=== PATIENT | male | born 1975 | race African-American/Black ===

== ENCOUNTER 2017-02-01 12:02 | Emergency (ER) | payer SELFPAY ==
[2017-02-01 12:28] LABS: Hematocrit 43 % (42-52); Hemoglobin 14.1 g/dl (14.0-18.0); Mean Corpuscular HGB Conc 33 g/dl (31-36); Mean Corpuscular Hemoglobin 27 pg (27-31); Mean Corpuscular Volume 83 fL (80-94); Mean Platelet Volume 7 um3 (7.4-10.4); Red Blood Count 5.22 10^6/ul (4.0-5.4); Red Cell Distribution Width 14 % (10.5-15); White Blood Count 6.2 10^3/ul (3.5-10.8)
[2017-02-01 12:42] LABS: ALT 54 U/L (7-52); AST 52 U/L (13-39); Albumin 3.9 g/dL (3.2-5.2); Alkaline Phosphatase 110 U/L (34-104); Anion Gap 6 mmol/L (2-11); Blood Urea Nitrogen 15 mg/dL (6-24); CO2 Carbon Dioxide 28 mmol/L (22-32); Calcium 9.4 mg/dL (8.6-10.3); Chloride 100 mmol/L (101-111); EGFR Non-African American 70.8 (>60); Globulin 4.7 g/dL (2-4); Glucose 146 mg/dL (70-100); Potassium 3.5 mmol/L (3.5-5.0); Sodium 134 mmol/L (133-145); Total Protein 8.6 g/dL (6.4-8.9)
[2017-02-01 13:17] LABS: Acetaminophen < 15 mcg/mL; Alcohol < 10 mg/dL (<10); Salicylate < 2.50 mg/dL (<30)
[2017-02-01 13:25] LABS: TSH (Thyroid Stimulating Horm) 0.49 mcIU/mL (0.34-5.60)
--- NOTE | 2017-02-01 13:40 | RAD ---
INDICATION: Overdose, evaluate for aspiration. COMPARISON: There are no prior studies available for comparison. TECHNIQUE: A portable view of the chest was obtained. FINDINGS: Cardiac and mediastinal contours appear to be within normal limits. The lungs are clear. No pleural effusion is seen. IMPRESSION: NO EVIDENCE FOR ACUTE DISEASE.
[2017-02-01 15:21] LABS: Urine Bacteria Absent (Absent); Urine Bilirubin Negative (Negative); Urine Glucose Negative (Negative); Urine Nitrite Negative (Negative)
[2017-02-01 15:43] LABS: Benzodiazepine Urine Screen None Detected (None Detect)
[2017-02-01 16:56] VITALS: BP 106/63
--- NOTE | 2017-02-10 14:39 | ED ---
Ernie Bailey Auryana, scribed for Sheldon Pereira MD on 02/01/17 at 1210 . Substance Abuse/Use - HPI Summary HPI Summary: 41 year old male BIBA s/p overdose. Patient reports that he had a "bad reaction to some stuff" - states that he bought heroin from a different supplier. He reports that he's been using for a few years. [employer] Narcan 2 mg intranasal by EMS. He denies any trouble breathing. He denies any SI or suicide attempt. PMHx is significant for IVDA. SHx is significant for heroin, and tobacco use. He currently lives with his . - History Of Current Complaint Stated Complaint: OVERDOSE Time Seen by Provider: 02/01/17 12:07 Hx Obtained From: Patient Onset/Duration of Drug/ETOH Abuse: Years - few years Ingestion History: Type/Name Of Drug Overdose Characteristics: IV Timing Of Abuse: Binge Use Severity Initially: Moderate Severity Currently: Moderate Character: Lethargic Associated Signs And Symptoms: Negative - Allergies/Home Medications Allergies/Adverse Reactions: Allergies Allergy/AdvReac Type Severity Reaction Status Date / Time No Known Allergies Allergy Verified 09/30/15 13:31 Home Medications: Home Medications Unobtainable [Unobtainable] 02/01/17 [History Confirmed 02/01/17] PMH/Surg Hx/FS Hx/Imm Hx Previously Healthy: No - abscess - unsure if IVDA related or not - Family History Known Family History: Positive: Cardiac Disease - Social History Lives: With Family Alcohol Use: None Hx Substance Use: Yes Substance Use Type: Reports: Marijuana Substance Use Comment - Amount & Last Used: multiple times a day Hx Tobacco Use: Yes Smoking Status (MU): Light Every Day Tobacco Smoker Review of Systems Constitutional: Other - heroin OD Negative: Fever, Chills Eyes: Negative Negative: Erythema ENT: Negative Negative: Sore Throat Cardiovascular: Negative Negative: Chest Pain Respiratory: Negative Negative: Shortness Of Breath, Cough Gastrointestinal: Negative Negative: Abdominal Pain, Vomiting, Nausea Genitourinary: Negative Negative: dysuria, hematuria Musculoskeletal: Negative Negative: Myalgia, Edema Skin: Negative Negative: Rash Neurological: Negative, Other - NO DIZZINESS Psychological: Normal All Other Systems Reviewed And Are Negative: Yes Physical Exam - Summary Physical Exam Summary: Constitutional: Well-developed, Well-nourished, Alert. (-) Distressed Skin: Warm, Dry HENT: Normocephalic; Atraumatic Eyes: Conjunctiva normal. Pupils are pin point. Neck: Musculoskeletal ROM normal neck. (-) JVD, (-) Stridor, (-) Tracheal deviation Cardio: Rhythm regular, rate normal, Heart sounds normal; Intact distal pulses; The pedal pulses are 2+ and symmetric. Radial pulses are 2+ and symmetric. (-) Murmur Pulmonary/Chest wall: Effort normal. (-) Respiratory distress, (-) Wheezes, (-) Rales Abd: Soft, (-) Tenderness, (-) Distension, (-) Guarding, (-) Rebound Musculoskeletal: (-) Edema Lymph: (-) Cervical adenopathy Neuro: Alert, Oriented x3 Psych: Mood and affect Normal Triage Information Reviewed: Yes Vital Signs Reviewed: Yes Diagnostics - Laboratory Result Diagrams: 02/01/17 12:12 02/01/17 12:12 Lab Statement: Any lab studies that have been ordered have been reviewed, and results considered in the medical decision making process. - Radiology CXR Xray Interpretation: No Acute Changes Radiology Interpretation Completed By: Radiologist Re-Evaluation - Re-Evaluation First Eval Re-Evaluation Time: 16:29 - PATIENT IS ALERT AND ORIENTED WITH GOOD RESPIRATORY EFFORT. Change: Improved Course/Dx - Course Assessment/Plan: 41 year old male BIBA s/p overdose. Patient reports that he had a "bad reaction to some stuff" - states that he bought heroin from a different supplier. He reports that he's been using for a few years. [employer] Narcan 2 mg intranasal by EMS. He denies any trouble breathing. He denies any SI or suicide attempt. PMHx is significant for IVDA. SHx is significant for heroin, and tobacco use. He currently lives with his . DDx: heroin OD, clinically obvious; aspiration PNA. Blood work shows chloride 100, glucose 146, AST 52, ALT 54, Alk. Phos. 110, Globin 4.7, and Albumin/globin ration 0.8, and TSH 0.49. Blood toxicology is negative for salicylates, acetaminophen, and alcohol. UA is contaminated with 3+ WBC, 3+ leukocyte esterase, and (+) urobilinogen. UA toxicology is (+) for opiates, cocaine, and cannabinoids. CXR is negative. On re-evaluation, patient is alert and oriented with good respiratory effort. Patient is agreeable to plan. He will be given follow up with [facility] and discharged home. - Diagnoses Differential Diagnosis/HQI/PQRI: Positive: Other - heroin OD, clinically obvious ; aspiration PNA Provider Diagnoses: Heroin overdose Discharge - Discharge Plan Condition: Stable Disposition: HOME Patient Education Materials: Narcotic Abuse (ED), Opioid Overdose (ED) Referrals: [facility] [Outside] [facility] [Outside] (PLEASE FOLLOW UP IN 3-5 DAYS.) Additional Instructions: RETURN TO THE EMERGENCY DEPARTMENT FOR CHANGING OR WORSENING SYMPTOMS The documentation as recorded by the Ernie jerez Auryana accurately reflects the service I personally performed and the decisions made by me, Sheldon Pereira MD.
== END 2017-02-01 16:39 | disposition home or self-care (01) ==
LOC: ED 12:02
DX: T40.1X4A Poisoning by heroin, undetermined, initial encounter (principal); Y92.89 Other specified places as the place of occurrence of the external cause
CPT/HCPCS: 36415; 71010; 80053; 80307; 80320; 80329; 81003; 81015; 84443; 85025; 87086; 99282; G0480

== ENCOUNTER 2018-05-03 13:12 | Emergency (ER) | payer SELFPAY ==
[2018-05-03] MEDS ORDERED: NS 0.9% 1000 ML* 2,000 ML IV ONE (13:41)
--- NOTE | 2018-05-03 15:20 | ED ---
Substance Abuse/Use - HPI Summary HPI Summary: Patient is a 42 y/o M BIBA w/ c/o substance abuse [employer]. He states he injected a substance which he thought was heroin but currently believes it not to have been heroin. EMS gave 4 narcan with no effect. In the room, patient is restless , denies any other Sx. He denies chest pain and SOB. On triage, pain is denied, nothing is noted to aggravate/alleviate Sx. Home medications and allergies are reviewed. - History Of Current Complaint Chief Complaint: EDOverdose Stated Complaint: OVERDOSE Time Seen by Provider: 05/03/18 13:26 Hx Obtained From: Patient Onset/Duration of Drug/ETOH Abuse: Hours Ingestion History: Type/Name Of Drug - unsure, thought it was heroin Overdose Characteristics: IV Severity Currently: None - pain denied Character: Other - restless Aggravating Factor(s): Nothing Alleviating Factor(s): Nothing Associated Signs And Symptoms: Other: - restless, no chest pain, no SOB - Allergies/Home Medications Allergies/Adverse Reactions: Allergies Allergy/AdvReac Type Severity Reaction Status Date / Time No Known Allergies Allergy Verified 09/30/15 13:31 PMH/Surg Hx/FS Hx/Imm Hx Sensory History: Denies: Hx Legally Blind, Hx Deafness Opthamlomology History: Denies: Hx Legally Blind EENT History: Denies: Hx Deafness Infectious Disease History: No Infectious Disease History: Denies: Traveled Outside the [place] in Last 30 Days - Family History Known Family History: Positive: Cardiac Disease - Social History Alcohol Use: None Hx Substance Use: Yes Substance Use Type: Reports: Heroin, Marijuana Substance Use Comment - Amount & Last Used: multiple times a day Hx Tobacco Use: Yes Smoking Status (MU): Current Every Day Smoker Review of Systems Positive: Other - substance abuse Negative: Chest Pain Negative: Shortness Of Breath All Other Systems Reviewed And Are Negative: Yes Physical Exam - Summary Physical Exam Summary: Appearance: Well appearing, restless Skin: warm, dry, reflects adequate perfusion Head/face: normal Eyes: EOMI, KENIA ENT: normal Neck: supple, non-tender Respiratory: CTA, breath sounds present Cardiovascular: RRR, pulses symmetrical Abdomen: non-tender, soft Bowel: present Musculoskeletal: normal, strength/ROM intact Neuro: normal, sensory motor intact, A&Ox3 Triage Information Reviewed: Yes Vital Signs On Initial Exam: Initial Vitals Temp Pulse Resp BP Pulse Ox 99.1 F 113 29 0/0 100 05/03/18 13:14 05/03/18 13:14 05/03/18 13:14 05/03/18 13:14 05/03/18 13:14 Vital Signs Reviewed: Yes Diagnostics - Vital Signs Vital Signs Temp Pulse Resp BP Pulse Ox 05/03/18 14:24 96 136/80 95 05/03/18 13:29 23 05/03/18 13:24 148/76 05/03/18 13:23 21 148/76 05/03/18 13:14 99.1 F 113 29 0/0 100 - Laboratory Result Diagrams: 05/03/18 15:14 05/03/18 15:14 Lab Statement: Any lab studies that have been ordered have been reviewed, and results considered in the medical decision making process. - EKG 1354 Cardiac Rate: NL - rate of 68 BPM EKG Rhythm: Sinus Rhythm Summary of EKG Findings: no acute changes Re-Evaluation - Re-Evaluation First Eval Re-Evaluation Time: 15:59 Comment: Patient eloped from ED Course/Dx - Course Course Of Treatment: Patient is a 42 y/o M BIBA w/ c/o substance abuse [employer]. He states he injected a substance which he thought was heroin but currently believes it not to have been heroin. EMS gave 4 narcan with no effect. In the room, patient is restless, denies any other Sx. He denies chest pain and SOB. On physical exam, patient is noted to be restless. EKG showed sinus rhythm with rate of 81 BPM with no acute changes. Bloodwork was obtained. 1559 - Patient has eloped from the ED. Dx of substance abuse. - Diagnoses Differential Diagnosis/HQI/PQRI: Positive: Alcohol Abuse, Drug Abuse Provider Diagnoses: Substance abuse Discharge - Sign-Out/Discharge Documenting (check all that apply): Patient Departure - elopment - Discharge Plan Condition: Good Disposition: ELOPEMENT Referrals: No Primary Care Phys,NOPCP [Primary Care Provider] - - Billing Disposition and Condition Condition: GOOD Disposition: Elopement - Attestation Statements Document Initiated by Scribe: Yes Documenting Scribe: Amandeep Flynn Provider For Whom Scribe is Documenting (Include Credential): Bj Patel MD Scribe Attestation: I, Amandeep Flynn , scribed for Bj Patel MD on 05/03/18 at 1632. Scribe Documentation Reviewed: Yes Provider Attestation: The documentation as recorded by the scribe, Amandeep Flynn accurately reflects the service I personally performed and the decisions made by me, Bj Patel MD
[2018-05-03 15:30] VITALS: BP 117/71
[2018-05-03 15:34] LABS: ABS Basophils 0 10^3/ul (0-0.2); ABS Eosinophils 0.1 10^3/ul (0-0.6); ABS Lymphocytes 1.2 10^3/ul (1.0-4.8); ABS Monocytes 0.5 10^3/ul (0-0.8); ABS Neutrophils 3.4 10^3/ul (1.5-7.7); ABS Nucleated RBC 0 10^3/ul; Eosinophil % 1.6 % (0-6); Hematocrit 42 % (42-52); Lymphocyte % 23.2 % (25-47); Mean Corpuscular HGB Conc 33 g/dl (31-36); Mean Corpuscular Hemoglobin 27 pg (27-31); Mean Corpuscular Volume 81 fL (80-94); Mean Platelet Volume 7.3 um3 (7.4-10.4); Nucleated Red Blood Cells % 0.2; Platelet Count 268 10^3/ul (150-450); Red Blood Count 5.17 10^6/ul (4.00-5.40); Red Cell Distribution Width 13 % (10.5-15); White Blood Count 5.2 10^3/ul (3.5-10.8)
[2018-05-03 16:00] LABS: EGFR Non-African American 104.1 (>60)
== END 2018-05-03 16:12 | disposition home or self-care (01) ==
LOC: ED 13:12
DX: Z53.21 Procedure and treatment not carried out due to patient leaving prior to being seen by health care provider (principal)
CPT/HCPCS: 36415; 80053; 80320; 80329; 82550; 83605; 84484; 85025; 93005; 96360; 99283; G0480

== ENCOUNTER 2019-02-05 11:08 | Emergency (ER) | payer OTHER ==
[2019-02-05] MEDS ORDERED: Ketorolac INJ* 30 MG/ML 1 ML VIAL IV ONE (12:14)
--- NOTE | 2019-02-05 12:16 | ED ---
Complex/Multi-Sys Presentation - HPI Summary HPI Summary: This patient is a 43 year old M presenting to [facility] with a chief complaint of severe neck pain since 10 days ago. Pt states he slept incorrectly with a crooked neck 10 days ago and woke up with the neck pain. He says he thought the pain would go away, but has been worsening since then. The neck pain started on the left side, then radiated to the right side and eventually to the shoulders and arms. Pt denies previous neck pain. The patient rates the pain 10/10 in severity, cramping, radiating down arms a/w paresthesias. Pt reports heroin use daily and is a smoker. Pt denies lower extremity pain, fever, chills, trauma. He does not have any allergies to medications. Pt has hx of hepatitis. Of note patient's girlfriend was seen injecting heroin into his right AC in the waiting room. - History Of Current Complaint Chief Complaint: EDNeckComplaint Hx Obtained From: Patient Onset/Duration: Sudden Onset, Lasting Days - 10, Still Present, Worse Since - 10 days ago Timing: Constant Severity Currently: Severe Severity Initially: Moderate Location: Radiates To: - shoulders and arms Aggravating Factor(s): nothing Alleviating Factor(s): nothing Associated Signs And Symptoms: Positive: Other - positive - severe neck pain that radiates to the shoulders and arms. negative - lower extremity pain, chills , trauma. Negative: Fever - Allergies/Home Medications Allergies/Adverse Reactions: Allergies Allergy/AdvReac Type Severity Reaction Status Date / Time No Known Allergies Allergy Verified 02/05/19 11:14 Home Medications: Home Medications NK [No Home Medications Reported] 02/05/19 [History Confirmed 02/05/19] PMH/Surg Hx/FS Hx/Imm Hx Previously Healthy: No Sensory History: Denies: Hx Legally Blind, Hx Deafness Opthamlomology History: Denies: Hx Legally Blind EENT History: Denies: Hx Deafness, Hx Auditory Problems Psychiatric History: Reports: Hx Substance Abuse - daily heroin use - Surgical History Surgical History: Yes Surgery Procedure, Year, and Place: tonsilectomy Infectious Disease History: No Infectious Disease History: Denies: Traveled Outside the [place] in Last 30 Days - Family History Known Family History: Positive: Cardiac Disease - Social History Alcohol Use: None Hx Substance Use: Yes Substance Use Type: Reports: Heroin - daily, Marijuana Substance Use Comment - Amount & Last Used: multiple times a day Hx Tobacco Use: Yes Smoking Status (MU): Current Every Day Smoker Review of Systems Constitutional: Other - negative - any trauma Negative: Fever, Chills Musculoskeletal: Other - positive - severe neck pain that radiates to the shoulders and arms. negative - lower extremity pain All Other Systems Reviewed And Are Negative: Yes Physical Exam - Summary Physical Exam Summary: Constitutional: Well-developed, Well-nourished, Alert. (-) Distressed Skin: Warm, Dry. Bilateral upper extremity with multiple tract vizcarra HENT: Normocephalic; Atraumatic Eyes: Conjunctiva normal Neck: Right greater than left cervical paraspinal no-midline tenderness. Musculoskeletal ROM normal neck. (-) JVD, (-) Stridor, (-) Nuchal rigidity Cardio: Rhythm regular, rate normal, Heart sounds normal; Intact distal pulses; Radial pulses are 2+ and symmetric. (-) Murmur Pulmonary/Chest wall: Effort normal. 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 SILT. Psych: Mood and affect Normal Triage Information Reviewed: Yes Vital Signs On Initial Exam: Initial Vitals Temp Pulse Resp BP Pulse Ox 96.7 F 81 18 121/92 97 02/05/19 11:10 02/05/19 11:10 02/05/19 11:10 02/05/19 11:10 02/05/19 11:10 Vital Signs Reviewed: Yes Diagnostics - Vital Signs Vital Signs Temp Pulse Resp BP Pulse Ox 02/05/19 11:10 96.7 F 81 18 121/92 97 - Laboratory Result Diagrams: 02/05/19 13:20 02/05/19 13:20 Lab Statement: Any lab studies that have been ordered have been reviewed, and results considered in the medical decision making process. - Radiology CERVICAL MRI Radiology Interpretation Completed By: Radiologist Summary of Radiographic Findings: IMPRESSION: 1. 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 spinal canal stenosis. The cervical spinal cord is not increased in signal. 2. An early prevertebral abscess/phlegmon extends from C2 through at least T2. The. inferior margin is excluded from the [id number]. A chest CT is recommended to exclude. mediastinal inflammation. 3. There is no definite epidural abscess. Scattered ventral and dorsal dural enhancement. is seen throughout most of the cervical spine but is most prominent ventrally from C5 to. T1. 4. The posterior paraspinal muscles are edematous from C3-C4 through at least T1-T2. 5. Varying degrees of multilevel spondylosis as above. THIS REPORT WAS REVIEWED BY DR. VIVAR. Re-Evaluation - Re-Evaluation First Eval Re-Evaluation Time: 16:09 Comment: MRI is concerning for C6 fracture, will apply C-collar and talk with neurosurgery. Second Eval Re-Evaluation Time: 16:22 Comment: No neurological changes, patient reports minor parathesia in both arms. Complex Multi-Symp Course/Dx Course Of Treatment: 43-year-old male with a history of IV drug use, hepatitis C presents with severe right-sided neck pain. - Physical exam uncomfortable male, tenderness to palpation of right paraspinal cervical spine. Minimal midline tenderness. Reporting intermittent paresthesias to bilateral hands. Patient is high risk for infectious process such as osteomyelitis, spinal epidural abscess. Will check basic labs including ESR and CRP and likely an MRI cervical spine - Diagnoses Provider Diagnoses: Discitis, IV drug abuse, Neck pain - Physician Notifications Discussed Care Of Patient With: Jey Delgado Time Discussed With Above Provider: 16:15 Instructed by Provider To: Other - 1615 - Patient's case was discussed with Dr. Delgado was consulted on patient's case. Dr. Delgado states that he is going out of town and as a result the patient will need to be transferred. Transfer process initiated at this time. 1636 - Dr. Leblanc, radiologist, conveys reading of MRI. 1647 - [facility] neurosurgery, Dr. Grady Garcia was consulted on the patient's case. Dr. Garcia declines patient for transfer and recommends [facility]. 1707 - [facility] transfer center was contacted , they will call back with bed assignment. 1721 - [facility] called back, discussed case with Dr. Cha, neurosurgery, patient is accepted by Dr. Cha for transfer - Critical Care Time Critical Care Time: 30-74 min - 30 minutes Discharge - Sign-Out/Discharge Documenting (check all that apply): Patient Departure - transfer - Discharge Plan Condition: Stable Disposition: TRANS HIGHER LVL OF CARE FAC Referrals: No Primary Care Phys,NOPCP [Primary Care Provider] - - Billing Disposition and Condition Condition: STABLE Disposition: Trans Higher Lvl of Care Fac - Attestation Statements Document Initiated by Scribe: Yes Documenting Scribe: Figueroa Flynn Provider For Whom Nithin is Documenting (Include Credential): Dr. Iwona Vivar MD Scribe Attestation: I, Figueroa Mao and Amandeep Flynn, scribed for Dr. Iwona Vivar MD on 02/05 at 1816. Scribe Documentation Reviewed: Yes Provider Attestation: The documentation as recorded by the scribe, Figueroa Flynn accurately reflects the service I personally performed and the decisions made by me, Dr. Iwona Vivar MD Status of Scribe Document: Viewed
[2019-02-05] MEDS ORDERED: Lidocaine PATCH 5%* 1 PATCH TRANSDERM SCH (12:30)
[2019-02-05 13:31] LABS: ABS Monocytes 0.5 10^3/ul (0-0.8); ABS Neutrophils 4.9 10^3/ul (1.5-7.7); Eosinophil % 0.3 %; Hematocrit 42 % (42-52); Hemoglobin 13.9 g/dL (14.0-18.0); Lymphocyte % 15.2 %; Mean Corpuscular HGB Conc 33 g/dL (31-36); Mean Corpuscular Hemoglobin 27 pg (27-31); Mean Corpuscular Volume 82 fL (80-94); Mean Platelet Volume 7.2 fL (7.4-10.4); Platelet Count 305 10^3/uL (150-450); Red Blood Count 5.09 10^6 /uL (4.18-5.48); Red Cell Distribution Width 13 % (10-15); White Blood Count 6.4 10^3/uL (3.5-10.8)
[2019-02-05 13:47] LABS: Albumin 3.5 g/dL (3.2-5.2); Albumin/Globulin Ratio 0.5 (1-3); BUN/Creatinine Ratio 13.9 (8-20); CRP High Sensitivity 23.73 mg/L (<2.00); Calcium 10.1 mg/dL (8.6-10.3); EGFR African American 130.8 (>60); EGFR Non-African American 108.1 (>60); Globulin 6.5 g/dL (2-4); Potassium 4.5 mmol/L (3.5-5.0); Total Bilirubin 1.3 mg/dL (0.2-1.0)
[2019-02-05] MEDS ORDERED: Gadoteridol* (CONTRAST) 279.3 MG/ML 10 ML IV ONE (15:55)
[2019-02-05] MEDS ORDERED: Vancomycin(*) 1,500 MG in NS 0.9% 250 ML* 250 ML IVPB ONE (16:19)
[2019-02-05 18:38] VITALS: BP 126/81
[2019-02-05 20:34] LABS: Erythrocyte Sed Rate 11 mm/Hr (0-14)
[2019-02-05] MEDS ORDERED: Lidocaine Patch REMOVE* 1 NOTE MISC PATCH OFF SCH (21:00)
== END 2019-02-05 18:36 | disposition short-term general hospital (02) ==
LOC: ED 11:08
DX: M46.42 Discitis, unspecified, cervical region (principal); F19.10 Other psychoactive substance abuse, uncomplicated; F17.210 Nicotine dependence, cigarettes, uncomplicated
CPT/HCPCS: 36415; 72156; 80053; 85025; 85652; 86141; 87040; 96365; 96366; 96375; 99285; A9270-GY; A9579; J1885; J3370

== ENCOUNTER 2019-02-13 23:46 | Emergency (ER) | payer OTHER ==
--- NOTE | 2019-02-14 03:29 | ED ---
Complex/Multi-Sys Presentation - HPI Summary HPI Summary: Patient is a 43 y/o M presenting to ED for IV antibiotics and physical therapy. He had recent spinal fusion and evacuation of cervical epidural abscess at [place]. Patient reports that there were plans for him to start physical therapy and to receive antibiotics over the course of the next few weeks at a mcc in [place]. However, patient states that he wanted to do this closer to home. Patient left [place] AMA and presents to [facility] for IV antibiotics, physical therapy, post-op management. He states he left [place] around 02/13/19. Last dose of antibiotics was 02/13/19. Dr. Cha is his neurosurgeon. Patient does not have a PICC line. Male patient service coordinator is present. Pain is denied. Home medications and allergies is reviewed. - History Of Current Complaint Chief Complaint: EDBackInjuryPain Time Seen by Provider: 02/14/19 03:10 Hx Obtained From: Patient Onset/Duration: Still Present Timing: Constant Severity Currently: None Location: Negative Associated Signs And Symptoms: Positive: Other - patient denies pain, present for post-op management - Allergies/Home Medications Allergies/Adverse Reactions: Allergies Allergy/AdvReac Type Severity Reaction Status Date / Time No Known Allergies Allergy Verified 02/14/19 03:17 PMH/Surg Hx/FS Hx/Imm Hx Endocrine/Hematology History: Denies: Hx Diabetes Cardiovascular History: Denies: Hx Pacemaker/ICD History: Denies: Hx Renal Disease Sensory History: Denies: Hx Legally Blind, Hx Deafness, Hx Hearing Aid Opthamlomology History: Denies: Hx Legally Blind Psychiatric History: Reports: Hx Substance Abuse - daily heroin use Denies: Hx Panic Disorder - Surgical History Surgery Procedure, Year, and Place: tonsilectomy Infectious Disease History: Yes Infectious Disease History: Denies: Traveled Outside the [place] in Last 30 Days - Family History Known Family History: Positive: Cardiac Disease - Social History Alcohol Use: None Hx Substance Use: Yes Substance Use Type: Reports: Heroin, Marijuana Substance Use Comment - Amount & Last Used: LAST hEROIN & MAIJUANA 02/07/19 Hx Tobacco Use: Yes Smoking Status (MU): Current Every Day Smoker Review of Systems Constitutional: Other - patient presents for post op management, IV antibiotics , physical therapy Negative: Fever - on vitals, temp 99.7 F Negative: Myalgia All Other Systems Reviewed And Are Negative: Yes Physical Exam - Summary Physical Exam Summary: VITAL SIGNS: Reviewed. GENERAL: Patient is a well-developed and nourished male who is lying comfortable in the stretcher. Patient is not in any acute respiratory distress. HEAD AND FACE: No signs of trauma. No ecchymosis, hematomas or skull depressions. No sinus tenderness. EYES: PERRLA, EOMI x 2, No injected conjunctiva, no nystagmus. EARS: Hearing grossly intact. Ear canals and tympanic membranes are within normal limits. MOUTH: Oropharynx within normal limits. NECK: Supple, trachea is midline, no adenopathy, no JVD, no carotid bruit, no c- spine tenderness, neck with full ROM CHEST: Symmetric, no tenderness at palpation LUNGS: Clear to auscultation bilaterally. No wheezing or crackles. CVS: Regular rate and rhythm, S1 and S2 present, no murmurs or gallops appreciated. ABDOMEN: Soft, non-tender. No signs of distention. No rebound no guarding, and no masses palpated. Bowel sounds are normal. EXTREMITIES: FROM in all major joints, no edema, no cyanosis or clubbing. NEURO: Alert and oriented x 3. No acute neurological deficits. Speech is normal and follows commands. Neuro exam is intact. SKIN: Dry and warm; Patient has jeff at the back of his neck, incision seems to be clean without signs of infection. He has dressing over right upper arm where PICC line used to be. Triage Information Reviewed: Yes Vital Signs On Initial Exam: Initial Vitals Temp Pulse Resp BP Pulse Ox 99.7 F 109 18 160/99 99 02/13/19 23:52 02/13/19 23:52 02/13/19 23:52 02/13/19 23:52 02/13/19 23:52 Vital Signs Reviewed: Yes Diagnostics - Vital Signs Vital Signs Temp Pulse Resp BP Pulse Ox 02/14/19 01:46 98.9 F 94 16 156/95 99 02/13/19 23:52 99.7 F 109 18 160/99 99 - Laboratory Lab Statement: Any lab studies that have been ordered have been reviewed, and results considered in the medical decision making process. Re-Evaluation - Re-Evaluation First Eval Re-Evaluation Time: 03:53 Change: Unchanged Comment: [facility] was contacted at this time. Spoke with Melvin from transfer center at [facility]. Patient's case was discussed, Melvin states that neurosurgery will be contacted and it will be determined how to proceed. Second Eval Re-Evaluation Time: 04:23 Change: Unchanged Comment: Melvin called back and connected Dr. Kent with Dr. Cha. Third Eval Re-Evaluation Time: 04:31 Change: Unchanged Comment: Informed patient of consult with Dr. Cha. Patient is agreeable with transfer back to [facility]. Complex Multi-Symp Course/Dx Course Of Treatment: Patient is a 43 y/o M presenting to ED for IV antibiotics and physical therapy. He had recent spinal fusion and evacuation of cervical epidural abscess at [place]. Patient reports that there were plans for him to start physical therapy and to receive antibiotics over the course of the next few weeks at a mcc in [place]. However, patient states that he wanted to do this closer to home. Patient left [facility] and presents to [facility] for IV antibiotics, physical therapy, post-op management. He states he left [place] around 02/13/19. Last dose of antibiotics was 02/13/19. Dr. Cha is his neurosurgeon. Patient does not have a PICC line. On physical exam , patient is noted to have jeff at the back of the neck, incision seems clean without signs of infection. Neuro exam is intact. Patient has dressing over right upper arm where PICC line was removed. Patient's case was discussed with Dr. Cha to determine if patient can be transferred back to [facility]. Dr. Cha is agreeable with accepting the patient back to his care at [facility]. Patient is agreeable with transfer back to [facility]. - Diagnoses Provider Diagnoses: Abscess in epidural space of cervical spine - Physician Notifications Discussed Care Of Patient With: Manny Cha Time Discussed With Above Provider: 04:23 Instructed by Provider To: Other - Patient's case was discussed with Dr. Cha. Dr. Cha is agreeable with accepting the patient back to his care at [facility]. Discharge - Sign-Out/Discharge Documenting (check all that apply): Patient Departure - transfer to [facility] Patient Received Moderate/Deep Sedation with Procedure: No - Discharge Plan Condition: Stable Disposition: TRANS HIGHER LVL OF CARE FAC Referrals: No Primary Care Phys,NOPCP [Primary Care Provider] - - Billing Disposition and Condition Condition: STABLE Disposition: Trans Higher Lvl of Care Fac - Attestation Statements Document Initiated by Nithin: Yes Documenting Scribe: KIRTI JACINTO Provider For Whom Nithin is Documenting (Include Credential): KOBY KENT MD Scribe Attestation: IKIRTI, scribed for KOBY KENT MD on 02/14/19 at 0457. Scribe Documentation Reviewed: Yes Provider Attestation: The documentation as recorded by the KIRTI jerez accurately reflects the service I personally performed and the decisions made by me, KOBY KENT MD Status of Scribe Document: Viewed
[2019-02-14 06:00] VITALS: BP 136/92
== END 2019-02-14 05:58 | disposition short-term general hospital (02) ==
LOC: ED 23:46
DX: G06.1 Intraspinal abscess and granuloma (principal); F17.210 Nicotine dependence, cigarettes, uncomplicated
CPT/HCPCS: 99284

== ENCOUNTER 2019-02-19 15:05 | Emergency (ER) | payer OTHER ==
[2019-02-19 15:14] VITALS: BP 153/90
--- NOTE | 2019-02-19 15:15 | ED ---
Substance Abuse/Use - HPI Summary HPI Summary: A 43 y/o male brought in by [facility] ambulance presents to [facility] with a chief complaint of a heroin overdose. He claims that he snorted it. He was reportedly unresponsive and was given 8mg Narcan en route. The patient denies any fevers, numbness or weakness. 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 On arrival to ED requesting to leave AMA. - History Of Current Complaint Stated Complaint: OVERDOSE PER EMS Time Seen by Provider: 02/19/19 15:06 Hx Obtained From: Patient, EMS Onset/Duration of Drug/ETOH Abuse: Minutes Overdose Characteristics: Other - snort Timing Of Abuse: Binge Use Severity Initially: Mild Severity Currently: Mild Aggravating Factor(s): Nothing Alleviating Factor(s): Nothing Associated Signs And Symptoms: Other: - negative: numbness, weakness - Allergies/Home Medications Allergies/Adverse Reactions: Allergies Allergy/AdvReac Type Severity Reaction Status Date / Time No Known Allergies Allergy Verified 02/14/19 03:17 PMH/Surg Hx/FS Hx/Imm Hx Endocrine/Hematology History: Denies: Hx Diabetes Cardiovascular History: Denies: Hx Pacemaker/ICD History: Denies: Hx Renal Disease Sensory History: Denies: Hx Legally Blind, Hx Deafness, Hx Hearing Aid Opthamlomology History: Denies: Hx Legally Blind Psychiatric History: Reports: Hx Substance Abuse - daily heroin use Denies: Hx Panic Disorder - Surgical History Surgery Procedure, Year, and Place: tonsilectomy - Family History Known Family History: Positive: Cardiac Disease - Social History Alcohol Use: None Hx Substance Use: Yes Substance Use Type: Reports: Heroin, Marijuana Substance Use Comment - Amount & Last Used: LAST hEROIN & MAIJUANA 02/07/19 Hx Tobacco Use: Yes Smoking Status (MU): Current Every Day Smoker Review of Systems Negative: Fever Negative: Weakness, Numbness Psychological: Other - positive: opiate overdose All Other Systems Reviewed And Are Negative: Yes Physical Exam - Summary Physical Exam Summary: General: Well appearing, no distress HEENT: PERRL. 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 On arrival to ED, patient requesting leave AMA, patient is alert and oriented 3. Patient is AAOx4 with clear sensorium, no signs of intoxication, no SI/HI, a normal gait and normal speech pattern and capacity to refuse care. I explained to the patient the risks of leaving AMA to include , respiratory arrest, disability, and loss of function. I had an extensive conversation with the patient regarding return precautions and encouraged them to return sooner for any worsening condition, new symptoms or ANY other concerns. - Diagnoses Provider Diagnoses: Opiate overdose, Left against medical advice Discharge - Sign-Out/Discharge Documenting (check all that apply): Patient Departure - AMA Patient Received Moderate/Deep Sedation with Procedure: No - Discharge Plan Condition: Fair Disposition: AGAINST MEDICAL ADVICE Patient Education Materials: Opioid Use Disorder (ED) Referrals: No Primary Care Phys,NOPCP [Primary Care Provider] - Additional Instructions: You were seen in the emergency department after opiate overdose. You do get Narcan to save your life and you may need a second dose. You're leaving AGAINST MEDICAL ADVICE however if he reconsiders please come back to emergency department. - Billing Disposition and Condition Condition: FAIR Disposition: Against Medical Advice - Attestation Statements Document Initiated by Nithin: Yes Documenting Scribe: Tc Valentine Provider For Whom Nithin is Documenting (Include Credential): Iwona Vivar MD Scribe Attestation: I, Tc Valentine, scribed for Iwona Vivar MD on 02/19/19 at 1554. Scribe Documentation Reviewed: Yes Provider Attestation: The documentation as recorded by the Tc jerez accurately reflects the service I personally performed and the decisions made by me, Iwona Vivar MD Status of Scribe Document: Viewed
== END 2019-02-19 15:23 | disposition left against medical advice (07) ==
LOC: ED 15:05
DX: T40.1X1A Poisoning by heroin, accidental (unintentional), initial encounter (principal); Y92.9 Unspecified place or not applicable; F17.210 Nicotine dependence, cigarettes, uncomplicated; Z53.21 Procedure and treatment not carried out due to patient leaving prior to being seen by health care provider
CPT/HCPCS: 99282

== ENCOUNTER 2019-08-21 13:48 | Emergency (ER) | payer MEDICAID ==
[2019-08-21] MEDS ORDERED: Vancomycin(*) 1,500 MG in NS 0.9% 250 ML* 250 ML IVPB ONE (13:59)
[2019-08-21] MEDS ORDERED: HYDROmorphone INJ1* 1 MG/ML SYRINGE IV SLOW PU ONE (14:00)
--- NOTE | 2019-08-21 14:42 | ED ---
Neck Pain - HPI Summary HPI Summary: Patient is a 44 y/o M presenting to the ED for a chief complaint of neck pain for the last week. Patient is present with his case specialist. Per his case specialist, patient had a neck CT that showed a neck infection and patient was told by his PCP to be seen at [facility]. Patient rates the neck pain as a 4/10 in severity. Patient denies fever. No aggravating or alleviating factors are reported. PMHx is significant for osteomyelitis, cervical epidural abscess, and substance abuse, but any other history is denied. PSHx is significant for tonsillectomy. Patient is a daily heroin user, and he also admits marijuana and tobacco use. - History of Current Complaint Chief Complaint: EDNeckComplaint Stated Complaint: INFECTION Time Seen by Provider: 08/21/19 13:58 Hx Obtained From: Patient, Family/Business Attorney - web operations manager Onset/Duration Of Injury/Symptoms: Days Mechanism Of Injury: No Known Trauma Timing: Constant Onset/Duration: Sudden Onset, Started days ago, Still Present Severity Initially: Moderate Severity Currently: Moderate Pain Intensity: 4 Pain Scale Used: 0-10 Numeric Aggravating Factors: Nothing Alleviating Factors: Nothing Associated Signs & Symptoms: Negative: Fever - Allergies/Home Medications Allergies/Adverse Reactions: Allergies Allergy/AdvReac Type Severity Reaction Status Date / Time No Known Allergies Allergy Verified 08/21/19 13:57 Home Medications: Home Medications NK [No Home Medications Reported] 08/21/19 [History Confirmed 08/21/19] PMH/Surg Hx/FS Hx/Imm Hx Previously Healthy: Yes Endocrine/Hematology History: Denies: Hx Diabetes Cardiovascular History: Denies: Hx Pacemaker/ICD History: Denies: Hx Renal Disease Musculoskeletal History: Reports: Other Musculoskeletal History - Osteomyelitis , cervical epidural abscess Sensory History: Denies: Hx Legally Blind, Hx Deafness, Hx Hearing Aid Opthamlomology History: Denies: Hx Legally Blind EENT History: Denies: Hx Deafness Psychiatric History: Reports: Hx Substance Abuse - daily heroin use Denies: Hx Panic Disorder - Surgical History Surgical History: Yes Surgery Procedure, Year, and Place: tonsilectomy Infectious Disease History: Yes Infectious Disease History: Reports: Hx Hepatitis - Hepatitis C Denies: Traveled Outside the [place] in Last 30 Days - Family History Known Family History: Positive: Cardiac Disease - Social History Occupation: Works From/At Home Alcohol Use: None Hx Substance Use: Yes Substance Use Type: Reports: Heroin, Marijuana Substance Use Comment - Amount & Last Used: LAST hEROIN & SHASHANK 02/07/19 Hx Tobacco Use: Yes Smoking Status (MU): Current Every Day Smoker Review of Systems Negative: Fever Positive: Myalgia - Neck All Other Systems Reviewed And Are Negative: Yes Physical Exam - Summary Physical Exam Summary: Appearance: The patient is well-nourished in no acute distress and in no acute pain. Skin: The skin is warm and dry, and skin color reflects adequate perfusion. HEENT: The head is normocephalic and atraumatic. The pupils are equal and reactive. The conjunctivae are clear and without drainage. Nares are patent and without drainage. Mouth reveals moist mucous membranes, and the throat is without erythema and exudate. The external ears are intact. The ear canals are patent and without drainage. The tympanic membranes are intact. Neck: The neck is supple with full range of motion and non-tender. There are no carotid bruits. There is no neck vein distension. Kyphosis in the cervical spine , tenderness along the midline. Respiratory: Chest is non-tender. Lungs are clear to auscultation and breath sounds are symmetrical and equal. Cardiovascular: Heart is regular rate and rhythm. There is no murmur or rub auscultated. There is no peripheral edema and pulses are symmetrical and equal. Abdomen: The abdomen is soft and non-tender. There are normal bowel sounds heard in all four quadrants and there is no organomegaly palpated. Musculoskeletal: There is no back tenderness noted. Extremities are non-tender with full range of motion. There is good capillary refill. There is no peripheral edema or calf tenderness elicited. Neurological: Patient is alert and oriented to person, place and time. The patient has symmetrical motor strength in all four extremities. Cranial nerves are grossly intact. Deep tendon reflexes are symmetrical and equal in all four extremities. Neurologically intact and ambulatory. Psychiatric: The patient has an appropriate affect and does not exhibit any anxiety or depression. Triage Information Reviewed: Yes Vital Signs On Initial Exam: Initial Vitals Temp Pulse Resp BP Pulse Ox 100 F 109 20 134/96 95 08/21/19 13:51 08/21/19 13:51 08/21/19 13:51 08/21/19 13:51 08/21/19 13:51 Vital Signs Reviewed: Yes Procedures - Sedation Patient Received Moderate/Deep Sedation with Procedure: No Diagnostics - Vital Signs Vital Signs Temp Pulse Resp BP Pulse Ox 08/21/19 13:51 100 F 109 20 134/96 95 - Laboratory Result Diagrams: 08/21/19 13:59 08/21/19 15:15 Lab Statement: Any lab studies that have been ordered have been reviewed, and results considered in the medical decision making process. Re-Evaluation - Re-Evaluation First Eval Re-Evaluation Time: 14:44 Change: Unchanged Comment: At 14:44, patients nurse states that IV access cannot be obtained, even with the aid of an ultrasound. Patient is requesting IV access via a central line. Neck Course/Dx - Course Course Of Treatment: Cesario has had a recurrence most likely of his epidural abscess. He certainly has osteomyelitis based on his CT scan and some of his hardware has been displaced. On arrival an IV was placed and blood was obtained. Lab was unable to draw blood cultures but prior to my notification antibiotics were initiated. He was given vancomycin and Dilaudid for his pain. He refused any further pain medication during his stay. Dr. Beasley reviewed the CT scan from earlier in the day and felt that his neck was most likely unstable recommended a [place] collar. Dr. Yarbrough is going out of town and recommended transfer back to [place] where he had his previous surgery. I contacted [facility] who also refused transfer the patient recommended transfer back to [place]. Dr. Amor of infectious diseases, Dr. Browning of neurosurgery and Dr. Lopez of the ED accepted transfer of the patient. - Diagnoses Provider Diagnoses: Osteomyelitis, Epidural abscess - Physician Notifications Discussed Care Of Patient With: Jey Delgado - At 14:36, Dr. Jey Delgado recommends transfer to another facility. Patient requires transfer to another facility as there are no appropriate beds at [facility] and patient would be better managed at another facility. At 14:56, [facility] declines to accept the patient as a transfer at their facility. At 15:01, I discussed with Dr. Jey Delgado who declines to admit the patient to [facility]. At 15:04 , Dr. Adalgisa Amor at [facility] agrees to accept the patient as a transfer to [facility] for a diagnosis of osteomyelitis and epidural abscess. Time Discussed With Above Provider: 14:36 Instructed by Provider To: Transfer Reason For Transfer: Patient not appropriate for [facility]., Specialist unable to manage this patient. - Critical Care Time Critical Care Time: 30-74 min Discharge ED - Sign-Out/Discharge Documenting (check all that apply): Patient Departure - Transfer - Discharge Plan Condition: Stable Disposition: TRANS HIGHER LVL OF CARE FAC [facility]errals: [facility] [Outside] - Billing Disposition and Condition Condition: STABLE Disposition: Trans Higher Lvl of Care Fac - Attestation Statements Document Initiated by Scribe: Yes Documenting Scribe: Divina Addison Provider For Whom Scribe is Documenting (Include Credential): Kb Kaminski MD Scribe Attestation: Divina Bailey scribed for Kb Kaminski MD on 08/21/19 at 1710. Scribe Documentation Reviewed: Yes Provider Attestation: The documentation as recorded by the Divina jerez accurately reflects the service I personally performed and the decisions made by , Kb Kaminski MD Status of Scribe Document: Viewed
[2019-08-21 15:38] LABS: ABS Eosinophils 0.1 10^3/ul (0-0.6); ABS Lymphocytes 1.4 10^3/ul (1.0-4.8); ABS Monocytes 0.8 10^3/ul (0-0.8); Eosinophil % 1.8 %; Hematocrit 36 % (42-52); Hemoglobin 12.3 g/dL (14.0-18.0); Mean Corpuscular HGB Conc 34 g/dL (31-36); Mean Corpuscular Hemoglobin 27 pg (27-31); Mean Corpuscular Volume 80 fL (80-94); Mean Platelet Volume 7.3 fL (7.4-10.4); Platelet Count 321 10^3/uL (150-450); Red Blood Count 4.55 10^6 /uL (4.18-5.48); Red Cell Distribution Width 14 % (10-15); White Blood Count 6.3 10^3/uL (3.5-10.8)
[2019-08-21 16:08] LABS: Albumin 3.4 g/dL (3.2-5.2); Albumin/Globulin Ratio 0.4 (1-3); BUN/Creatinine Ratio 15.3 (8-20); C Reactive Protein 21.99 mg/L (<8.01); Calcium 9.7 mg/dL (8.6-10.3); EGFR African American 119.6 (>60); EGFR Non-African American 98.8 (>60); Globulin 7.9 g/dL (2-4); Total Bilirubin 0.7 mg/dL (0.2-1.0); Total Protein 11.3 g/dL (6.4-8.9)
[2019-08-21 17:29] VITALS: BP 125/81
== END 2019-08-21 18:22 | disposition short-term general hospital (02) ==
LOC: ED 13:48
DX: M86.9 Osteomyelitis, unspecified (principal); G06.2 Extradural and subdural abscess, unspecified; M54.2 Cervicalgia; F11.20 Opioid dependence, uncomplicated; F17.210 Nicotine dependence, cigarettes, uncomplicated
CPT/HCPCS: 36415; 80053; 85025; 86140; 96365; 96375; 99284; J1170; J3370

== ENCOUNTER 2019-09-26 16:28 | Emergency (ER) | payer MEDICAID, OTHER ==
--- NOTE | 2019-09-26 16:33 | ED ---
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 EMS gave Narcan 4 mg with improvement in symptoms. Patient reports fever. He denies cough. Patient had halo placed 2 weeks ago at [facility]. Medications reviewed. Allergies noted. - History Of Current Complaint Stated Complaint: OVERDOSE PER EMS Hx Obtained From: Patient Overdose Characteristics: IV Aggravating Factor(s): Nothing Alleviating Factor(s): Medication - Narcan Associated Signs And Symptoms: Negative - cough, Other: - fever - Allergies/Home Medications Allergies/Adverse Reactions: Allergies Allergy/AdvReac Type Severity Reaction Status Date / Time No Known Allergies Allergy Verified 08/21/19 13:57 Home Medications: Home Medications NK [No Home Medications Reported] 08/21/19 [History Confirmed 09/26/19] PMH/Surg Hx/FS Hx/Imm Hx Endocrine/Hematology History: Denies: Hx Diabetes Musculoskeletal History: Reports: Other Musculoskeletal History - Osteomyelitis , cervical epidural abscess Psychiatric History: Reports: Hx Substance Abuse - daily heroin use - Surgical History Surgery Procedure, Year, and Place: tonsilectomy Infectious Disease History: Reports: Hx Hepatitis - Hepatitis C - Family History Known Family History: Positive: Cardiac Disease - Social History Alcohol Use: None Hx Substance Use: Yes Substance Use Type: Reports: Heroin, Marijuana Hx Tobacco Use: Yes Smoking Status (MU): Current Every Day Smoker Review of Systems Positive: Fever Negative: Cough Positive: Other - heroin overdose All Other Systems Reviewed And Are Negative: Yes Physical Exam - Summary Physical Exam Summary: Constitutional: Well-developed, Well-nourished, Alert. (-) Distressed Skin: Warm, Dry; He has a cervical fusion site, exposed suture and drainage, an infected right halo site of the right scalp; Track vizcarra to the upper extremities HENT: Normocephalic; Atraumatic Eyes: Conjunctiva normal; pin point pupils Neck: Musculoskeletal ROM normal neck. (-) JVD, (-) Stridor, (-) Nuchal rigidity Cardio: Rhythm regular, tachycardic, Heart sounds normal; Intact distal pulses; Radial pulses are 2+ and symmetric. (-) Murmur Pulmonary/Chest wall: Effort normal. (-) Respiratory distress, (-) Wheezes, (-) Rales Abd: Soft, (-) tenderness, (-) Distension, (-) Guarding, (-) Rebound Musculoskeletal: (-) Edema Lymph: (-) Cervical adenopathy Neuro: Alert, Oriented x3 Psych: Mood and affect Normal Triage Information Reviewed: Yes Vital Signs Reviewed: Yes Procedures - Procedure Summary Procedure Summary: US IV Ultrasound Guided Peripheral IV Procedure Note Indication: Unable to obtain adequate IV access Skin Prep:Chlorhexidine Sterile Prep (allowed to dry for thirty seconds) Sterility: Gloves Insertion: Appropriate time out was taken. Ultrasound guidance was utilized for vein selection, to document selected vessel patency and real time ultrasound visualization of vascular needle entry into venous lumen. Insertion Site R AC vein Type of catheter: 20 gauge catheter Blood return:yes Saline lock: yes Post Procedure: Estimated blood loss: minimal - Sedation Patient Received Moderate/Deep Sedation with Procedure: No Diagnostics - Laboratory Result Diagrams: 09/26/19 17:13 09/26/19 17:13 Lab Statement: Any lab studies that have been ordered have been reviewed, and results considered in the medical decision making process. - Radiology CXR Radiology Interpretation Completed By: ED Physician - NO ACUTE PROCESS. pending official report. - EKG 1707 Cardiac Rate: Tachycardia - 144 BPM EKG Rhythm: Sinus Tachycardia Summary of EKG Findings: ED physician has reviewed and interpreted this EKG. Re-Evaluation - Re-Evaluation First Eval Re-Evaluation Time: 17:46 - Dr. Lujan, orthopedic spine surgeron, recommends transfer to [facility] ER Second Eval Re-Evaluation Time: 18:35 - Transfer Center will call back with hospitalist at [facility] Third Eval Re-Evaluation Time: 18:47 - Dr. Mota, hospitalist at [facility], did not want to accept the patient directly, and requests that he go to the ER. Dr. Ward will accept the patient. Course/Dx - Course Course Of Treatment: 44 y/o male w hx IVDU and cervical spine osteomyelitis p/w drug OD. - sp narcan. Tachycardic to 150's, febrile. Concern for sepsis 2/2 osteo/post operative infection. - given 30 cc/kg IVF, vanc/zosyn initially. BC drawn. CXR normal. - d/w orthopedic spine at [facility]. Agree w transfer for possible operative condition. D/w medicine who wants patient transferred to ED. - transfer to [facility] ED. - Diagnoses Provider Diagnoses: Sepsis, Osteomyelitis - Critical Care Time Critical Care Time: 30-74 min - Upon my evaluation, this patient had a high probability of imminent or life-threatening deterioration due to sepsis which required my direct attention, intervention, and personal management. I have personally provided 35 minutes of critical care time exclusive of time spent on separately billable procedures. Time includes review of laboratory data, radiology results, discussion with consultants, and monitoring for potential decompensation. Interventions were performed as documented above. Discharge ED - Sign-Out/Discharge Documenting (check all that apply): Patient Departure - Discharge Plan Condition: Stable Disposition: TRANS HIGHER LVL OF CARE FAC Referrals: No Primary Care Phys,NOPCP [Primary Care Provider] - - Billing Disposition and Condition Condition: STABLE Disposition: Trans Higher Lvl of Care Fac - Attestation Statements Document Initiated by Scribe: Yes Documenting Scribe: Mary Buckner Provider For Whom Scribe is Documenting (Include Credential): Iwona Vivar MD Scribe Attestation: I, Mary Buckner, scribed for Iwona Vivar MD on 09/26/19 at 1918. Scribe Documentation Reviewed: Yes Provider Attestation: The documentation as recorded by the Mary jerez accurately reflects the service I personally performed and the decisions made by me, Iwona Vivar MD Status of Scribe Document: Viewed
[2019-09-26] MEDS ORDERED: Piperacillin/Tazobac ADVAN(*) 3.375 GM in NS 0.9% 100 ML* 100 ML IVPB ONE (16:49)
[2019-09-26] MEDS ORDERED: NS 0.9% 1000 ML** 1,000 ML IV.FLUID IV ONE (16:49)
[2019-09-26] MEDS ORDERED: Vancomycin(*) 2,000 MG in NS 0.9% 500 ML* 500 ML IVPB ONE (17:00)
[2019-09-26] MEDS ORDERED: Vancomycin(*) 1,000 MG VIAL IVPB SCH (17:00)
--- OUTSIDE RECORDS SUMMARY | 2019-09-26 17:08 | XMS REPORT | Summary of Care ---
:1975 Author Organization [facility] Address [address] [place] [address] Care Team Providers Name Role Phone Marcella Andrade MD Primary Care Provider Reason for Visit Reason Comments Back Pain Auth/Cert Status Reason Specialty Diagnoses / Procedures Referred By Contact Referred To Contact Diagnoses Loosening of hardware in spine osteomyelitis of cervical spine Loosening of hardware in spine Encounter Details Date Type Department Care Team Description 08/21/2019 - [address] ORTHOPEDICS Eplidio Mohr MD [address] [place] [address] [phone] Loosening of hardware in spine (Primary Dx); 09/09/2019 Encounter INPATIENT Moni Chaney MD [address] [place] [address] [phone] Diagnosis unknown; [address] [facility] Cinthia Gardner MD [address] [facility] [address] [place] [address] [phone] IVDU (intravenous drug user); [place], [place] Radha Cha MD [address] [place] [address] [phone] History of hepatitis C; [id number] Osteomyelitis of vertebra of cervical region Allergies No Known Allergiesdocumented as of this encounter (statuses as of 09/09/2019) Medications Medication Sig Dispensed Refills Start Date End Date Status carBAMazepine Take 1 tablet by 60 tablet 02/16/2019 02/15/2020 Active (TEGRETOL) 200 MG mouth Two Times tablet Daily gabapentin (NEURONTIN) Take 6 mLs by 540 mL 02/16/2019 02/15/2020 Active 250 MG/5ML solution mouth Three times daily pantoprazole Take 1 tablet by 30 tablet 11 02/17/2019 02/16/2020 Active (PROTONIX) 40 MG mouth daily tablet Sennosides (SENNA) 8.6 Take 2 tablets 120 each 0 02/16/2019 Active MG TABS tablet by mouth nightly as needed (no BM x 2 day) documented as of this encounter (statuses as of 09/09/2019) Active Problems Patient Care Coordination Note Cordelia Banks, Labor/Excavator phone: [phone] Please offer the patient peer support upon next ED visit. Also perform toxicology screen as well. Problem Noted Date Loosening of hardware in spine 08/22/2019 Chronic hepatitis C without hepatic coma 08/22/2019 Hardware complicating wound infection 08/21/2019 Overview: Added automatically from request for surgery [id number] IVDU (intravenous drug user) 02/10/2019 Opioid use disorder, severe, dependence 02/10/2019 Tobacco use disorder 02/10/2019 Spinal epidural abscess 02/05/2019 Hypokalemia documented as of this encounter (statuses as of 09/09/2019) Social History Tobacco Use Types Packs/Day Years Used Date Current Every Day Smoker Smokeless Tobacco: Never Used Alcohol Use Drinks/Week oz/Week Comments Not Currently Sex Assigned at Date Recorded Not on file Job Start Date Occupation Industry Not on file Not on file Not on file Travel History Travel Start Travel End No recent travel history available. documented as of this encounter Last Filed Vital Signs Vital Sign Reading Time Taken Comments Blood Pressure 159/105 09/09/2019 7:05 AM EST Pulse 102 09/09/2019 7:05 AM EST Temperature 37.3 09/09/2019 7:05 AM EST C (99.1 F) Respiratory Rate 18 09/09/2019 7:05 AM EST Oxygen Saturation 96% 09/09/2019 7:05 AM EST Inhaled Oxygen Concentration - - Weight 113.4 kg (250 lb) 09/06/2019 6:00 AM EST Height 188 cm (6' 2") 09/06/2019 4:00 AM EST Body Mass Index 32.1 09/06/2019 4:00 AM EST documented in this encounter Discharge Instructions Discharge Instr - Other Lizbeth Lunsford RN - 09/09/2019 1:59 PM ESTPICC DISCHARGE INSTRUCTIONS A Peripherally Inserted Central Catheter called a PICC line was removed on at 2 pm. Discharge Instructions: Leave the occlusive dressing/bandage on for 24 hours. Keep the area clean and dry. Do not get the site wet. Remove the dressing after 24 hours. Leave open to air if healed. If the site is not healed cover with gauze and tape. Check dressing daily. Contact your physician or healthcare provider if you have any of the following at the catheter site: Redness Swelling Tenderness or pain Drainage or discharge Warmth Bleeding Call if you have fever or chills documented in this encounter Progress Notes Hilda Renner, PT - 09/09/2019 2:20 PM ESTPhysical Therapy Acute Care Missed Visit Note Location: bedside Attempted to visit patient for therapy, but was unable for the following reasons: Patient discharged. Attempted twice in the morning, but medical team in with patients both times. Reattempted at 2:20, but pt had left. (Therapist may be reached on Acupera) This document is submitted as a late entry. SESSION: Duration: 0 CHARGES: Total treatment minutes: Minutes Electronically Signed by: Hilda Renner PT, DPT, 09/09/2019 3:13:11 PM Janis Sequeira RN - 09/09/2019 2:03 PM ESTCM went into the patient's room with Arron Hutchinson (JOE torres), Dr. Cha, and bedside RN to speak with the patient about leaving AMA. Patient is trying to over talk the attending when is is explaining the risks of leaving AMA, and patient is not listening. Psych consult ordered to assess for capacity. CM received a call from Brook at [facility] ([phone]) and asked for OR notes, labs, MAR, PT/OT notes,and progress notes to be faxed to her attention at [phone]. All info faxed per request. 1400-After rounds, patient requesting to speak with CM. CM found flooring sales manager and security outsidethe patient's room. Patient was found to have capacity, and will be leaving AMA. PICC line has been removed. CM did not go into the room. CM called and VM left with Brook at [facility] to update her thatthe patient is leaving AMA from our facility. Patient will need to arrange for his own transportation home as Medicaid will not transport for an AMA discharge Kim Ramos RN - 09/09/2019 1:58 PM Anand been working with this patient all day as he has had multiple behavioral issues. Patient was determined by one physician to lack capacity in regards to PICC line. I spoke with Dr. Cha and he arranged for a formal capacity screening by psych. It was determined that the patient has the capacityto make medical decisions. The patient requested to leave AMA. A DC order for the PICC line was placed. PICC line was removed and patient left AMA. Team notified. KIM CROFT 2:02 PM Lizbeth Fierro RN - 09/09/2019 1:57 PM ESTPICC LINE REMOVAL PICC discontinued per M.D. order with PICC intact. Reason for removal: Pt leaving AMA (hx of IVDA). Altagracia Ghosh RN - 09/09/2019 1:47 PM ESTPt continues to try to leave AMA. Arron Croft found pt at elevators on 7A. Lang escorted ptback to his room and promptly asked another staff member to call security. This nurse came to pts bedside to try to explain why it is not sharpe to leave at this time. The pt insisted on leaving still and said he wanted to leave now. This nurse contacted MD Suad for an order to remove the PICC line and Lang contacted the PICC team to have the PICC removed from the pt. PICC line was removed and pt was escorted off the floor. Mother of the pt, Tonja, was notified. Altagracia Ghosh RN - 09/09/2019 10:36 AM ESTPt refusing morning medications (aside from tylenol) and an assessment at this time. Pedro Borjas MD made aware. Candie Munroe - 09/09/2019 9:15 AM ESTVAT got a call from a fellow co worker that team wants PICC replaced due to possible contamination from possibly accessing PICC for conventional use. Spoke to Haim Morales regarding replacement. Recommendation for replacement of a line with potential contamination is to remove line. Place PIV. Wait a24 hour holiday as to replace current line as to not seed the new PICC line with a contaminant. Candie Munroe - 09/2019 9:03 AM HAMILTONT- Pt seen after returning from leaving hospital with PICC line. There was an apparent family concern of recreational use prior to returning to hospital. Previous VAT nurse changed dressing, claves and flushed line. Positive blood return noted, line seemed to be intact. ok to use PICC. Please monitor for signs of infection. Gonzalo White OT - 09/09/2019 8:40 AM ESTOccupational Therapy Acute Care Missed Visit Note Location: Bedside. Attempted to visit patient for therapy, but was unable for the following reasons: pt currntly refusing therapy, pt already fully dressed in own clothing. Therapist inquired about this and nurse corporate travel manager informed theraist pt currently wants to leave NEPHI. Team coming to talk with pt. Therapsit will re-attempt this afternoon if pt still here. (Therapist may be reached on Vocera) SESSION: Duration: 0 CHARGES: - ORDER - Occupational Therapy Treatment 1 Units Total treatment minutes: 0.00 Minutes Electronically Signed by: SE Osborn/Rafiq, 09/09/2019 8:42:17 AM Natalia Michael RN - 09/09/2019 7:30 AM ESTPt refused assessment and to get out of street clothes and into gown. This rfp writer attempted multipletimes over night. Included in report to oncoming RN. Natalia Michael RN - 09/09/2019 5: 55 AM ESTPer MD Noonan, attempted to reattach wound vac to suction with sealing up leak with Tegaderm. Wound vac would not hold suction. MD Noonan made aware and told this rfp writer to unhook from suction for they will most likely take down the wound vac later today. Will continue to monitor and maintain safety precautions. Charley Colon RN - 09/09/2019 4:22 AM ESTVAT: To floor to assess RUE PICC. Patient returned to floor after leaving AMA with PICC. Dressing loose, same changed per protocol. Needless connectors changed, brisk blood return noted both. Same flushed. Bedside nurse advised not to use PICC at this time as I am unsure how to proceed with this. Willattempt to obtain information as soon as possible. Natalia Michael RN - 09/08 3:20 AM ESTPt arrived back to unit around 0145 with mother and sister. Pt threatened to leave once again and security escorted him to his room. Pt refused to remove coat to obtain vitals. MD Noonan was made aware that patient was threatening to leave again and was at bedside in a matter of minutes. MD Noonan was able to convince the patient to stay until morning to allow time for case management/social work to complete his transfer to his choice nursing facility. PICC team was paged to assess considering patient left the hospital and might have used his PICC for IVDU. Per Charley Ruiz of the PICC team, it should not be used at the current moment and she is looking into what should be donein these circumstances. MD Noonan will be made aware. Will continue to monitor and maintain safety precautions. 3: 35 AM Mathieu Fall, - 09/09/2019 3:02 AM EST Initial Capacity Evaluation Is the patient alert and oriented to person, place, situation, and date? Yes If applicable, what is the patient's medical diagnosis for which they are refusing treatment or asking to leave AMA? Recurrent Cervical osteomyelitis s/p hardware failure 2/2 to antibiotic noncompliance with revision surgery. Needing antibioitic and nursing care given hx of IVDU The patient already left AMA yesterday evening and then returned suddenly overnight What is/are the treatments that are being recommended by the primary team? IV antibitoics What is/are the alternative treatments that could be considered? none What are the risks/benefits of the recommended treatments and the alternative treatments? Needs to complete course of IV antibitoics recommended by infectious disesae What are the risks of refusing treatment or leaving AMA? Paralysis. Infection. Wound healing. Does the patient appear to understand the risks/benefits of refusing treatment or leaving AMA and ifso, what reason does the patient give for refusing treatment or leaving AMA? Not clearly.He goes back and forth about understanding the needs to stay inpatient requiring IV antibitoics given his history of IVD Does the primary team think that the patient has capacity for the specific medical question and why or why not? Not at this time. He left AMA and then returned to the hospital accompanied by family. He may be impaired, as family states that they believe he was using IV drugs. The psychiatry consult team requests that a member of the primary team be present to help explain the risks/benefits and medical necessity of treatment recommended for the patient. Associated attestation - Radha Cha MD - 09/09/2019 10:33 AM JAMMIE do not believe that this patient has capacity make decisions that are in his best interest. He is a significant danger to himself.Mathieu Noonan, - 09/08 2:52 AM [place] [facility] [address] PATIENT NAME: Cesario Valdivia, DATE OF : 1975 . Subjective Date of Encounter: 09/09/2019 Length of stay: 18 days Interval History: patient arrived back from outside hospital grounds onto unit accompanied by motherand sister. Noted to have possibly been using IVD. Unclear if used PICC line. Current Hospital Problem List: Principal Problem: Loosening of hardware in spine Active Problems: IVDU (intravenous drug user) Opioid use disorder, severe, dependence Tobacco use disorder Chronic hepatitis C without hepatic coma Hardware complicating wound infection Objective Vitals Temp: [36.5 C-37.1 C] 36.8 C Pulse: [80-112] 112 Resp: [17-18] 17 BP: (145-155)/(92-98) 155/98 SpO2: [95 %-98 %] 98 % O2 Therapy: Room air Intake/Output Last 3 Completed Shifts I/O last 3 completed shifts: In: 1252.2 [P.O.:840; IV Piggyback:412.2] Out: 142 [Urine:2; Drains:140] Physical Exam Awake, alert, oriented x3 Deltoid Biceps Triceps WE WF IO Right 5 5 5 5 5 5 Left 5 5 5 5 5 5 Sensation intact to light touch throughout all cervical dermatomes IP Quad Ham TA Gastroc EHL Right 5 5 5 5 5 5 Left 5 5 5 5 5 5 Sensation intact throughout all lumbar dermatomes Halo in place, pin sites C/D/I prevena in place Anterior steri strips in place Output by Drain (mL) 09/07/19 0701 - 09/07/19 1500 09/07/19 150 - 09/07/19 2300 09/07/19 230 - 09/08/19 0700 09/08/19 0701 - 09/08/19 1500 09/08/19 1501 - 09/08/19 2300 09/08/19 230 - 09/09/19 0253 Closed/Suction Drain Right Neck Bulb 15 Fr. 30 10 5 5 Closed/Suction Drain Midline;Medial Back Bulb 15 Fr. 50 20 60 70 CBC: Recent Labs Lab 09/04/19 0343 09/05/19 0408 09/06/19 0340 09/07/19 0526 09/08/19 0055 WBC 13.6* < > 10.8* 7.2 6.6 7.1 RBC 3.31* < > 2.74* 2.64* 3.04* 2.99* HGB 9.0* < > 7.7* 7.3* 8.3* 8.4* HCT 27.4* < > 22.9* 22.3* 25.4* 25.4* PLT 200 < > 176 180 205 200 NEUTOPHILPCT 74 -- 65 57 -- -- MONOPCT 12 -- 11 13 -- -- < > = values in this interval not displayed. BMP: Recent Labs Lab 09/06/19 0340 09/06/19 1608 09/07/19 0526 09/08/19 0055 NA 141 -- 141 140 K 3.1* 3.6 3.5 4.0 CL 108* -- 107 105 BICARBONATE 24 -- 24 26 GLUCOSE 100 -- 83 97 BUN 7 -- 4* 5* CREATININE 0.53* -- 0.59* 0.57* BCR 13 -- 6 9 GFRAA >90 -- >90 >90 GFRNONAA >90 -- >90 >90 COAGS: Recent Labs Lab 09/02/19 1725 INR 1.17 Assessment/Plan Cesario Valdivia is a 44 y.o. male patient with a history of cervical SEA presenting with hardware failure s/p anterior revision corpectomy POD#8 s/p C6- 7 corpectomy revision, POD#7 s/p revision C2-T6 posterior fusion. Neuro: Neurologic exam stable Continue halo Anterior and posterior vinny drains to self-suction Continue Prevena to posterior neck incision Appreciate APS recs regarding pain control PT/OT Will speak again with psychiatry for capacity this morning Will call [facility] to continue transfer with OSH Cardio: SBP goal 100-160 Pulmo: Encourage IS/OOB GI: Continue dental soft/thin liquid diet per CDU Hx of hepatitis C; GI to f/u as outpatient ID: Temp (24hrs), Av.8 C, Min:36.5 C, Max:37.1 C Active infection: SEA Antibiotics: Vancomycin and cefepime Appreciate ID recs, 6 weeks of abx along with chronic immunosupression OR cultures NGTD Endo: No active concerns Heme: H/H stable from yesterday DVT Prophylaxis: SCD, Heparin SC 5000 Units BID Code Status: Full code Dispo: Floor Mathieu Oliver DO [facility] Neurosurgery Resident PGY2 09/09/19 2:55 AM Associated attestation - Radha Cha MD - 09/09/2019 10:32 AM JAMMIE have seen and examined the patient on September 09, 2019, and agree with the resident s note Compliance has been a major issue for Cesario. He left AMA yesterday. There is a question that he may have been using IV drugs. We are at the point now where we cannot continue on this path of allowing him to injure himself, and come back with drug-related complications to his spine.Radha Cha MD - 2019 4:55 PM ESTThe patient has left the hospital against medical advice. He did not fill out the appropriate paperwork. He has significant history of IV drug abuse, and has left with a PICC line and a halo vest. I am not convinced that he has capacity to make decisions that are in his best interest at the moment. I will work towards have public safety or the [facility] police find him locally so he can safely be returned to our hospital for proper care. Virgen Fong RN - 09/08/2019 4:40 PM Coty RN walked in the pt's room, and pt was standing trying to apply his jacket and packing his belongings up into bag. Pt had disconnected himself from the wound vac and disconnected his IV line from his PICC. Pt continued to say "Im leaving, it is time for me to go home, so I'm leaving." This RN asked pt to wait for the doctors to come by and speak with him, and the pt said "Okay." This RN alertedthe charge nurse that the pt is trying to leave. 6 :01 PM Radha Baird RN - 09/08/2019 4:21 PM ESTPt attempting to leave AMA. PT had belongings packed up, Jacket on and disconnected himself from [facility]. Spoke with patient and assured patient I would notify the MD, and asked patient to wait and give me a chance to have his issues addressed. Spoke with resident commission sales associate and he advised he would be to the floor in 5 minutes. When the resident arrived (well within 5 minutes), the patient and the majority of his belongings were gone. Security was paged, code salcido initiated. Segmental Wall Installer notifed. Social work notified. Janis Sequeira RN - 09/08/2019 3:39 PM ESTCM met with the patient, and acute to acute process discussed with the patient. Markel requested this CM to contact his managed care coordinator, Cordelia Darren, as she can "get him into [facility]." CM called and spoke with Cordelia over the phone. Cordelia has been working with the patient for the pastfew years, and is familiar with his care needs. Cordelia stated that the patient was originally [facility] in [place] for [place]ox[place] treatment, but the patient failed. Recently a Methadone outpatient clinic has been set up in the [place] area, and she feels that this would be more beneficialto the patient. [facility] [place] phone # [phone]. Cordelia also stated to call with any issues or updates with this patient. Plan remains ongoing at this time, and CM will continue to follow. Lili Gardner PT - 09/08/2019 2:38 PM ESTPhysical Therapy Acute Care Encounter Note Medical Diagnosis: osteomyelitis cervical spine, and loosening of hardware of cervical spine, s/p revision of hardware corpectomy C4-T1, revision of C2-T6 fusion, halo placement Rehabilitation Precautions/Restrictions: OOB to chair with Halo, assist as needed, vital checks, neuro checks, strict input/output, modified diet (dental soft/ thin liquid) Goal Review Visit Number: 4 SUBJECTIVE Patient Report: Pt agreeable to working with PT Pain: Patient has no complaints of pain currently. Pain Medication Today: yes. OBJECTIVE General Observation: pt encountered sitting edge of bed in NAD with lines and tubes intact No bed alarm noted at start of session. Skin Integrity Screen: Visible skin intact, halo in place and C/D/I, 2 FERNANDA drains and wound vac in place Vital Signs: Stable. Functional Status: Transfers: Patient transferred sit to/from stand requiring contact guard assistance of 1 person. Patient used the following equipment: Bed rails. Patient used the following equipment: rolling walker. Bed Mobility: Not assessed. Locomotion/Gait/Ambulation: Patient was contact guard with gait/ambulation of 1 person for approximately 250 feet x 2 . Patient requires the following assistive device(s): Gait belt. Patient was also contact guard with gait/ambulation of 1 person for approximately 150 feet x 3 . Patient requires the following assistive device(s): Rolling walker. Gait belt. Stairs: Not assessed. Outcome Measures: [facility] "6 Clicks" Basic Mobility Inpatient Short Form: Turning over in bed: Unable to perform (1) Sitting down on and standing up from a chair with arms: Unable to perform (1) Moving from lying on back to sitting on the side of the bed: Unable to perform (1) Moving to and from a bed to a chair (including a wheelchair): A little help (3) Walking in hospital room: A little help (3) Climbing 3-5 steps with a railing: Total assistance (1) Raw Score 10 /24. Interventions: Gait Training: The pt was instructed in and performed the following with verbal and tactile cues to promote maximal level of pt participation and for appropriate form, technique, speed, use of gait belt and rolling walker and cues to increase hip and knee flexion, cues to increase heel strike ayesha, cues to increase safety and for navigation of rolling walker in busy hospital hallway. Pt required cues to perform ambulation safely this date and ambulated without use of roling walker for several distances. Education: Mode of education provided: Explanation. Audience: Patient. Education Provided: role of acute care PT; progress toward PT goals . Response: Indicates understanding. ASSESSMENT Response to Visit: The session was tolerated well. Pt was able to ambulate further distance this date, he required cues to decrease shuffling of feet. Pt in NAD at conclusion of session sitting edge of bed with lines and tubes intact. Call hartmann was in patient's reach at end of session. Pain: Patient has no complaints of pain currently. PLAN Treatment Frequency, Duration and Interventions: Restorative Physical Therapy is recommended for 1x/day for 2 weeks Treatment is to include: Therapeutic Activity. Therapeutic Exercise. Neuromuscular Re-education. Self Care/Home Management. Gait Training. Recommended Physical Therapy Follow Up: Upon acute care discharge, the following is currently recommended: Home with family support as needed. Pt still needs to perform stairs prior to discharge. Equipment Provided: None issued this visit. Visit Number: Today's visit is number 4 Program: Orthopedics (Therapist may be reached on Acupera) SESSION: Duration: 38 CHARGES: - ORDER - Physical Therapy Treatment 1 Units 02251 - CHARGE - PT GAIT TRNG - 15 MIN 3 Units - ORTHOPEDIC VISIT 1 Units Total treatment minutes: 38.00 Minutes Electronically Signed by: Lili Moulton DPT, 09/08/2019 2:45:26 PM Janis Sequeira RN - 09/08/2019 2:05 PM ESTPatient transferred from and report received from previous CM. Patient is s/p anterior revision corpectomy C4-T1, revision C2-T6 posterior fusion with Halo placement. Per notes, patient will need to remain in the halo x12 weeks (09/04-11/27/2019). Patient is also being followed by ID and will needto continue on IV Vanco and Cefepime x6 weeks (09/03- 10/15/2019). Patient is NOT a candidate for IV access in the community due to IVDU history. Patient is interested in getting closer to the [facility] if possible to complete treatment. Patient IS on transfer agreement with [facility]. ROSA ISELA called and spoke with neurosurgery resident, and [facility] transfer center phone number given ([phone]). Patient currently has a Provena in place and x2 drains, that are anticipated to be removed inthe next couple of days. Discussed barriers to D/C with doctor (halo, has recent IVDU, and need forLT IV abx). He will discuss acute to acute transfer with team. ROSA ISELA spoke with XENA Ramsay, and she will meet with the patient to evaluate appropriateness for [facility] as a back up. CM also spoke with [facility] CM as well. Patient remains on the DTP list, and CM will continue to follow. Alee Aguilera, CCC-BUSINESS OBJECTS CONSULTANT - 09/08/2019 10:36 AM [place] [facility] Language Pathology Acute Care - Diet Modification Encounter Note Admitting Diagnosis: hardware failure s/p anterior revision corpectomy C4-T1 multi-level hardware failure with posterior screw pull out and subsidence of the corpectomy cage. Rehabilitation Precautions/Restrictions: OOB to chair with Halo, assist as needed, vital checks, neuro checks, strict input/output, modified diet (dental soft/ thin liquid) Goal Review Visit Number: 2 SUBJECTIVE Patient Report: "I'd be better if I could eat regular food" Pain: Patient has no complaints of pain currently. Pain Medication Today: yes. OBJECTIVE General Observation: The patient was seen at bedside and sat upright in bed for PO trials. Halo in place. Tolerance of Current Diet Texture: Dental soft diet. Thin liquids. Water only. Patient and RN deny patient difficulty with current consistencies, requesting reassessment for possible diet advancement. MD provided clearance for patient to be advanced to regular solids if tolerating. Consistencies Tested: Thin Liquid. 6 trials presented. Presented via Cup. Deficits noted in the Pharyngeal phase. Multiple swallows. Solid. 4 trials presented. Presented via Deficits noted in the Oral phase. Mildly increased but functional mastication Compensatory Strategies: Compensatory Strategies Tested: Alternating Liquids/Solids. RESULTS: Facilitated oral preparation and clearance of bolus Interventions: Dysphagia: Clinician conducted ongoing assessment of oropharyngeal swallow function via patient/RN interview and direct observation. Directed PO trials of regular solids and thin liquids to assess tolerance. Provided patient education regarding rationale for prior recommendations, aspiration precautions, goals of treatment, and plan of care. Coordinated with RN regarding updated recommendations. Education: Mode of education provided: Explanation. Demonstration. Audience: Patient. Education Provided: Anatomy and physiology of swallowing. Diet modifications. Goals of therapy. Plan of care. Safe swallowing techniques. Signs and sequelae of aspiration. Response: Verbalized understanding. Needs practice/reinforcement. ASSESSMENT Response to Visit: The session was tolerated well. Patient has been tolerating dental soft solids and thin liquids (water only) with no overt concern for aspiration or aspiration-related complications. MD provided clearance to trial regular solids. Patient tolerated trials of regular solids with no overt s/s of aspiration, and benefited from alternating liquids and solids. Patient is appropriate to advance to regular diet and liberalize thin liquids per the results of this assessment. Modified barium swallow study previously recommended due to risk for aspiration s/p cervical spine surgery; however, may defer study at this time and consider at a later time if patient demonstrates concern for aspiration or aspiration-related complications. Will continue to follow patient. Call hartmann was in patient's reach at end of session. Diet Recommendations: Regular diet. Thin liquids. Swallow Precautions/Recommendations: Upright position. Small bite/sip. Alert. Alternate solid/liquid. Out of bed for meals. Aggressive oral care. Medication Recommendations: Take one at a time with liquid. Pain: Patient has no complaints of pain currently. Changes in or Continuation of Plan of Care: Patient will benefit from continued therapy to achieve planned goals. PLAN Treatment Frequency, Duration and Interventions: Restorative Speech/Language Pathology services recommended for 2x/week for 2 weeks Recommended Speech Therapy Follow Up: Upon acute care discharge, the following is currently recommended: Pending progress during hospital course. Visit Number: Today's visit is number 2 Program: Spine (Therapist may be reached on Acuper[employer]) SESSION: Duration: 25 CHARGES: - ORDER - Speech Treatment 1 Units - SPINE VISIT 1 Units 85704 - CHARGE-FEEDING AND SWALLOWING THERAPY 3 2 Units Total treatment minutes: 25.00 Minutes Electronically Signed by: Alee Parada MS, CCC-BUSINESS OBJECTS CONSULTANT, 09/08/2019 3:41:22 PM Gonzalo White OT - 09/08/2019 9:17 AM ESTOccupational Therapy Acute Care Treatment Note Medical Diagnosis: Hardware failure s/p anterior revision corpectomy C4-T1, now s/p revision C2-T6 posterior fusion Rehabilitation Precautions/Restrictions: OOB to chair with Halo, assist as needed, vital checks, neuro checks, strict input/output, modified diet (dental soft/ thin liquid) Goal Review Visit Number: 2 SUBJECTIVE Patient Report: agreeable to OT Pain: Patient currently complains of pain. Location: ayesha shoulders . Patient describes pain as Aching. Verbal Scale: Patient reports a pain level of 8 out of 10. Pain Medication Today: yes. OBJECTIVE General Observation: pt recived sitting edge of bed +halo +wound vac No bed alarm noted at start of session. Vital Signs: Stable. Range of Motion:No change observed. Strength:No change observed. Skin Integrity Screen: Visible skin intact, halo in place and C/D/I, 2 FERNANDA drains and wound vac in place Self Care/Home Management: Dressing - upper body: Supervision. Dressing - lower body: Supervision. Splinting: No splint issued today. Cognitive Test Score: Not tested. Outcome Measures: [facility] AM-PAC "6 Clicks" Daily Activity Inpatient Short Form: Putting on and taking off regular lower body clothing: A little assistance (3) Bathing (including washing, rinsing, and drying): A little assistance (3) Toileting (including use of toilet, bedpan, or urinal): A little assistance (3) Putting on and taking off regular upper body clothing: A little assistance (3) Taking care of personal grooming such as brushing teeth: No assistance (4) Eating meals: No assistance (4) Raw Score: 20 /24 Interventions: Self Care/Home Management: Therapist facilotated UB/LB dressing at edge of bed in prep for functional mobility + divided attention tasks around unit. Pt presents with impulsivity. Therapist provided education and verbal cues on use of front buttoning and zipping clothing due to halo and wire puller shirts being a hazard from pulling on halo. Therapist provided supervision for dressing routine for safety as pt was not attending to tubes/drains and required verbal reminders. Therapist then faciliatted functional mobility around unit with rolling walker. pt required frequient verbal reminders to keep walker on the floor and for pacing. Therapist facilitated 2 step command/direction following throughout functional mbility to challange pt's divided attention. Therapist ended session with pt at edge pf bed with call hartmann. Therapist discussed plan of care and safe discharge planning with pt. Therapist left pt with needs met. Education: Mode of education provided: Explanation. Audience: Patient. Education Provided: safe discharge planning, plan of care, adapted dressing, pacing . Response: Applied knowledge. ASSESSMENT Response to Visit: The session was tolerated fair, as evidenced by: impulsivity Call hartmann was in patient's reach at end of session. Pain: Yes, pain is unchanged from start of today's treatment. Goal review: required verbal cues and supervision for dressing PLAN Treatment Frequency, Duration and Interventions: Restorative Occupational Therapy recommended for 5x/wk for 2 weeks. Treatment is to include: Development of Cognitive Skills. Neuromuscular Re-education. Self Care/Home Management. Therapeutic Activity. Therapeutic Exercise. Equipment Provided: None issued this visit. Equipment Recommended: None. Recommended Occupational Therapy Follow Up: Upon acute care discharge, the following is currently recommended: home with family assist Recommended Consults: None currently. Development of Plan of Care: Participants included: Patient. Nurse. Visit Number: Today's visit is number 2 Program: Neuro (Therapist may be reached on Acuper[employer]) SESSION: Duration: 23 CHARGES: - ORDER - Occupational Therapy Treatment 1 Units 81759 - CHARGE - OT SELF CARE ADL TRAIN-15 MIN 2 Units - NEURO VISIT 1 Units Total treatment minutes: 23.00 Minutes Electronically Signed by: SE Osborn/Rafiq, 09/08/2019 10:21:25 AM Main Bain [facility] - 09/08/2019 8:27 AM EST Clinical Pharmacology - Therapeutic Drug Monitoring Interval History Cesario Valdivia is a 44 y.o. male patient currently being treated with vanco for epidural abscess with possible osteo Current Antibiotics/Dosing vanco 1750 mg iv q12h Cefepime Drug Levels evaluated Results for CESARIO VALDIVIA ( ) as of 09/08/2019 08:19 Ref. Range 09/08/2019 00:55 Vancomycin, Trough Latest Ref Range: 10.0 - 20.0 ug/mL 9.0 (L) Labs/Clinical Factors Lab Results Component Value Date WBC 7.1 09/08/2019 Lab Results Component Value Date CREATININE 0.57 (L) 09/08/2019 Temp Readings from Last 1 Encounters: 09/08/19 36.7 C (98.1 F) (Oral) Temp (24hrs), Av.9 C (98.5 F), Min:36.5 C (97.7 F), Max: 37.8 C (100.1 F) Intake/Output Summary (Last 24 hours) at 09/08/2019 0827 Last data filed at 09/08/2019 0600 Gross per 24 hour Intake 3521.93 ml Output 1075 ml Net 2446.93 ml No intake/output data recorded. Assessment Patient's current serum concentration(s) are Subtherapeutic Plan 1. Increased vanco to 2000 mg iv q12h to start at 09/07 1000 Main Higgins R.Ph.Electronically signed by Main Higgins [facility] at 2019 8:29 AM Kyle Ferguson MD - 09/08/2019 6:38 AM [place] [facility] [address] PATIENT NAME: Cesario Valdivia, DATE OF : 1975 . Subjective Date of Encounter: 09/08/2019 Length of stay: 17 days Interval History: No acute events Current Hospital Problem List: Principal Problem: Loosening of hardware in spine Active Problems: IVDU (intravenous drug user) Opioid use disorder, severe, dependence Tobacco use disorder Chronic hepatitis C without hepatic coma Hardware complicating wound infection Objective Vitals Temp: [36.5 C-37.8 C] 36.5 C Pulse: [80-114] 80 Resp: [16-20] 18 BP: (128-160)/(69-95) 150/95 SpO2: [93 %-98 %] 96 % O2 Therapy: Room air Intake/Output Last 3 Completed Shifts I/O last 3 completed shifts: In: 4311.9 [P.O.:840; IV Piggyback:3471.9] Out: 1900 [Urine:1725; Drains:175] Physical Exam Awake, alert, oriented x3 Deltoid Biceps Triceps WE WF IO Right 5 5 5 5 5 5 Left 5 5 5 5 5 5 Sensation intact to light touch throughout all cervical dermatomes IP Quad Ham TA Gastroc EHL Right 5 5 5 5 5 5 Left 5 5 5 5 5 5 Sensation intact throughout all lumbar dermatomes Halo in place, pin sites C/D/I Output by Drain (mL) 09/06/19 0701 - 09/06/19 1500 09/06/19 1501 - 09/06/19 2300 09/06/19 2301 - 09/07/19 0700 09/07/19 0701 - 09/07/19 1500 09/07/19 1501 - 09/07/19 2300 09/07/19 2301 - 09/08/19 0639 Closed/Suction Drain Right Neck Bulb 15 Fr. 35 5 30 10 5 Closed/Suction Drain Midline;Medial Back Bulb 15 Fr. 50 115 60 50 20 60 CBC: Recent Labs Lab 09/04/19 0343 09/05/19 0408 09/06/19 0340 09/07/19 0526 09/08/19 0055 WBC 13.6* < > 10.8* 7.2 6.6 7.1 RBC 3.31* < > 2.74* 2.64* 3.04* 2.99* HGB 9.0* < > 7.7* 7.3* 8.3* 8.4* HCT 27.4* < > 22.9* 22.3* 25.4* 25.4* PLT 200 < > 176 180 205 200 NEUTOPHILPCT 74 -- 65 57 -- -- MONOPCT 12 -- 11 13 -- -- < > = values in this interval not displayed. BMP: Recent Labs Lab 09/06/19 03409/06/19 1608 09/07/19 0526 09/08/19 0055 NA 141 -- 141 140 K 3.1* 3.6 3.5 4.0 CL 108* -- 107 105 BICARBONATE 24 -- 24 26 GLUCOSE 100 -- 83 97 BUN 7 -- 4* 5* CREATININE 0.53* -- 0.59* 0.57* BCR 13 -- 6 9 GFRAA >90 -- >90 >90 GFRNONAA >90 -- >90 >90 COAGS: Recent Labs Lab 09/02/19 1725 INR 1.17 Assessment/Plan Cesario Valdivia is a 44 y.o. male patient with a history of cervical SEA presenting with hardware failure s/p anterior revision corpectomy POD#7 s/p C6- 7 corpectomy revision, POD#6 s/p revision C2-T6 posterior fusion. Neuro: Neurologic exam stable Continue halo Anterior and posterior vinny drains to self-suction Continue Prevena to posterior neck incision Appreciate APS recs regarding pain control PT/OT Cardio: SBP goal 100-160 Pulmo: Encourage IS/OOB GI: Continue dental soft/thin liquid diet per CDU Hx of hepatitis C; GI to f/u as outpatient ID: Temp (24hrs), Av C, Min:36.5 C, Max:37.8 C Active infection: SEA Antibiotics: Vancomycin and cefepime Appreciate ID recs, anticipate 6 weeks of abx along with chronic immunosupression OR cultures NGTD Endo: No active concerns Heme: H/H stable from yesterday DVT Prophylaxis: SCD, Heparin SC 5000 Units BID Code Status: Full code Dispo: Floor Associated attestation - Radha Cha MD - 09/08/2019 11:22 AM JAMMIE have seen and examined the patient on September 08, 2019, and agree with the resident s note Yeison Blancas RN - 09/08/2019 1:44 AM ESTThe nurse contacted pharmacy regarding the patients vanco trough level of 9. Per pharmacy the nurse should still give current dose,and the next dose of vancomycin will be adjusted from that point onward. Kamila Flores RN - 09/07/2019 3:54 PM ESTPatient complains of pain when breathing related to the vest for the HALO. Jennifer from neurosurg was paged and states that the vest needs to be tight. She will come down later today and educate the patient. Patient is also placing a sheet between the halo and the head. She is okay with this. Nurse will encourage used of insperex. Miguel Pappas PT - 09/07/2019 10:03 AM ESTPhysical Therapy Acute Care Treatment Note Medical Diagnosis: osteomyelitis cervical spine, and loosening of hardware of cervical spine, s/p revision of hardware corpectomy C4-T1, revision of C2-T6 fusion, halo placement Rehabilitation Precautions/Restrictions: OOB to chair with Halo, assist as needed, vital checks, neuro checks, strict input/output, modified diet (dental soft/ thin liquid) Goal Review Visit Number: 3 SUBJECTIVE Patient Report: Pt agreeable to therapy today. Pain: Patient has no complaints of pain currently. Pain Medication Today: no. OBJECTIVE General Observation: Male pt in no acute distress. Supine in bed with head elevated [address] +wound vac. +FERNANDA drains. Bed alarm was on at start of session. Vital Signs: Stable. Range of Motion:No change observed. Strength:No change observed. Skin Integrity Screen: Visible skin intact, halo in place and C/D/I, 2 FERNANDA drains and wound vac in place Functional Status: Transfers: Patient transferred sit to/from stand requiring contact guard assistance of 1 person. Patient used the following equipment: Bed rails. Patient used the following equipment: rolling walker. Patient used the following equipment: Transfer belt. pt required increased time and cues for hand placement Bed Mobility: pt transitioned supine with head of bed elevated 45 degrees to/from sitting edge of bed with stand by assist Locomotion/Wheelchair: Not assessed. Locomotion/Gait/Ambulation: Patient was contact guard with gait/ambulation of 1 person for 332 feet x 2 trials . Patient requires the following assistive device(s): Rolling walker. Gait belt. decreased step length, decreased gait speed, shuffled gait at times Stairs: Not assessed. Outcome Measures: [facility] "6 Clicks" Basic Mobility Inpatient Short Form: Turning over in bed: Unable to perform (1) Sitting down on and standing up from a chair with arms: Unable to perform (1) Moving from lying on back to sitting on the side of the bed: A little difficulty (3) Moving to and from a bed to a chair (including a wheelchair): A little help (3) Walking in hospital room: A little help (3) Climbing 3-5 steps with a railing: A lot of help (2) Raw Score 13 /24. Interventions: Gait Training: Therapist instructed pt in gait training to improve safety and independence level during ambulatory tasks. He required verbal cues to increase step length, improve heel strike, and to scan environment with eyes out in front of him. He required 1 extended seated rest break between ambulation trials due to fatigue. Education: Mode of education provided: Explanation. Audience: Patient. Education Provided: Treatment Plan. Role of Physical Therapy. Safety. Importance of activity. Mobility Techniques. Response: Applied knowledge. ASSESSMENT Response to Visit: The session was tolerated well. Pt ended session back in bed. Bed alarm was on at end of session. Call hartmann was in patient's reach at end of session. Pain: Patient has no complaints of pain currently. Goal review: pt able to tolerate longer bout of ambulation on this date and requires less level of assist for bed mobility Changes in or Continuation of Plan of Care: Patient will benefit from continued therapy to achieve planned goals. PLAN Treatment Frequency, Duration and Interventions: Restorative Physical Therapy is recommended for 1x/day for 2 weeks Treatment is to include: Gait Training. Therapeutic Activity. Therapeutic Exercise. Neuromuscular Re-education. Self Care/Home Management. Equipment Provided: None issued this visit. Equipment Recommended: To be assessed. Recommended Physical Therapy Follow Up: Upon acute care discharge, the following is currently recommended: Home with family support as needed. Pt still needs to perform stairs prior to discharge. Recommended Consults: None currently. Development of Plan of Care: Participants included: pt. There was no change to plan of care today. Visit Number: Today's visit is number 3 Program: Spine (Therapist may be reached on Acupera) SESSION: Duration: 33 CHARGES: - ORDER - Physical Therapy Treatment 1 Units 39559 - CHARGE - PT GAIT TRNG - 15 MIN 2 Units - SPINE VISIT 1 Units Total treatment minutes: 33.00 Minutes Electronically Signed by: Miguel Haque PT, DPT, 09/07/2019 10:10:13 AM Cheli Aguirre RN - 09/07/2019 6:11 AM ESTTransferred from at 2328. Halo intact, no skin irritation noted. Neuros at his baseline. Pin care completed, no drainage or redness noted. Left FERNANDA with 40cc serosanguinous drg, Right FERNANDA with minimal drainage. Medicated for L shoulder pain once in shift with Fentanyl with good effect. Vac Dressing in place with no drg noted. Pleasant and cooperative.Electronically signed by Cheli Marcus RN at 2019 6:18 AM Pedro Medrano MD - 09/07/2019 12:05 AM EST [facility] [address] PATIENT NAME: Cesario Valdivia, DATE OF : 1975 . Subjective Date of Encounter: 09/07/2019 Length of stay: 16 days Interval History: No acute events Current Hospital Problem List: Principal Problem: Loosening of hardware in spine Active Problems: IVDU (intravenous drug user) Opioid use disorder, severe, dependence Tobacco use disorder Chronic hepatitis C without hepatic coma Hardware complicating wound infection Objective Vitals Temp: [36.5 C-37.3 C] 37 C Pulse: [90-105] 97 Resp: [15-22] 21 BP: (138-161)/(79-143) 138/88 SpO2: [96 %-100 %] 100 % O2 Therapy: Room air Intake/Output Last 3 Completed Shifts I/O last 3 completed shifts: In: 2531.3 [P.O.:350; I.V.:560.5; Blood:350; IV Piggyback:1270.8] Out: 3105 [Urine:2750; Drains:355] Physical Exam General Appearance: NAD Mental status: AAO Strength: 5/5 Strength BUE/BLE Sensation: SILTx4 Cerebellar: No dysmetria on FTN Halo in place Drains in place to suction Prevena with good suction CBC: Recent Labs Lab 09/04/19 0343 09/04/19 1613 09/05/19 0408 09/06/19 0340 WBC 13.6* 13.0* 10.8* 7.2 RBC 3.31* 3.08* 2.74* 2.64* HGB 9.0* 8.4* 7.7* 7.3* HCT 27.4* 25.9* 22.9* 22.3* PLT 200 204 176 180 NEUTOPHILPCT 74 -- 65 57 MONOPCT 12 -- 11 13 BMP: Recent Labs Lab 09/04/19 0343 09/05/19 0408 09/06/19 0340 09/06/19 1608 NA 139 142 141 -- K 4.1 3.6 3.1* 3.6 CL 108* 110* 108* -- BICARBONATE 23 23 24 -- GLUCOSE 122 93 100 -- BUN 12 11 7 -- CREATININE 0.66* 0.66* 0.53* -- BCR 18 17 13 -- GFRAA >90 >90 >90 -- GFRNONAA >90 >90 >90 -- COAGS: Recent Labs Lab 09/02/19 1725 INR 1.17 Assessment/Plan Cesario Valdivia is a 44 y.o. male patient with a history of cervical SEA presenting with hardware failure s/p anterior revision corpectomy POD#6 for C4- T1, POD#5 Revision C2-T6 posterior fusion. Neuro: Neurologic exam stable Halo in place Pain control PRN Anterior and posterior vinny drains to self-suction Prevena to posterior neck #Substance use disorder xanax discontinued per APS Continue morphine and tylenol as needed; benadryl prn Addiction psych and APS consulted, appreciate recs Cardio: SBP 100-160 Pulmo: Encourage IS GI: Passed barium swallow Continue dental soft/thin liquid diet per CDU Hx of hepatitis C; GI to f/u as outpatient ID: Temp (24hrs), Av.9 C, Min:36.5 C, Max:37.3 C Active infection: SEA Antibiotics: Vancomycin and cefepime Appreciate ID recs, anticipate 6 weeks of abx along with chronic immunosupression No growth thus far from cultures from OR Endo: No active concerns Renal: Continue with Input/Output monitoring. Maintain euvolemia. CT IVP non actionable per urology; will need outpatient cystoscopy Voiding s/p morales removal Heme: DVT Prophylaxis: SCD, Heparin SC 5000 Units BID Code Status: Full code Dispo: Floor Pedro Borjas 09/07/2011:06 AM Neurosurgery Resident, PGY-1Electronically signed by Radha Cha MD at 8:49 AM EST Associated attestation - Radha Cha MD - 09/07/2019 8:49 AM JAMMIE have seen and examined the patient on September 07, 2019, and agree with the resident s note Timbo Veronica RN - 09/06/2019 11:28 PM [id number] Neuro Critical ICU Nursing Note 2315: [place] to [address]-7, 7A. Report called ahead @2860 and handed off at bedside to Leonel Marcus RN. RN bedside report including handoff of J.P.'s and Prevena vac. HALO wrench taped above bed in new room. Pt pleasantly alert and oriented x4, comfortable and repositioned. Call light in hand. Care handed off at this time. Timbo Veronica INDERBaJoana curran NP - 09/06/2019 11:51 AM EST Addiction Progress Note Interval History: Patient is now POD#4 s/p revision C2-T6 posterior fusion and with Halo in place. Regarding his pain management, "they're taking care of it". He reports that he' s eating and drinking, having BM's. He's like to take a shower or get washed up. He said when he's discharged in 6 weeks, he has a plan with [facility] to manage his severe opioid use disorder. We discussed getting started with that while here and he was fixated on following [facility]'s plan, which he indicates includes methadone maintenance. Current Medications: acetaminophen (TYLENOL) tablet 975 mg Oral BID bacitracin Topical Q8H bacitracin Topical Daily carBAMazepine 200 mg Oral BID cefepime 2 g Intravenous Q8H gabapentin 600 mg Oral TID heparin (porcine) 5,000 Units Subcutaneous BID sodium chloride (preservative free) 10 mL Intravenous Q12H And heparin lock flush 20 Units Intravenous Q12H magnesium hydroxide 45 mL Oral Nightly melatonin 3 mg Oral Nightly pantoprazole 40 mg Oral QAM AC pantoprazole 40 mg Oral Daily polyethylene glycol 17 g Oral Daily potassium chloride 20 mEq Oral BID vancomycin 1,750 mg Intravenous Q12H PRN: bisacodyl 10 mg Q72H PRN, calcium gluconate IVPB 2 g Q1H PRN, cyclobenzaprine 10 mg TID PRN, diphenhydrAMINE 50 mg Nightly PRN, fentaNYL (SUBLIMAZE) injection 50 mcg Q2H PRN, sodium chloride (preservative free) 10 mL PRN AND heparin lock flush 20 Units PRN AND sodium chloride (preservative free) 10 mL Q12H AND heparin lock flush 20 Units Q12H, magnesium sulfate 16 mEq Q1H PRN, metoprolol 5 mg Q6H PRN, ondansetron 4 mg Q8H PRN, oxyCODONE 5 mg Q4H PRN * *OR oxyCODONE 10 mg Q4H PRN, potassium chloride 20 mEq Q1H PRN OR potassium chloride 10 mEq Q1H PRN, potassium phosphate 12 mmol Q2HPRN OR potassium phosphate 6 mmol Q2H PRN, senna 10 mL Nightly PRN, senna 2 tablet Nightly PRN, sodium phosphate 12 mmol Q2H PRN OR sodium phosphate 6 mmol Q2H PRN Allergies: No Known Allergies Current Hospital Problem List: Principal Problem: Loosening of hardware in spine Active Problems: IVDU (intravenous drug user) Opioid use disorder, severe, dependence Tobacco use disorder Chronic hepatitis C without hepatic coma Hardware complicating wound infection Past Surgical History: Procedure Laterality Date HALO APPLICATION 09/04/2019 MN REMV VERT,EXDUR,CERV TUMOR N/A 02/05/2019 Procedure: C6/7 CORPECTOMY WITH C5-T1 ANTERIOR FUSION PER CYNDI; Surgeon: Radha Cha MD; Location: [address]; Service: Neurosurgery; Laterality: N/A; SPINE SURGERY Vital signs in last 24 hours: Vitals: 09/06/19 0823 09/06/19 0949 09/06/19 0950 09/06/19 1005 BP: 144/91 154/86 154/86 161/85 BP Location: Right arm Patient Position: Lying Pulse: (!) 105 91 91 93 Resp: (!) 22 (!) 19 18 (!) 19 Temp: 37.3 C 36.9 C 36.9 C 36.9 C TempSrc: Oral Oral Oral SpO2: 99% 97% 98% 96% Weight: Height: Intake/Output last 3 shifts: I/O last 3 completed shifts: In: 2995.8 [P.O.:240; I.V.:1435; IV Piggyback:1320.8] Out: 2004 [Urine:1675; Drains:330] Pertinent Labs: CBC: Lab Results Component Value Date WBC 7.2 09/06/2019 RBC 2.64 (L) 09/06/2019 HGB 7.3 (L) 09/06/2019 HCT 22.3 (L) 09/06/2019 PLT 180 09/06/2019 BMP: Lab Results Component Value Date NA 141 09/06/2019 K 3.1 (L) 09/06/2019 CL 108 (H) 09/06/2019 BICARBONATE 24 09/06/2019 GLUCOSE 100 09/06/2019 BUN 7 09/06/2019 CREATININE 0.53 (L) 09/06/2019 BCR 13 09/06/2019 GFRAA >90 09/06/2019 GFRNONAA >90 09/06/2019 CMP: Lab Results Component Value Date NA 141 09/06/2019 K 3.1 (L) 09/06/2019 CL 108 (H) 09/06/2019 BICARBONATE 24 09/06/2019 CALCIUM 8.1 (L) 09/06/2019 GLUCOSE 100 09/06/2019 BUN 7 09/06/2019 BCR 13 09/06/2019 PROT 8.1 09/01/2019 ALBUMIN 2.7 (L) 09/01/2019 TBILI 0.4 09/01/2019 ALKPHOS 168 (H) 09/01/2019 AST 37 09/01/2019 ALT 27 09/01/2019 AGRATIO 0.5 09/01/2019 GFRAA >90 09/06/2019 GFRNONAA >90 09/06/2019 Simple Electrolyte Panel: Lab Results Component Value Date NA 141 09/06/2019 K 3.1 (L) 09/06/2019 CL 108 (H) 09/06/2019 BICARBONATE 24 09/06/2019 Renal Panel: Lab Results Component Value Date NA 141 09/06/2019 K 3.1 (L) 09/06/2019 CL 108 (H) 09/06/2019 BICARBONATE 24 09/06/2019 CALCIUM 8.1 (L) 09/06/2019 PHOS 1.7 (L) 09/06/2019 GLUCOSE 100 09/06/2019 BUN 7 09/06/2019 CREATININE 0.53 (L) 09/06/2019 ALBUMIN 2.7 (L) 09/01/2019 Hepatic Panel: Lab Results Component Value Date ALBUMIN 2.7 (L) 09/01/2019 ALKPHOS 168 (H) 09/01/2019 ALT 27 09/01/2019 AST 37 09/01/2019 PROT 8.1 09/01/2019 TBILI 0.4 09/01/2019 BILIDIR 0.6 (H) 08/22/2019 Coagulation: Lab Results Component Value Date INR 1.17 09/02/2019 Cardiac markers: No results found for: CKTOTAL, CKMB, TROPONINT, TROPONINI, MYOGLOBIN Exam: Patient is awake and alert, oriented. Does appear with some psychomotor retardation. Eye contact is mostly poor. Halo in place. Sitting OOB to the chair. Appears mostly comfortable at rest. A&P 44 y.o. year old male with loosening of spinal hardware, epidural abscess, opioid use disorder, IVDUwho is now POD#4 s/p revision C2-T6 posterior fusion. Can discontinue IV fentanyl now, as he's POD #4. Can also discontinue oxycodone and use MSIR 15mg OR 22.5mg q4-6h prn, along with the already orderedadjunct pain medications. I began the discussion of adding MAT, and he's interested in Methadone; he wants to ensure this is the plan with [facility] as well so we'll contact them this week for collaboration. We will likely plan to check EKG, then start methadone solution (not tablet) 20mg PO, while continuing short acting opioid pain medication and with monitoring. No benzodiazepines please. We will continue to follow. Joana Blank [employer] [phone] Miguel Pappas, PT - 09/06/2019 9:10 AM ESTPhysical Therapy Acute Care Treatment Note Medical Diagnosis: osteomyelitis cervical spine, and loosening of hardware of cervical spine, s/p revision of hardware corpectomy C4-T1, revision of C2-T6 fusion, halo placement Rehabilitation Precautions/Restrictions: OOB to chair with Halo, assist as needed Goal Review Visit Number: 2 SUBJECTIVE Patient Report: Pt reports pain along shoulders currently. He is agreeable to therapy. Pain: Patient currently complains of pain. Location: ayesha shoulders . Patient describes pain as Nonspecific. Verbal Scale: Patient reports a pain level of 7 out of 10. Pain Medication Today: yes. OBJECTIVE General Observation: Male pt in no acute distress in bed with head elevated [address] +FERNANDA drains. +Picc to L UE. + wound vac. No bed alarm noted at start of session. Vital Signs: Heart Rate: 105 beats per minute Respiratory Rate: 24 breaths/min Blood Pressure: 144/91 mm Hg Range of Motion:Not assessed. Strength:No change observed. Skin Integrity Screen: Visible skin intact, halo in place and C/D/I, 2 FERNANDA drains and wound vac in place Functional Status: Transfers: Patient transferred sit to/from stand requiring contact guard assistance of 1 person. Patient used the following equipment: Transfer belt. Patient used the following equipment: Bed rails. Progressed to stand by assist during his last repetition. Bed Mobility: minimum assist x 1 to transition from supine with head of bed elevated 45 degrees to sitting edge of bed; pt required hand held support from therapist to use leverage to scoot to edge of bed; cues also required for hand placement Locomotion/Wheelchair: Not assessed. Locomotion/Gait/Ambulation: Patient was contact guard with gait/ambulation of 1 person for 400 feet . Patient requires the following assistive device(s): wheeled cart (wheelchair) which held wound vac. Therapist managed IV pole. . gait belt also utilized; decreased step length, decreased gait speed. Stairs: Not assessed. Outcome Measures: [facility] "6 Clicks" Basic Mobility Inpatient Short Form: Turning over in bed: Unable to perform (1) Sitting down on and standing up from a chair with arms: A little difficulty (3) Moving from lying on back to sitting on the side of the bed: Unable to perform (1) Moving to and from a bed to a chair (including a wheelchair): A little help (3) Walking in hospital room: A little help (3) Climbing 3-5 steps with a railing: A lot of help (2) Raw Score 13 /24. Interventions: Therapeutic Activities: Therapist instructed pt in supine to sit transitions to facilitate increased ease with bed mobility. He required verbal cues for hand placement with scooting and cues to use therapist's hand as leverage to scoot to edge of bed. While sitting edge of bed, pt donned socks and shoes as he practiced sitting balance with stand by assist for safety. Therapist then instructed pt in sit to stands from edge of bed to increase safety and independence level with transfers. He required verbal cues for hand placement to avoid pulling up on wheelchair positioned in front of him and to use hands to push from surface of bed. He was cued to extend hips and knees to come to full stand. Cues for hand placement provided to reach for bed prior to sitting. He performed 4 repetitions. Gait Training: Therapist facilitated ambulation on level indoor surfaces to increase pt's safety and independence level with gait tasks. Pt utilized wheeled walker for support to carry wound vac and verbal cues to scan environment with eyes as head/neck movement restricted by HALO at this time. He required intermittent verbal cues to negotiate obstacles in hallway. Education: Mode of education provided: Explanation. Audience: Patient. Education Provided: Treatment Plan. Role of Physical Therapy. Safety. Importance of activity. Mobility Techniques. Response: Verbalized understanding. ASSESSMENT Response to Visit: The session was tolerated well. Pt ended session upright in recliner chair with feet elevated. Vitals remained stable throughout the session. Chair alarm was on at end of session. Pain: Yes, pain is unchanged from start of today's treatment. Goal review: pt continues to require stand by to contact guard assist for mobility Changes in or Continuation of Plan of Care: Patient will benefit from continued therapy to achieve planned goals. PLAN Treatment Frequency, Duration and Interventions: Restorative Physical Therapy is recommended for 1x/day for 2 weeks Treatment is to include: Gait Training. Therapeutic Activity. Therapeutic Exercise. Neuromuscular Re-education. Self Care/Home Management. Equipment Provided: None issued this visit. Equipment Recommended: To be assessed. Recommended Physical Therapy Follow Up: Upon acute care discharge, the following is currently recommended: Home with family support as needed. Pt still needs to perform stairs prior to discharge. Recommended Consults: None currently. Development of Plan of Care: Participants included: pt. There was no change to plan of care today. Visit Number: Today's visit is number 2 Program: Spine (Therapist may be reached on Acupera) SESSION: Duration: 48 CHARGES: 05765 - CHARGE - PT GAIT TRNG - 15 MIN 1 Units 73644 - CHARGE - PT THERAPEUTIC ACTIVITIES - 15 MIN 2 Units - ORDER - Physical Therapy Treatment 1 Units - SPINE VISIT 1 Units Total treatment minutes: 48.00 Minutes Electronically Signed by: Miguel Haque PT, DPT, 09/06/2019 9:27:04 AM Timbo Singh RN - 09/06/2019 6:06 AM [facility] Neurocritical Care Nursing Progress Note 2100: RN spoke with Dr. Marti, Neuro-Surg commission sales associate regarding pt education and RN specific care of HaloVest. RN then completed patient specific education at bedside, time allowed for all questions and discussion with patient. Pt states he is more comfortable now. 2330: aware- Pt now refusing to wear his continuous pulse oximeter. Has also been refusing blood pressure cuff, but is agreeable to intermittent checks [id number]. 0400: Neuro Surg MD aware of slight increase in Left J.P.output and patient complaining of increasing pain. Halo and pin sites intact. No neuro changes. 0530: Neuro MD notified of AM lab result Potassium 3.1 Timbo Veronica Kenney Hillman MD - 09/06/2019 1:09 AM [place] [facility] [address] PATIENT NAME: Cesario Valdivia, DATE OF : 1975 . Subjective Date of Encounter: 09/06/2019 Length of stay: 15 days Interval History: No acute events Current Hospital Problem List: Principal Problem: Loosening of hardware in spine Active Problems: IVDU (intravenous drug user) Opioid use disorder, severe, dependence Tobacco use disorder Chronic hepatitis C without hepatic coma Hardware complicating wound infection Objective Vitals Temp: [36.8 C (98.2 F)-37.8 C (100 F)] 36.8 C (98.2 F) Pulse: [93-112] 110 Resp: [17-29] 21 BP: (135-166)/(75-104) 155/88 SpO2: [98 %-100 %] 99 % O2 Therapy: Room air Intake/Output Last 3 Completed Shifts I/O last 3 completed shifts: In: 1714.5 [P.O.:240; I.V.:874.5; IV Piggyback:600] Out: 2094 [Urine:1750; Drains:345] Physical Exam General Appearance: NAD Mental status: AAO Strength: 5/5 Strength BUE/BLE Sensation: SILTx4 Cerebellar: No dysmetria on FTN Halo in place Drains in place to suction Prevena with good suction CBC: Recent Labs Lab 09/03/197 09/04/19 0343 09/04/19 1613 09/05/19 0408 WBC 15.6* 13.6* 13.0* 10.8* RBC 3.60* 3.31* 3.08* 2.74* HGB 10.1* 9.0* 8.4* 7.7* HCT 29.7* 27.4* 25.9* 22.9* PLT 218 200 204 176 NEUTOPHILPCT 87 74 -- 65 MONOPCT 5 12 -- 11 BMP: Recent Labs Lab 09/03/19192609/04/19 0343 09/05/19 0408 NA 137 139 142 K 5.1 4.1 3.6 CL 106 108* 110* BICARBONATE 21* 23 23 GLUCOSE 145* 122 93 BUN 10 12 11 CREATININE 0.78 0.66* 0.66* BCR 13 18 17 GFRAA >90 >90 >90 GFRNONAA >90 >90 >90 COAGS: Recent Labs Lab 09/02/19 1725 INR 1.17 Assessment/Plan Cesario Valdivia is a 44 y.o. male patient with a history of cervical SEA presenting with hardware failure s/p anterior revision corpectomy C4-T1, now s/ p Revision C2-T6 posterior fusion. Neuro: -Neurologic exam stable. Pain limited -Halo in place -Pain control -Anterior and posterior vinny drains to self-suction -Prevena to posterior neck #Substance use disorder - xanax discontinued per APS - Continue morphine and tylenol as needed; benadryl prn - Addiction psych and APS consulted, appreciate recs Cardio: SBP 100-160 Pulmo: -Encourage IS GI: Passed MBS, OK for Soft diet Full CDU eval pending Hx of hepatitis C; GI to f/u as outpatient ID: Temp (24hrs), Av.4 C (99.3 F), Min:36.8 C (98.2 F), Max: 37.8 C (100 F) Active infection: SEA Antibiotics: Vancomycin and cefepime Appreciate ID recs, anticipate 6 weeks of abx along with chronic immunosupression No growth thus far from cultures from OR Endo: No active concerns Renal: Continue with Input/Output monitoring. Maintain euvolemia. CT IVP non actionable per urology; will need outpatient cystoscopy Voiding s/p morales removal Heme: DVT Prophylaxis: SCD, Heparin SC 5000 Units BID Code Status: Full code Dispo: Step down Associated attestation - Radha Cha MD - 09/06/2019 12:48 PM JAMMIE have seen and examined the patient on September 06, 2019, and agree with the resident s note Natalia Narayan PA - 09/05/2019 3:29 PM EST [facility] INPATIENT [address] [place] [id number] Cesario Valdivia [id number] 1975 44 y.o. year old male 08/21/2019 Infectious Disease Follow Up Note Physician requesting consultation: Radha Cha MD Length of stay: 14 days Mr. Cesario Valdivia is a 44 y.o. year old male Problem List Principal Problem: Loosening of hardware in spine Active Problems: IVDU (intravenous drug user) Opioid use disorder, severe, dependence Tobacco use disorder Chronic hepatitis C without hepatic coma Hardware complicating wound infection Reason for ID Consult/Chief Complaint: Spinal hardware infection with osteomyelitis. Interim History Cesario Valdivia is a 44 year old male with a history of IVDU, Hep C, and cervical epidural abscess s/p C6/C7 corpectomy with anterior and posterior fusions of multiple vertebrae in 01/2019 who presents with spinal hardware failure and concern for osteomyelitis. He was brought to the OR on 09/02 and 09/03 for a 2- stage hardware revision of C2 to T6. Operative cultures remain no growth to date. The patient was seen today comfortably sitting in the recliner chair in no acute distress. He deniesfever, chills, shortness of breath. Doing well post- operatively. He is agreeable to 6 weeks of IV antibiotics. Review of Systems Review of Systems Constitutional: Negative for chills and fever. Respiratory: Negative for cough, sputum production and shortness of breath. Cardiovascular: Negative for chest pain. Gastrointestinal: Negative for abdominal pain, diarrhea, nausea and vomiting. Genitourinary: Negative for dysuria. Musculoskeletal: Positive for back pain and neck pain (Post surgical). Negative for myalgias. Skin: Negative for rash. Neurological: Negative for headaches. All other systems reviewed and are negative. Vital Signs Vitals: 09/05/19 0600 09/05/19 0800 09/05/19 0855 09/05/19 1000 BP: 135/75 157/88 160/98 BP Location: Right arm Right arm Patient Position: Lying Lying Pulse: (!) 107 (!) 103 (!) 109 Resp: 17 (!) 23 (!) 19 Temp: 37.6 C (99.7 F) 37.7 C (99.9 F) TempSrc: Bladder Bladder SpO2: 99% 99% 100% 98% Weight: Temp Readings from Last 3 Encounters: 09/05/19 37.7 C (99.9 F) (Bladder) 02/16/19 37.4 C (99.3 F) (Oral) 02/13/19 37.2 C (99 F) (Oral) Physical Exam Physical Exam Constitutional: He is oriented to person, place, and time and well-developed, well-nourished, and inno distress. HENT: Head: Normocephalic and atraumatic. Right Ear: External ear normal. Left Ear: External ear normal. Eyes: Conjunctivae are normal. Neck: HALO vest in place. Cardiovascular: Normal rate and regular rhythm. Pulmonary/Chest: Effort normal. No respiratory distress. Abdominal: He exhibits no distension. Musculoskeletal: General: No edema. Neurological: He is alert and oriented to person, place, and time. Skin: Skin is warm and dry. No erythema. Psychiatric: Memory, affect and judgment normal. Nursing note and vitals reviewed. Lines and Catheters PICC Double Lumen 08/25/19 Left Basilic (Active) Lumen #1 Color Purple 09/05/2019 8:00 AM Lumen #1 Status Normal saline locked;Capped;Blood return noted;Flushed 2019 8:00 AM Lumen #1 Line Care Connections checked and tightened 09/05/2019 8:00 AM Lumen #1 Valve Change Due 09/08/19 09/04/2019 6:00 PM Lumen #2 Color Red 09/05/2019 8:00 AM Lumen #2 Status Normal saline locked;Capped;Blood return noted 09/05/2019 8:00 AM Lumen #2 Line Care Connections checked and tightened 09/05/2019 8:00 AM Lumen #2 Valve Change Due 09/08/19 09/04/2019 6:00 PM Dressing Type Bio-occlusive;Biopatch;Securing device 09/05/2019 9:26 AM Dressing Status Clean;Dry;Intact 09/05/2019 9:26 AM Dressing Intervention Dressing changed 09/05/2019 9:26 AM Dressing Change Completed 09/05/19 09/05/2019 9:26 AM Dressing Change Due 09/12/19 09/05/2019 9:26 AM External Length Christiano (cm) 0 cm 08/30/2019 8:54 AM Upper Arm Extremity Circumference (cm) 32 cm 08/25/2019 9:54 PM Number of days: 10 Peripheral IV 09/03/19 Right Antecubital (Active) Site Assessment Clean;Dry;Intact 09/05/2019 8:00 AM Line Status Blood return noted 09/05/2019 8:00 AM Line Care Connections checked and tightened 09/05/2019 8:00 AM Dressing Type Tegaderm 09/05/2019 8:00 AM Dressing Status Clean;Dry;Intact 09/05/2019 8:00 AM Number of days: 2 Peripheral IV 09/03/19 Right Hand (Active) Site Assessment Clean;Dry;Intact 09/05/2019 8:00 AM Line Status Blood return noted 09/05/2019 8:00 AM Line Care Connections checked and tightened 09/05/2019 8:00 AM Dressing Type Tegaderm 09/05/2019 8:00 AM Dressing Status Clean;Dry;Intact 09/05/2019 8:00 AM Number of days: 2 Closed/Suction Drain Right Neck Bulb 15 Fr. (Active) Site Description Unable to view 09/05/2019 8:00 AM Dressing Status Clean;Dry;Intact 09/05/2019 8:00 AM Drainage Appearance Bright red 09/05/2019 8:00 AM Status To bulb suction 09/05/2019 8:00 AM Output (mL) 0 mL 09/05/2019 7:00 AM Number of days: 2 Closed/Suction Drain Midline;Medial Back Bulb 15 Fr. (Active) Site Description Unable to view 09/05/2019 8:00 AM Dressing Status Clean;Dry;Intact 09/05/2019 8:00 AM Drainage Appearance Serosanguineous 09/05/2019 8:00 AM Status To bulb suction 09/05/2019 8:00 AM Output (mL) 0 mL 09/05/2019 7:00 AM Number of days: 1 Antibiotics Antibiotic Orders bacitracin ointment starting at 09/05 0900 Diet Age: Adult; Diet: NPO starting at 09/05 0614 bacitracin ointment starting at 09/04 1215 bacitracin 82043 units injection starting at 09/03 0850 bacitracin 44146 units injection starting at 09/03 0849 bacitracin 500 UNIT/GM ointment starting at 09/03 0849 ceFAZolin (ANCEF) 1 g injection starting at 09/02 1822 bacitracin 79387 units injection starting at 09/02 1815 ceFAZolin (ANCEF) 1 g injection starting at 09/02 1501 bacitracin 500 UNIT/GM ointment starting at 09/02 1422 bacitracin 68986 units injection starting at 09/02 1159 cefepime (MAXIPIME) 2 g in sodium chloride 0.9 % 50 mL infusion at 100 mL/hr starting at 08/22 0600 Data Recent Labs Lab 08/30/19 1937 09/04/19 0343 09/04/19 1613 09/05/19 0408 HCT -- < > 27.4* 25.9* 22.9* HGB -- < > 9.0* 8.4* 7.7* MCH -- < > 27.3 27.2 27.9 MCHC -- < > 33.0 32.4 33.4 MCV -- < > 82.9 84.0 83.6 PLT -- < > 200 204 176 RDW -- < > 15.4* 16.1* 16.3* WBCUA 22* -- -- -- -- WBC -- < > 13.6* 13.0* 10.8* < > = values in this interval not displayed. Recent Labs Lab 09/03/19 1927 09/04/19 0343 09/05/19 0408 NA 137 139 142 K 5.1 4.1 3.6 CL 106 108* 110* BICARBONATE 21* 23 23 GLUCOSE 145* 122 93 BUN 10 12 11 CREATININE 0.78 0.66* 0.66* BCR 13 18 17 GFRAA >90 >90 >90 GFRNONAA >90 >90 >90 Microbiology 09/03 Bx/Surg Tissue Cx: Special Request T2 VERTEBRAL BODY P Culture/Results No growth 1 day P Imaging 09/04 CXR: FINDINGS: Endotracheal tube tip terminates approximately 4.5 cm above the primo. A left- sided PICC terminatesat the cavoatrial junction. An enteric tube seen coursing past the GE junction and continuing inferiorly outside the field of view. Spinal fusion hardware and hardware associated with halo project over the thorax. Mediastinal contours are stable. New small to moderate right-sided pleural effusion. No evidence of left-sided pleural effusion. No evidence of pneumothorax. Hazy right lower lobe opacity is largely obscured by halo device but is suspicious for airspace disease such as pneumonia. Lungs otherwise appear clear. IMPRESSION: 1. New small to moderate right-sided pleural effusion. 2. Right lower lobe hazy opacity is largely obscured by overlying hardware but is suspicious for pneumonia. Assessment and Plan Cesario Valdivia is a 44 y.o. male with a history of IVDU and cervical epidural abscess s/p hardware placement in 01/2019 who presents with spinal hardware failure and concern for osteomyelitis on imaging. Operative cultures remain no growth. Recommendations: 1. Continue vancomycin 1750 mg IV Q12 and cefepime 2 g IV Q8 for a total of 6 weeks from a surgical date of 09/03 for empiric coverage for osteomyelitis. 2. Weekly CBC, CMP, ESR, CRP and vanco levels while on IV abx. 3. Repeat MRI cervical and thoracic spine prior to follow up. 4. Follow up in ID clinic at the end of therapy. Will sign off for now Please call [phone] with questions or changes in condition. Thank you for allowing us to participate in the care of this patient. The patient was discussed with Ki Chase MD who agrees with the above assessment and plan. Natalia Narayan PA 09/05/2019 11:58 AM If patient has no vendor preference and requires IV antibiotic therapy. Would recommend use of [facility] outpatient infusion center for ease of transition of outpatient care. Time Spent: >30 minutesElectronically signed by NABIL Diego at 3:30 PM Jennifer Plaza, [facility]-BUSINESS OBJECTS CONSULTANT - 09/05/2019 2:30 PM [facility] Language Pathology Acute Care Missed Visit Note Location: bedside Attempted to visit patient for therapy, but was unable for the following reasons: Patient is on hold. Received order for swallow evaluation. Per chart review, ENT reports concern regarding esophageal integrity post surgery. Therefore, pt is not appropriate for PO trials for a clinical swallow evaluation until cleared via Barium Swallow Study. Spoke with ENT and Neurosurgery, who will order Barium Swallow Study. Will monitor results of study and complete clinical bedside swallow evaluation as medically appropriate. (Therapist may be reached on Acupera) SESSION: Duration: 0 CHARGES: - ORDER - SPEECH THERAPY CONSULT 1 Units - CHARGE- IP SP PATIENT IS ON HOLD 1 Units Total treatment minutes: 0.00 Minutes Electronically Signed by: Jennifer Hurtado MS CCC-BUSINESS OBJECTS CONSULTANT,STEPHEN, BUSINESS OBJECTS CONSULTANT 09/05/2019 2:48:21 PM Ratna Ocampo RN - 09/05/2019 12:27 PM ESTPatient discussed in morning rounds with multidisciplinary team. Patient is a S/P anterior revision corpectomy C4-T1, Revision C2-T6 posterior fusion with Halo in place currently undergoing work up. Patient is on six weeks of IV antibiotics and Halo in place for 12 weeks. Discharge planning will depend upon hospital course and clinical outcomes. CM will continue to monitor and follow for discharge needs. Christian Aguirre MD - 09/05/2019 12:01 AM [place] [facility] [address] PATIENT NAME: Cesario Valdivia, DATE OF : 1975 . Subjective Date of Encounter: 09/04/2019 Length of stay: 13 days Interval History: Extubated yesterday Current Hospital Problem List: Principal Problem: Loosening of hardware in spine Active Problems: IVDU (intravenous drug user) Opioid use disorder, severe, dependence Tobacco use disorder Chronic hepatitis C without hepatic coma Hardware complicating wound infection Objective Vitals Temp: [36.8 C (98.2 F)-37.5 C (99.5 F)] 37.3 C (99.1 F) Pulse: [82-106] 101 Resp: [12-25] 19 BP: (112-144)/(68-96) 141/83 Arterial Line BP: (97-279)/(48-73) 140/61 FiO2 : [40 %] 40 % SpO2: [93 %-100 %] 99 % O2 Therapy: Room air Intake/Output Last 3 Completed Shifts I/O last 3 completed shifts: In: 3235.6 [I.V.:844.7; Blood:290; NG/GT:180; IV Piggyback:1920.9] Out: 2370 [Urine:1525; Drains:595; Blood:250] Physical Exam Awake and alert, complains of pain PERRL Does not cooperate with full motor exam due to pain, but elevates/grain picker BUE against resistance symetrically Halo in place Anterior and posterior drains in place Posterior CT prevena in place CBC: Recent Labs Lab 09/03/1942109/03/19192609/04/19 0343 09/04/19 1613 WBC 7.0 15.6* 13.6* 13.0* RBC 4.04* 3.60* 3.31* 3.08* HGB 10.9* 10.1* 9.0* 8.4* HCT 33.0* 29.7* 27.4* 25.9* PLT 195 218 200 204 NEUTOPHILPCT 74 87 74 -- MONOPCT 8 5 12 -- BMP: Recent Labs Lab 09/03/1942109/03/19192609/04/19 0343 NA 140 137 139 K 5.2* 5.1 4.1 CL 106 106 108* BICARBONATE 22 21* 23 GLUCOSE 108 145* 122 BUN 9 10 12 CREATININE 0.70 0.78 0.66* BCR 13 13 18 GFRAA >90 >90 >90 GFRNONAA >90 >90 >90 COAGS: Recent Labs Lab 09/02/19 1725 INR 1.17 Assessment/Plan Cesario Valdivia is a 44 y.o. male patient with a history of cervical SEA presenting with hardware failure s/p anterior revision corpectomy C4-T1, now s/ p Revision C2-T6 posterior fusion. Neuro: -Neurologic exam stable. Pain limited -Halo in place -Pain control -Anterior and posterior vinny drains to self-suction -Prevena to posterior neck #Substance use disorder - xanax discontinued per APS - Continue morphine and tylenol as needed; benadryl prn - Addiction psych and APS consulted, appreciate recs Cardio: SBP 100-160 Pulmo: -Extubated today GI: NPO pending MBS Hx of hepatitis C; GI to f/u as outpatient ID: Temp (24hrs), Av.1 C (98.8 F), Min:36.8 C (98.2 F), Max: 37.5 C (99.5 F) Active infection: SEA Antibiotics: Vancomycin and cefepime Appreciate ID recs, anticipate 6 weeks of abx along with chronic immunosupression No growth thus far from cultures from OR Endo: No active concerns Renal: Continue with Input/Output monitoring. Maintain euvolemia. CT IVP non actionable per urology; will need outpatient cystoscopy Morales for now Heme: DVT Prophylaxis: SCD, SQH AM CBC pending Code Status: Full code Dispo: Step down Associated attestation - Radha Cha MD - 09/05/2019 7:28 AM JAMMIE have seen and examined the patient on September 05, 2019, and agree with the resident s note Abena Bright - 09/04/2019 7:10 PM EST Spiritual Care Progress Note Quote Clerk: Bobby Harrison MDiv Quote Clerk Gas Distribution Plant Operator Edited by Chaplain Abena Bright M.DIV, [facility] Patient Name: Cesario Valdivia Age: 44 y.o. Sex: male Room/Bed: 21909/1 Zoey Affiliation/Tradition: Advent Admit Date: 08/21/2019 Referrals: Referral From: Quote Clerk Gas Distribution Plant Operator Referral To: Quote Clerk Gas Distribution Plant Operator Contact Information: Vocera Spiritual Care Assessment Spouse/Significant Other Name/Relationship: Tonja/Mother Assessed Need for Visit: Spiritual Companionship Patient Description: Calm, Accepting, At Peace Spiritual/Cultural/Social Issues Assessment: I visited Cesario as Quote Clerk Gas Distribution Plant Operator assigned to the unit in response to a Revisit request from the Quote Clerk Gas Distribution Plant Operator. Cesario is alert and calm. He is friendly and enjoys conversation. His spiritual foundation is in his Advent zoey. When I offered prayer he reached out his hand to join mine. I prayed with him for healing and hope for himself and those who love him. Spiritual Care remains available. Spiritual Care Intervention: Explore/Affirm Zoey, Prayer, Pastoral Touch, Family Support Spiritual Outcomes - Patient: [place] comforted, accompanied Spiritual Outcomes - Family: [place] comforted, accompanied Spiritual Care Plan Goal Goal: Quote Clerk will monitor and/or provide for ongoing identified spiritual needs as they emerge throughout the hospitalization. Outcome: stable Spiritual Care Follow Up Follow Up: Routine visit Mckenzie Sharma RRT - 09/04/2019 5:24 PM ESTPatient has a Positive cuff leak. Patient was successfully extubated to RA sat's 98% Sanaz Concepcion MBBS - 09/04/2019 3:10 PM ESTNeurocritical Care Attending Note Cesario Valdivia is a 44 y.o. male patient with: Principal Problem: Loosening of hardware in spine Active Problems: IVDU (intravenous drug user) Opioid use disorder, severe, dependence Tobacco use disorder Chronic hepatitis C without hepatic coma Hardware complicating wound infection Critical Care Documentation Performed by: Sanaz Parra MBBS Date of Encounter: 09/04/2019 Total critical care time: 35 minutes Critical care time was exclusive of separately billable procedures and treating other patients and teaching time. Critical care was necessary to treat or prevent imminent or life-threatening deterioration of the following conditions: CLERICAL AND OFFICE SUPPORT WORKERS failure due to acute respiratory failure Critical care was time spent personally by me on the following activities: obtaining history from patient or surrogate examination of patient ordering and review of radiographic studies ordering and performing treatments and interventions development of treatment plan withpatient or surrogate discussion with primary provider evaluation od patient's response to treatment re-evaluation of patient's condition review of old charts ventilator management Events of the last 24 hours: No acute events overnight. Gen: no acute distress HEENT: normal, neck supple CV: HS S1 and S2, normal Chest: CTAB Abd, soft, moves with respiration, no area of tenderness, bowel sounds normoactive. Neuro: Awake and alert, oriented X3 Language - intubated/ CN: PERRLA, EOMI, no facial droop, tongue protrusion midline, Motor: normal tone and bulk, moves bilateral upper and lower ext antigravity. Sensation: intact to light touch. Coordination and gait: deferred. Medical Decision Makin y.o. male with hx of IVDU and hepatitis C with spinal epidural abscess in February of 2019 s/p C6/7 corpectomy with anterior C5-T1 fusion and a posterior cervical fusion from C4-T2. He presented with Hardware failure and he is now s/ p revision of C2-T6 posterior fusion on 09/02-09/03 and Halo-vest placement on Spinal epidural abscess - . S/p cervical fusion complicated by hardware failure. Now s/p redo anterior cervical diskectomy andC4-T12 fusion and revision C2-T6 posteriou fusion. - On broad spectrum antibiotics coverage with cefepime and vancomycin. - ID team consulted by neurosurgery team. Appreciate recommendations. Acute respiratory failure - On ASV mode. - Weaned vent settings to pressure support and will plan for extubation today over bougie. Dysphagia - due to intubation and also post-op dysphagia anticipateed due to severe adherence of esophagus to previous corpectomy plate and adjacent tissues as per neurosurgery team. -BUSINESS OBJECTS CONSULTANT evaluation after barium swallow. Renal - TBB even DVT prophylaxis - SCDs for now. Joana Webster NP - 09/04/2019 11:34 AM EST Addiction Progress Note Interval History: Patient underwent revision C2-T6 posterior fusion and is now POD #2, still intubated and sedated. His mom was at the bedside and asked if we would be helping him with his addiction, and admitted that she wasn't sure he wants sobriety but she planned to work on him about this. We also endorsed that we'd continue to visit him with this goal but ultimately he has to be on board with sobriety. Current Medications: acetaminophen (TYLENOL) tablet 975 mg Oral BID bacitracin Topical TID carBAMazepine 200 mg Oral BID cefepime 2 g Intravenous Q8H cloNIDine 0.1 mg Oral QPM gabapentin 600 mg Oral TID sodium chloride (preservative free) 10 mL Intravenous Q12H And heparin lock flush 20 Units Intravenous Q12H lidocaine-EPINEPHrine 10 mL Infiltration Once magnesium hydroxide 45 mL Oral Nightly melatonin 3 mg Oral Nightly [START ON 09/05/2019] pantoprazole 40 mg Oral QAM AC pantoprazole 40 mg Oral Daily polyethylene glycol 17 g Oral Daily vancomycin 1,750 mg Intravenous Q12H PRN: bisacodyl 10 mg Q72H PRN, cyclobenzaprine 10 mg TID PRN, diphenhydrAMINE 25 mg Nightly PRN, sodium chloride (preservative free) 10 mL PRN AND heparin lock flush 20 Units PRN AND sodium chloride(preservative free) 10 mL Q12H AND* * heparin lock flush 20 Units Q12H, ondansetron 4 mg Q8H PRN, senna 10 mL Nightly PRN, senna 2 tablet Nightly PRN Allergies: No Known Allergies Current Hospital Problem List: Principal Problem: Loosening of hardware in spine Active Problems: IVDU (intravenous drug user) Opioid use disorder, severe, dependence Tobacco use disorder Chronic hepatitis C without hepatic coma Hardware complicating wound infection Past Surgical History: Procedure Laterality Date MN REMV VERT,EXDUR,CERV TUMOR N/A 02/05/2019 Procedure: C6/7 CORPECTOMY WITH C5-T1 ANTERIOR FUSION PER CYNDI; Surgeon: Radha Cha MD; Location: [address]; Service: Neurosurgery; Laterality: N/A; SPINE SURGERY Vital signs in last 24 hours: Vitals: 09/04/19 0700 09/04/19 0800 09/04/19 0900 09/04/19 1000 BP: 136/88 138/86 130/78 122/68 BP Location: Right arm Right arm Right arm Right arm Patient Position: Lying Lying Lying Lying Pulse: 98 95 93 85 Resp: 18 17 16 16 Temp: 36.9 C 37 C 37 C 37 C TempSrc: Bladder Bladder Bladder Bladder SpO2: 100% 100% 100% 100% Weight: Intake/Output last 3 shifts: I/O last 3 completed shifts: In: 5849.8 [I.V.:3138.9; Blood:590; IV Piggyback:2120.9] Out: 3690 [Urine:1855; Drains:335; Blood:1500] Pertinent Labs: CBC: Lab Results Component Value Date WBC 13.6 (H) 09/04/2019 RBC 3.31 (L) 09/04/2019 HGB 9.0 (L) 09/04/2019 HCT 27.4 (L) 09/04/2019 PLT 200 09/04/2019 BMP: Lab Results Component Value Date NA 139 09/04/2019 K 4.1 09/04/2019 CL 108 (H) 09/04/2019 BICARBONATE 23 09/04/2019 GLUCOSE 122 09/04/2019 BUN 12 09/04/2019 CREATININE 0.66 (L) 09/04/2019 BCR 18 09/04/2019 GFRAA >90 09/04/2019 GFRNONAA >90 09/04/2019 CMP: Lab Results Component Value Date NA 139 09/04/2019 K 4.1 09/04/2019 CL 108 (H) 09/04/2019 BICARBONATE 23 09/04/2019 CALCIUM 7.6 (L) 09/04/2019 GLUCOSE 122 09/04/2019 BUN 12 09/04/2019 BCR 18 09/04/2019 PROT 8.1 09/01/2019 ALBUMIN 2.7 (L) 09/01/2019 TBILI 0.4 09/01/2019 ALKPHOS 168 (H) 09/01/2019 AST 37 09/01/2019 ALT 27 09/01/2019 AGRATIO 0.5 09/01/2019 GFRAA >90 09/04/2019 GFRNONAA >90 09/04/2019 Simple Electrolyte Panel: Lab Results Component Value Date NA 139 09/04/2019 K 4.1 09/04/2019 CL 108 (H) 09/04/2019 BICARBONATE 23 09/04/2019 Renal Panel: Lab Results Component Value Date NA 139 09/04/2019 K 4.1 09/04/2019 CL 108 (H) 09/04/2019 BICARBONATE 23 09/04/2019 CALCIUM 7.6 (L) 09/04/2019 GLUCOSE 122 09/04/2019 BUN 12 09/04/2019 CREATININE 0.66 (L) 09/04/2019 ALBUMIN 2.7 (L) 09/01/2019 Hepatic Panel: Lab Results Component Value Date ALBUMIN 2.7 (L) 09/01/2019 ALKPHOS 168 (H) 09/01/2019 ALT 27 09/01/2019 AST 37 09/01/2019 PROT 8.1 09/01/2019 TBILI 0.4 09/01/2019 BILIDIR 0.6 (H) 08/22/2019 Coagulation: Lab Results Component Value Date INR 1.17 09/02/2019 Cardiac markers: No results found for: CKTOTAL, CKMB, TROPONINT, TROPONINI, MYOGLOBIN Exam: Patient is intubated and on spont vent settings. He appears to occasionally try to open his eyes. Wearing cervical collar. VSS on bedside monitor. Sedated with propofol continuous infusion and [id number]/hour continuous infusion. A&P 44 y.o. year old male with loosening of spinal hardware, epidural abscess, opioid use disorder, IVDUwho is now POD#2 s/p revision C2-T6 posterior fusion. Patient continues to suffer from serious complications of his severe OUD/IVDU; we will remain available for assistance, along with Social Work. Please call if further assistance is desired. Joana Blank GAMBLING BROKER [phone] Jennifer Du MD - 09/04/2019 1:01 [place] [address] PATIENT NAME: Cesario Valdivia, DATE OF : 1975 . Subjective Date of Encounter: 09/03/2019 Length of stay: 12 days Interval History: , kept intubated postoperatively Current Hospital Problem List: Principal Problem: Loosening of hardware in spine Active Problems: IVDU (intravenous drug user) Opioid use disorder, severe, dependence Tobacco use disorder Chronic hepatitis C without hepatic coma Hardware complicating wound infection Objective Vitals Temp: [35.9 C-38.1 C] 37.5 C Pulse: [71-95] 92 Resp: [13-18] 18 BP: (103-155)/(55-83) 119/77 Arterial Line BP: (101-144)/(51-77) 119/63 FiO2 : [40 %] 40 % SpO2: [93 %-100 %] 100 % O2 Therapy: Oxygen humidified Intake/Output Last 3 Completed Shifts I/O last 3 completed shifts: In: 4791.1 [I.V.:3941.1; Blood:300; IV Piggyback:550] Out: 6645 [Urine:5055; Drains:140; Blood:1450] Physical Exam Intubated ,propofol held PERRL Forward gaze Collar in place Dining Room Server/elevates BUE Elevates BLE Anterior dressing CDI Ant/posterior vinny drains to self suction Posterior CT prevena in place CBC: Recent Labs Lab 09/01/19 0124 02204509/03/190 09/03/192 WBC 4.6 < > 5.1 6.0 7.0 RBC 4.16* < > 4.14* 4.30* 4.04* HGB 11.1* < > 12.1* 11.6* 10.9* HCT 34.1* < > 34.0* 35.0* 33.0* PLT 195 < > 231 218 195 NEUTOPHILPCT 46 -- -- 67 74 MONOPCT 11 -- -- 10 8 < > = values in this interval not displayed. BMP: Recent Labs Lab 09/01/1912309/02/19204509/03/19421 NA 140 139 140 K 4.0 4.4 5.2* CL 106 104 106 BICARBONATE 26 21* 22 GLUCOSE 123 123 108 BUN 10 8 9 CREATININE 0.69* 0.83 0.70 BCR 14 10 13 GFRAA >90 >90 >90 GFRNONAA >90 >90 >90 COAGS: Recent Labs Lab 09/02/19 1725 INR 1.17 Assessment/Plan Cesario Valdivia is a 44 y.o. male patient with a history of cervical SEA presenting with hardware failure POD from revision corpectomy C4-T1, now s/p Revision C2-T6 posterior fusion. Neuro: - Neurologic exam Limited by intubation/sedation -Collar in place -CT C/T spine show interval hardware placement - Halo placement planned for bedside in the AM #Substance use disorder - xanax discontinued per APS - Continue morphine and tylenol as needed; benadryl prn - Addiction psych and APS consulted, appreciate recs Cardio: SBP 100-160 Pulmo: Intubated ASV Will wean to extubation after halo GI: GI Prophylaxis: not needed Nutrition: Regular PO diet Hx of hepatitis C; GI to f/u as outpatient ID: Temp (24hrs), Av.1 C, Min:35.9 C, Max:38.1 C Active infection: SEA Antibiotics: Vancomycin and cefepime Appreciate ID recs, anticipate 6 weeks of abx along with chronic immunosupression pending cultures from OR Cultures sent from OR, follow up End date TBD per ID Endo: No active concerns Renal: Continue with Input/Output monitoring. Maintain euvolemia. CT IVP non actionable per urology; will need outpatient cystoscopy Morales for now Heme: DVT Prophylaxis: SCD, SQH Held Acute blood loss anemia Transfused 2u intraop Maintain h/h > 01/26, continue to monitor h/h Code Status: Full code Dispo: ICU Associated attestation - Radha Cha MD - 09/04/2019 2:00 PM JAMMIE have seen and examined the patient on September 04, 2019, and agree with the resident s note Neurologically at baseline. CT shows good placement of hardware. Anterior cage slightly ventral, butwedged into bone. Plan for halo placement today, followed by extubation. ID consult for long-term abx. Patient likely will have some degree of post-operative dysphagia due the severe adherence of the esophagus to the previous corpectomy plate and adjacent soft tissues. He will need a swallow evaluation.Mckenzie Oh, KYRA - 09/03/2019 10:26 PM ESTRespiratory transported the patient within the hospital . The patient originated from and was transported to CT Scan. The patient transport took a total time of 25 minutes. The patient was transported without incident. Respiratory transported the patient within the hospital . The patient originated from CT Scan and was transported to 9. The patient transport took a total time of 25 minutes. The patient was transported without incident. Dianna Sethi RT - 09/03/2019 9:44 AM ESTTransported patient to the O.R . from 9E 10 mints with patient. Figueroa Barger MD - 09/03/2019 8:46 AM EST ENT Inpatient Progress Note HD# 12 ENT Team : H&N Procedure(s) (LRB): Revision of posterior cervical fusion with extension of construct from C2 to T8 with Neuromonitoringand C-arm per Dr Zavala (N/A) Interval hx: No events. Remained intubated. VS Vitals: 09/03/19 0600 09/03/19 0700 09/03/19 0800 09/03/19 0900 BP: 122/73 147/81 136/76 Pulse: 91 94 95 95 Resp: 16 18 13 13 Temp: 37.7 C (99.9 F) 38 C (100.4 F) 38.1 C (100.6 F) 37.9 C (100.2 F) SpO2: 100% 100% 100% 100% I/O: I/O last 3 completed shifts: In: 4791.1 [I.V.:3941.1; Blood:300; IV Piggyback:550] Out: 6645 [Urine:5055; Drains:140; Blood:1450] Drains: Closed/Suction Drain Right Neck Bulb 15 Fr. (Active) Site Description Unable to view 09/03/2019 8:00 AM Dressing Status Clean;Dry;Intact 09/03/2019 8:00 AM Drainage Appearance Bright red 09/03/2019 8:00 AM Status To bulb suction 09/03/2019 6:00 AM Output (mL) 40 mL 09/03/2019 6:00 AM Number of days: 0 Closed/Suction Drain Midline;Medial Back Bulb 15 Fr. (Active) Number of days: 0 Physical Examination General: Awake, alert, NAD. Head: Normocephalic, atraumatic. Eyes: Spont Nose: External nose unremarkable. Anterior nares clear. Ears: Bilateral auricles unremarkable. Face: Symmetric. Neck: Supple, trachea midline, c collar on, dressing with mild soiling of SS fluid. Recent Labs Lab 09/01/19 0124 09/02/19 2046 09/03/19 0130 09/03/19 0422 WBC 4.6 < > 5.1 6.0 7.0 HGB 11.1* < > 12.1* 11.6* 10.9* HCT 34.1* < > 34.0* 35.0* 33.0* PLT 195 < > 231 218 195 NEUTOPHILPCT 46 -- -- 67 74 < > = values in this interval not displayed. Recent Labs Lab 09/01/1912309/02/19204509/03/19 0422 NA 140 139 140 K 4.0 4.4 5.2* CL 106 104 106 BICARBONATE 26 21* 22 BUN 10 8 9 CREATININE 0.69* 0.83 0.70 GLUCOSE 123 123 108 Recent Labs Lab 09/01/1912309/02/19204509/03/19 0422 CALCIUM 8.4* 8.0* 7.8* Recent Labs Lab 09/02/19 1725 INR 1.17 Assessment: Pt is a 44 y.o. male s/p revision ACDF with ENT assist. Plan: ENT available for assistance if needed Please call with questions or concerns Care per primary. Figueroa Rubin MD ENT resident PGY-4 Mathieu Fall DO - 09/03/2019 1:09 AM [place] [facility] [address] PATIENT NAME: Cesario Valdivia, DATE OF : 1975 . Subjective Date of Encounter: 09/03/2019 Length of stay: 12 days Interval History: post op check, maintained intubated. Able to communicate with patient with propofol held. Current Hospital Problem List: Principal Problem: Loosening of hardware in spine Active Problems: IVDU (intravenous drug user) Opioid use disorder, severe, dependence Tobacco use disorder Chronic hepatitis C without hepatic coma Hardware complicating wound infection Objective Vitals Temp: [36.5 C-37 C] 36.5 C Pulse: [60-90] 86 Resp: [15-18] 16 BP: (103-155)/(55-91) 103/55 Arterial Line BP: (110)/(56) 110/56 FiO2 : [40 %] 40 % SpO2: [93 %-98 %] 93 % O2 Therapy: Room air Intake/Output Last 3 Completed Shifts I/O last 3 completed shifts: In: 1075.5 [P.O.:400; I.V.:675.5] Out: - Physical Exam Intubated ,propofol held Pupils 4mm to 3mm reactive Forward gaze Collar in place RUE antigravity,grossly full strength LUE antigravity, grossly full strength LLE and RLE, bends at the knees, wiggles toes, DF and PF 5/5 Anterior dressing CDI FERNANDA to suction with serosanguinous drainage CBC: Recent Labs Lab 09/01/19 0124 09/02/19 1725 09/02/19 2046 WBC 4.6 4.7 5.1 RBC 4.16* 4.21* 4.14* HGB 11.1* 11.8* 12.1* HCT 34.1* 34.8* 34.0* PLT 195 219 231 NEUTOPHILPCT 46 -- -- MONOPCT 11 -- -- BMP: Recent Labs Lab 08/28/19 0030 09/01/19 0124 09/02/19 2046 NA 142 140 139 K 3.9 4.0 4.4 CL 109* 106 104 BICARBONATE 25 26 21* GLUCOSE 65* 123 123 BUN 7 10 8 CREATININE 0.82 0.69* 0.83 BCR 9 14 10 GFRAA >90 >90 >90 GFRNONAA >90 >90 >90 COAGS: Recent Labs Lab 09/02/19 1725 INR 1.17 Assessment/Plan Cesario Valdivia is a 44 y.o. male patient with a history of cervical SEA presenting with hardware failure Now: POD 0 from revision corpectomy C4-T1 and anterior fusion with neuromonitoring and c-arm Neuro: - Neurologic exam without major deficits noted -OR in AM for posterior revision -Collar in place -No imaging for now, CT cervical and throacic spine post operatively -Consented for HALO by mother to be placed, timing TBD -propofol for sedation #Substance use disorder - xanax discontinued per APS - Continue morphine and tylenol as needed; benadryl prn - Addiction psych and APS consulted, appreciate recs Cardio: SBP 100-160 Pulmo: Intubated ASV CXR and ABG in AM GI: GI Prophylaxis: not needed Nutrition: Regular PO diet Hx of hepatitis C; GI to f/u as outpatient ID: Temp (24hrs), Av.8 C, Min:36.5 C, Max:37 C Active infection: SEA Antibiotics: Vancomycin and cefepime Appreciate ID recs, anticipate 6 weeks of abx along with chronic immunosupression pending cultures from OR Cultures sent from OR, follow up End date TBD per ID Endo: No active concerns Renal: Continue with Input/Output monitoring. Maintain euvolemia. CT IVP non actionable per urology; will need outpatient cystoscopy Morales for now Heme: DVT Prophylaxis: SCD, SQH Held H and H post op, stable Code Status: Full code Dispo: ICU Mathieu Noonan DO Neurosurgery Resident PGY2 Associated attestation - Radha Cha MD - 09/03/2019 9:25 AM JAMMIE have seen and examined the patient on September 03, 2019, and agree with the resident s note I had a long discussion with Cesario and his mother this morning. He was able to ask appropriate questions via a writing board since he is intubated. I described to him that we would be fixating him from C2-T6, possibly T8. He appears understand the reasoning behind a post-operative halo application. His mother also understands. I answered all questions and detailed that it would be worn for several weeks in the post-op period. After surgery, we will obtain a new CT C/T-spine to ensure the hardware is appropriately placed. We will then place a halo either later today or early tomorrow morning under sedation. After the halo, we will plan on extubating him. He likely will have some degree of post-op dysphagia due to significant esophageal manipulation during the anterior approach.Lizbeth Conley RN - 11:25 PM ESTAll times approximated and all safety measures maintained: 2129- Patient arrived on unit 9E from recovery intubated. Patient on propofol mcg/kg/min and nicardipine 5 mg/hr. Patient unable to be aroused with RASS -4. Propofol paused per Neuro surgery. 2229- Patient following simple commands, moving all extremities to verbal command, and spontaneouslyopening eyes. Temperature 36.9 C, bear hugger ordered and administered per policy.Electronically signed by Lizbeth Conley RN at 11:29 PM Stevie Cassidy MD - 09/02/2019 9:21 PM EST ENT Inpatient Progress Note HD# 11 ENT Team :H&N Procedure(s) (LRB): Revision corpectomy C4-C7 and anterior fusion with neuromonitoring and c-arm (N/ A) Interval hx: Post-op check. Patient intubated on the ventilator. VS Vitals: 09/02/19 0457 09/02/19 0800 09/02/19 2030 09/02/19 2045 BP: 146/82 (!) 128/91 103/55 Pulse: 61 81 90 86 Resp: 16 17 15 16 Temp: 36.7 C (98.1 F) 37 C (98.6 F) 36.5 C (97.7 F) SpO2: 97% 98% 95% 93% I/O: I/O last 3 completed shifts: In: 1075.5 [P.O.:400; I.V.:675.5] Out: - Drains: Closed/Suction Drain Right Neck Bulb 15 Fr. (Active) Number of days: 0 Physical Examination General: . Intubated, sedated, on ventilator. Head: Normocephalic, atraumatic. Eyes: Closed. Nose: External nose unremarkable. Anterior nares clear. Ears: Bilateral auricles unremarkable. Oral Cavity/Oropharynx: ETT in place. Face: Symmetric. Neck: C-collar in place, dressing in place c/d/i Recent Labs Lab 09/01/19 0124 09/02/19 1725 09/02/19 2046 WBC 4.6 4.7 5.1 HGB 11.1* 11.8* 12.1* HCT 34.1* 34.8* 34.0* PLT 195 219 231 NEUTOPHILPCT 46 -- -- Recent Labs Lab 08/27/19 0011 08/28/19 0030 09/01/19 0124 NA 141 142 140 K 3.4 3.9 4.0 CL 108* 109* 106 BICARBONATE 26 25 26 BUN 11 7 10 CREATININE 0.65* 0.82 0.69* GLUCOSE 131 65* 123 Recent Labs Lab 08/27/19 0011 08/28/19 0030 09/01/19 0124 CALCIUM 8.2* 8.4* 8.4* Recent Labs Lab 09/02/19 1725 INR 1.17 Assessment: Pt is a 44 y.o. male s/p revision corpectomy with ACDF approach POD 0 doing fair. Currently intubated with plan for further surgery tomorrow with neurosurgery. Plan: - Maintain dressing - Care per primary team Stevie Dominguez MD ENT resident PGY-2 Figueroa Barger MD - 09/02/2019 6:44 PM ESTRecommended MBS 12-24 hours from end of previous procedure to evaluate esophageal integrity. Figueroa Rubin ENT [id number] signed by Figueroa Rubin MD at 09/02/2019 6:45 PM Trung Benitez MD - 09/02/2019 2:01 AM [place] [facility] [address] PATIENT NAME: Cesario Valdivia, DATE OF : 1975 . Subjective Date of Encounter: 09/01/2019 Length of stay: 10 days Interval History: no acute events overnight Current Hospital Problem List: Principal Problem: Loosening of hardware in spine Active Problems: IVDU (intravenous drug user) Opioid use disorder, severe, dependence Tobacco use disorder Chronic hepatitis C without hepatic coma Hardware complicating wound infection Objective Vitals Temp: [36.4 C-36.9 C] 36.9 C Pulse: [56-82] 74 Resp: [16] 16 BP: (132-154)/(80-86) 133/80 SpO2: [98 %-99 %] 99 % O2 Therapy: Room air Intake/Output Last 3 Completed Shifts I/O last 3 completed shifts: In: 240 [P.O.:240] Out: - Physical Exam Awake, alert, oriented x3 Cervical collar in place Upper Extremity Strength Deltoid Biceps Triceps WE WF Gr IO Right 5 5 5 5 5 5 5 Left 5 5 5 5 5 5 5 Lower Extremity Strength IP Quad Ham TA EHL Gastroc Right 5 5 5 5 5 5 Left 5 5 5 5 5 5 Sensation intact to light touch throughout all four extremities Data Review CBC: Recent Labs Lab 08/27/19 0011 08/28/19 0030 09/01/19 0124 WBC 3.9* 5.4 4.6 RBC 4.23* 4.42* 4.16* HGB 11.2* 11.7* 11.1* HCT 34.5* 35.6* 34.1* PLT 199 220 195 NEUTOPHILPCT -- -- 46 MONOPCT -- -- 11 BMP: Recent Labs Lab 08/27/19 0011 08/28/19 0030 09/01/19 0124 NA 141 142 140 K 3.4 3.9 4.0 CL 108* 109* 106 BICARBONATE 26 25 26 GLUCOSE 131 65* 123 BUN 11 7 10 CREATININE 0.65* 0.82 0.69* BCR 17 9 14 GFRAA >90 >90 >90 GFRNONAA >90 >90 >90 COAGS: No results for input(s): INR in the last 168 hours. Invalid input(s): PT, PTT Assessment/Plan Cesario Valdivia is a 44 y.o. male patient with a history of cervical SEA presenting with hardware failure Neuro: - Neurologic exam stable - Continue collar at all times - OR today for stage 1 anterior cervical revision with ENT assistance - Plan for OR 09/03 for posterior revision and extension of construct - Medical risk stratification obtained: low risk for intermediate risk procedure #Substance use disorder - xanax discontinued per APS - Continue morphine and tylenol as needed; benadryl prn - Addiction psych and APS consulted, appreciate recs Cardio: - Hemodynamically stable, no active concerns Pulmo: - Encourage IS GI: GI Prophylaxis: not needed Nutrition: Regular PO diet Hx of hepatitis C; GI to f/u as outpatient ID: Temp (24hrs), Av.8 C, Min:36.4 C, Max:36.9 C Active infection: SEA Antibiotics: Vancomycin and cefepime Appreciate ID recs, anticipate 6 weeks of abx along with chronic immunosupression pending cultures from OR End date TBD per ID Endo: No active concerns Renal: Continue with Input/Output monitoring. Maintain euvolemia. CT IVP non actionable per urology; will need outpatient cystoscopy Heme: DVT Prophylaxis: SCD, SQH Held for OR Code Status: Full code Dispo: Floor Associated attestation - Radha Cha MD - 09/02/2019 8:25 AM JAMMIE have seen and examined the patient on September 02, 2019, and agree with the resident s note Will plan for revision anterior corpectomy todayHaim Morales PA - 09/01/2019 3:06 PM EST NEUROSURGERY PRE-OP NOTE Pre Op Diagnosis: Cervical spine osteomyelitis/discitis with hardware pull out and cage migration Procedure: Revision of anterior cervical corpectomy with multilevel anterior reconstruction Labs: Recent Labs Lab 09/01/19 0124 WBC 4.6 RBC 4.16* HGB 11.1* HCT 34.1* PLT 195 NEUTOPHILPCT 46 LYMPHOPCT 38 MONOPCT 11 EOSPCT 5 Recent Labs Lab 09/01/19 0124 NA 140 K 4.0 CL 106 BICARBONATE 26 GLUCOSE 123 BUN 10 CREATININE 0.69* BCR 14 GFRAA >90 GFRNONAA >90 PT/INR/PTT: (08/22) 15.0/1.14/35.9 UA: (08/30) 1.024/6.0/Rbc 5/Wbc22/ Leuk estr and nitrite neg, bact 1+/Squam epith 1 Radiology: CXR (08/22) NAD EKG:( 08/21) NSR, 88 bpm Blood Bank: Type and cross done Orders: written Consent:signed and on chart Fallon Simons NP - 09/01/2019 2:35 PM ESTPt reports pain is adequately controlled and denies any opioid withdrawal symptoms. He hasn't taken any PO morphine since last night. Eyes do appear somewhat watery and he yawned several times during our discussion, but otherwise does not have any objective findings c/w opioid withdrawal. Plan is for OR tomorrow and again . C/w routine acetaminophen 1g BID (LFT's have normalized), will increase gabapentin from 300mg to 600mg TID, reduce clonidine to 0.1mg qHS (held this AM d/t HR in the 50's), and d/c xanax (1mg qHS prn).Use PO benadryl instead please (non-habit forming). Plan to increase PO morphine to 22.5-30mg q4 prn post-op and add IV morphine 2- 3mg IV q3 hrs prn forsevere BTP. If this provides insufficient analgesia, use dilaudid FRAMING MANAGER 0.3-0.4mg q10 mins prn. Call APS for further assistance post op if needed. Trinity Rios PharmD - 09/01/2019 11:53 AM EST Clinical Pharmacology - Therapeutic Drug Monitoring Interval History Cesario Valdivia is a 44 y.o. male patient currently being treated with cefepime and vancomycin for spinal hardware infection, epidural abscess. Current Antibiotics/Dosing Cefepime 2 gm IV q8h Vancomycin 1750 mg IV q12h Drug Levels evaluated Vancomycin trough 09/01 @ 0124 = 12.3 mcg/ml Labs/Clinical Factors Lab Results Component Value Date WBC 4.6 09/01/2019 Lab Results Component Value Date CREATININE 0.69 (L) 09/01/2019 Temp Readings from Last 1 Encounters: 09/01/19 36.9 C (98.4 F) (Oral) Temp (24hrs), Av.8 C (98.2 F), Min:36.4 C (97.5 F), Max:37 C (98.6 F) Intake/Output Summary (Last 24 hours) at 09/01/2019 1154 Last data filed at 08/31/2019 1900 Gross per 24 hour Intake 480 ml Output Net 480 ml No intake/output data recorded. Assessment Patient's current serum concentration(s) are Therapeutic Plan Will continue current vancomycin regimen of 1750 mg IV q12h. Will repeat trough level in ~ 5-7 days,or sooner, if decline in renal function. Trinity Wu, Pharm. D Tana Benson - 09/01/2019 10:50 AM EST Spiritual Care Progress Note Quote Clerk: Tana Fowler MDiv, Quote Clerk Gas Distribution Plant Operator Patient Name: Cesario Valdivia Age: 44 y.o. Sex: male Room/Bed: [address] [place] [address] Zoey Affiliation/Tradition: Advent Admit Date: 08/21/2019 Referrals: Referral From: Rounding On Unit Referral To: Quote Clerk Gas Distribution Plant Operator Contact Information: Vocera Spiritual Care Assessment Spouse/Significant Other Name/Relationship: No family present during this time. Assessed Need for Visit: Critical Patient Description: Calm, Accepting, At Peace, Celebrating/Rejoicing Spiritual/Cultural/Social Issues Assessment: I visited with Mr. Valdivia, he shared that he is Advent and his family just built a shinto in [place], he could not remember the name. His community is his and children, he also has 16 aunt and uncles. 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 His hopes that his surgery goes well, he received a prayer and pastoral touch, spiritual care will remain available during this hospitalization. Spiritual Care Intervention: Pastoral Touch, Prayer, Provide for Emotional Exp/ Share Story, Scripture/Sacred Text Spiritual Outcomes - Patient: Identified spiritual strengths, Pastoral relationship established, Processed life story Spiritual Outcomes - Family: Not available for assessment Spiritual Care Plan Goal Goal: Quote Clerk will monitor and/or provide for ongoing identified spiritual needs as they emerge throughout the hospitalization. Outcome: stable Spiritual Care Follow Up Follow Up: Revisit Kyle Ferguson MD - 09/01/2019 1:44 AM [place] [facility] [address] PATIENT NAME: Cesario Valdivia, DATE OF : 1975 . Subjective Date of Encounter: 09/01/2019 Length of stay: 10 days Interval History: no acute events overnight Current Hospital Problem List: Principal Problem: Loosening of hardware in spine Active Problems: IVDU (intravenous drug user) Opioid use disorder, severe, dependence Tobacco use disorder Chronic hepatitis C without hepatic coma Hardware complicating wound infection Objective Vitals Temp: [36.3 C-37 C] 36.9 C Pulse: [53-82] 82 Resp: [16-18] 16 BP: (129-148)/(75-87) 133/86 SpO2: [98 %-100 %] 98 % O2 Therapy: Room air Intake/Output Last 3 Completed Shifts I/O last 3 completed shifts: In: 720 [P.O.:720] Out: - Physical Exam Awake, alert, oriented x3 Cervical collar in place Upper Extremity Strength Deltoid Biceps Triceps WE WF Gr IO Right 5 5 5 5 5 5 5 Left 5 5 5 5 5 5 5 Lower Extremity Strength IP Quad Ham TA EHL Gastroc Right 5 5 5 5 5 5 Left 5 5 5 5 5 5 Sensation intact to light touch throughout all four extremities Data Review CBC: Recent Labs Lab 08/26/19 0057 08/27/19 0011 08/28/19 0030 WBC 4.1 3.9* 5.4 RBC 4.04* 4.23* 4.42* HGB 10.7* 11.2* 11.7* HCT 32.9* 34.5* 35.6* PLT 202 199 220 BMP: Recent Labs Lab 08/26/19 0057 08/27/19 0011 08/28/19 0030 NA 140 141 142 K 3.5 3.4 3.9 CL 108* 108* 109* BICARBONATE 23 26 25 GLUCOSE 96 131 65* BUN 10 11 7 CREATININE 0.94 0.65* 0.82 BCR 11 17 9 GFRAA >90 >90 >90 GFRNONAA >90 >90 >90 COAGS: No results for input(s): INR in the last 168 hours. Invalid input(s): PT, PTT Assessment/Plan Cesario Valdivia is a 44 y.o. male patient with a history of cervical SEA presenting with hardware failure Neuro: - Neurologic exam stable - Continue collar at all times - Plan for two staged surgical approach: anterior and posterior fusion 09/02 and 09/03, respectively - ENT to assist with exposure on 09/02 - Medical risk stratification obtained: low risk for intermediate risk procedure - Addiction psych and APS consulted, appreciate recs Cardio: - Hemodynamically stable, no active concerns Pulmo: - Encourage IS GI: GI Prophylaxis: not needed Nutrition: Regular PO diet Hx of hepatitis C; GI to f/u as outpatient ID: Temp (24hrs), Av.8 C, Min:36.3 C, Max:37 C Active infection: SEA Antibiotics: Vancomycin and cefepime Appreciate ID recs, anticipate 6 weeks of abx along with chronic immunosupression pending cultures from OR Endo: No active concerns Renal: Continue with Input/Output monitoring. Maintain euvolemia. CT IVP non actionable per urology; will need outpatient cystoscopy Heme: DVT Prophylaxis: SCD, SQH Code Status: Full code Dispo: Floor Associated attestation - Radha Cha MD - 09/01/2019 1:58 PM JAMMIE have seen and examined the patient on September 01, 2019, and agree with the resident s note We will proceed tomorrow with stage I - anterior corpectomy revision w/ ENT assistance for exposure. The patient has a significant hx of IVDU, and presented with cervical myelopathy , and kyphosis from multi-level osteomyelitis, discitis, and epidural abscess. I performed a C6/7 corpectomy, with supplemental posterior fixation from C4-T2. He essentially became lost to follow-up. He re-presented with neck pain after a fall, and continued IVDU. Images reveal new discitis at C4/5 with cage migration and hardware pullout. There is new osteomyelitis at C5 and T1. He also has new nterior / posterior epidural enhancement, likely phlegmom, and abscess in the C4/5 disc space. We will need to place a new cage spanning at least C4-T2, if not C3-T2. This will be a significant challenge getting anterior access to span this many levels. Sunday we will plan to revise his posterior construct, and take him rostrally to C2 and distally past his natural apex of thoracic kyphosis. I discussed with him that if he continues doing drugs and is non-compliant with abx and follow-up after surgery, he will eventually become neurologically impaired with a fixed sagital plane deformity, as we will start to run out of anterior and posterior fixation options.Mathieu Noonan, DO - 08/31/2019 12 :18 AM [place] [facility] [place] [address] PATIENT NAME: Cesario Valdivia, DATE OF : 1975 . Subjective Date of Encounter: 08/31/2019 Length of stay: 9 days Interval History: no acute events. Current Hospital Problem List: Principal Problem: Loosening of hardware in spine Active Problems: IVDU (intravenous drug user) Opioid use disorder, severe, dependence Tobacco use disorder Chronic hepatitis C without hepatic coma Hardware complicating wound infection Objective Vitals Temp: [36.6 C-37 C] 36.9 C Pulse: [60-99] 77 Resp: [16-18] 18 BP: (133-156)/(76-87) 136/86 SpO2: [93 %-99 %] 98 % O2 Therapy: Room air Intake/Output Last 3 Completed Shifts I/O last 3 completed shifts: In: 1560 [P.O.:1560] Out: - Physical Exam Awake, alert, conversant Sitting upright in chair Cervical collar in place Upper Extremity Strength Deltoid Biceps Triceps WE WF Gr IO Right 5 5 5 5 5 5 5 Left 5 5 5 5 5 5 5 Lower Extremity Strength IP Quad Ham TA EHL Gastroc Right 5 5 5 5 5 5 Left 5 5 5 5 5 5 Sensation intact throughout all dermatomes Data Review CBC: Recent Labs Lab 08/26/195608/27/19 0011 08/28/19 0030 WBC 4.1 3.9* 5.4 RBC 4.04* 4.23* 4.42* HGB 10.7* 11.2* 11.7* HCT 32.9* 34.5* 35.6* PLT 202 199 220 BMP: Recent Labs Lab 08/26/195608/27/19 0011 08/28/19 0030 NA 140 141 142 K 3.5 3.4 3.9 CL 108* 108* 109* BICARBONATE 23 26 25 GLUCOSE 96 131 65* BUN 10 11 7 CREATININE 0.94 0.65* 0.82 BCR 11 17 9 GFRAA >90 >90 >90 GFRNONAA >90 >90 >90 COAGS: No results for input(s): INR in the last 168 hours. Invalid input(s): PT, PTT Assessment/Plan Cesario Valdivia is a 44 y.o. male patient with a history of cervical SEA presenting with hardware failure Neuro: - Neurologic exam stable - Continue collar at all times - Surgical timing planned for two staged approach anterior and posterior fusion 09/02 and 09/03 - ENT to assist with exposure on 09/02 - Medical risk stratification low risk for intermediate risk procedure - Addiction psych and APS consulted, appreciate recs Cardio: - Hemodynamically stable, no active concerns Pulmo: - Encourage IS GI: GI Prophylaxis: not needed Nutrition: Regular PO diet Hx of hepatitis C; GI to f/u as outpatient ID: Temp (24hrs), Av.8 C, Min:36.6 C, Max:37 C Active infection: SEA Antibiotics: Vancomycin and cefepime Appreciate ID recs, anticipate 6 weeks of abx along with chronic immunosupression pending cultures from OR Endo: No active concerns Renal: Continue with Input/Output monitoring. Maintain euvolemia. CT IVP non actionable per urology; will need outpatient cystoscopy Heme: DVT Prophylaxis: SCD,SQH Code Status: Full code Dispo: Mathieu Thurston Neurosurgery Resident, PGY2 Mathieu Fall DO - 08/30/2019 8:17 AM EST PRE-OPERATIVE ASSESSMENT Pre-Op diagnosis: Failure of cervical hardware 08/10 to chronic osteomyelitis Planned procedure: Anterior and posterior revision cervical fusion Sunday and Friday 09/01 and 09/02 Labs: Blood Type Recent Labs Lab 08/30/19 0435 ABORH B POS Recent BMP Recent Labs Lab 08/28/19 0030 NA 142 K 3.9 CL 109* BICARBONATE 25 GLUCOSE 65* BUN 7 CREATININE 0.82 BCR 9 GFRAA >90 GFRNONAA >90 Recent CBC Recent Labs Lab 08/28/19 0030 WBC 5.4 RBC 4.42* HGB 11.7* HCT 35.6* PLT 220 Recent INR No results for input(s): INR in the last 168 hours. Physical exam: UA: Ordered, pending CXR: 08/22 No acute disease EKG: No acute disease Type & screen/cross: Type and crossed. 2 Units on hold for OR NPO: Scheduled to start at midnight 09/02 IVF: Scheduled to start at midnight 09/02 Abx: To continue current regimen for now and held for OR Consent: To be obtained and charted Mathieu Noonan DO Neurosurgery Resident PGY2 08/30/19 8:19 AM Khushboo Escamilla RN - 08/30/2019 7:17 AM ESTAssumed care of patient at 0700. Patient in bed side lying with c collar unfastened. Reinforced need for collar to remain on. Patient states he has not slept in one week and isn't comfortable with collar on. Neuorsurgery MD Noonan to bedside also reinforcing need for C collar and confirming for patient that collar will also be needed after surgery. Patient agreeable to trying melatonin for sleepas per conversation with MD. Patient now agreeable to collar; C collar reapplied. Jennifer Du MD - 08/30/2019 5:54 AM [place] [facility] [place] [address] PATIENT NAME: Cesario Valdivia, DATE OF : 1975 . Subjective Date of Encounter: 08/30/2019 Length of stay: 8 days Interval History: no acute events. Current Hospital Problem List: Principal Problem: Loosening of hardware in spine Active Problems: IVDU (intravenous drug user) Opioid use disorder, severe, dependence Tobacco use disorder Chronic hepatitis C without hepatic coma Hardware complicating wound infection Objective Vitals Temp: [36.5 C-36.9 C] 36.7 C Pulse: [56-75] 62 Resp: [17-18] 18 BP: (99-146)/(67-88) 142/84 SpO2: [96 %-100 %] 99 % O2 Therapy: Room air Intake/Output Last 3 Completed Shifts No intake/output data recorded. Physical Exam Awake, alert, conversant Sitting upright in chair Cervical collar in place Upper Extremity Strength Deltoid Biceps Triceps WE WF Gr IO Right 5 5 5 5 5 5 5 Left 5 5 5 5 5 5 5 Lower Extremity Strength IP Quad Ham TA EHL Gastroc Right 5 5 5 5 5 5 Left 5 5 5 5 5 5 Sensation intact throughout all dermatomes Data Review CBC: Recent Labs Lab 08/26/195608/27/19 0011 08/28/19 0030 WBC 4.1 3.9* 5.4 RBC 4.04* 4.23* 4.42* HGB 10.7* 11.2* 11.7* HCT 32.9* 34.5* 35.6* PLT 202 199 220 BMP: Recent Labs Lab 08/26/195608/27/19 0011 08/28/19 0030 NA 140 141 142 K 3.5 3.4 3.9 CL 108* 108* 109* BICARBONATE 23 26 25 GLUCOSE 96 131 65* BUN 10 11 7 CREATININE 0.94 0.65* 0.82 BCR 11 17 9 GFRAA >90 >90 >90 GFRNONAA >90 >90 >90 COAGS: No results for input(s): INR in the last 168 hours. Invalid input(s): PT, PTT Assessment/Plan Cesario Valdivia is a 44 y.o. male patient with a history of cervical SEA presenting with hardware failure Neuro: - Neurologic exam stable - Continue collar at all times - Surgical timing planned for two staged approach anterior and posterior fusion 09/02 and 09/03 - ENT to assist with exposure on 09/02 - Medical risk stratification low risk for intermediate risk procedure - Addiction psych and APS consulted, appreciate recs Cardio: - Hemodynamically stable, no active concerns Pulmo: - Encourage IS GI: GI Prophylaxis: not needed Nutrition: Regular PO diet Hx of hepatitis C; GI to f/u as outpatient ID: Temp (24hrs), Av.7 C, Min:36.5 C, Max:36.9 C Active infection: SEA Antibiotics: Vancomycin and cefepime Appreciate ID recs, anticipate 6 weeks of abx along with chronic immunosupression pending cultures from OR Endo: No active concerns Renal: Continue with Input/Output monitoring. Maintain euvolemia. CT IVP non actionable per urology; will need outpatient cystoscopy Heme: DVT Prophylaxis: SCD,SQH Code Status: Full code Dispo: Jennifer Sneed Neurosurgery Resident, PGY4 h, Trung Whipple MD - 08/29/2019 3:51 AM [place] [facility] [place] [address] PATIENT NAME: Cesario Valdivia, DATE OF : 1975 . Subjective Date of Encounter: 08/29/2019 Length of stay: 7 days Interval History: no acute events overnight Current Hospital Problem List: Principal Problem: Loosening of hardware in spine Active Problems: IVDU (intravenous drug user) Opioid use disorder, severe, dependence Tobacco use disorder Chronic hepatitis C without hepatic coma Hardware complicating wound infection Objective Vitals Temp: [36.5 C-36.9 C] 36.6 C Pulse: [54-91] 72 Resp: [16] 16 BP: (120-147)/(76-87) 131/86 SpO2: [98 %-99 %] 99 % O2 Therapy: Room air Intake/Output Last 3 Completed Shifts I/O last 3 completed shifts: In: 734 [P.O.:720; I.V.:14] Out: - Physical Exam Awake, alert, oriented x3 Cervical collar in place Upper Extremity Strength Deltoid Biceps Triceps WE WF Gr IO Right 5 5 5 5 5 5 5 Left 5 5 5 5 5 5 5 Lower Extremity Strength IP Quad Ham TA EHL Gastroc Right 5 5 5 5 5 5 Left 5 5 5 5 5 5 Sensation intact throughout all dermatomes Data Review CBC: Recent Labs Lab 08/26/197 08/27/19 0011 08/28/19 0030 WBC 4.1 3.9* 5.4 RBC 4.04* 4.23* 4.42* HGB 10.7* 11.2* 11.7* HCT 32.9* 34.5* 35.6* PLT 202 199 220 BMP: Recent Labs Lab 08/26/19 0057 08/27/19 0011 08/28/19 0030 NA 140 141 142 K 3.5 3.4 3.9 CL 108* 108* 109* BICARBONATE 23 26 25 GLUCOSE 96 131 65* BUN 10 11 7 CREATININE 0.94 0.65* 0.82 BCR 11 17 9 GFRAA >90 >90 >90 GFRNONAA >90 >90 >90 COAGS: No results for input(s): INR in the last 168 hours. Invalid input(s): PT, PTT Assessment/Plan Cesario Valdivia is a 44 y.o. male patient with a history of cervical SEA presenting with hardware failure Neuro: - Neurologic exam stable - C ontinue collar at all times - Surgical timing planned for two staged approach anterior and posterior fusion 09/02 and 09/03 - Medical risk stratification low risk for intermediate risk procedure - Addiction psych and APS consulted, appreciate recs Cardio: - Hemodynamically stable, no active concerns Pulmo: - Satting well on RA, no active concerns GI: GI Prophylaxis: not needed Nutrition: Regular PO diet Hx of hepatitis C; GI to f/u as outpatient ID: Temp (24hrs), Av.7 C, Min:36.5 C, Max:36.9 C Active infection: SEA Antibiotics: Vancomycin and cefepime Appreciate ID recs, anticipate 6 weeks of abx along with chronic immunosupression pending cultures from OR Endo: No active concerns Renal: Continue with Input/Output monitoring. Maintain euvolemia. CT IVP non actionable per urology; will need outpatient cystoscopy Heme: DVT Prophylaxis: SCD,SQH Code Status: Full code Trung Cartagena Neurosurgery Resident, PGY2 Renetta Chavez RN - 08/28/2019 2:14 PM ESTCM rounded on unit, stopped in to see the patient to discuss discharge plan once medically ready. Patient refused to speak with CM. Patient stated "Bye". @ this time CM will continue to follow. Patientdue for OR then to continue with 6 weeks of IV abx. Patient will require inpatient Abx treatment andtherapy. Patient is on the DTP list due to IV drug abuse. Mathieu Fall DO - 08/28/2019 12:58 AM [place] [facility] [address] PATIENT NAME: Cesario Valdivia, DATE OF : 1975 . Subjective Date of Encounter: 08/28/2019 Length of stay: 6 days Interval History: no acute events overnight Current Hospital Problem List: Principal Problem: Loosening of hardware in spine Active Problems: IVDU (intravenous drug user) Opioid use disorder, severe, dependence Tobacco use disorder Chronic hepatitis C without hepatic coma Hardware complicating wound infection Objective Vitals Temp: [36.7 C-37.2 C] 36.9 C Pulse: [57-77] 77 Resp: [16-17] 16 BP: (125-147)/(75-95) 147/92 SpO2: [98 %-99 %] 99 % O2 Therapy: Room air Intake/Output Last 3 Completed Shifts I/O last 3 completed shifts: In: 662 [P.O.:600; I.V.:12; IV Piggyback:50] Out: - Physical Exam Awake, alert, oriented x3 Cervical collar in place Upper Extremity Strength Deltoid Biceps Triceps WE WF Gr IO Right 5 5 5 5 5 5 5 Left 5 5 5 5 5 5 5 Lower Extremity Strength IP Quad Ham TA EHL Gastroc Right 5 5 5 5 5 5 Left 5 5 5 5 5 5 Sensation intact throughout all dermatomes Data Review CBC: Recent Labs Lab 08/21/19 2110 08/24/19 1808 08/26/19 0057 08/27/19 0011 WBC 5.5 < > 4.7 4.1 3.9* RBC 4.68 < > 4.43* 4.04* 4.23* HGB 12.4* < > 11.7* 10.7* 11.2* HCT 38.2* < > 36.4* 32.9* 34.5* PLT 285 < > 233 202 199 NEUTOPHILPCT 56 -- -- -- -- MONOPCT 13 -- -- -- -- < > = values in this interval not displayed. BMP: Recent Labs Lab 08/23/19 0621 08/26/19 0057 08/27/19 0011 NA 135* 140 141 K 4.1 3.5 3.4 CL 103 108* 108* BICARBONATE 21* 23 26 GLUCOSE 92 96 131 BUN 12 10 11 CREATININE 0.95 0.94 0.65* BCR 13 11 17 GFRAA >90 >90 >90 GFRNONAA >90 >90 >90 COAGS: Recent Labs Lab 08/22/19 0141 INR 1.14 Assessment/Plan Cesario Valdivia is a 44 y.o. male patient with a history of cervical SEA presenting with hardware failure Neuro: - Neurologic exam stable - Continue collar at all times - Surgical timing planned for two staged approach anterior and posterior fusion 09/02 and 09/03 - Medical risk stratification low risk for intermediate risk procedure - Addiction psych and APS consulted, appreciate recs Cardio: - Hemodynamically stable, no active concerns Pulmo: - Satting well on RA, no active concerns GI: GI Prophylaxis: not needed Nutrition: Regular PO diet Hx of hepatitis C; GI to f/u as outpatient ID: Temp (24hrs), Av.9 C, Min:36.7 C, Max:37.2 C Active infection: SEA Antibiotics: Vancomycin and cefepime Appreciate ID recs, anticipate 6 weeks of abx along with chronic immunosupression pending cultures from OR Endo: No active concerns Renal: Continue with Input/Output monitoring. Maintain euvolemia. CT IVP non actionable per urology; will need outpatient cystoscopy Heme: DVT Prophylaxis: SCD Code Status: Full code Mathieu Noonan Neurosurgery Resident, PGY2 Associated attestation - Cinthia Gardner MD - 09/01/2019 9:52 AM JAMMIE have discussed this patient with the resident and agree with the note. Renetta Earl RN - 08/27/2019 3:37 PM ESTReceived report from previous CM. Patient due for surgery and then continue with six weeks of IV abxtherapy. CM has made Ny Jefferson, Audio Experience Expert aware of need for str once medically ready. Ny will see the patient once surgery has been completed. CM will continue to follow.Electronically signed by Renetta Earl RN at 2019 3:38 PM Verenice Bansal LMSW - 08/27/2019 3:35 PM ESTSocial Work: This rfp writer spoke to Renetta Earl RN, capacity planner who reported that pt may be appropriate for the [facility] for [facility] at [facility] as he has substance use concerns and needs rat exterminator IV antibiotics. Renetta reported that pt most likely will have an extended hospital stay as he needs surgery. This rfp writer and the capacity planner agreed that this rfp writer would follow up next week regarding pt's medical plan. This rfp writer will continue to remain available. Addendum: This rfp writer is aware that pt's psychosocial assessment was completed during pt's current hospitalization. Ricky Mejias MD - 08/27/2019 2:47 PM EST Pain Progress Note Interval History: Pain reports is is doing "fine" for the last week and pain is adequately controlled with current medications. Pt states he does not have any withdrawal symptoms and is interested in going to inpatient rehab after hospitalization Current Medications: acetaminophen (TYLENOL) tablet 975 mg Oral BID carBAMazepine 200 mg Oral BID cefepime 2 g Intravenous Q8H cloNIDine 0.1 mg Oral BID gabapentin 300 mg Oral TID heparin (porcine) 5,000 Units Subcutaneous BID sodium chloride (preservative free) 10 mL Intravenous Q12H And heparin lock flush 20 Units Intravenous Q12H magnesium hydroxide 45 mL Oral Nightly pantoprazole 40 mg Oral Daily polyethylene glycol 17 g Oral Daily vancomycin 1,750 mg Intravenous Q12H PRN: bisacodyl, cyclobenzaprine, sodium chloride (preservative free) AND heparin lock flush AND sodium chloride (preservative free) AND heparin lock flush, morphine OR morphine, ondansetron,senna, senna Allergies: No Known Allergies Current Hospital Problem List: Principal Problem: Loosening of hardware in spine Active Problems: IVDU (intravenous drug user) Opioid use disorder, severe, dependence Tobacco use disorder Chronic hepatitis C without hepatic coma Hardware complicating wound infection Past Surgical History: Procedure Laterality Date MN REMV VERT,EXDUR,CERV TUMOR N/A 02/05/2019 Procedure: C6/7 CORPECTOMY WITH C5-T1 ANTERIOR FUSION PER CYNDI; Surgeon: Radha Cha MD; Location: [address]; Service: Neurosurgery; Laterality: N/A; SPINE SURGERY Vital signs in last 24 hours: Vitals: 08/27/19 0721 08/27/19 0800 08/27/19 0834 08/27/19 1100 BP: 129/86 (!) 139/95 125/84 126/75 BP Location: Right arm Right arm Right arm Right arm Patient Position: Lying Lying Lying Lying Pulse: (!) 57 66 72 Resp: 17 16 16 Temp: 36.9 C (98.4 F) 36.7 C (98.1 F) 36.9 C (98.4 F) TempSrc: Oral Oral Oral SpO2: 98% 99% 99% Weight: Intake/Output last 3 shifts: I/O last 3 completed shifts: In: 1263.5 [P.O.:684; I.V.:479.5; IV Piggyback:100] Out: - Pertinent Labs: CBC: Lab Results Component Value Date WBC 3.9 (L) 08/27/2019 RBC 4.23 (L) 08/27/2019 HGB 11.2 (L) 08/27/2019 HCT 34.5 (L) 08/27/2019 PLT 199 08/27/2019 BMP: Lab Results Component Value Date NA 141 08/27/2019 K 3.4 08/27/2019 CL 108 (H) 08/27/2019 BICARBONATE 26 08/27/2019 GLUCOSE 131 08/27/2019 BUN 11 08/27/2019 CREATININE 0.65 (L) 08/27/2019 BCR 17 08/27/2019 GFRAA >90 08/27/2019 GFRNONAA >90 08/27/2019 Exam: AOx3 Sitting in bed with C collar on S1s2 RRR Lungs clears to auscultation No mydriasis, palliation, or sweating A&P 44 y.o. year old male with acute neck pain d/t c-spine HW failure and likely infection, with hx severe OUD, active IVDU, chronic hep C. 1.Pt is still waiting for surgery. No signs of withdrawal symptoms since hospitalization 2. Addiction psych in involved and pt is interested in inpatient rehab with direct 3. Currently on morphine IR 15-22.5 mg q4hr prn for moderate/severe pain, tylenol 975 BID, clonidine0.1 mg BID 4.Anticipating surgery at some point in the near future. Since pt is being followed with by addiction psych. Would have addiction psych evaluate pt post- op for more guidance on post operative pain management 5.He needs f/u treatment for hep C, states Dr Andrade started treatment for him previously but he did not complete it. 6. APS will sign off. Please call with any questions Ricky Chinchilla residential program director Pgy-4 Tammie López RN - 08/27/2019 11:14 AM [id number] Pt intermittently refusing to keep C-collar in place. Pt is able to verbalize that paralysis is the risk of not keeping his collar on and aligned. Pt states that he can not eat properly with collar in place. Offered to feed patient, if necessary. Discussed that comfort while eating may be less important than raising the risk for paralysis. Pt states that he has been "walking around like this for months". Re iterated risk to patient. Will report to oncoming RN. Tammie Zheng Kenney Hillman MD - 08/27/2019 5:12 [place] [address] PATIENT NAME: Cesario Valdivia, DATE OF : 1975 . Subjective Date of Encounter: 08/27/2019 Length of stay: 5 days Interval History: no acute events overnight Current Hospital Problem List: Principal Problem: Loosening of hardware in spine Active Problems: IVDU (intravenous drug user) Opioid use disorder, severe, dependence Tobacco use disorder Chronic hepatitis C without hepatic coma Hardware complicating wound infection Objective Vitals Temp: [36.5 C (97.7 F)-37.2 C (99 F)] 37.2 C (99 F) Pulse: [61-70] 64 Resp: [16-18] 16 BP: (117-148)/(79-89) 130/79 SpO2: [95 %-100 %] 100 % O2 Therapy: Room air Intake/Output Last 3 Completed Shifts I/O last 3 completed shifts: In: 1213.5 [P.O.:684; I.V.:479.5; IV Piggyback:50] Out: - Physical Exam Awake, alert, oriented x3 Upper Extremity Strength Deltoid Biceps Triceps WE WF Gr IO Right 5 5 5 5 5 5 5 Left 5 5 5 5 5 5 5 Sensation intact to light touch throughout all cervical dermatomes Lower Extremity Strength IP Quad Ham TA EHL Gastroc Right 5 5 5 5 5 5 Left 5 5 5 5 5 5 Sensation intact throughout all lumbar dermatomes Data Review CBC: Recent Labs Lab 08/21/19 2110 08/24/19 1808 08/26/19 0057 08/27/19 0011 WBC 5.5 < > 4.7 4.1 3.9* RBC 4.68 < > 4.43* 4.04* 4.23* HGB 12.4* < > 11.7* 10.7* 11.2* HCT 38.2* < > 36.4* 32.9* 34.5* PLT 285 < > 233 202 199 NEUTOPHILPCT 56 -- -- -- -- MONOPCT 13 -- -- -- -- < > = values in this interval not displayed. BMP: Recent Labs Lab 08/23/19 0621 08/26/19 0057 08/27/19 0011 NA 135* 140 141 K 4.1 3.5 3.4 CL 103 108* 108* BICARBONATE 21* 23 26 GLUCOSE 92 96 131 BUN 12 10 11 CREATININE 0.95 0.94 0.65* BCR 13 11 17 GFRAA >90 >90 >90 GFRNONAA >90 >90 >90 COAGS: Recent Labs Lab 08/22/19 0141 INR 1.14 Assessment/Plan Cesario Valdivia is a 44 y.o. male patient with a history of cervical SEA presenting with hardware failure Neuro: - Neurologic exam stable - Continue collar at all times - Surgical timing TBD. - Medical risk stratification low risk for intermediate risk procedure - Addiction psych and APS consulted, appreciate recs Cardio: - Hemodynamically stable, no active concerns Pulmo: - Satting well on RA, no active concerns GI: GI Prophylaxis: not needed Nutrition: Regular PO diet Hx of hepatitis C; GI to f/u as outpatient ID: Temp (24hrs), Av.8 C (98.3 F), Min:36.5 C (97.7 F), Max: 37.2 C (99 F) Active infection: SEA Antibiotics: Vancomycin and cefepime Appreciate ID recs HIV negative TTE without vegitations, 54% EF Endo: - No active concerns Renal: - Continue with Input/Output monitoring. Maintain euvolemia. - CT IVP non actionable per urology; will need outpatient cystoscopy Heme: DVT Prophylaxis: SCD Code Status: Full code Kenney Mauricio Neurosurgery Resident, PGY-3 Associated attestation - Cinthia Gardner MD - 09/01/2019 9:52 AM JAMMIE have discussed this patient with the resident and agree with the note. Felicia Beltran RN - 08/26/2019 6:52 PM ESTReceived pt from 7A. Assumed pt care [id number]. Read and in agreement with previous chips screen tender. Neuro intact. Pt encouraged to leave aspyn collar in place. Fall precautions in place , including bed alarm. Will report off to oncoming RN. Joana Webster NP - 08/26/2019 4:50 PM EST Addiction Progress Note Interval History: Cesario reports that his pain is pretty well controlled on current regimen. He said he'll go for surgery next week. He said he'd like to aim for a goal of longer period of sobriety after this surgery. He said he lasted about 4 weeks after discharge before relapsing. He admitted that his last admission was good- he said he received good care and his pain was well controlled. He admitted that he probably wants to resume buprenorphine after surgery. He said he's eating and drinking, having BM's. Current Medications: acetaminophen (TYLENOL) tablet 975 mg Oral BID carBAMazepine 200 mg Oral BID cefepime 2 g Intravenous Q8H cloNIDine 0.1 mg Oral BID gabapentin 300 mg Oral TID heparin (porcine) 5,000 Units Subcutaneous BID sodium chloride (preservative free) 10 mL Intravenous Q12H And heparin lock flush 20 Units Intravenous Q12H magnesium hydroxide 45 mL Oral Nightly pantoprazole 40 mg Oral Daily polyethylene glycol 17 g Oral Daily vancomycin 1,750 mg Intravenous Q12H PRN: bisacodyl 10 mg Q72H PRN, cyclobenzaprine 10 mg TID PRN, sodium chloride ( preservative free) 10 mL PRN AND heparin lock flush 20 Units PRN AND sodium chloride (preservative free) 10 mL Q12H AND heparin lock flush 20 Units Q12H, lidocaine 5 mL Once PRN, lidocaine 5 mL Once PRN, morphine 15 mg Q4H PRN OR morphine 22.5 mg Q4H PRN, ondansetron 4 mg Q8H PRN, senna 10 mL Nightly PRN, senna 2 tablet Nightly PRN Allergies: No Known Allergies Current Hospital Problem List: Principal Problem: Loosening of hardware in spine Active Problems: IVDU (intravenous drug user) Opioid use disorder, severe, dependence Tobacco use disorder Chronic hepatitis C without hepatic coma Hardware complicating wound infection Past Surgical History: Procedure Laterality Date MN REMV VERT,EXDUR,CERV TUMOR N/A 02/05/2019 Procedure: C6/7 CORPECTOMY WITH C5-T1 ANTERIOR FUSION PER CYNDI; Surgeon: Radha Cha MD; Location: [address]; Service: Neurosurgery; Laterality: N/A; SPINE SURGERY Vital signs in last 24 hours: Vitals: 08/26/19 0313 08/26/19 0757 08/26/19 1126 08/26/19 1554 BP: 119/72 141/79 148/89 117/85 BP Location: Right arm Right arm Right arm Right arm Patient Position: Lying Lying Lying Lying Pulse: 71 67 66 61 Resp: Temp: 36.5 C 36.5 C 36.7 C 36.9 C TempSrc: Oral Oral Oral Oral SpO2: 95% 95% 97% 96% Intake/Output last 3 shifts: I/O last 3 completed shifts: In: 204 [P.O.:204] Out: - Pertinent Labs: CBC: Lab Results Component Value Date WBC 4.1 08/26/2019 RBC 4.04 (L) 08/26/2019 HGB 10.7 (L) 08/26/2019 HCT 32.9 (L) 08/26/2019 PLT 202 08/26/2019 BMP: Lab Results Component Value Date NA 140 08/26/2019 K 3.5 08/26/2019 CL 108 (H) 08/26/2019 BICARBONATE 23 08/26/2019 GLUCOSE 96 08/26/2019 BUN 10 08/26/2019 CREATININE 0.94 08/26/2019 BCR 11 08/26/2019 GFRAA >90 08/26/2019 GFRNONAA >90 08/26/2019 CMP: Lab Results Component Value Date NA 140 08/26/2019 K 3.5 08/26/2019 CL 108 (H) 08/26/2019 BICARBONATE 23 08/26/2019 CALCIUM 7.9 (L) 08/26/2019 GLUCOSE 96 08/26/2019 BUN 10 08/26/2019 BCR 11 08/26/2019 PROT 10.5 (H) 08/22/2019 ALBUMIN 2.9 (L) 08/22/2019 TBILI 1.3 (H) 08/22/2019 ALKPHOS 112 08/22/2019 AST 110 (H) 08/22/2019 ALT 63 (H) 08/22/2019 GFRAA >90 08/26/2019 GFRNONAA >90 08/26/2019 Simple Electrolyte Panel: Lab Results Component Value Date NA 140 08/26/2019 K 3.5 08/26/2019 CL 108 (H) 08/26/2019 BICARBONATE 23 08/26/2019 Renal Panel: Lab Results Component Value Date NA 140 08/26/2019 K 3.5 08/26/2019 CL 108 (H) 08/26/2019 BICARBONATE 23 08/26/2019 CALCIUM 7.9 (L) 08/26/2019 GLUCOSE 96 08/26/2019 BUN 10 08/26/2019 CREATININE 0.94 08/26/2019 ALBUMIN 2.9 (L) 08/22/2019 Hepatic Panel: Lab Results Component Value Date ALBUMIN 2.9 (L) 08/22/2019 ALKPHOS 112 08/22/2019 ALT 63 (H) 08/22/2019 AST 110 (H) 08/22/2019 PROT 10.5 (H) 08/22/2019 TBILI 1.3 (H) 08/22/2019 BILIDIR 0.6 (H) 08/22/2019 Coagulation: Lab Results Component Value Date INR 1.14 08/22/2019 Cardiac markers: No results found for: CKTOTAL, CKMB, TROPONINT, TROPONINI, MYOGLOBIN Exam: Patient is awake and alert, oriented. NAD. Watching TV. Eye contact is poor. Minimally engaged and few words. Wearing cervical collar. Dressed in casual clothing. He appears comfortable at rest. He MOSS. A&P 44 y.o. year old male with loosening of spinal hardware, epidural abscess, opioid use disorder, IVDU. He's awaiting surgical repair of his cervical spine, next week. SW is following. We remain available for assistance. Will follow. Joana Blank [employer] [phone] Radha Baird RN - 08/26/2019 3:41 PM ESTPt is refusing IVF. Contacted the oncall Neurosurg MD and advised. Zenaida Escobar PharmD - 08/26/2019 11:39 AM EST Clinical Pharmacology - Therapeutic Drug Monitoring Interval History Cesario Valdivia is a 44 y.o. male patient currently being treated with Vancomycin and Cefepime for Spinal hardware failure, r/o epidural abscess. Current Antibiotics/Dosing Cefepime 2g IV Q8h Vancomycin 1750mg IV Q12h Drug Levels evaluated Vancomycin trough: 15.8 mcg/ml at 0819 (~10 hour level) Labs/Clinical Factors Lab Results Component Value Date WBC 4.1 08/26/2019 Lab Results Component Value Date CREATININE 0.94 08/26/2019 Temp Readings from Last 1 Encounters: 08/26/19 36.7 C (98.1 F) (Oral) Temp (24hrs), Av.7 C (98.1 F), Min:36.5 C (97.7 F), Max: 37.2 C (99 F) Intake/Output Summary (Last 24 hours) at 08/26/2019 1139 Last data filed at 08/26/2019 0855 Gross per 24 hour Intake 204 ml Output Net 204 ml I/O this shift: In: 204 [P.O.:204] Out: - Assessment Patient's current serum concentration(s) are Therapeutic Plan Will continue current regimen with close monitoring of patient's renal function. We will follow up with ID recs and cultures from OR for antibiotic streamlining and length of therapy. Zenaida Ortiz, Pharm. D Kyle Ferguson MD - 08/26/2019 5:56 AM [place] [facility] [address] PATIENT NAME: Cesario Valdivia, DATE OF : 1975 . Subjective Date of Encounter: 08/26/2019 Length of stay: 4 days Interval History: no acute events overnight Current Hospital Problem List: Principal Problem: Loosening of hardware in spine Active Problems: IVDU (intravenous drug user) Opioid use disorder, severe, dependence Tobacco use disorder Chronic hepatitis C without hepatic coma Hardware complicating wound infection Objective Vitals Temp: [36.5 C-37.2 C] 36.5 C Pulse: [60-73] 71 Resp: [16-18] 18 BP: (119-143)/(72-89) 119/72 SpO2: [93 %-100 %] 95 % O2 Therapy: Room air Intake/Output Last 3 Completed Shifts No intake/output data recorded. Physical Exam Awake, alert, oriented x3 Upper Extremity Strength Deltoid Biceps Triceps WE WF Gr IO Right 5 5 5 5 5 5 5 Left 5 5 5 5 5 5 5 Sensation intact to light touch throughout all cervical dermatomes Lower Extremity Strength IP Quad Ham TA EHL Gastroc Right 5 5 5 5 5 5 Left 5 5 5 5 5 5 Sensation intact throughout all lumbar dermatomes Data Review CBC: Recent Labs Lab 08/21/19210908/23/1962008/24/19180708/26/19 0057 WBC 5.5 < > 4.4 4.7 4.1 RBC 4.68 < > 4.55* 4.43* 4.04* HGB 12.4* < > 11.9* 11.7* 10.7* HCT 38.2* < > 37.3* 36.4* 32.9* PLT 285 < > 252 233 202 NEUTOPHILPCT 56 -- -- -- -- MONOPCT 13 -- -- -- -- < > = values in this interval not displayed. BMP: Recent Labs Lab 08/22/19 0519 08/23/19 0621 08/26/19 0057 NA 132* 135* 140 K 4.4 4.1 3.5 CL 97* 103 108* BICARBONATE 23 21* 23 GLUCOSE 103 92 96 BUN 15 12 10 CREATININE 0.93 0.95 0.94 BCR 16 13 11 GFRAA >90 >90 >90 GFRNONAA >90 >90 >90 COAGS: Recent Labs Lab 08/22/19 0141 INR 1.14 Assessment/Plan Cesario Valdivia is a 44 y.o. male patient with a history of cervical SEA presenting with hardware failure Neuro: - Neurologic exam stable - Continue collar at all times - Surgical timing TBD. Medical risk stratification pending - Addiction psych and APS consulted, appreciate recs Cardio: - Hemodynamically stable, no active concerns Pulmo: - Satting well on RA, no active concerns GI: GI Prophylaxis: not needed Nutrition: Regular PO diet Hx of hepatitis C; GI to f/u as outpatient ID: Temp (24hrs), Av.8 C, Min:36.5 C, Max:37.2 C Active infection: SEA Antibiotics: Vancomycin and cefepime Appreciate ID recs, plan for HIV test and TTE Endo: - No active concerns Renal: - Continue with Input/Output monitoring. Maintain euvolemia. - CT IVP non actionable per urology; will need outpatient cystoscopy Heme: DVT Prophylaxis: SCD Code Status: Full code MaciasKenyon donnellydn A Neurosurgery Resident, PGY-4 Associated attestation - Cinthia Gardner MD - 09/01/2019 9:52 AM JAMMIE have discussed this patient with the resident and agree with the note. Thierno Turcios RN - 08/25/2019 9:56 PM ESTPICC tip location confirmed utilizing the Vascular Positioning System (VPS) per policy CM C-34 - Central Lines and procedure PROC CM C-34A - Central Line Insertion and Removal. Steady Blue Bullseye symbol obtained confirming ideal PICC tip placement in the lower 1 /3 of the SVC/CAJ. CXR is not necessary to confirm placement. Appropriate order set placed in EPIC. Bedside nurse Hina DIAZ aware PICC is cleared for use per orders with all new IV administration sets.PICC Line Insertion Procedure Note Procedure: Insertion of #5 FR/18G/18G PICC Indications: Physician Relations Specialist IV therapy Procedure Details Informed consent was obtained for the procedure. Risks of bleeding at site, infection, malposition,phlebitis, DVT or SVT were discussed. Maximum sterile technique was used including antiseptics, cap, gloves, gown, hand hygiene, mask and sheet. #5 FR/18G/18G PICC inserted to the L Basilic vein per hospital protocol. Blood return: yes Findings: Catheter inserted to 48 cm, with 0 cm exposed. Total catheter length is 48 cm. Catheter was flushedwith 20 cc NS. Patient did tolerate procedure well. Recommendations: PICC Brochure given to patient with teaching instruction. PICC Line Insertion Status: PICC successfully inserted using ultrasound guidance. Danny Caba Brandi Morin RN - 08/25/2019 6:56 PM ESTAssumed care of pt from [id number]. Read and agree w/ previous chips screen tender documentation and findings. If any changes occur, will document accordingly. All VSS, all safety precautions maintained, willcontinue to monitor.Electronically signed by Brandi Luu RN at 2019 6:56 PM Radha Baird RN - 08/25/2019 4:30 PM ESTPt is requesting to go off floor. Spoke with the on-call Neurosurg resident, who is not comfortable with the patient leaving the floor. Mckenzie Medina LMSW - 3:58 PM ESTSocial Work Note: XENA met with patient to follow up. He indicated that he is doing okay. XENA spoke with the patient regard peer support. He stated that he was not interested unless it was located in [place]. XENA explained that she had located an agency in [place] that offered peer support. He stated that he is already working with several people through the [employer] program. XENA offered to get the patient in touch with someonelocally that could provide peer support while he is in the hospital. The patient declined. XENA offered to assist the patient in getting in touch with his peer support and he stated that they are on their way to the hospital. The patient is not interested in any assistance from XENA at this time. SW remains available. Mckenzie Shaffer [facility] [facility] Ki Ahumada MD - 08/25/2019 10:08 AM EST Infectious Disease Consult Note: Reason for Consult/Chief Complaint: Antibiotic management for osteomyelitis and possible spinal epidural abscess. Requested By: Cinthia Gardner MD Performed By: Vince Beaulieu (medical student) under the direct supervision of the ID Attending ramu. Subjective: History of present illness: Mr. Cesario Valdivia is a 44 y.o. year old male with a past medical history of IVDU, hepatitis C, and previous cervical epidural abscess s/p C6/7 corpectomy with anterior fusion of C5-T1 and posterior fusion of C4-T2 on 02/05/2019, for whom ID was consulted due to possible new osteomyelitis/spinal abscess. Intraop cultures of his previous abscess on 02/05/2019 grew MRSA and P. Acnes. He was initially treated with Vancomycin and cefepime, but was transitioned to vancomycin and rifampin for 6 weeks of outpatient therapy via PICC. Patient left [facility]PH[facility], had the PICC removed,and reported that he followed up with [facility] in [place] for therapy with bactrim and IV dalbavancin. Patient and clinic reports that he received oral bactrim from 02/17-04/15 but only received 1 dose of IV dalbavancin due to insurancedeclining to pay for further treatments. However, he reports no complaints until 3 weeks ago, when he fell while trying to catch his and reported subsequent neck pain. Patient presented to the hospital on 08/21/2019 with neck pain in the ED, neurosurgery admitted for hardware failure of his previous fusion and possible epidural abscess/osteomyelitis. Patient had no focal neurological findings at admission, and was only complaining of neck pain. CT neck and spine on 2019 showed loosening of the previously installed hardware, with instability of the cervical spine. Follow up MRI on 08/23/2019 showed likely osteomyelitis at C3 , T1, and T2 with possible abscess formation at C4/5. He was started on vancomycin and cefepime empirically. Patient today on exam complains of no pain, fevers, chills, weight loss, or sweats. Besides his neckpain he feels well. He is ambulating without difficulty. Denies weakness, numbness, or tingling. He says he received 1 dose of medication for his Hepatitis C last summer, but has not received further doses due to his insurance changing. He is still injecting heroin, but purports to use clean needles each time and never shares needles. UA done on admission showed gross hematuria (which patient reported has been ongoing for the last year), with 3+ LE, 351 RBCs, 64 WBCs, and 2+ bacteria. Culture is NG1D so far. Patient denies pain or dysuria when voiding. No change in frequency of urination. Urology workup revealed no acute issue, butrecommended outpatient followup. Additional Exposure History: Indwelling hardware: Yes, see above Immunosuppression: No. History of incarceration: No. Travel History/Exposures: No. Living Situation: lives at home with . Occupational History/Exposures: [employer]. Hobbies/Exposures: No. Pets/Animal Exposure: No. Sexual History/Exposures: Sexually active with . The ROS, PMH, PSH, medication list, allergies, social/family history were reviewed Review of Systems: Patient denies fever, chills, SOB, chest pain, abd pain, extremity weakness, numbness or tingling and the rest of the ROS was completed and negative except what was noted in the HPI. Past Medical History: Past Medical History: Diagnosis Date IVDU (intravenous drug user) 02/10/2019 Nicotine dependence 02/10/2019 Polysubstance (including opioids) dependence, daily use 02/10/2019 Tobacco use disorder 02/10/2019 Past Surgical History: Past Surgical History: Procedure Laterality Date MN REMV VERT,EXDUR,CERV TUMOR N/A 02/05/2019 Procedure: C6/7 CORPECTOMY WITH C5-T1 ANTERIOR FUSION PER CYNDI; Surgeon: Radha Cha MD; Location: [address]; Service: Neurosurgery; Laterality: N/A; SPINE SURGERY Home medications: Home Medications Medication Sig carBAMazepine (TEGRETOL) 200 MG tablet Take 1 tablet by mouth Two Times Daily gabapentin (NEURONTIN) 250 MG/5ML solution Take 6 mLs by mouth Three times daily pantoprazole (PROTONIX) 40 MG tablet Take 1 tablet by mouth daily Sennosides (SENNA) 8.6 MG TABS tablet Take 2 tablets by mouth nightly as needed (no BM x 2 day) Allergies: No Known Allergies Current Medications: acetaminophen (TYLENOL) tablet 975 mg Oral BID carBAMazepine 200 mg Oral BID cefepime 2 g Intravenous Q8H cloNIDine 0.1 mg Oral BID gabapentin 300 mg Oral TID magnesium hydroxide 45 mL Oral Nightly pantoprazole 40 mg Oral Daily polyethylene glycol 17 g Oral Daily vancomycin 1,750 mg Intravenous Q12H bisacodyl, cyclobenzaprine, lidocaine, morphine OR morphine, ondansetron, senna, senna, senna sodium chloride 100 mL/hr at 08/24/19 1702 Social History: Social History Socioeconomic History Marital status: Single Spouse name: None Number of children: None Years of education: None Highest education level: None Occupational History None Social Needs Financial resource strain: None Food insecurity: Worry: None Inability: None Transportation needs: Medical: None Non-medical: None Tobacco Use Smoking status: Current Every Day Smoker Substance and Sexual Activity Alcohol use: Not Currently Drug use: Yes Types: Heroin Comment: heroine Sexual activity: None Lifestyle Physical activity: Days per week: None Minutes per session: None Stress: None Relationships Social connections: Talks on phone: None Gets together: None Attends [employer] service: None Active member of club or organization: None Attends meetings of clubs or organizations: None Relationship status: None Intimate partner violence: Fear of current or ex partner: None Emotionally abused: None Physically abused: None Forced sexual activity: None Other Topics Concern None Social History Narrative None Family History: History reviewed. No pertinent family history. Objective: Vital signs: Vitals: 08/24/19 2352 08/25/19 0232 08/25/19 0800 08/25/19 0926 BP: 128/81 129/86 137/89 130/82 BP Location: Right arm Right arm Right arm Patient Position: Lying Lying Pulse: 80 (!) 59 65 73 Resp: 18 Temp: 37.1 C 36.6 C 36.8 C TempSrc: Oral Oral Oral SpO2: 97% 97% 97% Tmax: Temp (24hrs), Av.9 C, Min:36.6 C, Max:37.1 C Physical Exam: Vital signs reviewed. General: in no acute distress. Alert and oriented X 3 HEENT: PERRLA, EOMI, MMM Neck: JVP does not appear elevated, No Carotid Bruits Cardiac: RRR, Normal S1 & S2. No m/r/g. Respiratory/Chest: Not in distress, Good air entry. CTA B/L, No w/r/r Abdomen: obese but nondistended, BS present, soft, no tenderness, no rebound, no organomegally Extremities: Warm and well perfused. No edema. Peripheral pulses symmetric. Neuro: AO x3, no focal neurological deficits appreciated. Sensation intact over all dermatomes. Hyperreflexic patellar reflex bilaterally. Mild tenderness over posterior C-spine around C4/5. Skin: intact, no rashes appreciated. Track vizcarra on hands and arms Lines & Catheters: All lines and catheters were examined and no signs of infection, such as erythema, tenderness, discharge, were observed. Peripheral IV 08/21/19 Left Forearm (Active) Site Assessment Clean;Dry;Intact 08/25/2019 6:00 AM Line Status Infusing 08/25/2019 6:00 AM Line Care Connections checked and tightened 08/25/2019 6:00 AM Dressing Type Tegaderm 08/25/2019 6:00 AM Dressing Status Clean;Dry;Intact 08/25/2019 6:00 AM Dressing Intervention Dressing reinforced 08/24/2019 10:00 PM Number of days: 4 Data Review: Pertinent lab/imaging data was reviewed by me today as follows: Pertinent Laboratory Data: Recent Labs Lab 08/22/19 0519 08/23/19 0621 08/24/19 1808 HGB 12.8* 11.9* 11.7* HCT 38.5* 37.3* 36.4* WBC 5.3 4.4 4.7 PLT 278 252 233 Lab Results Component Value Date NEUTOPHILPCT 56 08/21/2019 LYMPHOPCT 27 08/21/2019 MONOPCT 13 08/21/2019 EOSPCT 3 08/21/2019 Lab Results Component Value Date NA 135 (L) 08/23/2019 K 4.1 08/23/2019 CL 103 08/23/2019 BICARBONATE 21 (L) 08/23/2019 GLUCOSE 92 08/23/2019 BUN 12 08/23/2019 CREATININE 0.95 08/23/2019 Lab Results Component Value Date PROT 10.5 (H) 08/22/2019 ALBUMIN 2.9 (L) 08/22/2019 AST 110 (H) 08/22/2019 ALT 63 (H) 08/22/2019 TBILI 1.3 (H) 08/22/2019 ALKPHOS 112 08/22/2019 Lab Results Component Value Date INR 1.14 08/22/2019 Pertinent Microbiology: see HPI for summary of relevant microbiology results. See below for susceptibility reports of relevant microbiology cultures, if applicable. Imaging and other investigations: Ct Abdomen Pelvis With And Without Contrast Result Date: 08/22/2019 PROCEDURE INFORMATION: Exam: CT Abdomen And Pelvis Without And With Contrast; Urography Exam date and time: 08/22/2019 5:27 PM Age: 44 years old Clinical indication: Other mechanical complication of other internal orthopedic devices, implants and grafts, initial encounter; Other: Gross hematuria; Additional info : CT ivp - HX of gross hematuria TECHNIQUE: Imaging protocol: Computed tomography of the abdomen and pelvis without and with intravenous contrast. Exam focused on the kidneys and ureters. Radiation optimization: All CT scans at this facility use at least one of these dose optimization techniques: automated exposure control; mA and/or kV adjustment per patient size (includes targeted exams where dose is matched to clinical indication); or iterative reconstruction. Contrast material: OMNI 300; Contrast volume: 150 ml; Contrast route: IV; COMPARISON: No relevant prior studies available. FINDINGS: Lungs: The visualized portions of the lung bases are normal. Heart: The heart is not enlarged. Liver: The liver is normal. Gallbladder and bile ducts: The gallbladder is normal. Pancreas: The pancreas is normal. Spleen: The spleen is normal. Adrenals: The adrenal glands are normal. Kidneys and ureters: The kidneys are normal. The ureters are normal. Stomach and bowel: The stomach is normal. There is moderately excessive colonic stool content. No over distention of bowel loops is seen. Appendix:No findings to suggest acute appendicitis. Intraperitoneal space: No evidence of intraperitoneal free air. Lymph nodes: No pathologic lymph node enlargement is demonstrated. Vasculature: The aorta is normal. Bladder: There is mild bladder wall thickening. Reproductive: The prostate and seminal vesicles are normal. Bones/joints: Unremarkable Soft tissues: The extra-abdominal soft tissues are normal. IMPRESSION: 1. Moderate constipation. 2. Bladder wall thickening suggesting incomplete distention, chronic outflow obstruction or cystitis. THIS DOCUMENT HAS BEEN ELECTRONICALLY SIGNED BY CRISTIN CALIXTO MD Xr Thoracic Spine Ap And Lateral Result Date: 08/22/2019 PROCEDURE INFORMATION: Exam: XR Thoracic Spine, 2 Views Exam date and time: 08/22 8:45 AM Age: 44 years old Clinical indication: Other mechanical complication of other internal orthopedic devices, implants and grafts, initial encounter; Other: Hardware failure, obtain while standing TECHNIQUE: Imaging protocol: XR of the thoracic spine, 2 views. COMPARISON: No relevant prior studies available. FINDINGS: Vertebrae: There is a mild scoliosis. The vertebral body heights are maintained. The visualized disc spaces appear to be intact. The upper thoracic spine is largely obscured on the lateral projection due to shoulder shadowing. There is no evidence of acute fracture. Soft tissues : Unremarkable IMPRESSION: No acute abnormality. THIS DOCUMENT HAS BEEN ELECTRONICALLY SIGNED BY CRISTIN CALIXTO MD Ct Cervical Spine Without Contrast Result Date: 08/22/2019 CLINICAL INFORMATION: Concern for loosening hardware. COMPARISON: CT cervical spine dated 02/07/2019 and 02/05/2019. CERVICAL SPINE CT PROCEDURE: Contiguous axial tomographic sections were obtained through the cervical spine without intravenous contrast. Coronal and sagittal reformats were processed. Automated dose lowering techniques and/or adjustment according to patient size were utilized for this exam. CERVICAL SPINE CT FINDINGS: Orthopedic hardware extending from C5 to T1 post anterior cervical discectomy and fusion and screws and posterior spinal fusion rods post C4-T2 posterior spinal fusion creates streak. An expandable cage extending from the inferior endplate of C5 to the superior endplate of T1 post C6 and C7 corpectomy is again shown. There is interval angulation of the cage with the superior portion angled anteriorly. The anterior screws at the C5 level are no longer positioned within bone. There has been interval bony erosion of the vertebral bodies surrounding the anterior fusionhardware extending from C5-T1 as described in more detail below: * Partial erosion and anterior wedging of the C4 and C5 vertebral bodies. * Interval bony erosion of the T1 vertebral body with accompanying anterior wedging. The posterior fusion screws are no longer associated with the facet joints of C4, C5 or C6 and now lie in the subcutaneous tissues at the posterior aspect of these vertebral levels. Lucencies are visualized within the facets at the aforementioned C4-C6 levels. There is new retrolisthesis of C4 on C5 and new kyphotic curve of the cervical spine due to the collapsed vertebral bodies and dislodgment of the posterior cervical hardware. There is inflammatory change and skin thickening of the soft tissues at the posterior aspect of the cervical spine. There is also mild soft tissue thickening and hypoattenuation within the soft tissues at the anterior aspect of the cervical spine. IMPRESSION: 1. Posterior dislodgment of the facet screws and posterior spinal fusion rods at C4-C6.There is also mild loosening and retraction of pedicle screws at T1. Facet screws at T2 remain in place. 2. Anterior angulation of the expandable cage between the C5 and T1 vertebral bodies post C6 and C7 corpectomy. 3. New onset retrolisthesis of C4 on C5 and kyphotic curve due to vertebral body collapse of C5. 4. Inflammatory change in edema in the anterior and posterior paraspinal soft tissues.5. The osseous erosions may be related to osteolysis or osteomyelitis. These findings were discussed with Dr. Burgess by Dr. Gaffney on 08/21/2019 at 10:[address] Thoracic Spine Without Contrast Result Date: 08/23/2019 EXAMINATION: CT thoracic spine without contrast CLINICAL INDICATION: Hx osteomyelitis, eval thoracicspine for pre-op planning TECHNIQUE: Axial, coronal , and sagittal reformatted images of the thoracicspine were obtained using source data from a CT of the thorax performed at the time of this examination. Automated dose lowering techniques and/or adjustment according to patient size were utilized forthis examination. FINDINGS: Please see report of cervical spine done on 2019. Displaced hardware is again identified with anterior angulation of the cervical spine. In the thoracic region itself posterior spinal fusion is present at T1 and T2 level, bilateral pedicle screws are present along with the rods. Anterior fusion plate is also seen extending to the T1 level. Remainder of thoracic vertebral body heights and alignment is preserved . No acute fracture seen. Scattered degenerative changes are present in the thoracic spine without any high-grade bony canal stenosis. IMPRESSION: Displacement of hardware which is best visualized in the cervical spine CT study. Hardware extend to T2 level. Remainder of thoracic spine is unremarkable. Mr Cervical Spine With And Without Contrast Result Date: 08/23/2019 CLINICAL INDICATION: Hardware failure and hx of spinal epidural abscess. Technique: Multiplanar multi sequential MR images of the cervical spine were obtained prior to and after the administration of intravenous Gadavist. COMPARISON: CT cervical spine dated 08/21/2019. FINDINGS: Orthopedic hardware at the anterior and posterior aspects of the cervical spine creates susceptibility artifact which limitsevaluation of these regions. There is subtle focal kyphosis at C7-T1. There is FLAIR hyperintensity and diffuse enhancement of the C3, T1 and T2 vertebral bodies, concerning for infection. There is T2 and STIR hyperintensity circumferentially surrounding the cord from the C3-T1 level with postcontrastenhancement, concerning for diffuse epidural thickening between C4 and T1 levels and phlegmon formation. There is severe narrowing of the spinal canal most significant at C4-C5 and C6-7 concerning for cord compression . There is STIR hyperintensity and enhancement of the C4-C5 intervertebral disc, also concerning for infection. T2 and STIR hyperintensity is identified in the C3-T1 spinous processes with mild contrast enhancement of the spinous processes at the C6, C7, T1, and T2 levels. Postsurgicalchanges, edema and enhancement of the soft tissues at the posterior aspect of the cervical spine. Similar findings are identified in the intraspinous muscles of the C5-T2 levels. As previously described: The posterior fusion screws are no longer associated with the facet joints of C4, C5 or C6 and nowlie in the subcutaneous tissues at the posterior aspect of these vertebral levels. There is new retrolisthesis of C4 on C5 and new kyphotic curve of the cervical spine centered at C7, due to the collapsed vertebral bodies and dislodgment of the posterior cervical hardware. IMPRESSION: Findings concerning for hardware infection in the cervical spine with likely osteomyelitis-discitis and possible phlegmon, as described above. There is a STIR hyperintensity in the rim enhancement within the C4-5 intervertebral disc concerning for abscess formation. There is diffuse epidural thickening at C4-T1 with severe stenosis at C4-5 and C6-7 with possible cord compression. There is subtle T2 and STIR hyperintense signal within the cord at C4-T1 likely secondary to cord compression. Neurosurgery team is aware of the findings. Findings were discussed with Dr. Borjas by Dr. Snow via phone at 08/23/2019 10:31 AM. Xr Chest Frontal Only Result Date: 08/22/2019 PROCEDURE INFORMATION: Exam: XR Chest, 1 View Exam date and time: 08/22/2019 1: 50 AM Age: 44 years old Clinical indication: Other: Preop TECHNIQUE: Imaging protocol: XR of the chest Views: 1 view. COMPARISON: CR XR CHEST FRONTAL ONLY [id number] [facility] 2019-02-16 05:58 FINDINGS: Lungs: Unremarkable. No consolidation. Pleural space: Unremarkable. No pleural effusion. No pneumothorax. Heart/Mediastinum: Unremarkable. No cardiomegaly. Bones/joints: Unremarkable. IMPRESSION: No acute findings. THIS DOCUMENT HAS BEEN ELECTRONICALLY SIGNED BY CARMEN HOWE MD Xr Spine Cervical 3 Views Or Less Result Date: 08/22/2019 EXAMINATION: X-ray cervical spine. CLINICAL INDICATION: Hardware failure. TECHNIQUE: Upright AP, lateral images of the cervical spine were submitted for interpretation. A total of 3 images were available at the time of dictation. COMPARISON: [place] views of CT Cervical spine dated 08/21/2019. FINDINGS\\IMPRESSION: The patient is wearing a cervical immobilization collar. Orthopedic hardware extending from C5 to T1 post anterior cervical discectomy and anterior spinal fusion and screws are seen. Posterior spinal fusion rods is seen at C4-T2 levels. An expandable cage extending from the inferior endplate of C5 to the superior endplate of T1 post C6 and C7 corpectomy is again shown. Posteriorspinal fusion upper rods and screws are displaced posteriorly and lie in the subcutaneous region. The anterior fusion serafin and screw at T1 level is displaced anteriorly. There is anterior wedge compression of C4 and C5 vertebra. Vertebral body alignment is unremarkable. These findings are similar to prior CT scan. Assessment: Cesario Valdivia is a 44 y.o. 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 He has remained afebrile with no leukocytosis since admission, and only complains of cervical neck pain. His presentation and imaging is consistent with an infection of his hardware and osteomyelitis/developing phlegmon or spinal epidural abscess. His non- compliance with his antibiotic therapy for his previous infection likely contributed to his current presentation. Recommendations: -IV vancomycin and cefepime is the appropriate empiric therapy at this time so would recommend continuing -Obtain a TTE to evaluate possible intracardiac infection due to history of IVDU -Would recommend obtaining new HIV testing as he has not been tested since his last hospitalization in January 2019 -Definitive antibiotic therapy would depend on cultures obtained whenever operation proceeds but will require at least 6 weeks of IV therapy The patient was seen and discussed with ID Attending Dr. Chase who agrees with the above assessment and plan. 08/25/2019 10:08 AM Vinceedgard Beaulieu, MS3 Infectious Disease Patient was seen and examined by myself and with the ID team and medical student. Agree with the above with concerns of recurrent cervical vertebral osteomyelitis and hardware involvement. Agree withthe abx and urge to obtain bone cultures when Surgery is planned. He will need 6 weeks of IV abx followed by oral suppressive therapy based on culture results. Also please consult the addiction service. Ki Chase MD, MPH ID Attending Jennifer Du MD - 08/25/2019 7:18 [place] [address] PATIENT NAME: Cesario Valdivia, DATE OF : 1975 . Subjective Date of Encounter: 08/25/2019 Length of stay: 3 days Interval History: no acute events Current Hospital Problem List: Principal Problem: Loosening of hardware in spine Active Problems: IVDU (intravenous drug user) Opioid use disorder, severe, dependence Tobacco use disorder Chronic hepatitis C without hepatic coma Hardware complicating wound infection Objective Vitals Temp: [36.6 C-37.2 C] 37.2 C Pulse: [59-80] 72 Resp: [16-18] 17 BP: (123-143)/(78-89) 135/83 SpO2: [93 %-100 %] 93 % O2 Therapy: Room air Intake/Output Last 3 Completed Shifts I/O last 3 completed shifts: In: 1225 [P.O.:575; I.V.:600; IV Piggyback:50] Out: - Physical Exam Awake, alert, oriented x3 Cervical collar in place Upper Extremity Strength Deltoid Biceps Triceps WE WF Gr IO Right 5 5 5 5 5 5 5 Left 5 5 5 5 5 5 5 Sensation intact to light touch throughout all cervical dermatomes Lower Extremity Strength IP Quad Ham TA EHL Gastroc Right 5 5 5 5 5 5 Left 5 5 5 5 5 5 Sensation intact throughout all lumbar dermatomes Data Review CBC: Recent Labs Lab 02/13/210908/22/1951808/23/1921 08/24/19 1808 WBC 5.5 5.3 4.4 4.7 RBC 4.68 4.76 4.55* 4.43* HGB 12.4* 12.8* 11.9* 11.7* HCT 38.2* 38.5* 37.3* 36.4* PLT 285 278 252 233 NEUTOPHILPCT 56 -- -- -- MONOPCT 13 -- -- -- BMP: Recent Labs Lab 08/22/19 01408/22/1951808/23/19 06 NA 134* 132* 135* K 4.2 4.4 4.1 CL 98 97* 103 BICARBONATE 26 23 21* GLUCOSE 94 103 92 BUN 12 15 12 CREATININE 0.84 0.93 0.95 BCR 14 16 13 GFRAA >90 >90 >90 GFRNONAA >90 >90 >90 COAGS: Recent Labs Lab 08/22/19140 INR 1.14 Assessment/Plan Cesario Valdivia is a 44 y.o. male patient with a history of cervical SEA presenting with hardware failure Neuro: - Neurologic exam stable - Continue collar at all times - Surgical timing TBD. Medical risk stratification pending - Addiction psych and APS consulted, appreciate recs Cardio: - Hemodynamically stable, no active concerns Pulmo: - Satting well on RA, no active concerns GI: GI Prophylaxis: not needed Nutrition: Regular PO diet Hx of hepatitis C; GI to f/u as outpatient ID: Temp (24hrs), Av.9 C, Min:36.6 C, Max:37.2 C Active infection: SEA Antibiotics: Vancomycin and cefepime Will consult ID today Endo: - No active concerns Renal: - Continue with Input/Output monitoring. Maintain euvolemia. - Gross hematuria noted, urology consulted - CT IVP non actionable per urology; will need outpatient cystoscopy Heme: DVT Prophylaxis: SCD Code Status: Full code Jennifer Zavala Neurosurgery Resident, PGY-4 Associated attestation - Cinthia Gardner MD - 09/01/2019 9:53 AM JAMMIE have discussed this patient with the resident and agree with the note. Elpidio Miller RN - 08/25/2019 6:20 AM ESTPatient refusing am labs after this rfp writer discussed the importance of am labs pt continued to refuse. Awaiting call back from neurosurgery quality assurance intern to make them aware. Kaylee Mason PharmD - 08/24/2019 8:48 PM EST Clinical Pharmacology - Therapeutic Drug Monitoring Interval History Cesario Valdivia is a 44 y.o. male patient currently being treated with Vancomycin and Cefepime for Spinal hardware failure, r/o epidural abscess. Current Antibiotics/Dosing Cefepime 2g IV Q8h Vancomycin 1750mg IV Q12h Drug Levels evaluated Ref. Range 08/24/2019 19:04 Vancomycin, Random Latest Units: ug/mL 13.3 Labs/Clinical Factors Lab Results Component Value Date WBC 4.7 08/24/2019 Lab Results Component Value Date CREATININE 0.95 08/23/2019 Temp Readings from Last 1 Encounters: 08/24/19 36.9 C (98.5 F) (Oral) Temp (24hrs), Av.9 C (98.5 F), Min:36.6 C (97.9 F), Max: 37.4 C (99.3 F) Intake/Output Summary (Last 24 hours) at 08/24/20192047 Last data filed at 08/24/2019 1800 Gross per 24 hour Intake 890 ml Output Net 890 ml I/O this shift: In: 350 [P.O.:300; IV Piggyback:50] Out: - Assessment Patient's current serum concentration(s) are Therapeutic Plan 1. Continue with current regimen given therapeutic trough 2. CTM renal function closely as Scr is trending up 3. Pharmacy will continue to monitor Kaylee Leon, Pharm. D INDEROh, Trung Whipple MD - 08/24/2019 6:59 AM [place] [facility] [address] PATIENT NAME: Cesario Valdivia, DATE OF : 1975 . Subjective Date of Encounter: 08/24/2019 Length of stay: 2 days Interval History: no acute events Current Hospital Problem List: Principal Problem: Loosening of hardware in spine Active Problems: IVDU (intravenous drug user) Opioid use disorder, severe, dependence Tobacco use disorder Chronic hepatitis C without hepatic coma Objective Vitals Temp: [36.6 C-37.4 C] 36.8 C Pulse: [66-88] 66 Resp: [16-18] 18 BP: (114-136)/(76-88) 116/85 SpO2: [93 %-98 %] 98 % O2 Therapy: Room air Intake/Output Last 3 Completed Shifts I/O last 3 completed shifts: In: 920 [P.O.:720; IV Piggyback:200] Out: 1350 [Urine:1350] Physical Exam Awake, alert, oriented x3 Cervical collar in place Deltoid Biceps Triceps WE WF IO Right 5 5 5 5 5 5 Left 5 5 5 5 5 5 Sensation intact to light touch throughout all cervical dermatomes IP Quad Ham TA Gastroc EHL Right 5 5 5 5 5 5 Left 5 5 5 5 5 5 Sensation intact throughout all lumbar dermatomes Hyperreflexic patellar reflex BLE 3-4 beats clonus BLE Data Review CBC: Recent Labs Lab 08/21/19210908/22/1951808/23/19 0621 WBC 5.5 5.3 4.4 RBC 4.68 4.76 4.55* HGB 12.4* 12.8* 11.9* HCT 38.2* 38.5* 37.3* PLT 285 278 252 NEUTOPHILPCT 56 -- -- MONOPCT 13 -- -- BMP: Recent Labs Lab 08/22/1914008/22/1951808/23/19 0621 NA 134* 132* 135* K 4.2 4.4 4.1 CL 98 97* 103 BICARBONATE 26 23 21* GLUCOSE 94 103 92 BUN 12 15 12 CREATININE 0.84 0.93 0.95 BCR 14 16 13 GFRAA >90 >90 >90 GFRNONAA >90 >90 >90 COAGS: Recent Labs Lab 02/14/20 0141 INR 1.14 Assessment/Plan Cesario Valdivia is a 44 y.o. male patient with a history of cervical SEA presenting with hardware failure Neuro: - Neurologic exam stable - Continue collar at all times - Surgical timing TBD. Medical risk stratification pending - Addiction psych and APS consulted, appreciate recs Cardio: - Hemodynamically stable, no active concerns Pulmo: - Satting well on RA, no active concerns GI: GI Prophylaxis: not needed Nutrition: Regular PO diet Hx of hepatitis C; GI to f/u as outpatient ID: Temp (24hrs), Av.8 C, Min:36.6 C, Max:37.4 C Active infection: SEA Antibiotics: Vancomycin and cefepime Endo: - No active concerns Renal: - Continue with Input/Output monitoring. Maintain euvolemia. - Gross hematuria noted, urology consulted - CT IVP non actionable per urology; will need outpatient cystoscopy Heme: DVT Prophylaxis: SCD Code Status: Full code OsielTrung Y Neurosurgery Resident, PGY-2 Associated attestation - Johan Duncan MD - 08/24/2019 7:51 AM ESTSee resident's note for details. I saw and evaluated the patient with the resident and agree with the resident's findings and plan as documented in the residents note. Leda Kelley RN - 08/23/2019 1:53 PM ESTThis RN went to patient room to ask if he needed to urinate. Patient stated he had already gotten upto urinate. Patient however did not use call hartmann or inform this RN until approximately an hour + after he urinated. No PVR was obtained. Bautista William MD - 08/23/2019 7: 41 AM EST Urology Progress Note Hospital Day #: 1 Post Operative Day #: Procedure: Interval Present History: Patient seen and examined at bedside. No acute events overnight. Patient voided , sample appears concentrated britt in color. PVR 0cc. CT IVP without obvious filling defects. Otherwise no complaints. Afebrile and HDS. Vital Signs: Temp (24hrs), Av.7 C, Min:36.7 C, Max:36.8 C Visit Vitals BP 123/81 (BP Location: Right arm, Patient Position: Lying) Pulse 77 Temp 36.8 C (Oral) Resp 16 SpO2 95% Intake/Output last 3 shifts: I/O last 3 completed shifts: In: 2354.2 [P.O.:465; I.V.:790.1; IV Piggyback:1099.1] Out: 850 [Urine:850] Diet: Diet Age: Adult; Diet: Regular Physical Exam Gen: no apparent distress, alert and oriented HEENT: NCAT, moist mucous membranes, nares patent. c collar in place CVS: regular rate Resp:non-labored, breathing comfortably GI: Soft, non-distended, non-tender Ext: warm, well perfused Data Reviewed: BMP: Lab Results Component Value Date NA 132 (L) 08/22/2019 K 4.4 08/22/2019 CL 97 (L) 08/22/2019 BICARBONATE 23 08/22/2019 GLUCOSE 103 08/22/2019 BUN 15 08/22/2019 CREATININE 0.93 08/22/2019 BCR 16 08/22/2019 GFRAA >90 08/22/2019 GFRNONAA >90 08/22/2019 Lytes: Lab Results Component Value Date CALCIUM 9.3 08/22/2019 Hepatic Panel: Lab Results Component Value Date ALBUMIN 2.9 (L) 08/22/2019 ALKPHOS 112 08/22/2019 ALT 63 (H) 08/22/2019 AST 110 (H) 08/22/2019 PROT 10.5 (H) 08/22/2019 TBILI 1.3 (H) 08/22/2019 BILIDIR 0.6 (H) 08/22/2019 CBC: Lab Results Component Value Date WBC 5.3 08/22/2019 RBC 4.76 08/22/2019 HGB 12.8 (L) 08/22/2019 HCT 38.5 (L) 08/22/2019 PLT 278 08/22/2019 Coagulation: Lab Results Component Value Date INR 1.14 08/22/2019 Assessment: Cesario Valdivia is a 44 y.o. male with gross hematuria over the past year. Urine sample inspected this AM and appears britt concentrated. PVR 0. CT IVP negative Plan: - no further urological interventions at this time - patient will be arranged for outpatient cystoscopy - continue to monitor urine output and PRN bladder scans to ensure patient is emptying adequately. - please notify with additional concerns. - will be signing off at this time Bautista Handley MD Resident Physician | PGY-2 Department of Urology Associated attestation - Verenice Vega MD - 08/23/2019 8:08 AM JAMMIE saw and evaluated the patient. Discussed with the resident and agree with the residents findings and plans as written, along with any supplemental dictated and/or attending documentation in the patient record by myself. CT images reviewed and unremarkable. Cytology pending. Need for outpatient cystoscopy to complete evaluation for malignancy again stressed and he is agreeable. Verenice Vega MD Urology Pedro Borjas MD - 08/23/2019 7:34 AM [place] [facility] [address] PATIENT NAME: Cesario Valdivia, DATE OF : 1975 . 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 Active Problems: IVDU (intravenous drug user) Opioid use disorder, severe, dependence Tobacco use disorder Chronic hepatitis C without hepatic coma Objective Vitals Temp: [36.7 C-36.8 C] 36.8 C Pulse: [72-92] 77 Resp: [16-18] 16 BP: (110-139)/(74-87) 123/81 SpO2: [95 %-97 %] 95 % O2 Therapy: Room air Intake/Output Last 3 Completed Shifts I/O last 3 completed shifts: In: 2354.2 [P.O.:465; I.V.:790.1; IV Piggyback:1099.1] Out: - Physical Exam Awake, alert, oriented x3 Cervical collar in place Deltoid Biceps Triceps WE WF IO Right 5 5 5 5 5 5 Left 5 5 5 5 5 5 Sensation intact to light touch throughout all cervical dermatomes IP Quad Ham TA Gastroc EHL Right 5 5 5 5 5 5 Left 5 5 5 5 5 5 Sensation intact throughout all lumbar dermatomes Hyperreflexic patellar reflex BLE 3-4 beats clonus BLE Data Review CBC: Recent Labs Lab 08/21/19210908/22/19 0519 WBC 5.5 5.3 RBC 4.68 4.76 HGB 12.4* 12.8* HCT 38.2* 38.5* PLT 285 278 NEUTOPHILPCT 56 -- MONOPCT 13 -- BMP: Recent Labs Lab 08/21/19210908/22/19 0141 08/22/19 0519 NA 132* 134* 132* K 4.2 4.2 4.4 CL 98 98 97* BICARBONATE 23 26 23 GLUCOSE 91 94 103 BUN 10 12 15 CREATININE 0.78 0.84 0.93 BCR 13 14 16 GFRAA >90 >90 >90 GFRNONAA >90 >90 >90 COAGS: Recent Labs Lab 08/22/19 014 INR 1.14 Assessment/Plan Cesario Valdivia is a 44 y.o. male patient with a history of cervical SEA presenting with hardware failure Neuro: - Neurologic exam stable - Continue collar at all times - Surgical timing TBD. Medical risk stratification pending - Addiction psych and APS consulted, appreciate recs Cardio: - Hemodynamically stable, no active concerns Pulmo: - Satting well on RA, no active concerns GI: GI Prophylaxis: not needed Nutrition: Regular PO diet Hx of hepatitis C, will consult GI this morning ID: Temp (24hrs), Av.7 C, Min:36.7 C, Max:36.8 C Active infection: SEA Antibiotics: Vancomycin and cefepime Endo: - No active concerns Renal: - Continue with Input/Output monitoring. Maintain euvolemia. - Gross hematuria noted, urology consulted - urology workup pending Heme: DVT Prophylaxis: SCD Code Status: Full code Pedro Borjas Neurosurgery Resident, PGY-1 Associated attestation - Johan Duncan MD - 08/23/2019 8:29 AM ESTSee resident's note for details. I saw and evaluated the patient with the resident and agree with the resident's findings and plan as documented in the residents note. Oscar Romo RN - 08/22/2019 4:55 PM ESTCase Management Screen & Assessment Patient's Name: Cesario Valdivia Date of : 1975 Age: 44 y.o. 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 [T84.498A] Admission Date and Time: 08/21/2019 8:12 PM High Risk Criteria - SPOT WORKER/Upon Arrival SPOT WORKER-Type of Residence: Private residence SPOT WORKER- Home Care Services: No Limited Home Supports/Lives Alone?: No Multi trauma/Critical care admit?: No Head/Spinal cord injury?: No Self pay/No prescription plan?: No Active with homecare?: No Multiple ED visits?: No Related/Unplanned readmission within 30 days?: No Complex/New medical issues: hardware looseining Relevant comorbidities: See EPIC CM Screen Outcome Manager Net Screen Outcome: Meets high risk criteria for active bilingual case manager intervention Important message (Medicare rights) given?: (n/a) CM Chart Review Notice of Privacy Practice Signed?: Yes Self Pay: No Prescription Plan?: Yes (comment) Pt. Pharmacy & Phone # : [facility] SPOT WORKER: Functional/Environmental Assessment Came from Rehab/SNF, plan to return?: No Brief physical/psychosocial summary: lives with friends Bathing: Independent Dressing: Independent Toileting: Independent Medication administration: Independent Transfers: Independent Ambulation: Independent Meal preparation: Independent Number of stairs into home: 10 Number of stairs to bathroom: 0 Number of stairs to bedroom: 0 Durable Medical Equipment (DME): (none) Potential Issues/Teaching Needs Physical: PT/OT, wound care, ABX therapy Psychosocial: DTP- IVDU Case Management Review Date CM re-review date needed?: Yes Case Management Review Date: 08/25/19 Discharge Assessment Patient/family informed of need for discharge planning?: Yes Patient expects to be discharged to:: home vs rehab Home with support services reinstated?: No Living Arrangements: Friends, Family members Support Systems: Parent, Friends/neighbors Type of Residence: Private residence Home services arranged?: No Note: chart reviewed. Met with patient to introduce self and role of CM. Patient sleepy, but answered CM questions. Lives with various people. Independent with no prior home care or DME per his reporting. Reports PCP is Marcella Andrade. Came in for hardware loosening and infection. Currently on IV ABXs. APS and addiction psych consulted. Needs PT/OT orders. CM to follow for needs. On DTP list for IVDU and Transfer to [facility] list. Oscar Romo S 4: 58 PM Isabella Hardy RN - 08/22/2019 1:43 PM ESTAt 1335, pt urinated in toilet. This RN noticed blood in the urine. Pt stated "he has had blood in his urine since he started therapy for Hep C, approximately 1 year ago". Paged neurosurgery, and spokewith Pedro and verbally made him aware. Plan is to consult with urology.Electronically signed by Isabella Harris RN at 2019 1:57 PM Isabella Hardy RN - 08/22/2019 10:[address] Raymond Bernard MD from the [facility] called at 10:15 and said she heard pt wasn't receiving any pain medication. She is concerned he will leave AMA if pain is not controlled. Spoke with Pedro from neurosurgery and he will contact Dr Andrade at [phone]. Pt has been sleeping in bed since 0700, except to be transferred via wheelchair to [facility]. Kyle Ferguson MD - 08/22/2019 8:25 AM [place] [facility] [address] PATIENT NAME: Cesario Valdivia, DATE OF : 1975 . 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 Physical Exam Awake, alert, oriented x3 Cervical collar in place Deltoid Biceps Triceps WE WF IO Right 5 5 5 5 5 5 Left 5 5 5 5 5 5 Sensation intact to light touch throughout all cervical dermatomes IP Quad Ham TA Gastroc EHL Right 5 5 5 5 5 5 Left 5 5 5 5 5 5 Sensation intact throughout all lumbar dermatomes Data Review CBC: Recent Labs Lab 08/21/19210908/22/19 0519 WBC 5.5 5.3 RBC 4.68 4.76 HGB 12.4* 12.8* HCT 38.2* 38.5* PLT 285 278 NEUTOPHILPCT 56 -- MONOPCT 13 -- BMP: Recent Labs Lab 08/21/19210908/22/19 0141 08/22/19 0519 NA 132* 134* 132* K 4.2 4.2 4.4 CL 98 98 97* BICARBONATE 23 26 23 GLUCOSE 91 94 103 BUN 10 12 15 CREATININE 0.78 0.84 0.93 BCR 13 14 16 GFRAA >90 >90 >90 GFRNONAA >90 >90 >90 COAGS: Recent Labs Lab 08/22/19 0141 INR 1.14 Assessment/Plan Cesario Valdivia is a 44 y.o. male patient with a history of cervical SEA presenting with hardware failure Neuro: - Neurologic exam stable - Continue collar at all times - Surgical timing TBD. Medical risk stratification pending - Addiction psych and APS consults pending Cardio: - Hemodynamically stable, no active concerns Pulmo: - Satting well on RA, no active concerns GI: GI Prophylaxis: not needed Nutrition: Regular PO diet ID: Temp (24hrs), Av.8 C, Min:36.7 C, Max:37 C Active infection: SEA Antibiotics: Vancomycin and cefepime Endo: - No active concerns Renal: - Continue with Input/Output monitoring. Maintain euvolemia. Heme: DVT Prophylaxis: SCD Code Status: Full code Kyle Macias A Neurosurgery Resident, PGY-4 Associated attestation - Cinthia Gardner MD - 08/22/2019 6:43 PM JAMMIE have seen and evaluated the patient with the resident. I agree with the plan as described. Seen 08/22/19 Neeta Yee RN - 08/22/2019 3:58 AM ESTIf wound was present on admission, this documentation was sent to attending provider for cosignature. documented in this encounter Plan of Treatment Date Type Specialty Care Team Description 10/29/2019 Office Visit Gastroenterology Edwin Omalley [facility] [address] [place] [address] [phone] Name Type Priority Associated Diagnoses Date/Time Fungus culture Microbiology Routine 09/03/2019 12:50 PM EST Name Type Priority Associated Order Schedule Diagnoses Prepare RBC 2 Units Blood Bank Routine Once for 1 Occurrences starting 09/01/2019 until 09/01/2019 Surgical Pathology Pathology and Routine Once for 1 Exam ( Only) Cytology Occurrences starting 09/02/2019 until 09/02/2019 Potassium Level Lab Timed As Needed for 1 Occurrences starting 09/06/2019 until 09/12/2019 Magnesium Level Lab Timed As Needed for 1 Occurrences starting 09/06/2019 until 09/12/2019 Phosphorus Level Lab Timed As Needed for 1 Occurrences starting 09/06/2019 until 09/12/2019 Calcium, ionized Lab Timed As Needed for 1 Occurrences starting 09/06/2019 until 09/12/2019 Prepare RBC 1 Unit Blood Bank Routine Once for 1 Occurrences starting 09/06/2019 until 09/06/2019 Vancomycin, trough Lab Routine Once for 1 Occurrences starting 09/08/2019 until 09/08/2019 Basic Metabolic Panel Lab Routine AM Draw for 3 Occurrences starting 09/08/2019 until 09/10/2019, 2 completed CBC Lab Routine AM Draw for 30 Days starting 09/08/2019 until 10/07/2019, 2 completed Inflammatory Lab Timed Every Mon for 30 C-Reactive Protein Days starting (CRP) 09/08/2019 until 10/06/2019, 1 completed Sedimentation rate, Lab Timed Every Mon for 30 automated Days starting 09/08/2019 until 10/06/2019, 1 completed Health Maintenance Due Date Last Done Comments MMR Vaccines (1 of 1 - 1976 Standard series) Varicella Vaccines (1 of 2 - 1976 2-dose childhood series) Pneumococcal Vaccine: 1983 Pediatrics (0 to 5 Years) and At-Risk Patients (6 to 64 Years) (1 of 1 - PPSV23) DTaP,Tdap,and Td Vaccines (1 1984 - Tdap) Influenza Vaccine 04/08/2019 Pneumococcal Vaccine: 65+ 2042 Years (1 of 2 - PCV13) HIV Screening Completed 08/26/2019, 02/05/2019 HIB Vaccines Aged Out No longer eligible based on patient's age to complete this topic Hepatitis A Vaccines Aged Out No longer eligible based on patient's age to complete this topic Hepatitis B Vaccines Aged Out No longer eligible based on patient's age to complete this topic IPV Vaccines Aged Out No longer eligible based on patient's age to complete this topic documented as of this encounter Implants Implanted Type Area Marketing Sales Manager Device Shelf Model / Identifier Expiration Serial / Lot Date Screw Multi Axial 4.5x32mm - [id number] Screw N/A: Spine [employer] [id number] / Implanted: Qty: 1 on 09/03/2019 by Radha Cha MD at OR 5E Cervical / Connector Lateral Closed 10mm - [id number] N/A: Spine [employer] [id number] / Implanted: Qty: 1 on 02/05/2019 by Radha Cha MD at OR 5E Cervical / Putty Bone Allergen 10cc - [id number] N/A: Spine [employer] 08/2021 [id number] / Implanted: Qty: 1 on 02/05/2019 by Radha Cha MD at OR 5E Cervical [id number] / [id number] Putty Bone Allergen 10cc - [id number] N/A: Spine [employer] 08/2021 [id number] / Implanted: Qty: 1 on 02/05/2019 by Radha Cha MD at OR 5E Cervical [id number] / [id number] Centerpiece 13mm D-Size - [id number] N/A: Spine [employer] [id number] / Implanted: Qty: 1 on 02/05/2019 by Radha Cha MD at OR 5E Cervical / Plate Vision Elite 50mmatlantis - [id number] N/A: Spine [employer] [id number] / Implanted: Qty: 1 on 02/05/2019 by Radha Cha MD at OR 5E Cervical / Screw Bob. Ang. 4.3toh43ri - [id number] N/A: Spine [employer] [id number] / Implanted: Qty: 4 on 02/05/2019 by Radha Cha MD at OR 5E Cervical / Screw Infinity 5.5x25mm - [id number] N/A: Spine [employer] [id number] / Implanted: Qty: 2 on 02/05/2019 by Radha Cha MD at OR 5E Cervical / [id number] Screw Infinity 5.5x30mm - [id number] N/A: Spine [employer] [id number] / Implanted: Qty: 2 on 02/05/2019 by Radha Cha MD at OR 5E Cervical / [id number] Set Screw Stndrd [id number] - [id number] N/A: Spine [employer] [id number] / Implanted: Qty: 10 on 02/05/2019 by Radha Cha MD at OR 5E Cervical / Putty Bone Allergen 10cc - [id number] N/A: Spine [employer] 11/2021 [id number] / Implanted: Qty: 1 on 02/06/2019 by Radha Cha MD at OR 5E Cervical [id number] / [id number] Putty Bone Allergen 10cc - [id number] N/A: Spine [employer] [id number] / Implanted: Qty: 1 on 09/02/2019 by Radha Cha MD at OR 5E Cervical [id number] / [id number] Centerpiece 13mm E-Size - [id number] N/A: Spine [employer] [id number] / Implanted: Qty: 1 on 09/02/2019 by Radha Cha MD at OR 5E Cervical / Kit Bone Graft Infuse Med - [id number] N/A: Spine [employer] 2020 [id number] / Implanted: Qty: 1 on 09/03/2019 by Radha Cha MD at OR 5E Cervical / [id number] Screw 5.5 Solera 6.5x35mm - [id number] N/A: Spine [employer] [id number] / Implanted: Qty: 2 on 09/03/2019 by Radha Cha MD at OR 5E Cervical / Screw 5.5 Solera 5.5x40mm - [id number] N/A: Spine [employer] [id number] / Implanted: Qty: 2 on 09/03/2019 by Radha Cha MD at OR 5E Cervical / Screw 5.5 Solera 6.5x40mm - [id number] N/A: Spine [employer] [id number] / Implanted: Qty: 2 on 09/03/2019 by Radha Cha MD at OR 5E Cervical / Screw 5.5 Solera 6.5x45mm - [id number] N/A: Spine [employer] [id number] / Implanted: Qty: 2 on 09/03/2019 by Radha Cha MD at OR 5E Cervical / Screw Solera Dual 5.5x35 - [id number] N/A: Spine [employer] [id number] / Implanted: Qty: 2 on 09/03/2019 by Radha Cha MD at OR 5E Cervical / [id number] Screw Set Solera 5.5mm - [id number] N/A: Spine [employer] [id number] / Implanted: Qty: 12 on 09/03/2019 by Radha Cha MD at OR 5E Cervical / Screw Multi Axial 4x14mm - [id number] N/A: Spine [employer] [id number] / Implanted: Qty: 8 on 09/03/2019 by Radha Cha MD at OR 5E Cervical / Set Screw Stndrd [id number] - [id number] N/A: Spine [employer] [id number] / Implanted: Qty: 14 on 09/03/2019 by Radha Cha MD at OR 5E Cervical / Serafin 3.5x25mm Pre-Cut - [id number] N/A: Spine [employer] [id number] / Implanted: Qty: 4 on 09/03/2019 by Radha Cha MD at OR 5E Cervical / Screw Multi Axial 4x16mm - [id number] N/A: Spine [employer] [id number] / Implanted: Qty: 2 on 09/03/2019 by Radha Cha MD at OR 5E Cervical / Screw Multi Axial 4.5x30mm - [id number] N/A: Spine [employer] [id number] / Implanted: Qty: 1 on 09/03/2019 by Radha Cha MD at OR 5E Cervical / Connector Infinity Csd 3.5/3.5 - [id number] N/A: Spine [employer] [id number] / Implanted: Qty: 1 on 09/03/2019 by Radha Cha MD at OR 5E Cervical / Connector Lateral Closed 10mm - [id number] N/A: Spine [employer] [id number] / Implanted: Qty: 1 on 09/03/2019 by Radha Cha MD at OR 5E Cervical / Putty Bone Allergen 10cc - [id number] N/A: Spine [employer] [id number] / Implanted: Qty: 1 on 09/03/2019 by Radha Cha MD at OR 5E Lumbar [id number] / [id number] Bone Cancellous Crushed 30cc - [id number] N/A: Spine [employer] 02/18/2024 [id number] / Implanted: Qty: 1 on 09/03/2019 by Radha Cha MD at OR 5E Lumbar SEVICES [id number] / [id number] Putty Bone Allergen 10cc - [id number] N/A: Spine [employer] [id number] / Implanted: Qty: 1 on 09/03/2019 by Radha Cha MD at OR 5E Lumbar [id number] / [id number] Putty Bone Allergen 10cc - [id number] N/A: Spine [employer] [id number] / Implanted: Qty: 1 on 09/03/2019 by Radha Cha MD at OR 5E Lumbar [id number] / [id number] Putty Bone Allergen 10cc - [id number] N/A: Spine [employer] [id number] / Implanted: Qty: 1 on 09/03/2019 by Radha Cha MD at OR 5E Cervical [id number] / [id number] Explanted Type Area Marketing Sales Manager Device Shelf Model / Identifier Expiration Serial / Date Lot Centerpiece 13mm D-Size - [id number] N/A: Spine [employer] [id number] / Explanted: Qty: 1 on 09/02/2019 at OR [facility] Cervical / Screw Multi Axial 4x12mm - [id number] N/A: Spine [employer] [id number] / Explanted: Qty: 2 on 09/03/2019 by Radha Cha MD at OR [facility] Cervical / Screw Multi Axial 4x12mm - [id number] N/A: Spine [employer] [id number] / Implanted: Qty: 6 on 02/05/2019 by Radha Cha MD at OR [facility] Cervical / Explanted: Qty: 6 on 09/03/2019 at OR [facility] Serafin 3.5x80mm Pre-Cut - [id number] N/A: Spine [employer] [id number] / Implanted: Qty: 2 on 02/05/2019 by Radha Cha MD at OR [facility] Cervical / Explanted: Qty: 2 on 09/03/2019 at OR [facility] documented as of this encounter Procedures Procedure Name Priority Date/Time Associated Diagnosis Comments CBC Routine 09/09/2019 4:46 Results for this AM EST procedure are in the results section. BASIC METABOLIC PANEL Routine 09/09/2019 4:46 Results for this AM EST procedure are in the results section. SEDIMENTATION RATE, Timed 09/08/2019 12:55 Results for this AUTOMATED AM EST procedure are in the results section. CBC Routine 09/08/2019 12:55 Results for this AM EST procedure are in the results section. INFLAMMATORY Timed 09/08/2019 12:55 Results for this C-REACTIVE PROTEIN AM EST procedure are in (CRP) the results section. VANCOMYCIN, TROUGH Routine 09/08/2019 12:55 Results for this AM EST procedure are in the results section. BASIC METABOLIC PANEL Routine 09/08/2019 12:55 Results for this AM EST procedure are in the results section. CBC Routine 09/07/2019 5:26 Results for this AM EST procedure are in the results section. BASIC METABOLIC PANEL Routine 09/07/2019 5:26 Results for this AM EST procedure are in the results section. POTASSIUM Routine 09/06/2019 4:08 Results for this PM EST procedure are in the results section. PHOSPHORUS LEVEL Routine 09/06/2019 4:08 Results for this PM EST procedure are in the results section. MAGNESIUM LEVEL Routine 09/06/2019 4:08 Results for this PM EST procedure are in the results section. TYPE AND CROSSMATCH Routine 09/06/2019 6:59 Results for this AM EST procedure are in the results section. CALCIUM, IONIZED Routine 09/06/2019 6:59 Results for this AM EST procedure are in the results section. CBC AND DIFFERENTIAL Routine 09/06/2019 3:40 Results for this AM EST procedure are in the results section. PHOSPHORUS LEVEL Routine 09/06/2019 3:40 Results for this AM EST procedure are in the results section. MAGNESIUM LEVEL Routine 09/06/2019 3:40 Results for this AM EST procedure are in the results section. BASIC METABOLIC PANEL Routine 09/06/2019 3:40 Results for this AM EST procedure are in the results section. FLUORO DIAGNOSTIC Routine 09/05/2019 4:44 Results for this ESOPHAGUS - (FORMERLY PM EST procedure are in BARIUM SWALLOW) the results section. CBC AND DIFFERENTIAL Routine 09/05/2019 4:08 Results for this AM EST procedure are in the results section. BASIC METABOLIC PANEL Routine 09/05/2019 4:08 Results for this AM EST procedure are in the results section. EXTUBATION Routine 09/04/2019 5:20 PM EST CBC Routine 09/04/2019 4:13 Results for this PM EST procedure are in the results section. XR CHEST FRONTAL ONLY Urgent 09/04/2019 3:32 Results for this 00453 PM EST procedure are in the results section. XR SPINE CERV 2-3 Routine 09/04/2019 2:00 Results for this VIEWS 68259 PM EST procedure are in the results section. BLOOD GAS, ARTERIAL Routine 09/04/2019 4:44 Results for this AM EST procedure are in the results section. CBC AND DIFFERENTIAL Routine 09/04/2019 3:43 Results for this AM EST procedure are in the results section. BASIC METABOLIC PANEL Routine 09/04/2019 3:43 Results for this AM EST procedure are in the results section. XR CHEST FRONTAL ONLY Routine 09/04/2019 3:28 Results for this 14768 AM EST procedure are in the results section. CT THORACIC SPINE Routine 09/03/2019 10:03 Results for this WITHOUT CONTRAST 97534 PM EST procedure are in the results section. CT CERVICAL SPINE Routine 09/03/2019 10:03 Results for this WITHOUT CONTRAST 58177 PM EST procedure are in the results section. XR ABDOMEN AP ABD Urgent 09/03/2019 8:28 Results for this SUPINE ONLY 90373 PM EST procedure are in the results section. CBC AND DIFFERENTIAL STAT 09/03/2019 7:27 Results for this PM EST procedure are in the results section. BASIC METABOLIC PANEL STAT 09/03/2019 7:27 Results for this PM EST procedure are in the results section. XR SPINE-ENTIRE Routine 09/03/2019 3:40 Loosening of Results for this THORACIC AND LUMBAR- 4 PM EST hardware in spine procedure are in OR 5 [place] [address] the results section. TRANSFUSE RBC Routine 09/03/2019 3:16 (CONTINUOUS) PM EST TRANSFUSE RBC Routine 09/03/2019 1:09 (CONTINUOUS) PM EST BX/SURG TISSUE CULTURE Routine 09/03/2019 12:50 Results for this 2 PM EST procedure are in the results section. GRAM STAIN Routine 09/03/2019 12:50 Results for this PM EST procedure are in the results section. POCT ISTAT ARTERIAL Routine 09/03/2019 12:41 Results for this CG8 PM EST procedure are in the results section. POSTERIOR SPINAL 09/03/2019 9:42 Hardware FUSION/INSTRUMENTATION AM EST complicating wound infection, initial encounter Special Needs Alexandra [id number] move up Dr in meeting first TYPE AND CROSSMATCH Routine 09/03/2019 7:55 Results for this AM EST procedure are in the results section. CBC AND DIFFERENTIAL Routine 09/03/2019 4:22 Results for this AM EST procedure are in the results section. BLOOD GAS, ARTERIAL Routine 09/03/2019 4:22 Results for this AM EST procedure are in the results section. BASIC METABOLIC PANEL Routine 09/03/2019 4:22 Results for this AM EST procedure are in the results section. XR CHEST FRONTAL ONLY Routine 09/03/2019 3:46 Results for this 99312 AM EST procedure are in the results section. CBC AND DIFFERENTIAL Routine 09/03/2019 1:30 Results for this AM EST procedure are in the results section. CBC AND DIFFERENTIAL STAT 09/02/2019 8:46 Results for this PM EST procedure are in the results section. BASIC METABOLIC PANEL STAT 09/02/2019 8:46 Results for this PM EST procedure are in the results section. XR SPINE CERV 3 VIEWS Routine 09/02/2019 6:20 Loosening of Results for this OR LESS-OR [id number] PM EST hardware in spine procedure are in the results section. PARTIAL THROMBOPLASTIN STAT 09/02/2019 5:25 Results for this TIME (PTT) PM EST procedure are in the results section. PROTIME INR STAT 09/02/2019 5:25 Results for this PM EST procedure are in the results section. CBC STAT 09/02/2019 5:25 Results for this PM EST procedure are in the results section. VERTEBRAL CORPECTOMY, 09/02/2019 2:10 Hardware 1 SEGMENT; EXTRADURAL, PM EST complicating wound CERVICAL infection, initial encounter Case Notes 09/01 changed dpc per 5E changes/ bf Special Needs Alexandra [id number] SURGICAL PATHOLOGY EXAM Routine 09/02/2019 12:00 AM Results for this ([facility] ONLY) EST procedure are in the results section. SEDIMENTATION RATE, Timed 09/01/2019 1:24 AM Results for this AUTOMATED EST procedure are in the results section. CBC AND DIFFERENTIAL Timed 09/01/2019 1:24 AM Results for this EST procedure are in the results section. INFLAMMATORY C-REACTIVE Timed 09/01/2019 1:24 AM Results for this PROTEIN (CRP) EST procedure are in the results section. VANCOMYCIN, TROUGH Routine 09/01/2019 1:24 AM Results for this EST procedure are in the results section. COMPREHENSIVE METABOLIC Timed 09/01/2019 1:24 AM Results for this PANEL EST procedure are in the results section. URINALYSIS WITH Routine 08/30/2019 7:37 PM Results for this MICROSCOPIC EST procedure are in the results section. CROSSMATCH, ADDITIONAL Routine 08/30/2019 4:35 AM Results for this EST procedure are in the results section. ELUTION Routine 08/30/2019 4:35 AM Results for this EST procedure are in the results section. ANTIBODY IDENTIFICATION Routine 08/30/2019 4:35 AM Results for this EST procedure are in the results section. TYPE AND SCREEN Routine 08/30/2019 4:35 AM Results for this EST procedure are in the results section. CBC Routine 08/28/2019 12:30 AM Results for this EST procedure are in the results section. BASIC METABOLIC PANEL Routine 08/28/2019 12:30 AM Results for this EST procedure are in the results section. PICC VPS IMAGE REPORT 08/27/2019 11:37 AM EST CBC Routine 08/27/2019 12:11 AM Results for this EST procedure are in the results section. BASIC METABOLIC PANEL Routine 08/27/2019 12:11 AM Results for this EST procedure are in the results section. ECHOCARDIOGRAM 2D Routine 08/26/2019 3:29 PM Results for this COMPLETE EST procedure are in the results section. VANCOMYCIN, TROUGH Routine 08/26/2019 8:19 AM Results for this EST procedure are in the results section. HIV AG AB COMBO SCREEN Routine 08/26/2019 12:58 AM Results for this EST procedure are in the results section. CBC Routine 08/26/2019 12:57 AM Results for this EST procedure are in the results section. BASIC METABOLIC PANEL Routine 08/26/2019 12:57 AM Results for this EST procedure are in the results section. PICC ULTRASOUND - Routine 08/25/2019 9:15 PM BEDSIDE PROCEDURE EST VANCOMYCIN, RANDOM Routine 08/24/2019 7:04 PM Results for this EST procedure are in the results section. CBC Routine 08/24/2019 6:08 PM Results for this EST procedure are in the results section. XR SPINE-ENTIRE Routine 08/24/2019 1:13 PM Diagnosis unknown Results for this THORACIC AND LUMBAR- 2 EST procedure are in [place] 3 VIEW [id number] the results section. CBC Routine 08/23/2019 6:21 AM Results for this EST procedure are in the results section. BASIC METABOLIC PANEL Routine 08/23/2019 6:21 AM Results for this EST procedure are in the results section. URINALYSIS WITH REFLEX Routine 08/23/2019 6:11 AM Results for this URINE CULTURE EST procedure are in the results section. URINE CULTURE Routine 08/23/2019 6:11 AM Results for this EST procedure are in the results section. CT THORACIC SPINE Routine 08/22/2019 6:03 PM Results for this WITHOUT CONTRAST [id number] EST procedure are in the results section. CT ABDOMEN PELVIS WITH STAT 08/22/2019 5:55 PM Results for this [place] [id number] the results section. LAB RESULTS 08/22/2019 12:01 PM (OUTSIDE/HISTORICAL) EST RADIOLOGY REPORT 08/22/2019 12:01 PM EST XR THORACIC SPINE AP Routine 08/22/2019 9:08 AM Results for this AND LATERAL EST procedure are in the results section. XR SPINE CERV 2-3 VIEWS Routine 08/22/2019 9:07 AM [place] this [id number] EST procedure are in the results section. CBC Routine 08/22/2019 5:19 AM Results for this EST procedure are in the results section. HEPATIC FUNCTION PANEL Routine 08/22/2019 5:19 AM Results for this A EST procedure are in the results section. BASIC METABOLIC PANEL Routine 08/22/2019 5:19 AM Results for this EST procedure are in the results section. MR CERVICAL SPINE WITH STAT 08/22/2019 3:29 AM Results for this [place] [id number] the results section. XR CHEST FRONTAL ONLY Routine 08/22/2019 1:56 AM Results for this 280[address] EST procedure are in the results section. ANTIBODY IDENTIFICATION Routine 08/22/2019 1:42 AM Results for this EST procedure are in the results section. TYPE AND SCREEN Routine 08/22/2019 1:42 AM Results for this EST procedure are in the results section. PARTIAL THROMBOPLASTIN Routine 08/22/2019 1:41 AM Results for this TIME (PTT) EST procedure are in the results section. PROTIME INR Routine 08/22/2019 1:41 AM Results for this EST procedure are in the results section. BASIC METABOLIC PANEL Routine 08/22/2019 1:41 AM Results for this EST procedure are in the results section. EKG 12-LEAD - CMAXX 08/22/2019 1:33 AM REPORT EST EKG 12-LEAD - CMAXX 08/22/2019 1:33 AM REPORT EST EKG 12-LEAD Routine 08/22/2019 1:33 AM Results for this EST procedure are in the results section. CYTOLOGY NON Routine 08/22/2019 12:00 AM Results for this GYNECOLOGICAL EST procedure are in the results section. CT CERVICAL SPINE STAT 08/21/2019 10:34 PM Results for this WITHOUT CONTRAST [id number] EST procedure are in the results section. BLOOD CULTURE STAT 08/21/2019 9:12 PM Results for this EST procedure are in the results section. HEPATITIS C ANTIBODY Routine 08/21/2019 9:10 PM Results for this EST procedure are in the results section. HEPATITIS C RNA, Routine 08/21/2019 9:10 PM Results for this QUANTITATIVE, PCR EST procedure are in the results section. BLOOD CULTURE STAT 08/21/2019 9:10 PM Results for this EST procedure are in the results section. SEDIMENTATION RATE, STAT 08/21/2019 9:10 PM Results for this AUTOMATED EST procedure are in the results section. CBC AND DIFFERENTIAL STAT 08/21/2019 9:10 PM Results for this EST procedure are in the results section. INFLAMMATORY C-REACTIVE STAT 08/21/2019 9:10 PM Results for this PROTEIN (CRP) EST procedure are in the results section. BASIC METABOLIC PANEL STAT 08/21/2019 9:10 PM Results for this EST procedure are in the results section. documented in this encounter Results CBC (09/09/2019 4:46 AM EST) White Blood Cell 9.0 4 - 10 10*3/uL [facility] Pathology Red Blood Cell 3.26 (L) 4.6 - 6.1 [facility] 10*6/uL [facility] Pathology Hemoglobin 9.2 (L) 13.5 - 18 g/dL [facility] Pathology Hematocrit 27.7 (L) 41 - 53 % [facility] Mean Cell Volume 85.1 80 - 96 fL [facility] Mean Cell Hemoglobin 28.1 27 - 33 pg [facility] Mean Cell Hgb Conc 33.0 32.0 - 36.0 [facility] g/dL [facility] Pathology Red Cell Dist Width 17.6 (H) 11.5 - 14.5 % [facility] Pathology Platelet Count 267 150 - 400 [facility] 10*3/uL [facility] Pathology Specimen EDTA Whole Blood Performing Organization Address City/State/Zipcode Phone Number [facility] CLINICAL PATHOLOGY [address] [place] [address] [facility] [address] [place] [address] Pathology Basic Metabolic Panel (09/09/2019 4:46 AM EST) Bicarbonate 23 22 - 29 mmol/L [facility] CLINICAL PATHOLOGY Chloride 107 98 - 107 mmol/L [facility] Creatinine 0.62 (L) 0.70 - 1.20 [facility] mg/dL CLINICAL PATHOLOGY Glucose 96 70 - 140 mg/dL [facility] Potassium 3.5 3.4 - 5.1 [facility] mmol/L CLINICAL PATHOLOGY Sodium 142 136 - 145 [facility] mmol/L CL[facility]ICAL PATHOLOGY Blood Urea Nitrogen 8 6 - 20 mg/dL [facility] Anion Gap 12 8 - 15 mmol/L [facility] Osmolality, Lai 292 275 - 300 [facility] mosm/kg CLINICAL PATHOLOGY BUN/Cre Ratio 13 [facility] Calcium 8.6 8.6 - 10.0 [facility] mg/dL CLINICAL PATHOLOGY GFR Non >90 >60 [facility] Cypriot 2008 CDK-EPI mL/min/1.73m2 CLINICAL PATHOLOGY GFR >90 >60 [facility] 2008 CKD-EPI mL/min/1.73m2 CLINICAL PATHOLOGY Specimen Plasma Performing Organization Address [facility] Phone Number [facility] [address] [place] [address] Vancomycin, trough (09/08/2019 12:55 AM EST) Vancomycin, Trough 9.0 (L) 10.0 - 20.0 [facility] ug/mL CLINICAL PATHOLOGY Specimen Plasma Performing Organization Address [facility] Phone Number [facility] [address] [place] [address] [phone] Sedimentation rate, automated (09/08/2019 12:55 AM EST) Sed Rate - ESR 60 (H) <15 mm/hr [facility] Specimen EDTA Whole Blood Performing Organization Address [facility] Phone Number [facility] [address] [place] [address] [phone] [facility] [address] [place] [address] Pathology Inflammatory C-Reactive Protein (CRP) (09/08/2019 12:55 AM EST) C Reactive Protein 16.8 (H) <8.0 mg/L [facility] CLINICAL PATHOLOGY Specimen Plasma Performing Organization Address [facility]/Zipcode Phone Number [facility] CLINICAL [facility]OLOG[facility] [address] [place] [address] [phone] CBC (09/08/2019 12:55 AM EST) White Blood Cell 7.1 4 - 10 10*3/uL [facility] Red Blood Cell 2.99 (L) 4.6 - 6.1 [facility] 10*6/uL [facility] Pathology Hemoglobin 8.4 (L) 13.5 - 18 g/dL [facility] Hematocrit 25.4 (L) 41 - 53 % [facility] Mean Cell Volume 84.8 80 - 96 fL [facility] Mean Cell Hemoglobin 28.0 27 - 33 pg [facility] Mean Cell Hgb Conc 33.0 32.0 - 36.0 [facility] g/dL [facility] Pathology Red Cell Dist Width 17.1 (H) 11.5 - 14.5 % [facility] Pathology Platelet Count 200 150 - 400 [facility] 10*3/uL [facility] Pathology Specimen EDTA Whole Blood Performing Organization Address City/State/Zipcode Phone Number [facility] [address] [place] [address] [phone] [facility] [address] [place] [address] Pathology Basic Metabolic Panel (09/08/2019 12:55 AM EST) Bicarbonate 26 22 - 29 mmol/L [facility] Chloride 105 98 - 107 mmol/L [facility] Creatinine 0.57 (L) 0.70 - 1.20 [facility] mg/dL CLINICAL PATHOLOGY Glucose 97 70 - 140 mg/dL [facility] Potassium 4.0 3.4 - 5.1 [facility] mmol/L CLINICAL PATHOLOGY Sodium 140 136 - 145 [facility] mmol/L CLINICAL PATHOLOGY Blood Urea Nitrogen 5 (L) 6 - 20 mg/dL [facility] Anion Gap 9 8 - 15 mmol/L [facility] Osmolality, Lai 287 275 - 300 [facility] mosm/kg CLINICAL PATHOLOGY BUN/Cre Ratio 9 [facility] Calcium 8.4 (L) 8.6 - 10.0 [facility] mg/dL CLINICAL PATHOLOGY GFR Non >90 >60 [facility] Cypriot 2009 CDK-EPI mL/min/1.73m2 CLINICAL PATHOLOGY GFR >90 >60 [facility] 2009 CKD-EPI mL/min/1.73m2 CLINICAL PATHOLOGY Specimen Plasma Performing Organization Address City/[facility] Phone Number [facility] [address] [place] [address] [phone] CBC (09/07/2019 5:26 AM EST) White Blood Cell 6.6 4 - 10 10*3/uL [facility] Red Blood Cell 3.04 (L) 4.6 - 6.1 [facility] 10*6/uL [facility]ology Hemoglobin 8.3 (L) 13.5 - 18 g/dL [facility] Hematocrit 25.4 (L) 41 - 53 % [facility] Mean Cell Volume 83.6 80 - 96 fL [facility] Mean Cell Hemoglobin 27.2 27 - 33 pg [facility] Mean Cell Hgb Conc 32.6 32.0 - 36.0 [facility] g/dL [facility] Pathology Red Cell Dist Width 16.5 (H) 11.5 - 14.5 % [facility] Platelet Count 205 150 - 400 [facility] 10*3/uL [facility] Pathology Specimen EDTA Whole Blood Performing Organization Address City/[facility] Phone Number [facility] CLINICAL PATHOLOGY [address] [place] [address] [facility] [address] [place] [address] Pathology Basic Metabolic Panel (09/07/2019 5:26 AM EST) Bicarbonate 24 22 - 29 mmol/L [facility] Chloride 107 98 - 107 mmol/L [facility] Creatinine 0.59 (L) 0.70 - 1.20 [facility] mg/dL CLINICAL PATHOLOGY Glucose 83 70 - 140 mg/dL [facility] Potassium 3.5 3.4 - 5.1 [facility] mmol/L CLINICAL PATHOLOGY Sodium 141 136 - 145 [facility] mmol/L CLINICAL PATHOLOGY Blood Urea Nitrogen 4 (L) 6 - 20 mg/dL [facility] Anion Gap 10 8 - 15 mmol/L [facility] Osmolality, Lai 288 275 - 300 [facility] mosm/kg CLINICAL PATHOLOGY BUN/Cre Ratio 6 [facility] CLINICAL PATHOLOGY Calcium 8.2 (L) 8.6 - 10.0 [facility] mg/dL CLINICAL PATHOLOGY GFR Non >90 >60 [facility] Cypriot 2009 CDK-EPI mL/min/1.73m2 CLINICAL PATHOLOGY GFR >90 >60 [facility] 2009 CKD-EPI mL/min/1.73m2 CLINICAL PATHOLOGY Specimen Plasma Performing Organization Address [facility] Phone Number [facility] [address] [place] [address] [phone] Magnesium Level (09/06/2019 4:08 PM EST) Magnesium 2.1 1.6 - 2.6 mg/dL [facility] Specimen Plasma Performing Organization Address [facility] Number [facility] [address] [place] [phone] Phosphorus Level (09/06/2019 4:08 PM EST) Phosphorus 2.1 (L) 2.5 - 4.5 mg/dL [facility] CLINICAL PATHOLOGY Specimen Plasma Performing Organization Address [facility] Phone Number [facility] [address] [place] [address] Potassium (09/06/2019 4:08 PM EST) Potassium 3.6 3.4 - 5.1 mmol/L [facility] Specimen Plasma Performing Organization Address [facility] Number [facility] [address] [place] [address] [phone] Calcium, ionized (09/06/2019 6:59 AM EST) Calcium Ionized,W.B. 1.15 1.13 - 1.32 [facility] mmol/L [facility] Pathology Specimen Whole Blood Performing Organization Address [facility] Phone Number [facility] [address] [place] [address] [phone] [facility] [address] [place] [address] Pathology Type and Crossmatch (09/06/2019 6:59 AM EST) ABO/RH(D) B POS [facility] Gel Antibody Screen POS [facility] Crossmatch 09/08/2019 [facility] Expiration [facility] Pathology Site Performed at [facility], . [facility], [facility] VIRGEN, ANTI-IGG NEG [facility] MYLA SERUM [facility] Pathology Called [place] AT 0905 [facility] BY TECH 2601 [facility] Pathology UNIT NUMBER [id number] [facility] Blood Component Leukoreduced Red [facility] Type Cells [facility] Pathology Unit Division 00 [facility] Pathology STATUS OF UNIT ISSUED, FINAL [facility] UNIT TAG COMMENT Patient/Unit blood types differ. Okay to transfuse. [facility] LE(A) Antigen Absent [facility] Pathology TRANSFUSION STATUS OK TO TRANSFUSE [facility]ology CROSSMATCH RESULT Compatible [facility] Pathology Specimen EDTA Whole Blood Performing Organization Address [facility] Phone Number [facility] CLINICAL PATHOLOGY [address] [place] [address] [phone] [facility] [address] [place] [address] Pathology Phosphorus Level (09/06/2019 3:40 AM EST) Phosphorus 1.7 (L) 2.5 - 4.5 mg/dL [facility] Specimen Plasma Performing Organization Address [facility] Phone Number [facility] CLINICAL PATHOLOGY [address] [place] [address] [phone] Magnesium Level (09/06/2019 3:40 AM EST) Magnesium 1.8 1.6 - 2.6 mg/dL [facility] Specimen Plasma Performing Organization Address [facility] Phone Number [facility] [address] [place] [address] Basic Metabolic Panel (09/06/2019 3:40 AM EST) Bicarbonate 24 22 - 29 mmol/L [facility] Chloride 108 (H) 98 - 107 mmol/L [facility] Creatinine 0.53 (L) 0.70 - 1.20 [facility] mg/dL CLINICAL PATHOLOGY Glucose 100 70 - 140 mg/dL [facility] CLINICAL PATHOLOGY Potassium 3.1 (L) 3.4 - 5.1 [facility] mmol/L CLINICAL PATHOLOGY Sodium 141 136 - 145 [facility] mmol/L CLINICAL PATHOLOGY Blood Urea Nitrogen 7 6 - 20 mg/dL [facility] CLINICAL PATHOLOGY Anion Gap 9 8 - 15 mmol/L [facility] CLINICAL PATHOLOGY Osmolality, Lai 290 275 - 300 [facility] mosm/kg CLINICAL PATHOLOGY BUN/Cre Ratio 13 [facility] CLINICAL PATHOLOGY Calcium 8.1 (L) 8.6 - 10.0 [facility] mg/dL CLINICAL PATHOLOGY GFR Non >90 >60 [facility] Cypriot 2008 CDK-EPI mL/min/1.73m2 CLINICAL PATHOLOGY GFR >90 >60 [facility] 2008 CKD-EPI mL/min/1.73m2 CLINICAL PATHOLOGY Specimen Plasma Performing Organization Address City/[facility] Phone Number [facility] CLINICAL PATHOLOGY [address] [place] [address] CBC and Differential (09/06/2019 3:40 AM EST) White Blood Cell 7.2 4 - 10 [facility] 10*3/uL [facility] Pathology Red Blood Cell 2.64 (L) 4.6 - 6.1 [facility] 10*6/uL [facility] Pathology Hemoglobin 7.3 (L) 13.5 - 18 [facility] g/dL [facility]ology Hematocrit 22.3 (L) 41 - 53 % [facility] Mean Cell Volume 84.6 80 - 96 fL [facility] Mean Cell Hemoglobin 27.7 27 - 33 pg [facility] Mean Cell Hgb Conc 32.8 32.0 - 36.0 [facility] g/dL Univ [facility] Pathology Red Cell Dist Width 17.1 (H) 11.5 - 14.5 % [facility] Pathology Platelet Count 180 150 - 400 [facility] 10*3/uL [facility] Pathology Differential Type Automated Diff [facility] Pathology Neutrophil 57 % [facility] Pathology Lymphocyte 26 % [facility] Monocyte 13 % [facility] Pathology Eosinophil 3 % [facility]ology Basophil 1 % [facility]ology Abs Neutrophil 4.13 1.8 - 7.0 [facility] 10*3/uL [facility] Pathology Abs Lymphocyte 1.85 1.2 - 4.0 [facility] 10*3/uL [facility] Pathology Abs Monocyte 0.92 (H) 0 - 0.8 [facility] 10*3/uL [facility] Pathology Abs Eosinophil 0.23 0 - 0.5 [facility] 10*3/uL [facility] Pathology Abs Basophil 0.04 0 - 0.2 [facility] 10*3/uL [facility] Pathology Nucleated Red Blood 0 0 - 0 [facility] Cells /100{WBCs} [facility] Pathology Specimen EDTA Whole Blood Performing Organization Address City/State/Zipcode Phone Number [facility] CLINICAL PATHOLOGY [address] [place] [address] [facility] [address] [place] [address] Pathology FLUORO Diagnostic Esophagus - (Formerly Barium Swallow) (09/05/2019 4:44 PM EST ) Specimen Impressions Performed At IMPRESSION: ON LICENSE OF [facility] 1. No evidence of esophageal leak. 2. Short segment of mild esophageal narrowing at the C4-C5 levels, most likely related to prevertebral edema, which is expected postsurgical. Correlate with symptomatology. Short term follow up may be useful. Narrative Performed At ON LICENSE OF [facility] INDICATION: Evaluate esophagus status post cervical fusion. TECHNIQUE: The patient was observed drinking Omnipaque and thin liquid barium under fluoroscopic observation in both the upright, LPO, and RPO positions COMPARISON: None. FINDINGS: The patient had no problem initiating the swallowing mechanism. Normal peristalsis was seen throughout the esophagus. A 1.9 cm short segment of mild esophageal narrowing was seen at the approximately C4-C5 levels. There was no evidence of strictures, filling defects, or outpouchings. Contrast flowed readily from the esophagus into the stomach. There is no evidence of esophageal leak. Total fluoroscopy time: 1.5 minutes. Total fluoroscopy dose: 75.9 mGy. Procedure Note Interface, Received Via [employer] - 09/05/2019 5:13 PM EST INDICATION: Evaluate esophagus status post cervical fusion. TECHNIQUE: The patient was observed drinking Omnipaque and thin liquid barium under fluoroscopic observation in both the upright, LPO, and RPO positions COMPARISON: None. FINDINGS: The patient had no problem initiating the swallowing mechanism. Normal peristalsis was seen throughout the esophagus. A 1.9 cm short segment of mild esophageal narrowing was seen at the approximately C4-C5 levels. There was no evidence of strictures, filling defects, or outpouchings. Contrast flowed readily from the esophagus into the stomach. There is no evidence of esophageal leak. Total fluoroscopy time: 1.5 minutes. Total fluoroscopy dose: 75.9 mGy. IMPRESSION: 1. No evidence of esophageal leak. 2. Short segment of mild esophageal narrowing at the C4-C5 levels, most likely related to prevertebral edema, which is expected postsurgical. Correlate with symptomatology. Short term follow up may be useful. Performing Organization Address City/[facility] Phone Number ON LICENSE OF [facility] [address] [place] [address] Basic Metabolic Panel (09/05/2019 4:08 AM EST) Bicarbonate 23 22 - 29 mmol/L [facility] Chloride 110 (H) 98 - 107 mmol/L [facility] Creatinine 0.66 (L) 0.70 - 1.20 [facility] mg/dL CLINICAL PATHOLOGY Glucose 93 70 - 140 mg/dL [facility] Potassium 3.6 3.4 - 5.1 [facility] mmol/L CLINICAL PATHOLOGY Sodium 142 136 - 145 [facility] mmol/L CLINICAL PATHOLOGY Blood Urea Nitrogen 11 6 - 20 mg/dL [facility] Anion Gap 9 8 - 15 mmol/L [facility] HEALTH PATHOLOGY Osmolality, Lai 293 275 - 300 [facility] mosm/kg CLINICAL PATHOLOGY BUN/Cre Ratio 17 [facility] Calcium 7.8 (L) 8.6 - 10.0 [facility] mg/dL CLINICAL PATHOLOGY GFR Non >90 >60 [facility] Cypriot 2008 CDK-EPI mL/min/1.73m2 CLINICAL PATHOLOGY GFR >90 >60 [facility] 2008 CKD-EPI mL/min/1.73m2 CLINICAL PATHOLOGY Specimen Plasma Performing Organization Address City/[facility]/Zipcode Phone Number [facility] [address] [place] [address] CBC and Differential (09/05/2019 4:08 AM EST) White Blood Cell 10.8 (H) 4 - 10 [facility] Med 10*3/uL [facility] Pathology Red Blood Cell 2.74 (L) 4.6 - 6.1 [facility] 10*6/uL [facility] Hemoglobin 7.7 (L) 13.5 - 18 [facility] g/dL [facility] Pathology Hematocrit 22.9 (L) 41 - 53 % [facility] Clin Pathology Mean Cell Volume 83.6 80 - 96 fL [facility] Pathology Mean Cell Hemoglobin 27.9 27 - 33 pg [facility] Pathology Mean Cell Hgb Conc 33.4 32.0 - 36.0 [facility] g/dL Univ Clin Pathology Red Cell Dist Width 16.3 (H) 11.5 - 14.5 % [facility] Pathology Platelet Count 176 150 - 400 [facility] 10*3/uL [facility] Pathology Differential Type Automated Diff [facility]ology Neutrophil 65 % [facility] Lymphocyte 22 % [facility]ology Monocyte 11 % [facility] Pathology Eosinophil 2 % [facility] Pathology Basophil 0 % [facility] Clin Pathology Abs Neutrophil 6.94 1.8 - 7.0 [facility] 10*3/uL [facility] Pathology Abs Lymphocyte 2.39 1.2 - 4.0 [facility] 10*3/uL [facility] Abs Monocyte 1.22 (H) 0 - 0.8 [facility] 10*3/uL [facility]ology Abs Eosinophil 0.25 0 - 0.5 [facility] 10*3/uL [facility] Clin Pathology Abs Basophil 0.04 0 - 0.2 [facility] 10*3/uL [facility] Clin Pathology Nucleated Red Blood 0 0 - 0 [facility] Cells /100{WBCs} [facility] Clin Pathology Specimen EDTA Whole Blood Performing Organization Address City/[facility]/Zipcode Phone Number [facility] CLINICAL PATHOLOGY [address] [place] [address] [phone] [facility] [address] [place] [address] Pathology CBC (09/04/2019 4:13 PM EST) White Blood Cell 13.0 (H) 4 - 10 10*3/uL [facility] Pathology Red Blood Cell 3.08 (L) 4.6 - 6.1 [facility] 10*6/uL [facility]ology Hemoglobin 8.4 (L) 13.5 - 18 g/dL [facility] Clin Pathology Hematocrit 25.9 (L) 41 - 53 % [facility] Clin Pathology Mean Cell Volume 84.0 80 - 96 fL [facility] Clin Pathology Mean Cell Hemoglobin 27.2 27 - 33 pg [facility] Clin Pathology Mean Cell Hgb Conc 32.4 32.0 - 36.0 [facility] g/dL [facility] Clin Pathology Red Cell Dist Width 16.1 (H) 11.5 - 14.5 % [facility] Clin Pathology Platelet Count 204 150 - 400 [facility] 10*3/uL [facility] Pathology Specimen EDTA Whole Blood Performing Organization Address City/State/Zipcode Phone Number [facility] CLINICAL PATHOLOGY [address] [place] [address] [phone] [facility] Clin [address] [place] [address] Pathology XR Chest Frontal Only (09/04/2019 3:32 PM EST) Specimen Impressions Performed At IMPRESSION: ON LICENSE OF [facility] 1. New small to moderate right-sided pleural effusion. 2. Right lower lobe hazy opacity is largely obscured by overlying hardware but is suspicious for pneumonia. Narrative Performed At INDICATION: 44-year-old male status post spinal surgery. Evaluate for pneumonia. ON LICENSE OF [facility] TECHNIQUE: A single portable frontal view of the chest was obtained in the 75 degrees position. COMPARISON: Chest radiograph dated 09/04/2019 from 3:27 AM. FINDINGS: Endotracheal tube tip terminates approximately 4.5 cm above the primo. A left- sided PICC terminates at the cavoatrial junction. An enteric tube seen coursing past the GE junction and continuing inferiorly outside the field of view. Spinal fusion hardware and hardware associated with halo project over the thorax. Mediastinal contours are stable. New small to moderate right-sided pleural effusion. No evidence of left-sided pleural effusion. No evidence of pneumothorax. Hazy right lower lobe opacity is largely obscured by halo device but is suspicious for airspace disease such as pneumonia. Lungs otherwise appear clear. Procedure Note Interface, Received Via [employer] - 09/05/2019 5:18 PM EST INDICATION: 44-year-old male status post spinal surgery. Evaluate for pneumonia. TECHNIQUE: A single portable frontal view of the chest was obtained in the 75 degrees position. COMPARISON: Chest radiograph dated 09/04/2019 from 3:27 AM. FINDINGS: Endotracheal tube tip terminates approximately 4.5 cm above the primo. A left- sided PICC terminates at the cavoatrial junction. An enteric tube seen coursing past the GE junction and continuing inferiorly outside the field of view. Spinal fusion hardware and hardware associated with halo project over the thorax. Mediastinal contours are stable. New small to moderate right-sided pleural effusion. No evidence of left-sided pleural effusion. No evidence of pneumothorax. Hazy right lower lobe opacity is largely obscured by halo device but is suspicious for airspace disease such as pneumonia. Lungs otherwise appear clear. IMPRESSION: 1. New small to moderate right-sided pleural effusion. 2. Right lower lobe hazy opacity is largely obscured by overlying hardware but is suspicious for pneumonia. Performing Organization Address City/State/Zipcode Phone Number ON LICENSE OF [facility] [address] [place] [address] XR Spine Cervical 3 Views or Less (09/04/2019 2:00 PM EST) Specimen Impressions Performed At IMPRESSION: ON LICENSE OF [facility] 1. There is interval revision of the cervical anterior and posterior fusion instrumentation. There is posterior cervicothoracic fusion instrumentation at C2-T6 levels, with bilateral cervical facet screws and bilateral thoracic pedicle screws, bilateral rods. There is placement of 2 additional cervicothoracic support rods posterior to the cervicothoracic fusion hardware spanning levels of C2-T3. There is interval removal of the C6-T1 ACDF plate and screws. There is repositioning of C6-T1 adjustable strut Narrative Performed At XR SPINE CERV 2-3 VIEWS [id number] ON LICENSE OF [facility] INDICATION: 44 years Male. Sitting upright, s/p halo application. COMPARISON: CT cervical spine 09/03/2019, fluoroscopic intraoperative study 09/02/2019, cervical spine radiograph 08/22/2019 TECHNIQUE: Portable AP and lateral views. FINDINGS: C6-T3 vertebral bodies obscured on lateral view by overlapping structures and not well-evaluated. There is interval revision of the cervical anterior and posterior fusion instrumentation. There is posterior cervical thoracic fusion instrumentation at C2-T6 levels, with bilateral cervical facet screws and bilateral thoracic pedicle screws. There is placement of 2 additional cervicothoracic support rods posterior to the cervical thoracic fusion hardware, with bar and clamped connectors spanning levels of C2-T3. There is interval removal of the C6-T1 ACDF plate and screws. There is repositioning of C6-T1 adjustable strut and associated corpectomies. There is placement of external support frame. The visualized hardware is grossly intact. There is partially visualized left subclavian central venous line, endotracheal tube, orogastric tube. Procedure Note Interface, Received Via [employer] - 09/04/2019 4:52 PM EST XR SPINE CERV 2-3 VIEWS [id number] INDICATION: 44 years Male. Sitting upright, s/p halo application. COMPARISON: CT cervical spine 09/03/2019, fluoroscopic intraoperative study , cervical spine radiograph 08/22/2019 TECHNIQUE: Portable AP and lateral views. FINDINGS: C6-T3 vertebral bodies obscured on lateral view by overlapping structures and not well-evaluated. There is interval revision of the cervical anterior and posterior fusion instrumentation. There is posterior cervical thoracic fusion instrumentation at C2-T6 levels, with bilateral cervical facet screws and bilateral thoracic pedicle screws. There is placement of 2 additional cervicothoracic support rods posterior to the cervical thoracic fusion hardware, with bar and clamped connectors spanning levels of C2-T3. There is interval removal of the C6-T1 ACDF plate and screws. There is repositioning of C6-T1 adjustable strut and associated corpectomies. There is placement of external support frame. The visualized hardware is grossly intact. There is partially visualized left subclavian central venous line, endotracheal tube, orogastric tube. IMPRESSION: 1. There is interval revision of the cervical anterior and posterior fusion instrumentation. There is posterior cervicothoracic fusion instrumentation at C2-T6 levels, with bilateral cervical facet screws and bilateral thoracic pedicle screws, bilateral rods. There is placement of 2 additional cervicothoracic support rods posterior to the cervicothoracic fusion hardware spanning levels of C2-T3. There is interval removal of the C6-T1 ACDF plate and screws. There is repositioning of C6-T1 adjustable strut Performing Organization Address City/State/Zipcode Phone Number ON LICENSE OF [facility] [address] [place] [address] Blood gas, arterial (09/04/2019 4:44 AM EST) pH 7.44 7.38 - 7.44 [facility] Clin Pathology pCO2, Arterial 37 35 - 40 [facility] mm[Hg] Univ Clin Pathology pO2, Arterial 101 (H) 95 - 100 mmHg [facility]ology Oxygen Saturation 98 94 - 100 % [facility] Pathology Base Excess 1 [facility] Pathology Total CO2 26 mmol/L [facility] Clin Pathology FIO2 Air Volume Not [facility] Specified Univ Clin Pathology Specimen Whole Blood Performing Organization Address [facility] Phone Number [facility] [address] [place] [address] [facility] [address] [place] [address] Pathology Basic Metabolic Panel (09/04/2019 3:43 AM EST) Bicarbonate 23 22 - 29 mmol/L [facility] Pathology Chloride 108 (H) 98 - 107 mmol/L [facility] Pathology Creatinine 0.66 (L) 0.70 - 1.20 [facility] mg/dL [facility] Clin Pathology Glucose 122 70 - 140 mg/dL [facility] Pathology Potassium 4.1 3.4 - 5.1 [facility] mmol/L [facility] Sodium 139 136 - 145 [facility] mmol/L [facility] Blood Urea Nitrogen 12 6 - 20 mg/dL [facility] Pathology Anion Gap 8 8 - 15 mmol/L [facility] Clin Pathology Osmolality, Lai 289 275 - 300 [facility] mosm/kg Univ Clin Pathology BUN/Cre Ratio 18 [facility] Pathology Calcium 7.6 (L) 8.6 - 10.0 [facility] mg/dL [facility] Clin Pathology GFR Non >90 >60 [facility] Cypriot 2009 CDK-EPI mL/min/1.73m2 Univ Clin Pathology GFR >90 >60 [facility] 2009 CKD-EPI mL/min/1.73m2 Univ Clin Pathology Specimen Plasma Performing Organization Address City/[facility] Phone Number [facility] CLINICAL PATHOLOGY [address] [place] [address] [phone] [facility] [address] [place] [address] Pathology CBC and Differential (09/04/2019 3:43 AM EST) White Blood Cell 13.6 (H) 4 - 10 [facility] 10*3/uL [facility] Clin Pathology Red Blood Cell 3.31 (L) 4.6 - 6.1 [facility] 10*6/uL [facility] Pathology Hemoglobin 9.0 (L) 13.5 - 18 [facility] g/dL [facility] Clin Pathology Hematocrit 27.4 (L) 41 - 53 % [facility] Pathology Mean Cell Volume 82.9 80 - 96 fL [facility] Pathology Mean Cell Hemoglobin 27.3 27 - 33 pg [facility] Pathology Mean Cell Hgb Conc 33.0 32.0 - 36.0 [facility] g/dL Univ Clin Pathology Red Cell Dist Width 15.4 (H) 11.5 - 14.5 % [facility] Pathology Platelet Count 200 150 - 400 [facility] 10*3/uL [facility] Clin Pathology Differential Type Automated Diff [facility] Pathology Neutrophil 74 % [facility] Pathology Lymphocyte 14 % [facility]ology Monocyte 12 % [facility] Pathology Eosinophil 0 % [facility] Pathology Basophil 0 % [facility] Pathology Abs Neutrophil 10.08 (H) 1.8 - 7.0 [facility] 10*3/uL Univ Clin Pathology Abs Lymphocyte 1.86 1.2 - 4.0 [facility] 10*3/uL [facility] Clin Pathology Abs Monocyte 1.66 (H) 0 - 0.8 [facility] 10*3/uL [facility] Clin Pathology Abs Eosinophil 0.00 0 - 0.5 [facility] 10*3/uL [facility] Clin Pathology Abs Basophil 0.00 0 - 0.2 [facility] 10*3/uL Univ Clin Pathology Nucleated Red Blood 0 0 - 0 [facility] Cells /100{WBCs} [facility] Clin Pathology Specimen EDTA Whole Blood Performing Organization Address City/State/Zipcode Phone Number [facility] CLINICAL PATHOLOGY [address] [place] [address] [facility] [address] [place] [address] Pathology XR Chest Frontal Only (09/04/2019 3:28 AM EST) Specimen Narrative Performed At PROCEDURE INFORMATION: ON LICENSE OF [facility] Exam: XR Chest, 1 View Exam date and time: 09/04/2019 5:01 AM Age: 44 years old Clinical indication: Other psychoactive substance use, unspecified, uncomplicated; Osteomyelitis of vertebra, cervical region; Illness, unspecified; Other mechanical complication of other internal orthopedic devices, implants and grafts, initial encounter; Personal history of other infectious and parasitic diseases; Device placement; Ett placement (vent status); Prior surgery; Additional info: Intubated TECHNIQUE: Imaging protocol: XR of the chest Views: 1 view. COMPARISON: CR XR CHEST FRONTAL ONLY [id number] PORTABLE 09/03/2019 3:37 AM FINDINGS: Tubes, catheters and devices: Nasogastric tube extends to the left upper quadrant. There may be an endotracheal tube partially obscured by the metal hardware. It terminates 10 cm above the primo. A left central venous catheter terminates in the area of cavoatrial junction. Lungs: There are new opacities in the right lung. Pleural space: Unremarkable. No pleural effusion. No pneumothorax. Heart/Mediastinum: Unremarkable. No cardiomegaly. Bones/joints: There are new metal rods and pedicle screws in the cervical and upper thoracic spine. IMPRESSION: 1. Right lung opacities that may be due to pneumonia. 2. Additional findings as above. THIS DOCUMENT HAS BEEN ELECTRONICALLY SIGNED BY KAYLYN DUVALL MD Procedure Note Interface, Received Via [employer] - 09/04/2019 5:56 AM EST PROCEDURE INFORMATION: Exam: XR Chest, 1 View Exam date and time: 09/04/2019 5:01 AM Age: 44 years old Clinical indication: Other psychoactive substance use, unspecified, uncomplicated; Osteomyelitis of vertebra, cervical region; Illness, unspecified; Other mechanical complication of other internal orthopedic devices, implants and grafts, initial encounter; Personal history of other infectious and parasitic diseases; Device placement; Ett placement (vent status); Prior surgery; Additional info: Intubated TECHNIQUE: Imaging protocol: XR of the chest Views: 1 view. COMPARISON: CR XR CHEST FRONTAL ONLY [id number] PORTABLE 09/03/2019 3:37 AM FINDINGS: Tubes, catheters and devices: Nasogastric tube extends to the left upper quadrant. There may be an endotracheal tube partially obscured by the metal hardware. It terminates 10 cm above the primo. A left central venous catheter terminates in the area of cavoatrial junction. Lungs: There are new opacities in the right lung. Pleural space: Unremarkable. No pleural effusion. No pneumothorax. Heart/Mediastinum: Unremarkable. No cardiomegaly. Bones/joints: There are new metal rods and pedicle screws in the cervical and upper thoracic spine. IMPRESSION: 1. Right lung opacities that may be due to pneumonia. 2. Additional findings as above. THIS DOCUMENT HAS BEEN ELECTRONICALLY SIGNED BY KAYLYN DUVALL MD Performing Organization Address City/State/Zipcode Phone Number ON LICENSE OF [facility] [address] [place] [address] CT Thoracic Spine without Contrast (09/03/2019 10:03 PM EST) Specimen Impressions Performed At IMPRESSION: ON LICENSE OF [facility] 1. No evidence of acute fracture or traumatic listhesis of the thoracic spine. 2. The left T3 vertebral body screw appears to breach the medial cortex. 3. The right T6 screw appears to breach through right lateral cortex. Narrative Performed At INDICATION: post c2-T6 fusionHistory of cervical SEA presenting with ON LICENSE OF [facility] hardware failure POD??from revision corpectomy C4-T1, now s/p ??Revision C2-T6 posterior fusion TECHNIQUE: Serial axial CT images through the thoracic spine were obtained and reformatted in coronal and sagittal images planes. Automated dose lowering techniques and/or adjustment according to patient size were utilized for this examination. COMPARISON: CT thoracic spine dated 08/21/2019. FINDINGS: Spinal hardware is noted extending from cervical spine to T6 level. Transpedicular screws are noted from T1 to T6 level. The left T3 vertebral body screw appears to breach the medial cortex. The right T6 vertebral body screw appears to breach through right lateral cortex. No evidence of acute fracture or traumatic listhesis of the thoracic spine.The normal thoracic kyphosis is maintained The vertebral body heights and intervertebral disc spaces are grossly unchanged. Multilevel degenerative changes are present in the visualized thoracic spine. Procedure Note Interface, Received Via [employer] - 09/08/2019 1:47 PM EST INDICATION: post c2-T6 fusionHistory of cervical SEA presenting with hardware failure POD??from revision corpectomy C4-T1, now s/p ??Revision C2-T6 posterior fusion TECHNIQUE: Serial axial CT images through the thoracic spine were obtained and reformatted in coronal and sagittal images planes. Automated dose lowering techniques and/or adjustment according to patient size were utilized for this examination. COMPARISON: CT thoracic spine dated 08/21/2019. FINDINGS: Spinal hardware is noted extending from cervical spine to T6 level. Transpedicular screws are noted from T1 to T6 level. The left T3 vertebral body screw appears to breach the medial cortex. The right T6 vertebral body screw appears to breach through right lateral cortex. No evidence of acute fracture or traumatic listhesis of the thoracic spine.The normal thoracic kyphosis is maintained The vertebral body heights and intervertebral disc spaces are grossly unchanged. Multilevel degenerative changes are present in the visualized thoracic spine. IMPRESSION: 1. No evidence of acute fracture or traumatic listhesis of the thoracic spine. 2. The left T3 vertebral body screw appears to breach the medial cortex. 3. The right T6 screw appears to breach through right lateral cortex. Performing Organization Address City/State/Zipcode Phone Number ON LICENSE OF [facility] [address] [place] [address] CT Cervical Spine without Contrast (09/03/2019 10:03 PM EST) Specimen Impressions Performed At IMPRESSION: ON LICENSE OF [facility] No evidence of acute fracture or traumatic listhesis of the cervical spine. The surgical hardware is intact. Narrative Performed At ON LICENSE OF [facility] INDICATION: post c2-T6 fusion.History of cervical SEA presenting with hardware failure POD??from revision corpectomy C4-T1, now s/p ??Revision C2-T6 posterior fusion TECHNIQUE: Multidetector row helical CT of the cervical spine was performed without administration of intravenous contrast. Coronal and sagittal reformations were obtained. Automated dose lowering techniques and/or adjustment according to patient size were utilized for this exam. COMPARISON: CT cervical and thoracic spine dated 08/21/2019, 08/22/2019. FINDINGS: Orthopedic hardware extending from C2-T6 post revision of posterior fusion is noted. An expandable cage extending from the inferior endplate of C4 to the superior endplate of T1.There has been interval extension of the cage with the superior portion adjacent to the inferior endplate of C4 vertebral since recent study. Transpedicular screws are noted at C2-C6 level and T1-T6 levels. There has been interval placement of a serafin extending from C2-T3 level. There is limited evaluation of the paraspinous soft tissue due to streak artifact secondary to hardware. Postsurgical changes and emphysema in paraspinal soft tissue. There is straightening of the cervical lordosis otherwise the alignment is grossly unchanged compared to prior study. Procedure Note Interface, Received Via [employer] - 09/08/2019 1:48 PM EST INDICATION: post c2-T6 fusion.History of cervical SEA presenting with hardware failure POD??from revision corpectomy C4-T1, now s/p ??Revision C2-T6 posterior fusion TECHNIQUE: Multidetector row helical CT of the cervical spine was performed without administration of intravenous contrast. Coronal and sagittal reformations were obtained. Automated dose lowering techniques and/or adjustment according to patient size were utilized for this exam. COMPARISON: CT cervical and thoracic spine dated 08/21/2019, 08/22/2019. FINDINGS: Orthopedic hardware extending from C2-T6 post revision of posterior fusion is noted. An expandable cage extending from the inferior endplate of C4 to the superior endplate of T1.There has been interval extension of the cage with the superior portion adjacent to the inferior endplate of C4 vertebral since recent study. Transpedicular screws are noted at C2-C6 level and T1-T6 levels. There has been interval placement of a serafin extending from C2-T3 level. There is limited evaluation of the paraspinous soft tissue due to streak artifact secondary to hardware. Postsurgical changes and emphysema in paraspinal soft tissue. There is straightening of the cervical lordosis otherwise the alignment is grossly unchanged compared to prior study. IMPRESSION: No evidence of acute fracture or traumatic listhesis of the cervical spine. The surgical hardware is intact. Performing Organization Address City/State/Zipcode Phone Number ON LICENSE OF [facility] [address] [place] [address] XR Abdomen AP Abd Supine Only (09/03/2019 8:28 PM EST) Specimen Narrative Performed At PROCEDURE INFORMATION: ON LICENSE OF [facility] Exam: XR Abdomen, 1 View Exam date and time: 09/03/2019 8:28 PM Age: 44 years old Clinical indication: Other psychoactive substance use, unspecified, uncomplicated; Osteomyelitis of vertebra, cervical region; Illness, unspecified; Other mechanical complication of other internal orthopedic devices, implants and grafts, initial encounter; Personal history of other infectious and parasitic diseases; Other: Eval ng placement TECHNIQUE: Imaging protocol: XR of the abdomen. Views: Frontal supine view of the abdomen. 1 View. COMPARISON: No relevant prior studies available. FINDINGS: Gastrointestinal tract: There is a nonspecific bowel gas pattern demonstrated. Bones/joints: Unremarkable. Other findings: There is no mass effect. IMPRESSION: No evidence of small bowel obstruction. THIS DOCUMENT HAS BEEN ELECTRONICALLY SIGNED BY ANEESH SANDOVAL MD Procedure Note Interface, Received Via [employer] - 09/03/2019 8:56 PM EST PROCEDURE INFORMATION: Exam: XR Abdomen, 1 View Exam date and time: 09/03/2019 8:28 PM Age: 44 years old Clinical indication: Other psychoactive substance use, unspecified, uncomplicated; Osteomyelitis of vertebra, cervical region; Illness, unspecified; Other mechanical complication of other internal orthopedic devices, implants and grafts, initial encounter; Personal history of other infectious and parasitic diseases; Other: Eval ng placement TECHNIQUE: Imaging protocol: XR of the abdomen. Views: Frontal supine view of the abdomen. 1 View. COMPARISON: No relevant prior studies available. FINDINGS: Gastrointestinal tract: There is a nonspecific bowel gas pattern demonstrated. Bones/joints: Unremarkable. Other findings: There is no mass effect. IMPRESSION: No evidence of small bowel obstruction. THIS DOCUMENT HAS BEEN ELECTRONICALLY SIGNED BY ANEESH SANDOVAL MD Performing Organization Address [facility]ode Phone Number ON LICENSE OF [facility] [address] [place] [address] Basic Metabolic Panel (09/03/2019 7:27 PM EST) Bicarbonate 21 (L) 22 - 29 [facility] mmol/L [facility] Chloride 106 98 - 107 [facility] mmol/L [facility] Creatinine 0.78 0.70 - 1.20 [facility] mg/dL [facility] Glucose 145 (H) 70 - 140 [facility] mg/dL [facility] Potassium 5.1Comment: 3.4 - 5.1 [facility] Hemolyzed mmol/L [facility] Clin Pathology Sodium 137 136 - 145 [facility] mmol/L [facility] Pathology Blood Urea Nitrogen 10 6 - 20 mg/dL [facility] Pathology Anion Gap 10 8 - 15 mmol/L [facility] Pathology Osmolality, Lai 286 275 - 300 [facility] mosm/kg [facility] Pathology BUN/Cre Ratio 13 [facility] Pathology Calcium 7.7 (L) 8.6 - 10.0 [facility] mg/dL [facility] Pathology GFR Non >90 >60 [facility] [place] 2008 mL/min/1.73m2 [facility] CDK-EPI Pathology GFR >90 >60 [facility] [place] 2008 mL/min/1.73m2 [facility] Clin CKD-EPI Pathology Specimen Plasma Performing Organization Address [facility] Centercoil Phone Number [facility] [address] [place] [address] [facility] [address] [place] [address] Pathology CBC and Differential (09/03/2019 7:27 PM EST) White Blood Cell 15.6 (H) 4 - 10 [facility] 10*3/uL [facility]ology Red Blood Cell 3.60 (L) 4.6 - 6.1 [facility] 10*6/uL [facility]ology Hemoglobin 10.1 (L) 13.5 - 18 [facility] g/dL [facility] Hematocrit 29.7 (L) 41 - 53 % [facility] Pathology Mean Cell Volume 82.5 80 - 96 fL [facility] Pathology Mean Cell Hemoglobin 27.9 27 - 33 pg [facility] Pathology Mean Cell Hgb Conc 33.9 32.0 - 36.0 [facility] g/dL [facility] Pathology Red Cell Dist Width 15.6 (H) 11.5 - 14.5 % [facility] Pathology Platelet Count 218 150 - 400 [facility] 10*3/uL [facility] Pathology Differential Type Automated Diff [facility] Pathology Neutrophil 87 % [facility] Pathology Lymphocyte 8 % [facility] Pathology Monocyte 5 % [facility] Pathology Eosinophil 0 % [facility] Pathology Basophil 0 % [facility] Pathology Abs Neutrophil 13.58 (H) 1.8 - 7.0 [facility] 10*3/uL [facility] Pathology Abs Lymphocyte 1.31 1.2 - 4.0 [facility] 10*3/uL [facility] Pathology Abs Monocyte 0.72 0 - 0.8 [facility] 10*3/uL [facility] Pathology Abs Eosinophil 0.01 0 - 0.5 [facility] 10*3/uL [facility] Pathology Abs Basophil 0.00 0 - 0.2 [facility] 10*3/uL [facility] Pathology Nucleated Red Blood 0 0 - 0 [facility] Cells /100{WBCs} [facility] Pathology Specimen EDTA Whole Blood Performing Organization Address City/State/Zipcode Phone Number [facility] CL[facility]ICAL PATHOLOGY [address] [place] [address] [phone] [facility] [address] [place] [address] Pathology XR Spine - Entire Thoracic and Lumbar 4 or 5 Views - OR (09/03/2019 3:40 PM EST ) Specimen Narrative Performed At This statement is intended for documentation purposes only. ON LICENSE OF [facility] This exam was performed in the Operating Room by the Surgeon and a Radiologist was not present. Please refer to the Operative note in EPIC. Performing Organization Address City/State/Zipcode Phone Number ON LICENSE OF [facility] [address] [place] [address] Gram stain (09/03/2019 12:50 PM EST) Special Request T2 VERTEBRAL BODY [facility] Pathology Gram Stain No WBC's or [facility] organisms seen. [facility] Pathology Specimen Bone Performing Organization Address City/[facility]/Zipcode Phone Number [facility] [address] [place] [address] [facility] [address] [place] [address] Pathology Bx/Surg Tissue Culture 2 (09/03/2019 12:50 PM EST) Special Request T2 VERTEBRAL BODY [facility] Pathology Culture/Results NO GROWTH [facility] Pathology Specimen Bone Performing Organization Address [facility]/Zipcode Phone Number [facility] [address] [place] [address] [facility] [address] [place] [address] Pathology POCT i-STAT arterial CG8 (09/03/2019 12:41 PM EST) I-STAT ARTERIAL PH 7.47 (H) 7.38 - 7.44 [facility] POC i-STAT Arterial PCO2 33 (L) 35 - 40 mmHg [facility] POC i-STAT Arterial PO2 108 (H) 95 - 100 mmHg [facility] POC i-STAT Arterial Base 1 mmol/L [facility] POC i-STAT Arterial SO2 99 94 - 100 % [facility] POC i-STAT Arterial Total 25 mmol/L [facility] CO2 [facility] POC i-STAT Sodium 141 136 - 145 [facility] mmol/L [facility] POC i-STAT Potassium 4.3 3.4 - 5.1 [facility] mmol/L [facility] POC i-STAT Ionized 1.10 (L) 1.13 - 1.32 [facility] Calcium mmol/L [facility] POC i-STAT Glucose 126 70 - 140 mg/dL [facility] POC i-STAT Hematocrit 32 (L) 41 - 53 % [facility] POC i-STAT Hemoglobin 10.9 (L) 13.5 - 18.0 [facility] g/dL [facility] POC Specimen Whole Blood Performing Organization Address City/State/Zipcode Phone Number POINT OF CARE TEST [address] [place] [address] [facility] POC [address] [place] [address] Type and Crossmatch (09/03/2019 7:55 AM EST) ABO/RH(D) B POS [facility] Pathology Gel Antibody Screen POS [facility] Pathology Crossmatch 09/05/2019 [facility] Expiration [facility] Pathology Site Performed at [facility], . [facility] VIRGEN, ANTI-IGG NEG [facility] MYLA SERUM [facility] Pathology UNIT NUMBER [id number] [facility] Pathology Blood Component Leukoreduced Red [facility] Type Cell, 2nd Container [facility] Pathology Unit Division 00 [facility] Pathology STATUS OF UNIT REL FROM ALLOC [facility] Pathology UNIT TAG COMMENT Patient/Unit blood types differ. Okay to transfuse. [facility] LE(A) Antigen Absent [facility]ology TRANSFUSION STATUS OK TO TRANSFUSE [facility] Pathology CROSSMATCH RESULT Compatible [facility]ology UNIT NUMBER [id number] [facility] Pathology Blood Component Leukoreduced Red [facility] Cells [facility] Pathology Unit Division 00 [facility] Pathology STATUS OF UNIT ISSUED, FINAL [facility] Pathology UNIT TAG COMMENT Patient/Unit blood types differ. Okay to transfuse. [facility] LE(A) Antigen Absent [facility] Pathology TRANSFUSION STATUS OK TO TRANSFUSE [facility] Pathology CROSSMATCH RESULT Compatible [facility] Pathology UNIT NUMBER [id number] [facility] Pathology Blood Component Leukoreduced Red [facility] Cells [facility] Clin Pathology Unit Division 00 [facility] Pathology STATUS OF UNIT ISSUED, FINAL [facility] Pathology UNIT TAG COMMENT Patient/Unit blood types differ. Okay to transfuse. [facility] LE(A) Antigen Absent [facility] Clin Pathology TRANSFUSION STATUS OK TO TRANSFUSE [facility] Pathology CROSSMATCH RESULT Compatible [facility] Clin Pathology UNIT NUMBER [id number] [facility] Pathology Blood Component Leukoreduced Red [facility] Type Cells Univ Clin Pathology Unit Division 00 [facility] Pathology STATUS OF UNIT REL FROM ALLOC [facility] Pathology UNIT TAG COMMENT Patient/Unit blood types differ. Okay to transfuse. [facility] LE(A) Antigen Absent [facility] Pathology TRANSFUSION STATUS OK TO TRANSFUSE [facility] Pathology CROSSMATCH RESULT Compatible [facility] Pathology Specimen EDTA Whole Blood Performing Organization Address City/[facility]/Zipcode Phone Number [facility] CL[facility]ICAL PATHOLOG[facility] [address] [place] [address] [phone] [facility] [address] [place] [address] Pathology Blood gas, arterial (09/03/2019 4:22 AM EST) pH 7.47 (H) 7.38 - 7.44 [facility] Pathology pCO2, Arterial 37 35 - 40 mm[Hg] [facility] Pathology pO2, Arterial 119 (H) 95 - 100 mmHg [facility] Pathology Oxygen Saturation 99 94 - 100 % [facility] Pathology Base Excess 4 [facility] Pathology Total CO2 28 mmol/L [facility] Pathology FIO2 0.40 [facility] Pathology Specimen Whole Blood Performing Organization Address City/[facility] Phone Number [facility] CL[facility] PATHOLOG[facility] [address] [place] [address] [facility] [address] [place] [address] Pathology Basic Metabolic Panel (09/03/2019 4:22 AM EST) Bicarbonate 22 22 - 29 [facility] mmol/L [facility] Pathology Chloride 106 98 - 107 [facility] mmol/L [facility] Pathology Creatinine 0.70 0.70 - 1.20 [facility] mg/dL [facility] Pathology Glucose 108 70 - 140 [facility] mg/dL [facility] Pathology Potassium 5.2 (H)Comment: 3.4 - 5.1 [facility] Hemolyzed mmol/L [facility]ology Sodium 140 136 - 145 [facility] mmol/L [facility] Pathology Blood Urea Nitrogen 9 6 - 20 mg/dL [facility] Pathology Anion Gap 12 8 - 15 mmol/L [facility] Pathology Osmolality, Lai 289 275 - 300 [facility] mosm/kg [facility] Pathology BUN/Cre Ratio 13 [facility] Pathology Calcium 7.8 (L) 8.6 - 10.0 [facility] mg/dL [facility] Pathology GFR Non >90 >60 [facility] 2008 mL/min/1.73m2 [facility] Clin CDK-EPI Pathology GFR >90 >60 [facility] 2008 mL/min/1.73m2 [facility] Clin CKD-EPI Pathology Specimen Plasma Performing Organization Address City/State/Zipcode Phone Number [facility] CL[facility]ICAL PATHOLOGY [address] [place] [address] [facility] [address] [place] [address] Pathology CBC and Differential (09/03/2019 4:22 AM EST) White Blood Cell 7.0 4 - 10 10*3/uL [facility] Pathology Red Blood Cell 4.04 (L) 4.6 - 6.1 [facility] 10*6/uL [facility] Clin Pathology Hemoglobin 10.9 (L) 13.5 - 18 g/dL [facility] Pathology Hematocrit 33.0 (L) 41 - 53 % [facility] Pathology Mean Cell Volume 81.7 80 - 96 fL [facility] Pathology Mean Cell Hemoglobin 27.0 27 - 33 pg [facility] Pathology Mean Cell Hgb Conc 33.1 32.0 - 36.0 [facility] g/dL [facility] Clin Pathology Red Cell Dist Width 15.4 (H) 11.5 - 14.5 % [facility] Pathology Platelet Count 195 150 - 400 [facility] 10*3/uL Univ Clin Pathology Differential Type Manual Diff [facility] Pathology Neutrophil 74 % [facility] Pathology Lymphocyte 8 % [facility] Pathology Monocyte 8 % [facility] Pathology Eosinophil 9 % [facility] Pathology Basophil 1 % [facility] Pathology Abs Neutrophil 5.39 1.8 - 7.0 [facility] 10*3/uL [facility] Pathology Abs Lymphocyte 0.56 (L) 1.2 - 4.0 [facility] 10*3/uL [facility] Pathology Abs Monocyte 0.56 0 - 0.8 [facility] 10*3/uL [facility] Pathology Abs Eosinophil 0.63 (H) 0 - 0.5 [facility] 10*3/uL [facility] Pathology Abs Basophil 0.07 0 - 0.2 [facility] 10*3/uL [facility] Pathology Poikilocytosis 1+ [facility] Pathology Stomatocytes 1+ [facility] Pathology Specimen EDTA Whole Blood Performing Organization Address City/State/Zipcode Phone Number [facility] CL[facility]ICAL PATHOLOGY [address] [place] [address] [phone] [facility] [address] [place] [address] Pathology XR Chest Frontal Only (09/03/2019 3:46 AM EST) Specimen Narrative Performed At PROCEDURE INFORMATION: ON LICENSE OF [facility] Exam: XR Chest, 1 View Exam date and time: 09/03/2019 3:36 AM Age: 44 years old Clinical indication: Other psychoactive substance use, unspecified, uncomplicated; Osteomyelitis of vertebra, cervical region; Illness, unspecified; Other mechanical complication of other internal orthopedic devices, implants and grafts, initial encounter; Personal history of other infectious and parasitic diseases; Other: Intubated TECHNIQUE: Imaging protocol: XR of the chest Views: 1 view. COMPARISON: CR XR CHEST FRONTAL ONLY [id number] PORTABLE 08/22/2019 1:42 AM FINDINGS: Tubes, catheters and devices: The endotracheal tube is above the level of the primo. PICC line from the left with the tip projecting over the left atrium. Lungs: Subtle airspace disease right lung base. Pleural space: Unremarkable. No pleural effusion. No pneumothorax. Heart/Mediastinum: Unremarkable. No cardiomegaly. Bones/joints: Unremarkable. IMPRESSION: Subtle airspace disease right lung base. This represent a change from the earlier referenced comparison study. THIS DOCUMENT HAS BEEN ELECTRONICALLY SIGNED BY VAMSI MORIN MD Procedure Note Interface, Received Via [employer] - 09/03/2019 7:24 AM EST PROCEDURE INFORMATION: Exam: XR Chest, 1 View Exam date and time: 09/03/2019 3:36 AM Age: 44 years old Clinical indication: Other psychoactive substance use, unspecified, uncomplicated; Osteomyelitis of vertebra, cervical region; Illness, unspecified; Other mechanical complication of other internal orthopedic devices, implants and grafts, initial encounter; Personal history of other infectious and parasitic diseases; Other: Intubated TECHNIQUE: Imaging protocol: XR of the chest Views: 1 view. COMPARISON: CR XR CHEST FRONTAL ONLY [id number] PORTABLE 08/22/2019 1:42 AM FINDINGS: Tubes, catheters and devices: The endotracheal tube is above the level of the primo. PICC line from the left with the tip projecting over the left atrium. Lungs: Subtle airspace disease right lung base. Pleural space: Unremarkable. No pleural effusion. No pneumothorax. Heart/Mediastinum: Unremarkable. No cardiomegaly. Bones/joints: Unremarkable. IMPRESSION: Subtle airspace disease right lung base. This represent a change from the earlier referenced comparison study. THIS DOCUMENT HAS BEEN ELECTRONICALLY SIGNED BY VAMSI MORIN MD Performing Organization Address City/State/Zipcode Phone Number ON LICENSE OF [facility] [address] [place] [address] CBC and Differential (09/03/2019 1:30 AM EST) White Blood Cell 6.0 4 - 10 [facility] 10*3/uL Univ Clin Pathology Red Blood Cell 4.30 (L) 4.6 - 6.1 [facility] 10*6/uL [facility] Pathology Hemoglobin 11.6 (L) 13.5 - 18 [facility] g/dL [facility] Clin Pathology Hematocrit 35.0 (L) 41 - 53 % [facility] Pathology Mean Cell Volume 81.6 80 - 96 fL [facility] Pathology Mean Cell Hemoglobin 27.1 27 - 33 pg [facility] Pathology Mean Cell Hgb Conc 33.2 32.0 - 36.0 [facility] g/dL [facility] Pathology Red Cell Dist Width 15.1 (H) 11.5 - 14.5 % [facility] Pathology Platelet Count 218 150 - 400 [facility] 10*3/uL [facility] Pathology Differential Type Automated Diff [facility] Pathology Neutrophil 67 % [facility] Pathology Lymphocyte 21 % [facility] Pathology Monocyte 10 % [facility] Pathology Eosinophil 2 % [facility] Pathology Basophil 0 % [facility] Pathology Abs Neutrophil 3.99 1.8 - 7.0 [facility] 10*3/uL Univ Clin Pathology Abs Lymphocyte 1.24 1.2 - 4.0 [facility] 10*3/uL [facility] Pathology Abs Monocyte 0.63 0 - 0.8 [facility] 10*3/uL [facility] Pathology Abs Eosinophil 0.14 0 - 0.5 [facility] 10*3/uL [facility] Clin Pathology Abs Basophil 0.03 0 - 0.2 [facility] 10*3/uL [facility] Pathology Nucleated Red Blood 0 0 - 0 [facility] Cells /100{WBCs} [facility] Pathology Specimen EDTA Whole Blood Performing Organization Address City/[facility]ercode Phone Number [facility] [address] [place] [address] [facility] [address] [place] [address] Pathology Basic Metabolic Panel (09/02/2019 8:46 PM EST) Bicarbonate 21 (L) 22 - 29 [facility] mmol/L [facility] Pathology Chloride 104 98 - 107 [facility] mmol/L [facility] Pathology Creatinine 0.83 0.70 - 1.20 [facility] mg/dL [facility] Pathology Glucose 123 70 - 140 [facility] mg/dL [facility] Pathology Potassium 4.4Comment: 3.4 - 5.1 [facility] Hemolyzed mmol/L [facility] Pathology Sodium 139 136 - 145 [facility] mmol/L [facility] Pathology Blood Urea Nitrogen 8 6 - 20 mg/dL [facility] Pathology Anion Gap 14 8 - 15 mmol/L [facility] Pathology Osmolality, Lai 288 275 - 300 [facility] mosm/kg [facility] Pathology BUN/Cre Ratio 10 [facility] Pathology Calcium 8.0 (L) 8.6 - 10.0 [facility] mg/dL [facility] Pathology GFR Non >90 >60 [facility] [place] 2008 mL/min/1.73m2 [facility] CDK-EPI Pathology GFR >90 >60 [facility] [place] 2008 mL/min/1.73m2 [facility] CKD-EPI Pathology Specimen Plasma Performing Organization Address [facility] Centercode Phone Number [facility] CL[facility] PATHOLOG[facility] [address] [place] [address] [facility] [address] [place] [address] Pathology CBC and Differential (09/02/2019 8:46 PM EST) White Blood Cell 5.1 4 - 10 [facility] 10*3/uL [facility] Clin Pathology Red Blood Cell 4.14 (L) 4.6 - 6.1 [facility] 10*6/uL [facility] Pathology Hemoglobin 12.1 (L) 13.5 - 18 [facility] g/dL [facility] Pathology Hematocrit 34.0 (L) 41 - 53 % [facility] Pathology Mean Cell Volume 82.3 80 - 96 fL [facility] Pathology Mean Cell Hemoglobin 29.3 27 - 33 pg [facility] Pathology Mean Cell Hgb Conc 35.6 32.0 - 36.0 [facility] g/dL [facility] Pathology Red Cell Dist Width 15.2 (H) 11.5 - 14.5 [facility] % Univ Clin Pathology Platelet Count 231 150 - 400 [facility] 10*3/uL [facility] Pathology Differential Type Questionable [facility] Result, [facility] Specimen Pathology RequestedComment: Called to Maria Guadalupe Lange, 9E, 00:45. 1663 Specimen EDTA Whole Blood Performing Organization Address City/[facility]/Zipcode Phone Number [facility] [address] [place] [address] [facility] [address] [place] [address] Pathology XR Spine Cervical 3 Views or Less-OR (09/02/2019 6:20 PM EST) Specimen Narrative Performed At This statement is intended for documentation purposes only. ON LICENSE OF [facility] This exam was performed in the Operating Room by the Surgeon and a Radiologist was not present. Please refer to the Operative note in EPIC. Performing Organization Address City/[facility]/Zipcode Phone Number ON LICENSE OF [facility] [address] [place] [address] Partial Thromboplastin Time (PTT) (09/02/2019 5:25 PM EST) PTT Patient (PAT) 32.6 24.0 - 34.0 s [facility] Pathology Specimen Plasma Performing Organization Address [facility]/Zipcode Phone Number [facility] [address] [place] [address] [facility] [address] [place] [address] Pathology Protime-INR (09/02/2019 5:25 PM EST) PT Patient 15.3 (H) 12.5 - 14.9 [facility] Clin Pathology Int'l Normalized 1.17Comment: Routine [facility] Ratio intensity oral Univ Clin anticoagulation INR is Pathology typically 2.0-3.0. Target INR must be clinically individualized. Specimen Plasma Performing Organization Address [facility] Phone Number [facility] [address] [place] [address] [facility] [address] [place] [address] Pathology CBC (09/02/2019 5:25 PM EST) Pathologist [facility] White Blood Cell 4.7 4 - 10 10*3/uL [facility] Pathology Red Blood Cell 4.21 (L) 4.6 - 6.1 [facility] 10*6/uL [facility] Pathology Hemoglobin 11.8 (L) 13.5 - 18 g/dL [facility] Pathology Hematocrit 34.8 (L) 41 - 53 % [facility] Pathology Mean Cell Volume 82.8 80 - 96 fL [facility] Pathology Mean Cell Hemoglobin 28.0 27 - 33 pg [facility] Pathology Mean Cell Hgb Conc 33.8 32.0 - 36.0 [facility] g/dL [facility] Clin Pathology Red Cell Dist Width 15.5 (H) 11.5 - 14.5 % [facility] Pathology Platelet Count 219 150 - 400 [facility] 10*3/uL [facility] Pathology Specimen EDTA Whole Blood Performing Organization Address City/[facility]ode Phone Number [facility] [address] [place] [address] [facility] [address] [place] [address] Pathology Surgical Pathology Exam ( Only) (09/02/2019 12:00 AM EST) SURGICAL Surgical Pathology Report 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 Diagnosis SKIN, SITE NOT SPECIFIED, EXCISION: SCAR. Cole Wilkes M.D.;Resident Pathologist Electronically Signed By Russ Alejo M.D., Attending Pathologist 09/05/2019 13:23:06 The attending pathologist named above attests that he/she has personally reviewed the relevant preparation(s) for the specimen, performed microscopic examination when indicated, and rendered the final diagnosis. Unless 'gross-only' is specified, the final diagnosis is based on a microscopic examination of solar sales representative and assessor sections of tissue. Gross Description The specimen is received in formalin labeled with the patient's name "Cesario Valdivia" and "scar". It consists of a 3.5 x 1.0 cm brown-sagastume wrinkled skin ellipse excised to a depth of 0.5 cm. The skin surface displays a 3.5 x 0.7 cm brown-sagastume slightly ill-defined scar that comes to within less than 0.1 cm of the closest skin margin (short axis). The margin is inked black. The specimen is sectioned revealing sagastume-white fibrous-appearing cut surfaces. No additional gross abnormalities are identified. Pile Driver Operator Barge Mounted sections are submitted in one cassette. AEM/pmw This report may include one or more immunohistochemical stain results that use analyte specific reagents. All positive and negative controls have been reviewed by the attending pathologist and are satisfactory. The tests were developed and their performance characteristics determined by [facility] Pathology department. They have not been cleared or approved by the [place] Food and Drug Administration. The FDA has determined that such clearance or approval is not necessary. Specimen Performing Organization Address City/[facility]/Zipcode Phone Number [facility] CLINICAL PATHOLOGY [address] [place], [place] [id number] Vancomycin, trough (09/01/2019 1:24 AM EST) Vancomycin, Trough 12.3 10.0 - 20.0 ug/mL [facility] Pathology Specimen Plasma Performing Organization Address [facility] Phone Number [facility] CL[facility]ICAL [facility]Y [address] [place] [address] [phone] [facility] [address] [place] [address] Pathology Sedimentation rate, automated (09/01/2019 1:24 AM EST) Pathologist [facility] Sed Rate - ESR 90 (H) <15 mm/hr [facility] Pathology Specimen EDTA Whole Blood Performing Organization Address City/[facility] Phone Number [facility] [address] [place] [address] [facility] [address] [place] [address] Pathology Inflammatory C-Reactive Protein (CRP) (09/01/2019 1:24 AM EST) [facility] C Reactive Protein 2.9 <8.0 mg/L [facility] Pathology Specimen Plasma Performing Organization Address City/[facility] Phone Number [facility] [address] [place] [address] [facility] [address] [place] [address] Pathology CBC and Differential (09/01/2019 1:24 AM EST) Pathologist [facility] White Blood Cell 4.6 4 - 10 [facility] 10*3/uL Univ Clin Pathology Red Blood Cell 4.16 (L) 4.6 - 6.1 [facility] 10*6/uL [facility] Pathology Hemoglobin 11.1 (L) 13.5 - 18 [facility] g/dL [facility] Pathology Hematocrit 34.1 (L) 41 - 53 % [facility] Pathology Mean Cell Volume 82.0 80 - 96 fL [facility] Pathology Mean Cell Hemoglobin 26.8 (L) 27 - 33 pg [facility] Pathology Mean Cell Hgb Conc 32.7 32.0 - 36.0 [facility] g/dL [facility] Pathology Red Cell Dist Width 14.9 (H) 11.5 - 14.5 % [facility] Pathology Platelet Count 195 150 - 400 [facility] 10*3/uL [facility] Pathology Differential Type Automated Diff [facility] Pathology Neutrophil 46 % [facility]ology Lymphocyte 38 % [facility]ology Monocyte 11 % [facility] Pathology Eosinophil 5 % [facility] Pathology Basophil 0 % [facility] Pathology Abs Neutrophil 2.11 1.8 - 7.0 [facility] 10*3/uL Univ [facility] Pathology Abs Lymphocyte 1.75 1.2 - 4.0 [facility] 10*3/uL [facility] Pathology Abs Monocyte 0.48 0 - 0.8 [facility] 10*3/uL [facility] Pathology Abs Eosinophil 0.22 0 - 0.5 [facility] 10*3/uL [facility] Pathology Abs Basophil 0.00 0 - 0.2 [facility] 10*3/uL [facility] Pathology Nucleated Red Blood 0 0 - 0 [facility] Cells /100{WBCs} [facility] Pathology Specimen EDTA Whole Blood Performing Organization Address City/State/Zipcode Phone Number [facility] CLINICAL PATHOLOGY [address] [place] [address] [facility] [address] [place] [address] Pathology Comprehensive Metabolic Panel (09/01/2019 1:24 AM EST) Albumin 2.7 (L) 3.5 - 5.2 g/dL [facility] Pathology Bilirubin, Total 0.4 <1.2 mg/dL [facility] Pathology Calcium 8.4 (L) 8.6 - 10.0 [facility] mg/dL [facility] Pathology Chloride 106 98 - 107 mmol/L [facility] Pathology Creatinine 0.69 (L) 0.70 - 1.20 [facility] mg/dL [facility] Pathology Glucose 123 70 - 140 mg/dL [facility] Pathology Alkaline Phosphatase 168 (H) 40 - 129 U/L [facility] Pathology Potassium 4.0 3.4 - 5.1 [facility] mmol/L [facility] Pathology Total Protein 8.1 6.4 - 8.3 g/dL [facility] Pathology Sodium 140 136 - 145 [facility] mmol/L [facility] Pathology AST/SGO 37 <40 U/L [facility] Pathology Blood Urea Nitrogen 10 6 - 20 mg/dL [facility] Pathology Osmolality, Lai 290 275 - 300 [facility] mosm/kg [facility] Pathology BUN/Cre Ratio 14 [facility] Pathology Bicarbonate 26 22 - 29 mmol/L [facility] Pathology ALT/SGP 27 <41 U/L [facility] Pathology Anion Gap 8 8 - 15 mmol/L [facility] Pathology A/G Ratio 0.5 [facility] Pathology GFR Non >90 >60 [facility] Cypriot 2009 CDK-EPI mL/min/1.73m2 Univ [facility] Pathology GFR >90 >60 [facility] 2009 CKD-EPI mL/min/1.73m2 [facility] Pathology Specimen Plasma Performing Organization Address [facility] Phone Number [facility] [address] [place] [address] [facility] [address] [place] [address] Pathology Urinalysis with microscopic (08/30/2019 7:37 PM EST) Color Yellow [facility] Pathology Clarity Sl Cloudy [facility] Pathology Specific [place] 1.024 1.003 - 1.030 [facility] Pathology PH Urine 6.0 5.0 - 8.0 [facility] Pathology Total Protein UA Negative Negative mg/dL [facility] Pathology Glucose UA Negative Negative mg/dL [facility] Pathology Ketone Urine Negative Negative mg/dL [facility] Pathology Bilirubin Negative Negative [facility] Pathology Hemoglobin, Urine Negative Negative [facility] Pathology Leukocyte Esterase Negative Negative Priscilla/uL [facility] Pathology Nitrite Negative Negative [facility] Pathology WBC 22 (H) 0 - 5 /HPF [facility] Pathology RBC 5 (H) 0 - 3 /HPF [facility] Pathology Bacteria, UA 1+ (A) None /HPF [facility] Pathology Squam Epithel, UA 1 (A) None /HPF [facility] Pathology Mucus, UA 2+ (A) None /LPF [facility] Pathology Amorphous, UA Trace (A) None /HPF [facility] Pathology Specimen Urine Performing Organization Address City/[facility] Phone Number [facility] CL[facility]ICAL PATHOLOG[facility] [address] [place] [address] [phone] [facility] [address] [place] [address] Pathology CROSSMATCH, ADDITIONAL (08/30/2019 4:35 AM EST) Crossmatch 09/03/2019 [facility] Expiration Univ [facility] Pathology CPOE Order Number [id number] [facility] Pathology ABO/RH(D) B POS [facility] Pathology Site Performed at [facility] [address] [place], Pathology [place] Blood Bank Comment Antigen screened [facility] units on hold for Univ Clin this patient for Pathology potential need during surgery. UNIT NUMBER [id number] [facility] Pathology Blood Component Leukoreduced Red [facility] Type Cells Univ Clin Pathology Unit Division 00 [facility] Pathology STATUS OF UNIT REL FROM ALLOC [facility] Pathology UNIT TAG COMMENT Patient/Unit blood types differ. Okay to transfuse. [facility] LE(A) Antigen Absent Univ [facility] Pathology TRANSFUSION STATUS OK TO TRANSFUSE [facility] Pathology CROSSMATCH RESULT Compatible [facility] Pathology UNIT NUMBER [id number] [facility] Pathology Blood Component Leukoreduced Red [facility] Type Cells Univ [facility] Pathology Unit Division 00 [facility] Pathology STATUS OF UNIT REL FROM ALLOC [facility] Pathology UNIT TAG COMMENT Patient/Unit blood types differ. Okay to transfuse. [facility] LE(A) Antigen Absent [facility] Pathology TRANSFUSION STATUS OK TO TRANSFUSE [facility] Pathology CROSSMATCH RESULT Compatible [facility] Pathology UNIT NUMBER [id number] [facility] Pathology Blood Component Leukoreduced Red [facility] Type Cell, 2nd Container Univ Clin Pathology Unit Division 00 [facility] Pathology STATUS OF UNIT REL FROM ALLOC [facility] Pathology UNIT TAG COMMENT Patient/Unit blood types differ. Okay to transfuse. [facility] LE(A) Antigen Absent [facility] Pathology TRANSFUSION STATUS OK TO TRANSFUSE [facility] Pathology CROSSMATCH RESULT Compatible [facility] Pathology UNIT NUMBER [id number] [facility] Pathology Blood Component Leukoreduced Red [facility] Type Cells Univ [facility] Pathology Unit Division 00 [facility] Pathology STATUS OF UNIT REL FROM ALLOC [facility] Pathology UNIT TAG COMMENT Patient/Unit blood types differ. Okay to transfuse. [facility] LE(A) Antigen Absent [facility] Pathology TRANSFUSION STATUS OK TO TRANSFUSE [facility] Pathology CROSSMATCH RESULT Compatible [facility] Pathology Specimen EDTA Whole Blood Performing Organization Address [facility]ode Phone Number [facility] CLINICAL PATHOLOGY [address] [place] [address] [phone] [facility] [address] [place] [address] Pathology Elution (08/30/2019 4:35 AM EST) ANTIBODY ELUTED Elution Negative [facility] with All Cells Univ [facility] Pathology Site Performed at [place], [place] Specimen EDTA Whole Blood Performing Organization Address [facility]ode Phone Number [facility] [address] [place] [address] [address] Pathology Antibody Identification (08/30/2019 4:35 AM EST) ANTIBODY IDENT Anti-LE(A) [facility] Pathology Site Performed at [place], [place] Specimen EDTA Whole Blood Performing Organization Address [facility] Phone Number [facility] [address] [place] [address] [facility] Univ [address] [address] Pathology Type and Screen (08/30/2019 4:35 AM EST) ABO/RH(D) B POS [facility] Pathology Gel Antibody POS [facility] Screen [facility] Clin Pathology Site Performed at [place], [place] Pathology VIRGEN,BROAD Microscopically [facility] SPECTRUM MYLA Positive [facility] Pathology VIRGEN, ANTI-IGG Microscopically [facility] MYLA SERUM Positive Univ [facility] Pathology VIRGEN Anti-C3 NEG [facility] MYLA [facility] Pathology Specimen EDTA Whole Blood Performing Organization Address [facility]ode Phone Number [facility] [address] [place] [address] [facility] [address] [place] [phone] Pathology Basic Metabolic Panel (08/28/2019 12:30 AM EST) Bicarbonate 25 22 - 29 mmol/L [facility] Pathology Chloride 109 (H) 98 - 107 mmol/L [facility] Pathology Creatinine 0.82 0.70 - 1.20 [facility] mg/dL Univ Clin Pathology Glucose 65 (L) 70 - 140 mg/dL [facility] Pathology Potassium 3.9 3.4 - 5.1 [facility] mmol/L [facility] Pathology Sodium 142 136 - 145 [facility] mmol/L [facility] Pathology Blood Urea Nitrogen 7 6 - 20 mg/dL [facility] Pathology Anion Gap 8 8 - 15 mmol/L [facility] Pathology Osmolality, Lai 290 275 - 300 [facility] mosm/kg [facility] Pathology BUN/Cre Ratio 9 [facility] Pathology Calcium 8.4 (L) 8.6 - 10.0 [facility] mg/dL [facility] Pathology GFR Non >90 >60 [facility] Cypriot 2008 CDK-EPI mL/min/1.73m2 [facility] Pathology GFR >90 >60 [facility] 2009 CKD-EPI mL/min/1.73m2 [facility] Pathology Specimen Plasma Performing Organization Address City/State/Zipcoil Phone Number [facility] CLINICAL PATHOLOGY [address] [place] [address] [facility] [address] [place] [address] Pathology CBC (08/28/2019 12:30 AM EST) White Blood Cell 5.4 4 - 10 10*3/uL [facility] Pathology Red Blood Cell 4.42 (L) 4.6 - 6.1 [facility] 10*6/uL [facility] Pathology Hemoglobin 11.7 (L) 13.5 - 18 g/dL [facility] Pathology Hematocrit 35.6 (L) 41 - 53 % [facility] Pathology Mean Cell Volume 80.5 80 - 96 fL [facility] Pathology Mean Cell Hemoglobin 26.6 (L) 27 - 33 pg [facility] Pathology Mean Cell Hgb Conc 33.0 32.0 - 36.0 [facility] g/dL Univ Clin Pathology Red Cell Dist Width 13.8 11.5 - 14.5 % [facility] Pathology Platelet Count 220 150 - 400 [facility] 10*3/uL [facility] Pathology Specimen EDTA Whole Blood Performing Organization Address City/[facility]/Zipcode Phone Number [facility] [address] [place] [address] [facility] [address] [place] [address] Pathology [facility] VPS IMAGE REPORT (08/27/2019 11:37 AM EST) Narrative Performed At CBC (08/27/2019 12:11 AM EST) White Blood Cell 3.9 (L) 4 - 10 10*3/uL [facility] Pathology Red Blood Cell 4.23 (L) 4.6 - 6.1 [facility] 10*6/uL Univ [facility] Pathology Hemoglobin 11.2 (L) 13.5 - 18 g/dL [facility] Pathology Hematocrit 34.5 (L) 41 - 53 % [facility] Pathology Mean Cell Volume 81.5 80 - 96 fL [facility] Pathology Mean Cell Hemoglobin 26.5 (L) 27 - 33 pg [facility] Pathology Mean Cell Hgb Conc 32.5 32.0 - 36.0 [facility] g/dL Univ Clin Pathology Red Cell Dist Width 14.2 11.5 - 14.5 % [facility] Pathology Platelet Count 199 150 - 400 [facility] 10*3/uL [facility] Pathology Specimen EDTA Whole Blood Performing Organization Address City/[facility]/Zipcode Phone Number [facility] CLINICAL PATHOLOGY [address] [place] [address] [facility] [address] [place] [address] Pathology Basic Metabolic Panel (08/27/2019 12:11 AM EST) Bicarbonate 26 22 - 29 mmol/L [facility] Pathology Chloride 108 (H) 98 - 107 mmol/L [facility] Pathology Creatinine 0.65 (L) 0.70 - 1.20 [facility] mg/dL Univ [facility] Pathology Glucose 131 70 - 140 mg/dL [facility] Pathology Potassium 3.4 3.4 - 5.1 [facility] mmol/L [facility] Pathology Sodium 141 136 - 145 [facility] mmol/L [facility] Pathology Blood Urea Nitrogen 11 6 - 20 mg/dL [facility] Pathology Anion Gap 7 (L) 8 - 15 mmol/L [facility] Pathology Osmolality, Lai 293 275 - 300 [facility] mosm/kg [facility] Pathology BUN/Cre Ratio 17 [facility] Pathology Calcium 8.2 (L) 8.6 - 10.0 [facility] mg/dL [facility] Pathology GFR Non >90 >60 [facility] Cypriot 2009 CDK-EPI mL/min/1.73m2 [facility] Clin Pathology GFR >90 >60 [facility] 2009 CKD-EPI mL/min/1.73m2 [facility] Pathology Specimen Plasma Performing Organization Address City/State/Zipcode Phone Number [facility] CLINICAL PATHOLOGY [address] [place] [address] [phone] [facility] [address] [place] [address] Pathology Echocardiogram 2D Complete (08/26/2019 3:29 PM EST) Specimen Narrative Performed At HEIGHT: 177.8 cm (5 ft 10.0 in) ON LICENSE OF [facility] ECHO WEIGHT: 112.9 kg (249.0 lbs) BP: 119/72 BSA: FINDINGS ------- TYPE OF REPORT:This is a complete two-dimensional transthoracic echocardiogram (2D, M-mode, Doppler and color flow Doppler). LEFT VENTRICLE:The LV cavity size is at upper limits of normal. Left ventricular wall thickness is normal. The calculated left ventricular ejection fraction is 54.0% . There are no regional wall motion abnormalities. Doppler indices do not show any significant evidence of diastolic dysfunction. RIGHT VENTRICLE:The right ventricle is normal in size. The right ventricular wall thickness is normal. The right ventricular systolic function is normal. LEFT ATRIUM:The left atrium size by volume measurement is normal (16-34 ml/m2). RIGHT ATRIUM:The right atrium size by volume measurement is normal. Possible PICC seen in right atrium AORTIC VALVE:The aortic valve appears grossly normal. There is no aortic stenosis. There is no aortic regurgitation. MITRAL VALVE:The mitral valve appears structurally normal. There is trace mitral regurgitation. PULMONIC VALVE:The pulmonic valve is not well visualized. The pulmonic valve function is grossly normal. TRICUSPID VALVE:The tricuspid valve appears structurally normal. Trace tricuspid regurgitation present. IVC / HEPATIC VEINS:Dilated IVC with preserved inspiratory collapse consistent with a central venous pressure of 10 mmHg. CONCLUSIONS 1. The LV cavity size is at upper limits of normal. 2. The calculated left ventricular ejection fraction is 54.0% . 3. There are no regional wall motion abnormalities. 4. No valvular vegetations identified Conclusions completed MEASUREMENTS LVOT Diam: 2.38 cm LVOT Area: 4.45 cm Ao Diam: 3.41 cm LA Diam: 3.62 cm IVSd: 0.96 cm LVIDd: 5.75 cm LVIDd Index: 2.51 cm/m EDV(Teich): 163.50 ml EDV(Cube): 190.44 ml LVPWd: 0.95 cm LVd Mass: 255.54 g LVd Mass Index: 111.59 g/m LVd Mass (ASE): 215.91 g LVd Mass Ind (ASE): 94.28 g/m LVIDs: 4.02 cm LVIDs Index: 1.75 cm/m ESV(Teich): 70.76 ml EF(Teich): 56.72 % ESV(Cube): 64.88 ml EF(Cube): 65.93 % %FS: 30.16 % SV(Teich): 92.74 ml SI(Teich): 40.50 ml/m SV(Cube): 125.56 ml SI(Cube): 54.83 ml/m IVC: 22.46 mm RVIDd: 2.91 cm RWT: 0.33 LALd A4C: 4.78 cm LAAd A4C: 15.41 cm LAEDV A-L A4C: 42.21 ml LAEDV MOD A4C: 38.23 ml LALd A2C: 4.99 cm LAAd A2C: 20.29 cm LAEDV A-L A2C: 70.02 ml LAEDV MOD A2C: 67.59 ml LAEDV(A-L): 55.55 ml LAEDV Index (A-L): 24.26 ml/m LAEDV(MOD BP): 51.15 ml LAEDVInd MOD BP: 22.33 ml/m RALs: 5.03 cm RAAs A4C: 14.73 cm RAESV A-L: 36.59 ml RAESV INDEX: 15.98 ml/m HR_4Ch_Q: 61.4 bpm LVVED_4Ch_Q: 183.2 ml LVVES_4Ch_Q: 86.2 ml LVEF_4Ch_Q: 52.9 % LVSV_4Ch_Q: 97.0 ml LVCO_4Ch_Q: 6.0 l/min LVLs_4Ch_Q: 7.9 cm LVLd_4Ch_Q: 9.6 cm HR_2Ch_Q: 60.1 bpm LVVED_2Ch_Q: 143.9 ml LVVES_2Ch_Q: 65.4 ml LVEF_2Ch_Q: 54.5 % LVSV_2Ch_Q: 78.5 ml LVCO_2Ch_Q: 4.7 l/min LVLs_2Ch_Q: 7.8 cm LVLd_2Ch_Q: 9.2 cm LVVED_BiP_Q: 165.2 ml LVVES_BiP_Q: 76.0 ml LVEF_BiP_Q: 54.0 % LVSV_BiP_Q: 89.2 ml LVCO_BiP_Q: 5.3 l/min TAPSE: 3.01 cm MV E Adrian: 0.87 m/s MV DecT: 269.93 ms MV Dec [place]: 3.23 m/s MV A Adrian: 0.54 m/s MV E/A Ratio: 1.61 MV PHT: 78.28 ms MVA By PHT: 2.81 cm LVOT Vmax: 0.89 m/s LVOT Vmean: 0.65 m/s LVOT maxP.20 mmHg LVOT meanP.85 mmHg AV Vmax: 1.13 m/s AV Vmean: 0.81 m/s AV maxP.12 mmHg AV meanP.87 mmHg AV VTI: 23.22 cm SOLO Vmax: 3.51 cm SOLO (VTI): 3.71 cm AVAI (VTI): 1.622 cm /m AVAI Vmax: 1.534 cm /m DVI: 0.84 PV Vmax: 0.72 m/s PV maxP.05 mmHg TR Vmax: 1.99 m/s TR maxP.82 mmHg Electronically Signed By: Cole Mims M.D. Electronically Signed On: 08/26/2019 17:21:32 Procedure Note Interface, Received Via [employer] - 08/26/2019 5:21 PM EST HEIGHT: 177.8 cm (5 ft 10.0 in) WEIGHT: 112.9 kg (249.0 lbs) BP: 119/72 BSA: FINDINGS ------- TYPE OF REPORT:This is a complete two-dimensional transthoracic echocardiogram (2D, M-mode, Doppler and color flow Doppler). LEFT VENTRICLE:The LV cavity size is at upper limits of normal. Left ventricular wall thickness is normal. The calculated left ventricular ejection fraction is 54.0% . There are no regional wall motion abnormalities. Doppler indices do not show any significant evidence of diastolic dysfunction. RIGHT VENTRICLE:The right ventricle is normal in size. The right ventricular wall thickness is normal. The right ventricular systolic function is normal. LEFT ATRIUM:The left atrium size by volume measurement is normal (16-34 ml/m2). RIGHT ATRIUM:The right atrium size by volume measurement is normal. Possible PICC seen in right atrium AORTIC VALVE:The aortic valve appears grossly normal. There is no aortic stenosis. There is no aortic regurgitation. MITRAL VALVE:The mitral valve appears structurally normal. There is trace mitral regurgitation. PULMONIC VALVE:The pulmonic valve is not well visualized. The pulmonic valve function is grossly normal. TRICUSPID VALVE:The tricuspid valve appears structurally normal. Trace tricuspid regurgitation present. IVC / HEPATIC VEINS:Dilated IVC with preserved inspiratory collapse consistent with a central venous pressure of 10 mmHg. CONCLUSIONS 1. The LV cavity size is at upper limits of normal. 2. The calculated left ventricular ejection fraction is 54.0% . 3. There are no regional wall motion abnormalities. 4. No valvular vegetations identified Conclusions completed MEASUREMENTS LVOT Diam: 2.38 cm LVOT Area: 4.45 cm Ao Diam: 3.41 cm LA Diam: 3.62 cm IVSd: 0.96 cm LVIDd: 5.75 cm LVIDd Index: 2.51 cm/m EDV(Teich): 163.50 ml EDV(Cube): 190.44 ml LVPWd: 0.95 cm LVd Mass: 255.54 g LVd Mass Index: 111.59 g/m LVd Mass (ASE): 215.91 g LVd Mass Ind (ASE): 94.28 g/m LVIDs: 4.02 cm LVIDs Index: 1.75 cm/m ESV(Teich): 70.76 ml EF(Teich): 56.72 % ESV(Cube): 64.88 ml EF(Cube): 65.93 % %FS: 30.16 % SV(Teich): 92.74 ml SI(Teich): 40.50 ml/m SV(Cube): 125.56 ml SI(Cube): 54.83 ml/m IVC: 22.46 mm RVIDd: 2.91 cm RWT: 0.33 LALd A4C: 4.78 cm LAAd A4C: 15.41 cm LAEDV A-L A4C: 42.21 ml LAEDV MOD A4C: 38.23 ml LALd A2C: 4.99 cm LAAd A2C: 20.29 cm LAEDV A-L A2C: 70.02 ml LAEDV MOD A2C: 67.59 ml LAEDV(A-L): 55.55 ml LAEDV Index (A-L): 24.26 ml/m LAEDV(MOD BP): 51.15 ml LAEDVInd MOD BP: 22.33 ml/m RALs: 5.03 cm RAAs A4C: 14.73 cm RAESV A-L: 36.59 ml RAESV INDEX: 15.98 ml/m HR_4Ch_Q: 61.4 bpm LVVED_4Ch_Q: 183.2 ml LVVES_4Ch_Q: 86.2 ml LVEF_4Ch_Q: 52.9 % LVSV_4Ch_Q: 97.0 ml LVCO_4Ch_Q: 6.0 l/min LVLs_4Ch_Q: 7.9 cm LVLd_4Ch_Q: 9.6 cm HR_2Ch_Q: 60.1 bpm LVVED_2Ch_Q: 143.9 ml LVVES_2Ch_Q: 65.4 ml LVEF_2Ch_Q: 54.5 % LVSV_2Ch_Q: 78.5 ml LVCO_2Ch_Q: 4.7 l/min LVLs_2Ch_Q: 7.8 cm LVLd_2Ch_Q: 9.2 cm LVVED_BiP_Q: 165.2 ml LVVES_BiP_Q: 76.0 ml LVEF_BiP_Q: 54.0 % LVSV_BiP_Q: 89.2 ml LVCO_BiP_Q: 5.3 l/min TAPSE: 3.01 cm MV E Adrian: 0.87 m/s MV DecT: 269.93 ms MV Dec [place]: 3.23 m/s MV A Adrian: 0.54 m/s MV E/A Ratio: 1.61 MV PHT: 78.28 ms MVA By PHT: 2.81 cm LVOT Vmax: 0.89 m/s LVOT Vmean: 0.65 m/s LVOT maxP.20 mmHg LVOT meanP.85 mmHg AV Vmax: 1.13 m/s AV Vmean: 0.81 m/s AV maxP.12 mmHg AV meanP.87 mmHg AV VTI: 23.22 cm SOLO Vmax: 3.51 cm SOLO (VTI): 3.71 cm AVAI (VTI): 1.622 cm /m AVAI Vmax: 1.534 cm /m DVI: 0.84 PV Vmax: 0.72 m/s PV maxP.05 mmHg TR Vmax: 1.99 m/s TR maxP.82 mmHg Electronically Signed By: Cole Mims M.D. Electronically Signed On: 08/26/2019 17:21:32 Performing Organization Address City/[facility]/Zipcode Phone Number ON LICENSE OF [facility] ECHO Vancomycin, trough (08/26/2019 8:19 AM EST) Vancomycin, Trough 15.8 10.0 - 20.0 ug/mL [facility] Pathology Specimen Plasma Performing Organization Address City/[facility]/Zipcode Phone Number [facility] CLINICAL PATHOLOGY [address] [place] [address] [facility] [address] [place] [address] Pathology HIV Ag Ab Combo Screen (08/26/2019 12:58 AM EST) HIV Ag Ab Combo Non Reactive Non Reactive [facility] Screen Comment: [facility] Negative for HIV-1 p24 antigen Pathology and HIV-1/HIV-2 antibodies. No laboratory evidence of HIV infection. Specimen Serum Performing Organization Address City/[facility] Phone Number [facility] [address] [place] [address] [facility] [address] [place] [address] Pathology CBC (08/26/2019 12:57 AM EST) Pathologist [facility] White Blood Cell 4.1 4 - 10 10*3/uL [facility] Pathology Red Blood Cell 4.04 (L) 4.6 - 6.1 [facility] 10*6/uL [facility] Pathology Hemoglobin 10.7 (L) 13.5 - 18 g/dL [facility] Pathology Hematocrit 32.9 (L) 41 - 53 % [facility] Pathology Mean Cell Volume 81.5 80 - 96 fL [facility] Pathology Mean Cell Hemoglobin 26.4 (L) 27 - 33 pg [facility] Pathology Mean Cell Hgb Conc 32.4 32.0 - 36.0 [facility] g/dL [facility] Pathology Red Cell Dist Width 13.9 11.5 - 14.5 % [facility] Pathology Platelet Count 202 150 - 400 [facility] 10*3/uL [facility] Pathology Specimen EDTA Whole Blood Performing Organization Address [facility] Phone [facility] CLINICAL PATHOLOGY [address] [place] [address] [facility] [address] [place] [address] Pathology Basic Metabolic Panel (08/26/2019 12:57 AM EST) Bicarbonate 23 22 - 29 mmol/L [facility] Pathology Chloride 108 (H) 98 - 107 mmol/L [facility] Pathology Creatinine 0.94 0.70 - 1.20 [facility] mg/dL [facility] Pathology Glucose 96 70 - 140 mg/dL [facility] Pathology Potassium 3.5 3.4 - 5.1 [facility] mmol/L [facility] Pathology Sodium 140 136 - 145 [facility] mmol/L [facility] Pathology Blood Urea Nitrogen 10 6 - 20 mg/dL [facility] Pathology Anion Gap 9 8 - 15 mmol/L [facility] Pathology Osmolality, Lai 289 275 - 300 [facility] mosm/kg [facility] Pathology BUN/Cre Ratio 11 [facility] Pathology Calcium 7.9 (L) 8.6 - 10.0 [facility] mg/dL [facility] Pathology GFR Non >90 >60 [facility] Cypriot 2009 CDK-EPI mL/min/1.73m2 [facility] Pathology GFR >90 >60 [facility] 2009 CKD-EPI mL/min/1.73m2 [facility] Pathology Specimen Plasma Performing Organization Address City/[facility]/Zipcode Phone Number [facility] CLINICAL PATHOLOGY [address] [place] [address] [phone] [facility] [address] [place] [address] Pathology PICC Ultrasound - Bedside Procedure (08/25/2019 9:15 PM EST) Specimen Performing Organization Address City/[facility] Phone Number ON LICENSE OF [facility] RADIOLOGY [address] [place] [address] Vancomycin, random (08/24/2019 7:04 PM EST) Vancomycin, Random 13.3 ug/mL [facility] Pathology Specimen Plasma Performing Organization Address [facility] Phone Number [facility] CL[facility]ICAL PATHOLOGY [address] [place] [address] [phone] [facility] [address] [place] [address] Pathology CBC (08/24/2019 6:08 PM EST) White Blood Cell 4.7 4 - 10 10*3/uL [facility] Pathology Red Blood Cell 4.43 (L) 4.6 - 6.1 [facility] 10*6/uL [facility] Pathology Hemoglobin 11.7 (L) 13.5 - 18 g/dL [facility] Pathology Hematocrit 36.4 (L) 41 - 53 % [facility] Pathology Mean Cell Volume 82.1 80 - 96 fL [facility] Pathology Mean Cell Hemoglobin 26.5 (L) 27 - 33 pg [facility] Pathology Mean Cell Hgb Conc 32.3 32.0 - 36.0 [facility] g/dL [facility] Pathology Red Cell Dist Width 13.8 11.5 - 14.5 % [facility] Pathology Platelet Count 233 150 - 400 [facility] 10*3/uL [facility] Pathology Specimen EDTA Whole Blood Performing Organization Address City/State/Zipcode Phone Number [facility] CLINICAL PATHOLOGY [address] [place] [address] [facility] [address] [place] [address] Pathology XR Spine - Entire Thoracic and Lumbar - 2 or 3 Views (08/24/2019 1:13 PM EST) Specimen Narrative Performed At PROCEDURE INFORMATION: ON LICENSE OF [facility] RADIOLOGY Exam: XR Entire Spine, 2 or 3 Views, Scoliosis Exam date and time: 08/24/2019 12:58 PM Age: 44 years old Clinical indication: Illness, unspecified; Other mechanical complication of other internal orthopedic devices, implants and grafts, initial encounter; Other: Scoliosis series. Included base of skull to femoral heads. Standing TECHNIQUE: Imaging protocol: XR of the entire spine, 2 or 3 views. Evaluation for scoliosis. COMPARISON: CR XR SPINE CERV 2-3 VIEWS [id number] 08/22/2019 8:40 AM FINDINGS: Vertebrae: No significant bowing of the spine is demonstrated. The upper thoracic vertebra are not well seen on the lateral projection due to shoulder shadowing. The posterior stabilization rods and screws appear to been dislodged from their expected position in the cervical region similar to the prior study. There is continued displacement of the anterior plate in the lower cervical spine. The expansion device appears to be in similar position. There is increased kyphosis of the cervical thoracic junction the details of which are obscured by a shoulder shadowing. Soft tissues: Unremarkable IMPRESSION: 1. No evidence of scoliosis. 2. Increased kyphosis of the cervical thoracic junction of indeterminate nature. The penetration on the lateral view does not show sufficient detail. THIS DOCUMENT HAS BEEN ELECTRONICALLY SIGNED BY CRISTIN CALIXTO MD Procedure Note Interface, Received Via [employer] - 08/25/2019 5:16 PM EST PROCEDURE INFORMATION: Exam: XR Entire Spine, 2 or 3 Views, Scoliosis Exam date and time: 08/24/2019 12:58 PM Age: 44 years old Clinical indication: Illness, unspecified; Other mechanical complication of other internal orthopedic devices, implants and grafts, initial encounter; Other: Scoliosis series. Included base of skull to femoral heads. Standing TECHNIQUE: Imaging protocol: XR of the entire spine, 2 or 3 views. Evaluation for scoliosis. COMPARISON: CR XR SPINE CERV 2-3 VIEWS [id number] 08/22/2019 8:40 AM FINDINGS: Vertebrae: No significant bowing of the spine is demonstrated. The upper thoracic vertebra are not well seen on the lateral projection due to shoulder shadowing. The posterior stabilization rods and screws appear to been dislodged from their expected position in the cervical region similar to the prior study. There is continued displacement of the anterior plate in the lower cervical spine. The expansion device appears to be in similar position. There is increased kyphosis of the cervical thoracic junction the details of which are obscured by a shoulder shadowing. Soft tissues: Unremarkable IMPRESSION: 1. No evidence of scoliosis. 2. Increased kyphosis of the cervical thoracic junction of indeterminate nature. The penetration on the lateral view does not show sufficient detail. THIS DOCUMENT HAS BEEN ELECTRONICALLY SIGNED BY CRISTIN CALIXTO MD Performing Organization Address City/[facility] Phone Number ON LICENSE OF [facility] RADIOLOGY [address] [place] [address] Basic Metabolic Panel (08/23/2019 6:21 AM EST) Bicarbonate 21 (L) 22 - 29 mmol/L [facility] Pathology Chloride 103 98 - 107 mmol/L [facility] Pathology Creatinine 0.95 0.70 - 1.20 [facility] mg/dL [facility] Pathology Glucose 92 70 - 140 mg/dL [facility] Pathology Potassium 4.1 3.4 - 5.1 [facility] mmol/L [facility] Pathology Sodium 135 (L) 136 - 145 [facility] mmol/L [facility] Pathology Blood Urea Nitrogen 12 6 - 20 mg/dL [facility] Pathology Anion Gap 11 8 - 15 mmol/L [facility] Pathology Osmolality, Lai 280 275 - 300 [facility] mosm/kg [facility] Pathology BUN/Cre Ratio 13 [facility] Pathology Calcium 8.7 8.6 - 10.0 [facility] mg/dL [facility] Pathology GFR Non >90 >60 [facility] Cypriot 2009 CDK-EPI mL/min/1.73m2 [facility] Pathology GFR >90 >60 [facility] 2009 CKD-EPI mL/min/1.73m2 [facility] Pathology Specimen Plasma Performing Organization Address City/[facility]/Zipcode Phone Number [facility] CLINICAL PATHOLOGY [address] [place] [address] [facility] [address] [place] [address] Pathology CBC (08/23/2019 6:21 AM EST) White Blood Cell 4.4 4 - 10 10*3/uL [facility] Pathology Red Blood Cell 4.55 (L) 4.6 - 6.1 [facility] 10*6/uL [facility]ology Hemoglobin 11.9 (L) 13.5 - 18 g/dL [facility] Pathology Hematocrit 37.3 (L) 41 - 53 % [facility] Pathology Mean Cell Volume 82.0 80 - 96 fL [facility] Pathology Mean Cell Hemoglobin 26.1 (L) 27 - 33 pg [facility] Pathology Mean Cell Hgb Conc 31.8 (L) 32.0 - 36.0 [facility] g/dL [facility] Pathology Red Cell Dist Width 13.7 11.5 - 14.5 % [facility] Pathology Platelet Count 252 150 - 400 [facility] 10*3/uL [facility] Pathology Specimen EDTA Whole Blood Performing Organization Address [facility]ode Phone Number [facility] [address] [place] [address] [phone] [facility] [address] [place] [address] Pathology Urine Culture ; Urine (08/23/2019 6:11 AM EST) Special Request None [facility] Pathology Culture/Results NO GROWTH [facility] Pathology Specimen Urine Performing Organization Address City/[facility]/Zipcode Phone Number [facility] [address] [place] [address] [facility] [address] [place] [address] Pathology Urinalysis with reflex urine culture (08/23/2019 6:11 AM EST) Color Britt [facility] Pathology Clarity Clear [facility] Pathology Specific [place] >1.060 (H) 1.003 - 1.030 [facility] Pathology PH Urine 5.0 5.0 - 8.0 [facility] Pathology Total Protein UA Negative Negative mg/dL [facility] Pathology Glucose UA Negative Negative mg/dL [facility] Pathology Ketone Urine 5 (A) Negative mg/dL [facility] Pathology Bilirubin Negative Negative [facility] Pathology Hemoglobin, Urine 3+ (A) Negative [facility] Pathology Leukocyte Esterase 3+ (A) Negative [place]/uL [facility] Pathology Nitrite Negative Negative [facility] Pathology WBC 64 (H) 0 - 5 /HPF [facility] Pathology RBC 351 (H) 0 - 3 /HPF [facility] Pathology Bacteria, UA 2+ (A) None /HPF [facility] Pathology Squam Epithel, UA 2 (A) None /HPF [facility] Pathology Mucus, UA 2+ (A) None /LPF [facility] Pathology Specimen Urine Performing Organization Address City/State/Zipcode Phone Number [facility] CLINICAL PATHOLOGY [address] [place] [address] [phone] [facility] [address] [place] [address] Thoracic Spine without Contrast (08/22/2019 6:03 PM EST) Specimen Impressions Performed At IMPRESSION: ON LICENSE OF [facility] RADIOLOGY Displacement of hardware which is best visualized in the cervical spine CT study. Hardware extend to T2 level. Remainder of thoracic spine is unremarkable. Narrative Performed At EXAMINATION: CT thoracic spine without contrast ON LICENSE OF [facility] RADIOLOGY CLINICAL INDICATION: Hx osteomyelitis, eval thoracic spine for pre-op planning TECHNIQUE: Axial, coronal, and sagittal reformatted images of the thoracic spine were obtained using source data from a CT of the thorax performed at the time of this examination. Automated dose lowering techniques and/or adjustment according to patient size were utilized for this examination. FINDINGS: Please see report of cervical spine done on 2019. Displaced hardware is again identified with anterior angulation of the cervical spine. In the thoracic region itself posterior spinal fusion is present at T1 and T2 level, bilateral pedicle screws are present along with the rods. Anterior fusion plate is also seen extending to the T1 level. Remainder of thoracic vertebral body heights and alignment is preserved . No acute fracture seen. Scattered degenerative changes are present in the thoracic spine without any high-grade bony canal stenosis. Procedure Note Interface, Received Via [employer] - 08/23/2019 1:44 PM EST EXAMINATION: CT thoracic spine without contrast CLINICAL INDICATION: Hx osteomyelitis, eval thoracic spine for pre-op planning TECHNIQUE: Axial, coronal, and sagittal reformatted images of the thoracic spine were obtained using source data from a CT of the thorax performed at the time of this examination. Automated dose lowering techniques and/or adjustment according to patient size were utilized for this examination. FINDINGS: Please see report of cervical spine done on 2019. Displaced hardware is again identified with anterior angulation of the cervical spine. In the thoracic region itself posterior spinal fusion is present at T1 and T2 level, bilateral pedicle screws are present along with the rods. Anterior fusion plate is also seen extending to the T1 level. Remainder of thoracic vertebral body heights and alignment is preserved . No acute fracture seen. Scattered degenerative changes are present in the thoracic spine without any high-grade bony canal stenosis. IMPRESSION: Displacement of hardware which is best visualized in the cervical spine CT study. Hardware extend to T2 level. Remainder of thoracic spine is unremarkable. Performing Organization Address City/State/Zipcode Phone Number ON LICENSE OF [facility] RADIOLOGY [address] [place] [address] CT Abdomen Pelvis with and without Contrast (08/22/2019 5:55 PM EST) Specimen Narrative Performed At PROCEDURE INFORMATION: ON LICENSE OF [facility] RADIOLOGY Exam: CT Abdomen And Pelvis Without And With Contrast; Urography Exam date and time: 08/22/2019 5:27 PM Age: 44 years old Clinical indication: Other mechanical complication of other internal orthopedic devices, implants and grafts, initial encounter; Other: Gross hematuria; Additional info: CT ivp - HX of gross hematuria TECHNIQUE: Imaging protocol: Computed tomography of the abdomen and pelvis without and with intravenous contrast. Exam focused on the kidneys and ureters. Radiation optimization: All CT scans at this facility use at least one of these dose optimization techniques: automated exposure control; mA and/or kV adjustment per patient size (includes targeted exams where dose is matched to clinical indication); or iterative reconstruction. Contrast material: OMNI 300; Contrast volume: 150 ml; Contrast route: IV; COMPARISON: No relevant prior studies available. FINDINGS: Lungs: The visualized portions of the lung bases are normal. Heart: The heart is not enlarged. Liver: The liver is normal. Gallbladder and bile ducts: The gallbladder is normal. Pancreas: The pancreas is normal. Spleen: The spleen is normal. Adrenals: The adrenal glands are normal. Kidneys and ureters: The kidneys are normal. The ureters are normal. Stomach and bowel: The stomach is normal. There is moderately excessive colonic stool content. No over distention of bowel loops is seen. Appendix: No findings to suggest acute appendicitis. Intraperitoneal space: No evidence of intraperitoneal free air. Lymph nodes: No pathologic lymph node enlargement is demonstrated. Vasculature: The aorta is normal. Bladder: There is mild bladder wall thickening. Reproductive: The prostate and seminal vesicles are normal. Bones/joints: Unremarkable Soft tissues: The extra-abdominal soft tissues are normal. IMPRESSION: 1. Moderate constipation. 2. Bladder wall thickening suggesting incomplete distention, chronic outflow obstruction or cystitis. THIS DOCUMENT HAS BEEN ELECTRONICALLY SIGNED BY CRISTIN CALIXTO MD Procedure Note Interface, Received Via [employer] - 08/22/2019 6:41 PM EST PROCEDURE INFORMATION: Exam: CT Abdomen And Pelvis Without And With Contrast; Urography Exam date and time: 08/22/2019 5:27 PM Age: 44 years old Clinical indication: Other mechanical complication of other internal orthopedic devices, implants and grafts, initial encounter; Other: Gross hematuria; Additional info: CT ivp - HX of gross hematuria TECHNIQUE: Imaging protocol: Computed tomography of the abdomen and pelvis without and with intravenous contrast. Exam focused on the kidneys and ureters. Radiation optimization: All CT scans at this facility use at least one of these dose optimization techniques: automated exposure control; mA and/or kV adjustment per patient size (includes targeted exams where dose is matched to clinical indication); or iterative reconstruction. Contrast material: OMNI 300; Contrast volume: 150 ml; Contrast route: IV; COMPARISON: No relevant prior studies available. FINDINGS: Lungs: The visualized portions of the lung bases are normal. Heart: The heart is not enlarged. Liver: The liver is normal. Gallbladder and bile ducts: The gallbladder is normal. Pancreas: The pancreas is normal. Spleen: The spleen is normal. Adrenals: The adrenal glands are normal. Kidneys and ureters: The kidneys are normal. The ureters are normal. Stomach and bowel: The stomach is normal. There is moderately excessive colonic stool content. No over distention of bowel loops is seen. Appendix: No findings to suggest acute appendicitis. Intraperitoneal space: No evidence of intraperitoneal free air. Lymph nodes: No pathologic lymph node enlargement is demonstrated. Vasculature: The aorta is normal. Bladder: There is mild bladder wall thickening. Reproductive: The prostate and seminal vesicles are normal. Bones/joints: Unremarkable Soft tissues: The extra-abdominal soft tissues are normal. IMPRESSION: 1. Moderate constipation. 2. Bladder wall thickening suggesting incomplete distention, chronic outflow obstruction or cystitis. THIS DOCUMENT HAS BEEN ELECTRONICALLY SIGNED BY CRISTIN CALIXTO MD Performing Organization Address City/State/Zipcode Phone Number ON LICENSE OF [facility] RADIOLOGY [address] [place] [address] LAB RESULTS (OUTSIDE/HISTORICAL) (08/22/2019 12:01 PM EST) Narrative Performed At RADIOLOGY REPORT (08/22/2019 12:01 PM EST) Narrative Performed At XR Thoracic Spine AP and Lateral (08/22/2019 9:08 AM EST) Specimen Narrative Performed At PROCEDURE INFORMATION: ON LICENSE OF [facility] RADIOLOGY Exam: XR Thoracic Spine, 2 Views Exam date and time: 08/22/2019 8:45 AM Age: 44 years old Clinical indication: Other mechanical complication of other internal orthopedic devices, implants and grafts, initial encounter; Other: Hardware failure, obtain while standing TECHNIQUE: Imaging protocol: XR of the thoracic spine, 2 views. COMPARISON: No relevant prior studies available. FINDINGS: Vertebrae: There is a mild scoliosis. The vertebral body heights are maintained. The visualized disc spaces appear to be intact. The upper thoracic spine is largely obscured on the lateral projection due to shoulder shadowing. There is no evidence of acute fracture. Soft tissues: Unremarkable IMPRESSION: No acute abnormality. THIS DOCUMENT HAS BEEN ELECTRONICALLY SIGNED BY CRISTIN CALIXTO MD Procedure Note Interface, Received Via [employer] - 08/22/2019 5:38 PM EST PROCEDURE INFORMATION: Exam: XR Thoracic Spine, 2 Views Exam date and time: 08/22/2019 8:45 AM Age: 44 years old Clinical indication: Other mechanical complication of other internal orthopedic devices, implants and grafts, initial encounter; Other: Hardware failure, obtain while standing TECHNIQUE: Imaging protocol: XR of the thoracic spine, 2 views. COMPARISON: No relevant prior studies available. FINDINGS: Vertebrae: There is a mild scoliosis. The vertebral body heights are maintained. The visualized disc spaces appear to be intact. The upper thoracic spine is largely obscured on the lateral projection due to shoulder shadowing. There is no evidence of acute fracture. Soft tissues: Unremarkable IMPRESSION: No acute abnormality. THIS DOCUMENT HAS BEEN ELECTRONICALLY SIGNED BY CRISTIN CALIXTO MD Performing Organization Address [facility] Phone [facility] ON LICENSE OF [facility] RADIOLOG[facility] [address] [place] [address] XR Spine Cervical 3 Views or Less (08/22/2019 9:07 AM EST) Specimen Impressions Performed At FINDINGS\\IMPRESSION: ON LICENSE OF [facility] RADIOLOGY The patient is wearing a cervical immobilization collar. Orthopedic hardware extending from C5 to T1 post anterior cervical discectomy and anterior spinal fusion and screws are seen. Posterior spinal fusion rods is seen at C4-T2 levels. An expandable cage extending from the inferior endplate of C5 to the superior endplate of T1 post C6 and C7 corpectomy is again shown. Posterior spinal fusion upper rods and screws are displaced posteriorly and lie in the subcutaneous region. The anterior fusion serafin and screw at T1 level is displaced anteriorly. There is anterior wedge compression of C4 and C5 vertebra. Vertebral body alignment is unremarkable. These findings are similar to prior CT scan. Narrative Performed At EXAMINATION: X-ray cervical spine. ON LICENSE OF [facility] CLINICAL INDICATION: Hardware failure. TECHNIQUE: Upright AP, lateral images of the cervical spine were submitted for interpretation. A total of 3 images were available at the time of dictation. COMPARISON: [place] views of CT Cervical spine dated 08/21/2019. Procedure Note Interface, Received Via [employer] - 08/22/2019 5:43 PM EST EXAMINATION: X-ray cervical spine. CLINICAL INDICATION: Hardware failure. TECHNIQUE: Upright AP, lateral images of the cervical spine were submitted for interpretation. A total of 3 images were available at the time of dictation. COMPARISON: [place] views of CT Cervical spine dated 08/21/2019. FINDINGS\\IMPRESSION: The patient is wearing a cervical immobilization collar. Orthopedic hardware extending from C5 to T1 post anterior cervical discectomy and anterior spinal fusion and screws are seen. Posterior spinal fusion rods is seen at C4-T2 levels. An expandable cage extending from the inferior endplate of C5 to the superior endplate of T1 post C6 and C7 corpectomy is again shown. Posterior spinal fusion upper rods and screws are displaced posteriorly and lie in the subcutaneous region. The anterior fusion serafin and screw at T1 level is displaced anteriorly. There is anterior wedge compression of C4 and C5 vertebra. Vertebral body alignment is unremarkable. These findings are similar to prior CT scan. Performing Organization Address City/[facility]/Zipcode Phone Number ON LICENSE OF [facility] [address] [place] [address] Hepatic Function Panel (08/22/2019 5:19 AM EST) Albumin 2.9 (L) 3.5 - 5.2 [facility] g/dL [facility] Pathology Bilirubin, Total 1.3 (H) <1.2 mg/dL [facility] Pathology Bilirubin, Direct 0.6 (H)Comment: <0.3 mg/dL [facility] Hemolyzed [facility]ology Alkaline 112 40 - 129 U/L [facility] Phosphatase [facility]ology AST/SGO 110 (H)Comment: <40 U/L [facility] Hemolyzed [facility]ology ALT/SGP 63 (H) <41 U/L [facility] Pathology Total Protein 10.5 (H) 6.4 - 8.3 [facility] g/dL [facility] Pathology Specimen Plasma Performing Organization Address City/State/[place] Phone Number [facility] CL[facility]ICAL PATHOLOGY [address] [place] [address] [facility] [address] [place] [address] Pathology Basic Metabolic Panel (08/22/2019 5:19 AM EST) Bicarbonate 23 22 - 29 mmol/L [facility] Pathology Chloride 97 (L) 98 - 107 mmol/L [facility] Pathology Creatinine 0.93 0.70 - 1.20 [facility] mg/dL [facility] Pathology Glucose 103 70 - 140 mg/dL [facility] Pathology Potassium 4.4 3.4 - 5.1 [facility] mmol/L [facility] Pathology Sodium 132 (L) 136 - 145 [facility] mmol/L [facility] Pathology Blood Urea Nitrogen 15 6 - 20 mg/dL [facility] Pathology Anion Gap 11 8 - 15 mmol/L [facility] Pathology Osmolality, Lai 274 (L) 275 - 300 [facility] mosm/kg [facility]ology BUN/Cre Ratio 16 [facility] Pathology Calcium 9.3 8.6 - 10.0 [facility] mg/dL [facility]ology GFR Non >90 >60 [facility] Cypriot 2009 CDK-EPI mL/min/1.73m2 [facility] GFR >90 >60 [facility] 2009 CKD-EPI mL/min/1.73m2 [facility] Pathology Specimen Plasma Performing Organization Address [facility]/Zipcode Phone Number [facility] CL[facility]ICAL PATHOLOG[facility] [address] [place] [address] [facility] [address] [place] [address] Pathology CBC (08/22/2019 5:19 AM EST) White Blood Cell 5.3 4 - 10 10*3/uL [facility] Pathology Red Blood Cell 4.76 4.6 - 6.1 [facility] 10*6/uL [facility] Pathology Hemoglobin 12.8 (L) 13.5 - 18 g/dL [facility] Pathology Hematocrit 38.5 (L) 41 - 53 % [facility] Pathology Mean Cell Volume 80.9 80 - 96 fL [facility] Pathology Mean Cell Hemoglobin 26.8 (L) 27 - 33 pg [facility] Pathology Mean Cell Hgb Conc 33.1 32.0 - 36.0 [facility] g/dL [facility] Pathology Red Cell Dist Width 13.9 11.5 - 14.5 % [facility] Pathology Platelet Count 278 150 - 400 [facility] 10*3/uL [facility] Pathology Specimen EDTA Whole Blood Performing Organization Address [facility] Phone [facility] [address] [place] [address] [phone] [facility] [address] [place] [id number] Pathology MR Cervical Spine with and without Contrast (08/22/2019 3:29 AM EST) Specimen Impressions Performed At IMPRESSION: ON LICENSE OF [facility] Findings concerning for hardware infection in the cervical spine with likely osteomyelitis-discitis and possible phlegmon, as described above. There is a STIR hyperintensity in the rim enhancement within the C4-5 intervertebral disc concerning for abscess formation. There is diffuse epidural thickening at C4-T1 with severe stenosis at C4-5 and C6-7 with possible cord compression. There is subtle T2 and STIR hyperintense signal within the cord at C4-T1 likely secondary to cord compression. Neurosurgery team is aware of the findings. Findings were discussed with Dr. Borjas by Dr. Snow via phone at 08/23/2019 10:31 AM. 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 ON LICENSE OF [facility] Technique: Multiplanar multi sequential MR images of the cervical spine were obtained prior to and after the administration of intravenous Gadavist. COMPARISON: CT cervical spine dated 08/21/2019. FINDINGS: Orthopedic hardware at the anterior and posterior aspects of the cervical spine creates susceptibility artifact which limits evaluation of these regions. There is subtle focal kyphosis at C7-T1. There is FLAIR hyperintensity and diffuse enhancement of the C3, T1 and T2 vertebral bodies, concerning for infection. There is T2 and STIR hyperintensity circumferentially surrounding the cord from the C3-T1 level with postcontrast enhancement, concerning for diffuse epidural thickening between C4 and T1 levels and phl egmon formation. There is severe narrowing of the spinal canal most significant at C4-C5 and C6-7 concerning for cord compression . There is STIR hyperintensity and enhancement of the C4-C5 intervertebral disc, also concerning for infection. T2 and STIR hyperintensity is identified in the C3-T1 spinous processes with mild contrast enhancement of the spinous processes at the C6, C7, T1, and T2 levels. Postsurgical changes, edema and enhancement of the soft tissues at the posterior aspect of the cervical spine. Similar findings are identified in the intraspinous muscles of the C5-T2 levels. As previously described: The posterior fusion screws are no longer associated with the facet joints of C4, C5 or C6 and now lie in the subcutaneous tissues at the posterior aspect of these vertebral lev els. There is new retrolisthesis of C4 on C5 and new kyphotic curve of the cervical spine centered at C7, due to the collapsed vertebral bodies and dislodgment of the posterior cervical hardware. 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 Technique: Multiplanar multi sequential MR images of the cervical spine were obtained prior to and after the administration of intravenous Gadavist. COMPARISON: CT cervical spine dated 08/21/2019. FINDINGS: Orthopedic hardware at the anterior and posterior aspects of the cervical spine creates susceptibility artifact which limits evaluation of these regions. There is subtle focal kyphosis at C7-T1. There is FLAIR hyperintensity and diffuse enhancement of the C3, T1 and T2 vertebral bodies, concerning for infection. There is T2 and STIR hyperintensity circumferentially surrounding the cord from the C3-T1 level with postcontrast enhancement, concerning for diffuse epidural thickening between C4 and T1 levels and phlegmon formation. There is severe narrowing of the spinal canal most significant at C4-C5 and C6-7 concerning for cord compression . There is STIR hyperintensity and enhancement of the C4-C5 intervertebral disc, also concerning for infection. T2 and STIR hyperintensity is identified in the C3-T1 spinous processes with mild contrast enhancement of the spinous processes at the C6, C7, T1, and T2 levels. Postsurgical changes, edema and enhancement of the soft tissues at the posterior aspect of the cervical spine. Similar findings are identified in the intraspinous muscles of the C5-T2 levels. As previously described: The posterior fusion screws are no longer associated with the facet joints of C4, C5 or C6 and now lie in the subcutaneous tissues at the posterior aspect of these vertebral levels. There is new retrolisthesis of C4 on C5 and new kyphotic curve of the cervical spine centered at C7, due to the collapsed vertebral bodies and dislodgment of the posterior cervical hardware. IMPRESSION: Findings concerning for hardware infection in the cervical spine with likely osteomyelitis-discitis and possible phlegmon, as described above. There is a STIR hyperintensity in the rim enhancement within the C4-5 intervertebral disc concerning for abscess formation. There is diffuse epidural thickening at C4-T1 with severe stenosis at C4-5 and C6-7 with possible cord compression. There is subtle T2 and STIR hyperintense signal within the cord at C4-T1 likely secondary to cord compression. Neurosurgery team is aware of the findings. Findings were discussed with Dr. Borjas by Dr. Snow via phone at 08/23/2019 10:31 AM. Performing Organization Address City/State/[facility] Cent[facility]ode Phone Number ON LICENSE OF [facility] [address] [place] [address] XR Chest Frontal Only (08/22/2019 1:56 AM EST) Specimen Narrative Performed At PROCEDURE INFORMATION: ON LICENSE OF [facility] Exam: XR Chest, 1 View Exam date and time: 08/22/2019 1:50 AM Age: 44 years old Clinical indication: Other: Preop TECHNIQUE: Imaging protocol: XR of the chest Views: 1 view. COMPARISON: CR XR CHEST FRONTAL ONLY [id number] PORTABLE 2019-02-16 05:58 FINDINGS: Lungs: Unremarkable. No consolidation. Pleural space: Unremarkable. No pleural effusion. No pneumothorax. Heart/Mediastinum: Unremarkable. No cardiomegaly. Bones/joints: Unremarkable. IMPRESSION: No acute findings. THIS DOCUMENT HAS BEEN ELECTRONICALLY SIGNED BY CARMEN HOWE MD Procedure Note Interface, Received Via [employer] - 08/22/2019 2:41 AM EST PROCEDURE INFORMATION: Exam: XR Chest, 1 View Exam date and time: 08/22/2019 1:50 AM Age: 44 years old Clinical indication: Other: Preop TECHNIQUE: Imaging protocol: XR of the chest Views: 1 view. COMPARISON: CR XR CHEST FRONTAL ONLY [id number] PORTABLE 2019-02-16 05:58 FINDINGS: Lungs: Unremarkable. No consolidation. Pleural space: Unremarkable. No pleural effusion. No pneumothorax. Heart/Mediastinum: Unremarkable. No cardiomegaly. Bones/joints: Unremarkable. IMPRESSION: No acute findings. THIS DOCUMENT HAS BEEN ELECTRONICALLY SIGNED BY CARMEN HOWE MD Performing Organization Address City/[facility]/Zipcode Phone Number ON LICENSE OF [facility] [address] [place] [address] Antibody Identification (08/22/2019 1:42 AM EST) ANTIBODY IDENT Anti-LE(A) [facility] Anti-LE(B) [facility]ology Site Performed at [facility], [facility] Pathology [place], [place] Specimen EDTA Whole Blood Performing Organization Address [facility] Cent[facility]ode Phone Number [facility] CL[facility]ICAL PATHOLOG[facility] [address] [place] [address] [facility] [address] [place] [address] Pathology Type and Screen (08/22/2019 1:42 AM EST) ABO/RH(D) B POS [facility] Pathology Gel Antibody Screen POS [facility] Pathology Site Performed at [facility], Univ Clin [place], [place] VIRGEN,BROAD SPECTRUM NEG [facility] MYLA [facility] Pathology VIRGEN, ANTI-IGG NEG [facility] MYLA SERUM [facility]ology Specimen EDTA Whole Blood Performing Organization Address [facility] Centercode Phone Number [facility] [address] [place] [address] [phone] [facility] [address] [place] [address] Pathology Partial Thromboplastin Time (PTT) (08/22/2019 1:41 AM EST) PTT Patient (PAT) 35.9 (H) 24.0 - 34.0 s [facility] Pathology Specimen Plasma Performing Organization Address City/[facility] Phone Number [facility] CL[facility] PATHOLOG[facility] [address] [place] [address] [phone] [facility] [address] [place] [address] Pathology Protime-INR (08/22/2019 1:41 AM EST) PT Patient 15.0 (H) 12.5 - 14.9 [facility] Pathology Int'l Normalized 1.14Comment: Routine [facility] Ratio intensity oral Univ Clin anticoagulation INR is Pathology typically 2.0-3.0. Target INR must be clinically individualized. Specimen Plasma Performing Organization Address [facility] Center[facility]il Phone Number [facility] CL[facility] PATHOLOG[facility] [address] [place] [address] [facility] [address] [place] [address] Pathology Basic Metabolic Panel (08/22/2019 1:41 AM EST) Bicarbonate 26 22 - 29 mmol/L [facility] Pathology Chloride 98 98 - 107 mmol/L [facility] Pathology Creatinine 0.84 0.70 - 1.20 [facility] mg/dL [facility] Pathology Glucose 94 70 - 140 mg/dL [facility] Pathology Potassium 4.2 3.4 - 5.1 [facility] mmol/L [facility] Pathology Sodium 134 (L) 136 - 145 [facility] mmol/L [facility] Pathology Blood Urea Nitrogen 12 6 - 20 mg/dL [facility] Pathology Anion Gap 10 8 - 15 mmol/L [facility] Pathology Osmolality, Lai 278 275 - 300 [facility] mosm/kg [facility] Pathology BUN/Cre Ratio 14 [facility] Pathology Calcium 9.7 8.6 - 10.0 [facility] mg/dL [facility] GFR Non >90 >60 [facility] Cypriot 2009 CDK-EPI mL/min/1.73m2 [facility] GFR >90 >60 [facility] 2009 CKD-EPI mL/min/1.73m2 [facility] Pathology Specimen Plasma Performing Organization Address City/[facility]/Zipcode Phone Number [facility] [address] [place] [address] [phone] [facility] [address] [place] [address] Pathology EKG 12-LEAD - CMAXX REPORT (08/22/2019 1:33 AM EST) Narrative Performed At EKG 12-LEAD - CMAXX REPORT (08/22/2019 1:33 AM EST) Narrative Performed At EKG 12 Lead (08/22/2019 1:33 AM EST) Specimen Narrative Performed At Ventricular Rate: ON LICENSE OF [facility] EKG 88 BPM Atrial Rate: 88 BPM P-R Interval: 162 ms QRS Duration: 76 ms Q-T Interval: 362 ms QTC Calculation(Bazett): 438 ms P [place]: 47 degrees R [place]: 13 degrees T [place]: 47 degrees : NORMAL SINUS RHYTHM : EARLY TRANSITION : NORMAL ECG : WHEN COMPARED WITH ECG OF 05-FEB-2019 21:01, : HEART RATE IS FASTER : Confirmed by Aneesh Jauregui ([id number]) on 08/22/2019 12:55:13 : PM Procedure Note Interface, Received Via [employer] - 08/22/2019 12:55 PM EST Ventricular Rate: 88 BPM Atrial Rate: 88 BPM P-R Interval: 162 ms QRS Duration: 76 ms Q-T Interval: 362 ms QTC Calculation(Bazett): 438 ms P [place]: 47 degrees R [place]: 13 degrees T [place]: 47 degrees : NORMAL SINUS RHYTHM : EARLY TRANSITION : NORMAL ECG : WHEN COMPARED WITH ECG OF 05-FEB-2019 21:01, : HEART RATE IS FASTER : Confirmed by Aneesh Jauregui ([id number]) on 08/22/2019 12:55:13 : PM Performing Organization Address City/[facility] Phone Number ON LICENSE OF [facility] EKG Cytology, Non Gynecological (08/22/2019 12:00 AM EST) Non [facility] Cytology CYTOPATHOLOGY REPORT [facility] Name: [facility] Collection Date: 08/22/2019 00:00 Received Date: 08/25/2019 10:10 Physician(s): CINTHIA GARDNER LAWRENCE S Copy To: MONI WALDROP Theodora Specimen(s) Received A: URINE, VOIDED Clinical History: Gross hematuria. Diagnosis URINE, VOIDED: NEGATIVE FOR HIGH-GRADE UROTHELIAL CARCINOMA Comment /bg/lai Reviewing [employer]: Almaz Murdock, , CT (ASCP) URSULA Smith M.D. Electronically Signed By Fe Armijo M.D. 08/26/2019 15:47:44 The attending pathologist named above attests that he/she has personally reviewed the relevant preparation(s) for the specimen(s) and rendered the final diagnosis. Microscopic Description The specimen is composed of benign urothelial and squamous cells. /bg Gross Description 40 ml hazy, gold fluid received: 1 Thin-layer Pap stained slide prepared by filter preparation. This report may include one or more immunohistochemical stain results that use analyte specific reagents. All positive and negative controls have been reviewed by the attending pathologist and are satisfactory. The tests were developed and their performance characteristics determined by [facility] Pathololgy department. They have not been cleared or approved by the [place] Food and Drug Administration. The FDA has determined that such clearance or approval is not necessary. Specimen Performing Organization Address City/State/Zipcode Phone Number [facility] CLINICAL PATHOLOGY [address] [place] [address] CT Cervical Spine without Contrast (08/21/2019 10:34 PM EST) Specimen Impressions Performed At IMPRESSION: ON LICENSE OF [facility] 1. Posterior dislodgment of the facet screws and posterior spinal fusion rods at C4-C6. There is also mild loosening and retraction of pedicle screws at T1. Facet screws at T2 remain in place. 2. Anterior angulation of the expandable cage between the C5 and T1 vertebral bodies post C6 and C7 corpectomy. 3. New onset retrolisthesis of C4 on C5 and kyphotic curve due to vertebral body collapse of C5. 4. Inflammatory change in edema in the anterior and posterior paraspinal soft tissues. 5. The osseous erosions may be related to osteolysis or osteomyelitis. These findings were discussed with Dr. Burgess by Dr. Gaffney on 08/21/2019 at 10:50 PM. Narrative Performed At ON LICENSE OF [facility] CLINICAL INFORMATION: Concern for loosening hardware. COMPARISON: CT cervical spine dated 02/07/2019 and 02/05/2019. CERVICAL SPINE CT PROCEDURE: Contiguous axial tomographic sections were obtained through the cervical spine without intravenous contrast. Coronal and sagittal reformats were processed. Automated dose lowering techniques and/or adjustment according to patient size were utilized for this exam. CERVICAL SPINE CT FINDINGS: Orthopedic hardware extending from C5 to T1 post anterior cervical discectomy and fusion and screws and posterior spinal fusion rods post C4-T2 posterior spinal fusion creates streak. An expandable cage extending from the inferior endplate of C5 to the superior endplate of T1 post C6 and C7 corpectomy is again shown. There is interval angulation of the cage with the superior portion angled anteriorly. The anterior screws at the C5 level are no longer positioned within bone. There has been interval bony erosion of the vertebral bodies surrounding the anterior fusion hardware extending from C5-T1 as described in more detail below: * Partial erosion and anterior wedging of the C4 and C5 vertebral bodies. * Interval bony erosion of the T1 vertebral body with accompanying anterior wedging. The posterior fusion screws are no longer associated with the facet joints of C4, C5 or C6 and now lie in the subcutaneous tissues at the posterior aspect of these vertebral levels. Lucencies are visualized within the facets at the aforementioned C4-C6 levels. There is new retrolisthesis of C4 on C5 and new kyphotic curve of the cervical spine due to the collapsed vertebral bodies and dislodgment of the posterior cervical hardware. There is inflammatory change and skin thickening of the soft tissues at the posterior aspect of the cervical spine. There is also mild soft tissue thickening and hypoattenuation within the soft tissues at the anterior aspect of the cervical spine. Procedure Note Interface, Received Via [employer] - 08/22/2019 12:30 AM EST CLINICAL INFORMATION: Concern for loosening hardware. COMPARISON: CT cervical spine dated 02/07/2019 and 02/05/2019. CERVICAL SPINE CT PROCEDURE: Contiguous axial tomographic sections were obtained through the cervical spine without intravenous contrast. Coronal and sagittal reformats were processed. Automated dose lowering techniques and/or adjustment according to patient size were utilized for this exam. CERVICAL SPINE CT FINDINGS: Orthopedic hardware extending from C5 to T1 post anterior cervical discectomy and fusion and screws and posterior spinal fusion rods post C4-T2 posterior spinal fusion creates streak. An expandable cage extending from the inferior endplate of C5 to the superior endplate of T1 post C6 and C7 corpectomy is again shown. There is interval angulation of the cage with the superior portion angled anteriorly. The anterior screws at the C5 level are no longer positioned within bone. There has been interval bony erosion of the vertebral bodies surrounding the anterior fusion hardware extending from C5-T1 as described in more detail below: * Partial erosion and anterior wedging of the C4 and C5 vertebral bodies. * Interval bony erosion of the T1 vertebral body with accompanying anterior wedging. The posterior fusion screws are no longer associated with the facet joints of C4, C5 or C6 and now lie in the subcutaneous tissues at the posterior aspect of these vertebral levels. Lucencies are visualized within the facets at the aforementioned C4-C6 levels. There is new retrolisthesis of C4 on C5 and new kyphotic curve of the cervical spine due to the collapsed vertebral bodies and dislodgment of the posterior cervical hardware. There is inflammatory change and skin thickening of the soft tissues at the posterior aspect of the cervical spine. There is also mild soft tissue thickening and hypoattenuation within the soft tissues at the anterior aspect of the cervical spine. IMPRESSION: 1. Posterior dislodgment of the facet screws and posterior spinal fusion rods at C4-C6. There is also mild loosening and retraction of pedicle screws at T1. Facet screws at T2 remain in place. 2. Anterior angulation of the expandable cage between the C5 and T1 vertebral bodies post C6 and C7 corpectomy. 3. New onset retrolisthesis of C4 on C5 and kyphotic curve due to vertebral body collapse of C5. 4. Inflammatory change in edema in the anterior and posterior paraspinal soft tissues. 5. The osseous erosions may be related to osteolysis or osteomyelitis. These findings were discussed with Dr. Burgess by Dr. Gaffney on 08/21/2019 at 10:50 PM. Performing Organization Address City/State/Zipcode Phone Number ON LICENSE OF [facility] [address] [place] [address] Blood culture ; Peripheral (08/21/2019 9:12 PM EST) Special Request Blood [facility] Pathology Culture/Results NO GROWTH [facility] Pathology Specimen Peripheral Performing Organization Address City/[facility]/Zipcode Phone Number [facility] PATHOLOGY [address] [place] [address] [facility] [address] [place] [address] Pathology Hepatitis C RNA, quantitative, PCR (08/21/2019 9:10 PM EST) [facility] Hepatitis C Quant 418,620 IU/mL [facility] HCV Log 10 5.622 log10 IU/mL [facility] Test Information Comment [facility] Comment: (NOTE) The quantitative range of this assay is 15 IU/mL to 100 million IU/mL. Performed At: [facility] [address] [id number] Jacky Lugo MD Ph:[phone] Specimen Serum Performing Organization Address [facility] Phone Number [facility] [address] [place] [address] [phone] Hepatitis C antibody (08/21/2019 9:10 PM EST) [facility] Hepatitis C Ab Reactive (A)Comment: Non Reactive [facility] Past or current [facility] Hepatitis C Pathology infection. Specimen forwarded to reference laboratory for quantitative HCV RNA testing. Specimen Serum Performing Organization Address [facility] Phone Number [facility] [address] [place] [address] [facility] [address] [place] [address] Pathology Inflammatory C-Reactive Protein (CRP) (08/21/2019 9:10 PM EST) [facility] C Reactive Protein 19.8 (H) <8.0 mg/L [facility] Pathology Specimen Plasma Performing Organization Address [facility] Phone Number [facility] [address] [place] [address] [facility] [address] [place] [address] Pathology Sedimentation rate, automated (08/21/2019 9:10 PM EST) [facility] Sed Rate - ESR >120 (H)Comment: <15 mm/hr [facility] Confirmed [facility] Pathology Specimen EDTA Whole Blood Performing Organization Address [facility] Phone Number [facility] [address] [place] [address] [facility] [address] [place] [address] Pathology Basic Metabolic Panel (08/21/2019 9:10 PM EST) Bicarbonate 23 22 - 29 mmol/L [facility] Pathology Chloride 98 98 - 107 mmol/L [facility] Pathology Creatinine 0.78 0.70 - 1.20 [facility] mg/dL [facility] Pathology Glucose 91 70 - 140 mg/dL [facility] Pathology Potassium 4.2 3.4 - 5.1 [facility] mmol/L [facility] Sodium 132 (L) 136 - 145 [facility] mmol/L [facility] Blood Urea Nitrogen 10 6 - 20 mg/dL [facility] Pathology Anion Gap 11 8 - 15 mmol/L [facility] Pathology Osmolality, Lai 274 (L) 275 - 300 [facility] mosm/kg [facility] Pathology BUN/Cre Ratio 13 [facility] Pathology Calcium 9.2 8.6 - 10.0 [facility] mg/dL [facility] Pathology GFR Non >90 >60 [facility] Cypriot 2009 CDK-EPI mL/min/1.73m2 [facility] Pathology GFR >90 >60 [facility] 2009 CKD-EPI mL/min/1.73m2 [facility] Pathology Specimen Plasma Performing Organization Address [facility]/Zipcode Phone Number [facility] PATHOLOGY [address] [place] [address] [facility] [address] [place] [address] Pathology Blood culture ; Peripheral (08/21/2019 9:10 PM EST) Special Request R [facility] Pathology Culture/Results NO GROWTH [facility] Pathology Specimen Peripheral Performing Organization Address City/[facility]/Zipcode Phone Number [facility] PATHOLOGY [address] [place] [address] [facility] [address] [place] [address] Pathology CBC and Differential (08/21/2019 9:10 PM EST) White Blood Cell 5.5 4 - 10 [facility] 10*3/uL [facility] Pathology Red Blood Cell 4.68 4.6 - 6.1 [facility] 10*6/uL [facility] Hemoglobin 12.4 (L) 13.5 - 18 [facility] g/dL [facility] Hematocrit 38.2 (L) 41 - 53 % [facility] Pathology Mean Cell Volume 81.7 80 - 96 fL [facility] Pathology Mean Cell Hemoglobin 26.5 (L) 27 - 33 pg [facility] Pathology Mean Cell Hgb Conc 32.5 32.0 - 36.0 [facility] g/dL [facility] Pathology Red Cell Dist Width 13.5 11.5 - 14.5 % [facility] Pathology Platelet Count 285 150 - 400 [facility] 10*3/uL [facility] Pathology Differential Type Automated Diff [facility] Pathology Neutrophil 56 % [facility] Pathology Lymphocyte 27 % [facility] Pathology Monocyte 13 % [facility] Pathology Eosinophil 3 % [facility] Pathology Basophil 1 % [facility] Pathology Abs Neutrophil 3.14 1.8 - 7.0 [facility] 10*3/uL [facility] Pathology Abs Lymphocyte 1.47 1.2 - 4.0 [facility] 10*3/uL [facility] Pathology Abs Monocyte 0.73 0 - 0.8 [facility] 10*3/uL [facility] Pathology Abs Eosinophil 0.17 0 - 0.5 [facility] 10*3/uL [facility] Pathology Abs Basophil 0.04 0 - 0.2 [facility] 10*3/uL [facility] Pathology Nucleated Red Blood 0 0 - 0 [facility] Cells /100{WBCs} [facility] Pathology Specimen EDTA Whole Blood Performing Organization Address City/State/Zipcode Phone Number [facility] PATHOLOGY [address] [place] [address] [phone] [facility] [address] [place] [address] Pathology documented in this encounter Visit Diagnoses Diagnosis Loosening of hardware in spine - Primary Diagnosis unknown Other unknown and unspecified cause of morbidity or mortality IVDU (intravenous drug user) Other, mixed, or unspecified nondependent drug abuse, unspecified History of hepatitis C Personal history of other infectious and parasitic disease Osteomyelitis of vertebra of cervical region Unspecified osteomyelitis, other specified site Tobacco use disorder Opioid use disorder, severe, dependence Chronic hepatitis C without hepatic coma 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 documented in this encounter Administered Medications Medication Order MAR Action Action Date Dose Rate Site acetaminophen (TYLENOL) tablet Given 09/09/2019 8:26 AM EST 975 mg 975 mg 975 mg, Oral, 2 Times Daily, First dose on Sun08/22/19 at 1300, For 44 doses Given 09/08/2019 8:45 AM EST 975 mg Given 09/07/2019 9:54 PM EST 975 mg bacitracin ointment Given 09/09/2019 4:43 AM EST 450 Units Topical, Every 8 hours, First dose (after last modification) on Sun09/04/19 at 1215, For 30 days, Apply to pin sites daily, Given 09/08/2019 11:14 AM EST 450 Units Given 09/07/2019 9:55 PM EST 450 Units bacitracin ointment Given 09/08/2019 8:48 AM EST 450 Units Topical, Daily Standard, First dose on Sun09/05/19 at 0900, For 30 days, Apply to cranial pin sites daily- 4 cranial pins, Given 09/07/2019 8:37 AM EST 450 Units Given 09/06/2019 8:19 AM EST 450 Units carBAMazepine (TEGRETOL) tablet 200 mg Given 09/08/2019 8:46 AM EST 200 mg 200 mg, Oral, 2 Times Daily, First dose on Sun08/22/19 at 0900, For 30 days Given 09/07/2019 9:54 PM EST 200 mg Given 09/07/2019 8:35 AM EST 200 mg cefepime (MAXIPIME) 2 g in sodium New Bag 09/09/2019 12:19 PM EST 2 g 100 mL/hr chloride 0.9 % 50 mL infusion 2 g, Intravenous, Administer over 30 Minutes, Every 8 hours, First dose on Sun08/22/19 at 0600, For 82 doses New Bag 09/08/2019 11:09 AM EST 2 g 100 mL/hr New Bag 09/08/2019 3:59 AM EST 2 g 100 mL/hr cyclobenzaprine (FLEXERIL) tablet 10 mg Given 09/06/2019 1:54 PM EST 10 mg 10 mg, Oral, Three Times Daily-PRN, Muscle spasms, Starting Sun08/22/19 at 0353, For 30 days Given 09/06/2019 6:31 AM EST 10 mg Given 09/05/2019 10:08 PM EST 10 mg diphenhydrAMINE (BENADRYL) capsule 50 mg Given 09/06/2019 2:32 AM EST 50 mg 50 mg, Oral, Nightly PRN, Sleep, Starting Avani 09/04/19 at 2211, For 640 hours gabapentin (NEURONTIN) capsule 600 mg Given 09/08/2019 8:45 AM EST 600 mg 600 mg, Oral, Three Times Daily Standard, First dose (after last modification) on Sun09/01/19 at 1700, For 70 doses Given 09/07/2019 9:54 PM EST 600 mg Given 09/07/2019 5:49 PM EST 600 mg heparin (porcine) 5000 UNIT/ML Given 09/08/2019 8:48 AM EST 5,000 Units injection 5,000 Units 5,000 Units, Subcutaneous, 2 Times Daily, First dose on Sun09/04/19 at 2100, For 30 days Given 09/07/2019 9:54 PM EST 5,000 Units Given 09/07/2019 8:39 AM EST 5,000 Units heparin lock flush 10 UNIT/ML injection New Bag 09/02/2019 9:08 AM EST 20 Units 20 Units 20 Units, Intravenous, PRN, Line Care, Starting Sun08/25/19 at 1406, For 30 days, Verify blood return before use. Flush with 10 mL of Sodium Chloride 0.9 % before and after infusions or blood sampling followed-by 2 mL Heparin 10 units/mL to lock. Reference Policy C-34H Central Line Policy., Given by IV push 08/28/2019 6:34 PM EST 20 Units heparin lock flush 10 UNIT/ML injection New Bag 09/07/2019 3:06 PM EST 20 Units 20 Units 20 Units, Intravenous, Every 12 hours, First dose on Sun08/25/19 at 1415, For 30 days, WHEN NOT IN USE - Verify blood return before use. Flush with 10 mL of Sodium Chloride 0.9 % and 2 mL Heparin 10 units/mL. Reference Policy CM C-34H Central Line Policy., New Bag 09/07/2019 5:02 AM EST 20 Units New Bag 09/06/2019 5:27 PM EST 20 Units lidocaine (XYLOCAINE) 1 % injection 5 mL 5 mL, Subcutaneous, Once PRN, for PICC insertion, Starting Sun09/09/19 at 0900 , For 30 days magnesium hydroxide (MILK OF MAGNESIA) 400 Given 09/03/2019 10:17 PM EST 45 mLs MG/5ML suspension 45 mL 45 mL, Oral, Nightly, First dose on Sun08/22/19 at 2200, For 30 days, If serum creatinine > 2 notify provider before administering., Given 08/24/2019 9:02 PM EST 45 mLs Given 08/23/2019 9:07 PM EST 45 mLs melatonin tablet 3 mg Given 09/07/2019 9:55 PM EST 3 mg 3 mg, Oral, Nightly, First dose on Sun08/30/19 at 2200, For 30 days Given 09/06/2019 9:09 PM EST 3 mg Given 09/05/2019 10:08 PM EST 3 mg metoprolol (LOPRESSOR) injection 5 mg 5 mg, Intravenous, Every 6 hours PRN, High Blood Pressure, SBP>160, Starting Sun09/05/19 at 1137, For 30 days, Dilute in 25 or 50 mL NS and administer over 30 minutes. If giving IVP, must be administered under the direct supervision of a medical provider and patient on a bus driver/monitor., morphine (MSIR) tablet 15 mg Given 09/08/2019 5:00 AM EST 15 mg 15 mg, Oral, Every 4 hours PRN, Moderate Pain (Pain Scale Score 4-6), Starting 09/06/19 at 1652, For 3 days morphine (MSIR) tablet 22.5 mg Given 09/08/2019 9:01 AM EST 22.5 mg 22.5 mg, Oral, Every 4 hours PRN, Severe Pain (Pain Scale Score 7-10), Starting 09/06/19 at 1652, For 3 days Given 09/07/2019 10:02 PM EST 22.5 mg Given 09/07/2019 3:05 PM EST 22.5 mg pantoprazole (PROTONIX) 2 mg/mL oral Given 09/06/2019 7:43 AM EST 40 mg suspension 40 mg 40 mg, Oral, Before Breakfast, First dose on Sun09/05/19 at 0730, For 30 days pantoprazole (PROTONIX) EC tablet 40 mg Given 09/08/2019 8:44 AM EST 40 mg 40 mg, Oral, Daily Standard, First dose on Sun08/22/19 at 0900, For 30 days, Do not crush or chew, Given 09/02/2019 9:07 AM EST 40 mg Given 09/01/2019 9:22 AM EST 40 mg polyethylene glycol (MIRALAX) packet 17 g Given 09/07/2019 8:32 AM EST 17 g 17 g, Oral, Daily Standard, First dose on Sun08/22/19 at 0900, For 30 days, Mix in 8 ounces of water, juice or milk. Avoid use in patients who require thickened liquids due to potential increased risk for aspiration., Given 09/06/2019 8:19 AM EST 17 g Given 09/04/2019 8:39 AM EST 17 g potassium chloride (K-DUR,KLOR-CON) Given 09/08/2019 8:47 AM EST 20 mEq dissolvable tablet 20 mEq 20 mEq, Oral, 2 Times Daily, First dose on Sun09/06/19 at 0900, For 30 days, May be dissolved in water for patients with a G-Tube or unable to swallow. If concern for clogging G-Tube, may contact Pharmacy to switch formulation to a powder packet., Given 09/07/2019 9:55 PM EST 20 mEq Given 09/06/2019 9:00 PM EST 20 mEq sodium chloride (preservative free) 0.9 % New Bag 09/02/2019 9:08 AM EST 10 mLs flush 10 mL 10 mL, Intravenous, PRN, Line Care, Starting 08/25/19 at 1406, For 30 days, Verify blood return before use. Flush with 10 mL of Sodium Chloride 0.9 % before and after infusions or blood sampling followed-by 2 mL Heparin 10 units/mL to lock. Reference Policy C-34H Central Line Policy., Given by IV push 08/28/2019 6:34 PM EST 10 mLs sodium chloride (preservative free) 0.9 % New Bag 09/07/2019 3:06 PM EST 10 mLs flush 10 mL 10 mL, Intravenous, Every 12 hours, First dose on 08/25/19 at 1415, For 30 days, WHEN NOT IN USE - Verify blood return before use. Flush with 10 mL of Sodium Chloride 0.9 % and 2 mL Heparin 10 units/mL. Reference Policy C-34H Central Line Policy., New Bag 09/07/2019 5:41 AM EST 10 mLs New Bag 09/06/2019 5:29 PM EST 10 mLs vancomycin (VANCOCIN) 2,000 mg New Bag 09/08/2019 1:08 PM EST 2,000 mg 250 mL/hr in sodium chloride 0.9 % 500 mL IVPB 2,000 mg, Intravenous, Administer over 120 Minutes, Every 12 hours, First dose (after last modification) on Sun09/08/19 at 1000, For 5 doses, Per Clinical RX Policy, Medication Order MAR Action Action Date Dose Rate Site alprazolam (XANAX) tablet 0.25 Given 09/05/2019 12:41 AM EST 0.25 mg mg 0.25 mg, Oral, Once, Avani 09/04/19 at 2345, For 1 dose alprazolam (XANAX) tablet 1 mg Given 09/01/2019 12:31 AM EST 1 mg 1 mg, Oral, Nightly PRN, Anxiety, Starting [facility] 08/30/19 at 2136, For 3 days Given 08/30/2019 11:54 PM EST 1 mg cefepime (MAXIPIME) 2 g in sodium New Bag 08/21/2019 9:44 PM EST 2 g 100 mL/hr chloride 0.9 % 50 mL infusion 2 g, Intravenous, Administer over 30 Minutes, Once, Avani 08/21/19 at 2115, For 1 dose cloNIDine (CATAPRES) tablet 0.1 mg Given 08/31/2019 9:08 PM EST 0.1 mg 0.1 mg, Oral, 2 Times Daily, First dose on Sun08/22/19 at 1300, For 39 doses, Check vital signs before administering., Given 08/31/2019 9:13 AM EST 0.1 mg Given 08/30/2019 8:33 PM EST 0.1 mg cloNIDine (CATAPRES) tablet 0.1 mg Given 09/03/2019 10:18 PM EST 0.1 mg 0.1 mg, Oral, Every evening, First dose (after last modification) on 09/01/19 at 2100, For 3 days, Check vital signs before administering., Given 09/01/2019 9:36 PM EST 0.1 mg diphenhydrAMINE (BENADRYL) capsule 25 mg Given 09/01/2019 9:36 PM EST 25 mg 25 mg, Oral, Nightly PRN, Sleep, Starting 09/01/19 at 1442, For 30 days fentaNYL (SUBLIMAZE) (PF) injection 25 mcg New Bag 09/04/2019 9:52 PM EST 25 mcg 25 mcg, Intravenous, Every 2 hours PRN, Other, Breakthrough, Starting Avani 09/04/19 at 1835, For 3 days New Bag 09/04/2019 8:05 PM EST 25 mcg fentaNYL (SUBLIMAZE) (PF) Given by IV push 09/07/2019 5:54 PM EST 50 mcg injection 50 mcg 50 mcg, Intravenous, Every 2 hours PRN, Other, Breakthrough, Starting Avani 09/04/19 at 2212, For 68 hours New Bag 09/07/2019 5:01 AM EST 50 mcg New Bag 09/06/2019 6:31 AM EST 50 mcg fentaNYL (SUBLIMAZE) 50 Rate/Dose Change 09/04/2019 4:02 PM 30 mcg/hr 0.6 mL/hr mcg/mL continuous infusion EST 10-100 mcg/hr (0.2-2 mL/hr), Intravenous, at 0.2-2 mL/hr, Continuous, Starting [facility] 09/02/19 at 2330, For 7 days, Starting dose = 25 mcg/hr Titrate to maintain BPS less than 6 or VPS less than 4 Increase by 12.5 mcg/hr Max Dose = 300 mcg/hr, Rate/Dose Verify 09/04/2019 3:00 PM EST 40 mcg/hr 0.8 mL/hr Rate/Dose Verify 09/04/2019 2:00 PM EST 40 mcg/hr 0.8 mL/hr gabapentin (NEURONTIN) 250 MG/5ML solution Given 08/25/2019 8:06 PM EST 300 mg 300 mg 300 mg, Oral, Three Times Daily Standard, First dose on Sun08/22/19 at 0900, For 30 days Given 08/25/2019 5:08 PM EST 300 mg Given 08/25/2019 9:27 AM EST 300 mg gabapentin (NEURONTIN) capsule 300 mg Given 09/01/2019 9:22 AM EST 300 mg 300 mg, Oral, Three Times Daily Standard, First dose on Sun08/25/19 at 2100, For 30 days Given 08/31/2019 9:08 PM EST 300 mg Given 08/31/2019 5:15 PM EST 300 mg gadobutrol (GADAVIST) contrast injection 11 Given 08/22/2019 3:15 AM EST 11 mLs mL 11 mL (rounded from 11.34 mL = 0.1 mL/kg 113.4 kg), Intravenous, 1 TIME IMAGING, Sun08/22/19 at 0315, For 1 dose, Do not mix or administer in the same IV line with other medications., iohexol (OMNIPAQUE) 300 MG/ML contrast Given 08/22/2019 5:32 PM EST 150 mLs injection 150 mL 150 mL, Given by IV, 1 TIME IMAGING, Sun08/22/19 at 1730, For 1 dose ketorolac (TORADOL) 30 MG/ML injection 15 New Bag 08/21/2019 10:34 PM EST 15 mg mg 15 mg, Intravenous, Once, Avani 08/21/19 at 2200, For 1 dose lactulose (CHRONULAC) solution 30 mL Given 08/24/2019 6:47 PM EST 30 mLs 30 mL, Oral, Every 4 hours, First dose on Sun08/24/19 at 1500, For 2 doses Given 08/24/2019 3:43 PM EST 30 mLs lactulose (CHRONULAC) solution 30 mL Given 08/25/2019 5:08 PM EST 30 mLs 30 mL, Oral, Three Times Daily Standard, First dose on 08/25/19 at 1415, For 2 doses Given 08/25/2019 3:15 PM EST 30 mLs lidocaine (XYLOCAINE) 1 % injection 5 mL Given 08/25/2019 9:38 PM EST 5 mLs 5 mL, Subcutaneous, Once PRN, for PICC insertion, Starting 08/25/19 at 1406, For 30 days lidocaine (XYLOCAINE) 2 % injection 10 mL Given 09/04/2019 12:59 PM EST 10 mLs 10 mL, Infiltration, Once, Avani 09/04/19 at 1145, For 1 dose lidocaine-EPINEPHrine 1 %-1:[id number] injection Given 09/04/2019 11:43 AM EST 10 mLs 10 mL 10 mL, Infiltration, Once, Avani 09/04/19 at 1100, For 1 dose magnesium sulfate infusion 2 g/50 New Bag 09/06/2019 8:40 AM EST 16 mEq 50 mL/hr mL (premix) 16 mEq, Intravenous, Every 1 hour PRN, for serum magnesium < 2 mEq/L, Starting 09/06/19 at 0607, For 7 days, Serum Magnesium 1.6 - 1.9: give 16 mEq (2 g) q1h x 2 Serum Magnesium 1.5 and less: give 16 mEq (2 g) q1h x 3 *For ICU Stay only, discontinue on transfer*, New Bag 09/06/2019 7:40 AM EST 16 mEq 50 mL/hr morphine (MSIR) tablet 22.5 mg Given 08/31/2019 9:48 AM EST 22.5 mg 22.5 mg, Oral, Every 4 hours PRN, Severe Pain (Pain Scale Score 7-10), Starting Sun08/22/19 at 1246, For 216 hours Given 08/31/2019 12:46 AM EST 22.5 mg Given 08/30/2019 8:40 PM EST 22.5 mg morphine (MSIR) tablet 22.5 mg Given 09/02/2019 9:07 AM EST 22.5 mg 22.5 mg, Oral, Every 4 hours PRN, Severe Pain (Pain Scale Score 7-10), Starting [place] 08/31/19 at 1718, For 3 days Given 09/02/2019 1:41 AM EST 22.5 mg Given 09/01/2019 9:37 PM EST 22.5 mg morphine sulfate (PF) injection 2 mg New Bag 09/02/2019 12:32 AM EST 2 mg 2 mg, Intravenous, Once, Sun09/02/19 at 0030, For 1 dose NaCl infusion 0.9 % New Bag 08/26/2019 12:47 PM EST 100 mL/hr at 100 mL/hr, Intravenous, Continuous, Starting Sun08/22/19 at 0400, For 30 days New Bag 08/24/2019 5:02 PM EST 100 mL/hr New Bag 08/24/2019 5:04 AM EST 100 mL/hr NaCl infusion 0.9 % Rate/Dose Verify 09/04/2019 7:00 PM EST 100 mL/hr at 100 mL/hr, Intravenous, Continuous, Starting Sun09/02/19 at 0000, For 30 days Rate/Dose Verify 09/04/2019 6:00 PM EST 100 mL/hr Rate/Dose Verify 09/04/2019 5:00 PM EST 100 mL/hr NaCl infusion 0.9 % Rate/Dose Verify 09/06/2019 6:54 AM EST 100 mL/hr at 100 mL/hr, Intravenous, Continuous, Starting Sun09/05/19 at 1030, For 30 days New Bag 09/06/2019 6:30 AM EST 100 mL/hr Rate/Dose Verify 09/05/2019 11:00 PM EST 100 mL/hr oxyCODONE (ROXICODONE) immediate release Given 08/22/2019 6:48 AM EST 10 mg tablet 10 mg 10 mg, Oral, Once, 08/22/19 at 0645, For 1 dose, Oxycodone immediate release is limited to 10 mg per dose. Higher doses ( only) require Pain Service consultation and approval., oxyCODONE (ROXICODONE) immediate release Given 09/06/2019 2:32 AM EST 10 mg tablet 10 mg 10 mg, Oral, Every 4 hours PRN, Severe Pain (Pain Scale Score 7-10), Starting Avani 09/04/19 at 1835, For 3 days, Oxycodone immediate release is limited to 10 mg per dose. Higher doses ( only) require Pain Service consultation and approval., Given 09/05/2019 8:12 PM EST 10 mg Given 09/04/2019 11:12 PM EST 10 mg potassium chloride 20 mEq in 50 mL New Bag 09/06/2019 7:48 AM EST 20 mEq 50 mL/hr IVPB (premix) 20 mEq, Intravenous, Every 1 hour PRN, for serum potassium < 4 mEq/L, Starting 09/06/19 at 0607, For 7 days, * For patients with continuous ECG monitoring * Serum Potassium 3.7 - 3.9: give 20 mEq q1h x 1 Serum Potassium 3.6 and less: give 20 mEq q1h x 2 *For ICU Stay only, discontinue on transfer*, New Bag 09/06/2019 6:36 AM EST 20 mEq 50 mL/hr potassium phosphate infusion 12 New Bag 09/06/2019 5:59 PM EST 12 mmol 50 mL/hr mmol/100 mL (central line) (premix) 12 mmol, Intravenous, at 50 mL/hr, Every 2 hours PRN, for serum phosphate < 2.6 mg/dL, Starting 09/06/19 at 0607, For 7 days, * For patients with continuous ECG monitoring * DO NOT USE IF SERUM POTASSIUM > 4 mEq/L Potassium content: 17.6 mEq Serum phosphate 2 - 2.5: give 12 mmol q2h x1 Serum phosphate 1.9 and less: give 12 mmol q2h x 2 *For ICU Stay only, discontinue on transfer* Slower infusion rates (e.g. over 4 hours) are recommended in patients with renal impairment and/or less severe hypophosphatemia. Product contains 17.6 mEq of potassium., For central line use only. , New Bag 09/06/2019 12:07 PM EST 12 mmol 50 mL/hr New Bag 09/06/2019 9:57 AM EST 12 mmol 50 mL/hr propofol (DIPRIVAN) 1000 MG/100ML infusion Given 09/02/2019 8:45 PM EST 1,000 mg Starting Sun09/02/19 at 2033, For 1 dose, Debbie Flores : cabinet override, Debbie Flores : cabinet override, propofol (DIPRIVAN) Rate/Dose Verify 09/04/2019 4:00 PM 25 mcg/kg/min 16.2 mL/hr infusion 1,000 mg/100 EST mL 10-80 mcg/kg/min 107.7 kg (6.462-51.696 mL/hr, rounded to 6.5-51.7 mL/hr), Intravenous, at 6.5-51.7 mL/hr, Continuous, Starting Sun09/02/19 at 2230, For 30 days, Starting dose = 10 mcg/kg/min Titrate to maintain RASS of -2 Increase by 5-10 mcg/kg/min Max Dose = 80 mcg/kg/min Titrate down if RASS of -4, Rate/Dose Verify 09/04/2019 3:00 PM EST 25 mcg/kg/min 16.2 mL/hr 09/04/2019 2:50 PM EST 25 mcg/kg/min 16.2 mL/hr vancomycin (VANCOCIN) 1750 mg New 09/08/2019 2:09 AM EST 1,750 mg 333.3 mL/hr in NaCl 0.9 % 500 mL (premix) 1,750 mg, Intravenous, Administer over 90 Minutes, Every 12 hours, First dose (after last reorder) on Sun08/22/19 at 0415, For 39 doses, Per Clinical RX Policy, New 09/07/2019 12:40 PM EST 1,750 mg 333.3 mL/hr 09/07/2019 2:47 AM EST 1,750 mg 333.3 mL/hr documented in this encounter Additional Health Concerns Infection Noted Time Resolved Time MRSA (Methicillin Resistant Staphylococcus 02/08/2019 10:25 AM EDT aureus) documented as of this encounter
[2019-09-26] MEDS ORDERED: Piperacillin/Tazobac (*) 3.375 GM BAG ONE (17:28)
[2019-09-26 17:31] LABS: Hematocrit 37 % (42-52); Hemoglobin 11.9 g/dL (14.0-18.0); Mean Corpuscular HGB Conc 32 g/dL (31-36); Mean Corpuscular Hemoglobin 27 pg (27-31); Mean Corpuscular Volume 83 fL (80-94); Mean Platelet Volume 7.9 fL (7.4-10.4); Platelet Count 321 10^3/uL (150-450); Red Blood Count 4.42 10^6 /uL (4.18-5.48); Red Cell Distribution Width 16 % (10-15)
[2019-09-26 17:40] LABS: Activated Partial Thrombo Time 37.8 seconds (26.0-38.0); INR 1.36 (0.82-1.09)
[2019-09-26 17:57] LABS: ABS Lymphocytes 1.8 10^3/ul (1.0-4.8); ABS Monocytes 1.8 10^3/ul (0-0.8); ABS Neutrophils 13.3 10^3/ul (1.5-7.7); ALT 22 U/L (7-52); AST 25 U/L (13-39); Albumin 3.6 g/dL (3.2-5.2); Albumin/Globulin Ratio 0.6 (1-3); Alkaline Phosphatase 120 U/L (34-104); Anion Gap 8 mmol/L (2-11); BUN/Creatinine Ratio 10.1 (8-20); Blood Urea Nitrogen 9 mg/dL (6-24); CO2 Carbon Dioxide 27 mmol/L (22-32); Calcium 9.7 mg/dL (8.6-10.3); Chloride 96 mmol/L (101-111); EGFR African American 113.4 (>60); EGFR Non-African American 93.7 (>60); Eosinophil % 0.1 %; Glucose 116 mg/dL (70-100); Lymphocyte % 10.8 %; Sodium 131 mmol/L (135-145); Total Protein 9.6 g/dL (6.4-8.9)
[2019-09-26 18:04] LABS: Troponin I 0.03 ng/mL (<0.03)
[2019-09-26] MEDS ORDERED: Acetaminophen TAB* 325 MG PO ONE (19:10)
[2019-09-26 19:44] VITALS: BP 116/78
== END 2019-09-26 20:00 | disposition short-term general hospital (02) ==
LOC: ED 16:28
DX: A41.9 Sepsis, unspecified organism (principal); M86.9 Osteomyelitis, unspecified; F17.210 Nicotine dependence, cigarettes, uncomplicated; T40.1X1A Poisoning by heroin, accidental (unintentional), initial encounter; Y92.9 Unspecified place or not applicable; R94.31 Abnormal electrocardiogram [ECG] [EKG]
CPT/HCPCS: 36415; 71045; 80053; 83605; 84484; 85025; 85610; 85730; 87040; 87077; 87150; 87186; 87205; 93005; 96365; 96367; 99285; A9270-GY; J2543; J3370